=== PATIENT | female | born 1955 | race Caucasian/White ===

== ENCOUNTER → 2018-03-25 | Outpatient (CLI) | payer BC ==
[~2018-03-25] MED LIST: AMLO5TAB2 PO; ARIP10TA2 PO; ASP81CT; ASP81TEC PO; ASPI-84 PO; ATOR10TA PO; BISA5TAB81; BUTA-234 PO; CEPH500C PO; CHOL100011 PO; CHOL10003 PO; CHOL50003 PO; CIPR500T78 PO; CLIN-62; CLN.1T PO; CLN150C PO; CLON0.25; CLON0.5T3 PO; CPR500T PO; CYAN100T PO; DCS100C PO; DESV100T PO; DIPH25TA82 PO; ENDUR ACIN PO; ENDUR-ACIN PO; ERTAPENEM 1 GM IV; ESCI20TA2 PO; ESTR1TAB22; FISH OIL PO; FISH1CAP15 PO; FURO20TA4 PO; HYDR-3454 PO; HYDR-3714 PO; HYDR1CAP2 PO; HYDR25CA5 PO; INSU100I11 SQ; INSU100I16 SQ; INSU100V SQ; INSU100V5 SQ; INSU100V7 SC; INSU100V7 SQ; K-ROCEP1PB IV; LACT20SO2 PO; LCT30U GT; LEVE1U SQ; LINA5TAB PO; MAGN200T3 PO; MAGN400T6 PO; MECL-124 PO; METO5TAB2 PO; MTF500T PO; MULT-974 PO; MULT1TAB5 PO; NA P PO; NEBI5TAB8 PO; NF-LOVAZAC PO; NF-MAG64T PO; NFNEB10T PO; NFVALG450T PO; NIAC1000; NIAC750T PO; NIACIN 250 MG PO; OMEG1CAP PO; OMEP-10 PO; OMEP40CA36 PO; ONDN4T PO; PARI1CAP; PRD10T PO; PRD5T PO; PRED2.5T4 PO; RANI75TA30; RIFA550T PO; RPN.25T PO; SLOW-MAG64 M1 PO; SPIR50TA6 PO; SULF1TAB23 PO; TACR0.5C PO; TACR1CAP PO; TEMA22.53 PO; TMZP15C PO; TRM50T PO; ZOLP12.5; [UNRECOGNIZED DRUG - CODE] IV; [UNRECOGNIZED DRUG - CODE] PO; [UNRECOGNIZED DRUG - OTHER] PO; [UNRECOGNIZED DRUG - OTHER] SQ; prestiq PO; temazepam
--- NOTE | 2018-03-25 15:56 | Diagnostic Imaging Report ---
INDICATION: Screening for osteoporosis. EXAMINATION: DEXA scan. COMPARISON: This study was compared to the prior exam of 07/27/14. FINDINGS: The bone mineral density of the hips and spine was measured. The T-score for the spine is 3.2. Previously, the T-score was 1.7. The T-score for the left hip is 2.5 and for the right hip is 2.2. On the prior exam the T-score for each hip was 1.9. IMPRESSION: There has been increase in the bone mineral density of the spine and to a lesser extent the hips. The T-score values are well within normal limits. Dictated by: Dictated on workstation # [id number]
== END ==
LOC: RAD 10:16
PROVIDERS: ATTEND Internal Medicine
DX: Z13.820 Encounter for screening for osteoporosis (principal); Z78.0 Asymptomatic menopausal state
CPT/HCPCS: 77080

== ENCOUNTER 2018-11-11 18:01 | Emergency (ER) | payer BC ==
[~2018-11-11] VITALS: Ht 167.6 cm; Wt 86.2 kg
--- NOTE | 2018-11-11 18:22 | ED Upper Extremity ---
General Chief Complaint: Trauma-Non Activation Stated Complaint: RT SHOULDER PAIN Source: patient Exam Limitations: no limitations History of Present Illness Date Seen by Provider: Nov 11, 2018 Time Seen by Provider: 18:20 Initial Comments To ER per private vehicle with reports of right upper arm and shoulder pain. She was at her family member's house who had just , they're working on rearranging things. She tripped and fell landing on the right shoulder. She denies hitting her head, denies neck pain, denies chest abdomen pelvispain. She had some minimal discomfort to the right knee. Onset: just prior to arrival Severity: moderate Pain/Injury Location: right shoulder Method of Injury: fell Modifying Factors: Worse With Movement Allergies and Home Medications Allergies Coded Allergies: No Known Drug Allergies (Unverified , 12/25/13) Home Medications Aspirin 81 Mg Tabec, 81 MG PO HS, (Reported) Ceftriaxone Sodium 1 Gm/50 Ml Solution, 1 GM IV DAILY Prescribed by: TATIANA CLEMONS on 09/14/14 1406 Cholecalciferol 1,000 Unit Capsule, 1,000 UNIT PO DAILY, (Reported) Clonidine Hcl 0.1 Mg Tab, 0.1 MG PO BID Prescribed by: TATIANA CLEMONS on 09/14/14 1406 Insulin Detemir 1 Unit/0.01 Ml Soln, 75 UNIT SQ HS Prescribed by: TATIANA CLEMONS on 09/14/14 1406 Insulin Lispro 100 Unit/1 Ml Vial, S SQ ACHS PRN for SLIDING SCALE, (Reported) IF BLOOD SUGAR < 150 = 0 UNITS 151-199 = 1 UNIT 200-249 = 3 UNITS 250- 299 = 5 UNITS 300-349 = 7 UNITS 350-399 = 8 UNITS 400 OR ABOVE CALL PHYSICIAN Lactulose 10 Gm/15 Ml Syrp, 20 GM GT every other day Prescribed by: TATIANA CLEMONS on 09/14/14 1408 Linezolid 600 Mg/300 Iv.soln., 600 MG IV Q12H Prescribed by: TATIANA CLEMONS on 09/14/14 1406 Magnesium Oxide 400 Mg Tablet, 1 EACH PO BID WITH MEALS Prescribed by: CONNIE ZEPEDA on 10/08/14 1000 Nebivolol Hcl 10 Mg Tablet, 10 MG PO HS, (Reported) Omeprazole 40 Mg Capsule.dr, 40 MG PO DAILY, (Reported) Prednisone 5 Mg Tab, 5 MG PO DAILY, (Reported) Rifaximin 550 Mg Tablet, 550 MG PO BID, (Reported) Tacrolimus Anhydrous 0.5 Mg Capsule, 0.5 MG PO BID, (Reported) TAKES ALONG WITH TACROLIMUS 1MG FOR A TOTAL DAILY DOSE OF 1.5MG TWICE DAILY Tacrolimus Anhydrous 1 Mg Capsule, 1 MG PO BID, (Reported) TAKES ALONG WITH TACROLIMUS 0.5MG FOR A TOTAL DAILY DOSE OF 1.5MG TWICE DAILY [Endur-Acin 250MG] , 500 MG PO HS, (Reported) [Endur-Acin 250MG] , 250 MG PO DAILY, (Reported) [Endur-Acin 500MG] , 500 MG PO DAILY, (Reported) TAKES ALONG WITH 250MG FOR A TOTAL DAILY DOSE OF 750MG IN MORNING AND 1500MG IN THE EVENING [Endur-Acin 500MG] , 1,000 MG PO HS, (Reported) TAKES ALONG WITH 250MG FOR A TOTAL DAILY DOSE OF 750MG IN MORNING AND 1500MG IN THE EVENING Patient Home Medication List Home Medication List Reviewed: Yes Review of Systems Constitutional: see HPI EENTM: see HPI Respiratory: no symptoms reported Cardiovascular: no symptoms reported Genitourinary: no symptoms reported Musculoskeletal: see HPI Skin: no symptoms reported Psychiatric/Neurological: No Symptoms Reported Past Pvnaqit-Ozmvfh-Wjjole Hx Patient Social History Recent Foreign Travel: No Contact w/Someone Who Travel: No Immunizations Up To Date Tetanus Booster (TDap): More than 5yrs Date of Pneumonia Vaccine: Jul 05, 2014 Date of Influenza Vaccine: Jul 05, 2014 Seasonal Allergies Seasonal Allergies: Yes Past Medical History Bowel Surgery, Section, Coronary Stent, Gallbladder, Kidney Transplant , Nephrectomy, Orthopedic, Tonsillectomy, Tubal Ligation Heart Attack, Hypertension Neuropathy Reproductive Disorders: Yes Female Reproductive Disorders: Polycystic Ovarian Dis Polycystic Kidney Disease Gastroesophageal Reflux, Cirrhosis Diabetes, Insulin dep Kidney Depression Family Medical History Cataract (grandmother ) Chest pain 09 BROTHER Congestive heart failure (grandmother) Dementia (two paternal aunts) Family history: Alzheimer's disease (two paternal aunts) Family history: Arthritis (grandmother) Family history: Cardiovascular disease 09 BROTHER Family history: Hypertension 09 BROTHER Heart disease 09 BROTHER Kidney disease 03 MOTHER Stroke (paternal aunt) No Family History of: Abdominal aortic aneurysm Wanblee's disease Alcoholism Aphasia Cancer Cancer of colon Congenital heart disease Cystic fibrosis Dysphagia Family history: Allergy Family history: Asthma Family history: Breast disease Family history: Coronary thrombosis Family history: Diabetes mellitus Family history: Gastrointestinal disease Family history: Glaucoma Family history: Osteoporosis Family history: Thyroid disorder Headache Hearing loss Hereditary disease History of - anemia History of - disorder History of - respiratory disease History of drug abuse Human immunodeficiency virus (HIV) seropositivity Hypercholesterolemia Malignant neoplasm of lung Myocardial infarction Parkinson's disease Prostate cancer Psychotic disorder Seizure disorder Tuberculosis Visual impairment Physical Exam Vital Signs Vital Signs - First Documented 11/11/18 18:04 Temp 96.8 Pulse 66 Resp 16 B/P (MAP) 167/64 (98) Pulse Ox 98 Capillary Refill : Height, Weight, BMI Height: 5'6.00" Weight: 210lbs. 0.0oz. 95.999776fi; BMI Method:Estimated General Appearance: WD/WN, no apparent distress HEENT: PERRL/EOMI, normal ENT inspection, TMs normal Neck: non-tender, full range of motion; No tender lateral, No tender midline Respiratory: no respiratory distress, no accessory muscle use Gastrointestinal: normal bowel sounds, non tender Shoulder: limited ROM, pain, soft tissue tenderness; No swelling Elbow/Forearm: normal inspection, non-tender, Right Wrist: Yes normal inspection, Yes non-tender Hand: normal inspection, non-tender Neurologic/Psychiatric: alert, normal mood/affect, oriented x 3 Skin: normal color, warm/dry There is a small pea sized ecchymosis to the right anterior knee over the patella. She is able to fully extend her leg at the knee. No palpable effusion or erythema. No value in plain films for this. Progress/Results/Core Measures Results/Orders My Orders Orders - PREET HAHN APRN Shoulder, Right, 3 Views (11/11/18 18:19) Humerus, Right, 2 Views (11/11/18 18:19) Hydrocodone/Apap 5/325 Tablet (Lortab 5 (11/11/18 18:30) Medications Given in ED Current Medications Medications Dose Ordered Sig/Dani Route Start Time Stop Time Status Last Admin Dose Admin Acetaminophen/ Hydrocodone Bitart 1 tab ONCE ONCE PO 11/11/18 18:30 11/11/18 18:31 DC 11/11/18 18:25 1 TAB Vital Signs/I&O 11/11/18 11/11/18 18:04 18:09 Temp 96.8 96.8 Pulse 66 66 Resp 16 18 B/P (MAP) 167/64 (98) 167/64 (98) Pulse Ox 98 98 Departure Impression Primary Impression: Shoulder contusion Qualified Codes: S40.011A - Contusion of right shoulder, initial encounter Disposition: HOME, SELF-CARE Condition: Stable Departure-Patient Inst. Decision time for Depature: 19:38 Referrals: MERCY STALEY MD (PCP/Family) Primary Care Physician Patient Instructions: Contusion (DC) Add. Discharge Instructions: 1. Call Dr. Staley tomorrow to make an appointment to be seen for follow-up next week. If the pain persists the next step would likely be to order an MRI of the shoulder to further evaluate the labrum of the rotator cuff. Take the pain medication as needed for pain control in the meantime and wear the sling as needed for pain control as well. All discharge instructions reviewed with patient and/or family. Voiced understanding. Scripts Hydrocodone/Acetaminophen (Hydrocodone-Acetamin 5-325 mg) 1 Each Tablet 1 TAB PO Q4-6HR for PAIN-MODERATE MDD 10, #10 TAB Prov: PREET HAHN APRN 11/11/18 PREET HAHN APRN Nov 11, 2018 18:22
[2018-11-11] MEDS ORDERED: HYDROcodone/APAP 5 MG/325 MG (LORTAB) TAB PO ONE (18:30)
--- NOTE | 2018-11-11 19:45 | Diagnostic Imaging Report ---
INDICATION: Pain after fall. Three views were obtained. FINDINGS: The alignment is normal. There are mild degenerative changes. There is no fracture or dislocation. Right lung is clear. Soft tissues are unremarkable. IMPRESSION: Mild degenerative change, otherwise unremarkable. Dictated by: Dictated on workstation # [id number]
--- NOTE | 2018-11-11 19:45 | Diagnostic Imaging Report ---
INDICATION: Fall. Right shoulder and humerus pain. FINDINGS: Alignment of the glenohumeral joint appears unremarkable. AC joint alignment appears normal. There is no acute femoral fracture evident. There are multiple surgical clips demonstrated within the distal upper arm at the level of the antecubital fossa. IMPRESSION: 1. No evidence of an acute humeral fracture, dislocation or malalignment. Dictated by: Dictated on workstation # [id number]
[2018-11-11] MEDS ORDERED: HYDR-3812 PO (19:48)
[2018-11-11 19:57] VITALS: BP 167/64
[2018-11-11] MEDS ORDERED: RX-HYDROCODONE/APAP 5/325 MG #4 TAB PK PO PRN (20:00)
== END 2018-11-11 19:58 | disposition home or self-care (01) ==
LOC: EDUNIT# 18:01 → ER 18:04
DX: S40.011A Contusion of right shoulder, initial encounter (principal); I25.2 Old myocardial infarction; I10 Essential (primary) hypertension; E11.40 Type 2 diabetes mellitus with diabetic neuropathy, unspecified; K21.9 Gastro-esophageal reflux disease without esophagitis; F32.9 Major depressive disorder, single episode, unspecified; Z82.49 Family history of ischemic heart disease and other diseases of the circulatory system; Z87.448 Personal history of other diseases of urinary system; Z79.82 Long term (current) use of aspirin; Z79.4 Long term (current) use of insulin; Z98.890 Other specified postprocedural states; Z95.5 Presence of coronary angioplasty implant and graft; Z94.0 Kidney transplant status; Z90.89 Acquired absence of other organs; Z98.51 Tubal ligation status; Z90.5 Acquired absence of kidney; W01.0XXA Fall on same level from slipping, tripping and stumbling without subsequent striking against object, initial encounter
CPT/HCPCS: 73030; 73060

== ENCOUNTER → 2018-11-18 | Outpatient (CLI) | payer BC ==
[~2018-11-18] MED LIST changes: +HYDR-3812 PO
--- NOTE | 2018-11-18 10:36 | Diagnostic Imaging Report ---
PROCEDURE: MRI right joint upper extremity without contrast. TECHNIQUE: Multiplanar, multisequence non contrast-enhanced MRI of the right upper extremity was accomplished. INDICATION: Recent fall, complaining of pain and decreased range of motion in the right shoulder. FINDINGS: There is a tear involving the subscapularis tendon of the rotator cuff. The biceps tendon is no longer located within the bicipital groove. The biceps tendon has been dislocated medially. The biceps tendon is located superficial to the subscapularis tendon. In addition, there appears to be a complete tear of the subscapularis tendon of the rotator cuff. Subscapular tendon is retracted to the glenohumeral joint. There also appears to be a complete tear of the infraspinatus tendon of the rotator cuff which is retracted. There is superior migration of the humeral head in relation to the glenoid. The humeral head now articulates with the undersurface of the acromion. There is shoulder joint effusion present. AC alignment is maintained. There is a small amount of fluid in the subacromial subdeltoid bursa. Osseous structures are unremarkable. No fracture is identified. IMPRESSION: Tears involving the subscapularis, supraspinatus and infraspinatus tendons of the rotator cuff with retraction, as described. There is superior migration of the humeral head, articulating with the undersurface of the acromion. In addition, the biceps tendon is dislocated medially from the bicipital groove. Dictated by: Dictated on workstation # [id number]
== END ==
LOC: RAD 08:43
PROVIDERS: ATTEND Physician Assistant
DX: S46.011A Strain of muscle(s) and tendon(s) of the rotator cuff of right shoulder, initial encounter (principal); M75.81 Other shoulder lesions, right shoulder; W19.XXXA Unspecified fall, initial encounter
CPT/HCPCS: 73221

== ENCOUNTER → 2019-06-15 | Outpatient (CLI) | payer BC ==
[2019-06-15 15:38] LABS: BILIRUBIN,URINE NEGATIVE (NEGATIVE); CLARITY,URINE CLEAR; COLOR,URINE YELLOW; GLUCOSE, URINE (UA) NEGATIVE (NEGATIVE); KETONES,URINE NEGATIVE (NEGATIVE); LEUKOCYTE ESTERASE ,URINE 2+ (NEGATIVE); NITRITE,URINE NEGATIVE (NEGATIVE); PH,URINE 5 (5-9); PROTEIN,URINE 3+ (NEGATIVE); UROBILINOGEN,URINE NORMAL (NORMAL)
[2019-06-15 15:45] LABS: BASOPHILS % (AUTO) 0 % (0-10); EOSINOPHILS # (AUTO) 0.1 10^3/uL (0.0-0.3); EOSINOPHILS % (AUTO) 2 % (0-10); HEMATOCRIT 38 % (35-52); HEMOGLOBIN 12.7 G/DL (11.5-16.0); LYMPHOCYTES # (AUTO) 1.2 X 10^3 (1.0-4.0); LYMPHOCYTES % (AUTO) 14 % (12-44); MEAN CORPUSCULAR HEMOGLOBIN 31 PG (25-34); MEAN CORPUSCULAR HGB CONC 34 G/DL (32-36); MEAN CORPUSCULAR VOLUME 90 FL (80-99); MEAN PLATELET VOLUME 10.3 FL (7.4-10.4); MONOCYTES # (AUTO) 0.4 X 10^3 (0.0-1.0); MONOCYTES % (AUTO) 5 % (0-12); NEUTROPHILS # (AUTO) 6.8 X 10^3 (1.8-7.8); NEUTROPHILS % (AUTO) 80 % (42-75); PLATELET COUNT 209 10^3/uL (130-400); RED CELL DISTRIBUTION WIDTH 13.9 % (10.0-14.5); WHITE BLOOD COUNT 8.6 10^3/uL (4.3-11.0)
[2019-06-15 15:51] LABS: BACTERIA,URINE NEGATIVE /HPF; RBC,URINE 0-2 /HPF; SQUAMOUS EPITHELIAL CELL,UR 0-2 /HPF; WBC,URINE 0-2 /HPF
[2019-06-15 16:05] LABS: ALBUMIN 4.2 GM/DL (3.2-4.5); BILIRUBIN,TOTAL 0.3 MG/DL (0.1-1.0); CALCIUM 10.5 MG/DL (8.5-10.1); CREATININE SERUM 1.01 MG/DL (0.60-1.30); PHOSPHORUS 2.6 MG/DL (2.3-4.7); POTASSIUM 4.3 MMOL/L (3.6-5.0); TOTAL PROTEIN 7.4 GM/DL (6.4-8.2)
[2019-06-15 17:00] LABS: MAGNESIUM 1.1 MG/DL (1.6-2.4)
== END ==
LOC: LAB 15:29
PROVIDERS: ATTEND Internal Medicine
DX: Z51.81 Encounter for therapeutic drug level monitoring (principal); E11.9 Type 2 diabetes mellitus without complications; I10 Essential (primary) hypertension; I25.10 Atherosclerotic heart disease of native coronary artery without angina pectoris
CPT/HCPCS: 36415; 80053; 81000; 83735; 84100; 84443; 85025

== ENCOUNTER 2019-06-21 13:11 | Outpatient (CLI) | payer BC ==
[2019-06-21] MEDS: MAGNESIUM 1 GM/D5W 100 ML IVPB IV SCH ×2 (13:37→14:41)
[2019-06-21 15:48] VITALS: BP 134/64
== END 2019-06-21 15:48 | disposition home or self-care (01) ==
LOC: SDC 13:11
PROVIDERS: ATTEND Internal Medicine
DX: E83.42 Hypomagnesemia (principal)

== ENCOUNTER → 2019-10-05 | Outpatient (CLI) | payer BC ==
--- NOTE | 2019-10-05 15:23 | Diagnostic Imaging Report ---
INDICATION: Cough and difficulty breathing. TIME OF EXAMINATION: 3:19 PM. COMPARISON: Correlation is made with the prior chest of 09/08/2014. FINDINGS: There is infiltrate in the left upper lobe. The remaining lung colmenares are clear. There is no effusion. No pneumothorax is seen. IMPRESSION: Left upper lobe pneumonia. Dictated by: Dictated on workstation # [id number]
== END ==
LOC: RAD 14:12
PROVIDERS: ATTEND Physician Assistant
DX: J18.9 Pneumonia, unspecified organism (principal)
CPT/HCPCS: 71046

== ENCOUNTER → 2019-10-10 | Outpatient (CLI) | payer BC ==
--- NOTE | 2019-10-10 09:20 | Diagnostic Imaging Report ---
INDICATION: Pneumonia. Comparison is made with prior examination from 10/05/2019. PA and lateral views were obtained. FINDINGS: The heart size, mediastinal configuration, and pulmonary vascularity are within normal limits. There is no pleural effusion, pneumothorax, or pneumonia. The osseous structures are unremarkable. IMPRESSION: No acute cardiopulmonary abnormality. Dictated by: Dictated on workstation # [id number]
== END ==
LOC: RAD 08:51
PROVIDERS: ATTEND Physician Assistant
DX: J18.9 Pneumonia, unspecified organism (principal)
CPT/HCPCS: 71046

== ENCOUNTER 2019-10-21 23:11 | Inpatient (IN) | payer BC ==
[~2019-10-21] VITALS: Ht 167.6 cm; Wt 88.7 kg
[2019-10-21 23:11] VITALS: BP 148/61
[2019-10-21] MEDS ORDERED: NS IV 1000 ML 1,000 ML IV SCH ×2 (23:24)
[2019-10-21] MEDS ORDERED: VANCOMYCIN INJECTION 1,000 MG in NS (IVPB) 250 ML IV ONE (23:30)
[2019-10-21] MEDS ORDERED: ACETAMINOPHEN 500 MG TAB (TYLENOL) PO PRN (23:30)
[2019-10-21] MEDS ORDERED: CEFEPIME INJECTION 1,000 MG in WATER (STERILE) FOR INJECTION 10 ML IV ONE (23:30)
[2019-10-21 23:43] LABS: BASOPHILS % (AUTO) 0 % (0-10); EOSINOPHILS # (AUTO) 0.1 10^3/uL (0.0-0.3); EOSINOPHILS % (AUTO) 0 % (0-10); HEMATOCRIT 37 % (35-52); HEMOGLOBIN 12.1 G/DL (11.5-16.0); LYMPHOCYTES # (AUTO) 1.1 X 10^3 (1.0-4.0); LYMPHOCYTES % (AUTO) 7 % (12-44); MEAN CORPUSCULAR HEMOGLOBIN 30 PG (25-34); MEAN CORPUSCULAR HGB CONC 33 G/DL (32-36); MEAN CORPUSCULAR VOLUME 89 FL (80-99); MEAN PLATELET VOLUME 9.9 FL (7.4-10.4); MONOCYTES # (AUTO) 1.1 X 10^3 (0.0-1.0); MONOCYTES % (AUTO) 6 % (0-12); NEUTROPHILS # (AUTO) 14.1 X 10^3 (1.8-7.8); NEUTROPHILS % (AUTO) 86 % (42-75); PLATELET COUNT 268 10^3/uL (130-400); RED CELL DISTRIBUTION WIDTH 15.5 % (10.0-14.5); WHITE BLOOD COUNT 16.4 10^3/uL (4.3-11.0)
--- NOTE | 2019-10-21 23:43 | ED General ---
General Stated Complaint: WEAKNESS,AMS Source of Information: Patient, EMS Exam Limitations: No Limitations History of Present Illness Date Seen by Provider: Oct 21, 2019 Time Seen by Provider: 23:20 Initial Comments Patient presents to ER from home with chief complaint of altered mental status according to her , confusion about what is going on and some swelling about her knee which was replaced surgically by Dr. Perez last week. He says she did well and she was able to go to bed and get up and go the bathroom on her own multiple times. She has had urinary tract infections with confusion in the past. She is diabetic blood sugar was 170s according to EMS. She is not on blood thinners. She has not had any hydrocodone since yesterday. Her said she was doing fine earlier. She denies any pain shortness of breath cough numbness weakness nausea vomiting or diarrhea. Patient has a fever of 102 per EMS as well as elevated heart rate of 98. She does not smoke drink or do drugs. No history of lung disease. EMS reports that she had an oxygen saturation 91% so they put her on 2 L by nasal cannula. She does not use supplemental oxygen at baseline. The also remarks she's had some nasal congestion since he's been using nasal saline sprays to help open her nose. The patient is on prednisone 10 mg daily as well as Tacrolimus for kidney transplant secondary PCO S. She says she also has rifaximin that she takes because of polycystic liver disease. Allergies and Home Medications Allergies Coded Allergies: No Known Drug Allergies (Unverified , 12/25/13) Home Medications Aspirin 81 Mg Tabec, 81 MG PO HS, (Reported) Ceftriaxone Sodium 1 Gm/50 Ml Solution, 1 GM IV DAILY Prescribed by: TATIANA CLEMONS on 09/14/14 140 Cholecalciferol 1,000 Unit Capsule, 1,000 UNIT PO DAILY, (Reported) Clonidine Hcl 0.1 Mg Tab, 0.1 MG PO BID Prescribed by: TATIANA CLEMONS on 09/14/14 140 Hydrocodone/Acetaminophen 1 Each Tablet, 1 TAB PO Q4-6HR Prescribed by: PREET HAHN on 11/11/181947 Insulin Detemir 1 Unit/0.01 Ml Soln, 75 UNIT SQ HS Prescribed by: TATIANA CLEMONS on 09/14/14 140 Insulin Lispro 100 Unit/1 Ml Vial, S SQ ACHS PRN for SLIDING SCALE, (Reported) IF BLOOD SUGAR < 150 = 0 UNITS 151-199 = 1 UNIT 200-249 = 3 UNITS 250- 299 = 5 UNITS 300-349 = 7 UNITS 350-399 = 8 UNITS 400 OR ABOVE CALL PHYSICIAN Lactulose 10 Gm/15 Ml Syrp, 20 GM GT every other day Prescribed by: TATIANA CLEMONS on 09/14/14 1408 Linezolid 600 Mg/300 Iv.soln., 600 MG IV Q12H Prescribed by: TATIANA CLEMONS on 09/14/14 1406 Magnesium Oxide 400 Mg Tablet, 1 EACH PO BID WITH MEALS Prescribed by: CONNIE ZEPEDA on 10/08/14 1000 Nebivolol Hcl 10 Mg Tablet, 10 MG PO HS, (Reported) Omeprazole 40 Mg Capsule.dr, 40 MG PO DAILY, (Reported) Prednisone 5 Mg Tab, 5 MG PO DAILY, (Reported) Rifaximin 550 Mg Tablet, 550 MG PO BID, (Reported) Tacrolimus Anhydrous 0.5 Mg Capsule, 0.5 MG PO BID, (Reported) TAKES ALONG WITH TACROLIMUS 1MG FOR A TOTAL DAILY DOSE OF 1.5MG TWICE DAILY Tacrolimus Anhydrous 1 Mg Capsule, 1 MG PO BID, (Reported) TAKES ALONG WITH TACROLIMUS 0.5MG FOR A TOTAL DAILY DOSE OF 1.5MG TWICE DAILY [Endur-Acin 250MG] , 500 MG PO HS, (Reported) [Endur-Acin 250MG] , 250 MG PO DAILY, (Reported) [Endur-Acin 500MG] , 500 MG PO DAILY, (Reported) TAKES ALONG WITH 250MG FOR A TOTAL DAILY DOSE OF 750MG IN MORNING AND 1500MG IN THE EVENING [Endur-Acin 500MG] , 1,000 MG PO HS, (Reported) TAKES ALONG WITH 250MG FOR A TOTAL DAILY DOSE OF 750MG IN MORNING AND 1500MG IN THE EVENING Patient Home Medication List Home Medication List Reviewed: Yes Review of Systems Review of Systems Constitutional: chills, diaphoresis, fever, malaise EENTM: No ear discharge, No ear pain Respiratory: No cough, No phlegm; short of breath Cardiovascular: No edema, No Hx of Intervention, No syncope Gastrointestinal: No abdominal pain, No constipation, No diarrhea, No nausea Genitourinary: No discharge, No dysuria Musculoskeletal: No back pain, No joint pain Skin: No pruritus, No rash Psychiatric/Neurological: Denies Headache, Denies Numbness Past Wlqqwym-Afcoyc-Imejya Hx Patient Social History Alcohol Use: Denies Use Recreational Drug Use: No Smoking Status: Never a Smoker 2nd Hand Smoke Exposure: No Recent Foreign Travel: No Contact w/Someone Who Travel: No Recent Hopitalizations: Yes Immunizations Up To Date Tetanus Booster (TDap): More than 5yrs Date of Pneumonia Vaccine: Jul 05, 2014 Date of Influenza Vaccine: Jul 05, 2014 Seasonal Allergies Seasonal Allergies: Yes Past Medical History Surgeries: Yes (Right arm fistula) Bowel Surgery, Section, Coronary Stent, Gallbladder, Kidney Transplant, Nephrectomy, Orthopedic, Tonsillectomy, Tubal Ligation Respiratory: No Cardiac: Yes (Stent) Heart Attack, Hypertension Neurological: Yes Neuropathy Reproductive Disorders: Yes Female Reproductive Disorders: Polycystic Ovarian Dis Sexually Transmitted Disease: No HIV/AIDS: No Polycystic Kidney Disease Gastrointestinal: Yes Gastroesophageal Reflux, Cirrhosis Musculoskeletal: No Endocrine: Yes Diabetes, Insulin dep Cancer: Yes Kidney Psychosocial: Yes Depression Integumentary: No Blood Disorders: No Family Medical History Cataract (grandmother ) Chest pain 09 BROTHER Congestive heart failure (grandmother) Dementia (two paternal aunts) Family history: Alzheimer's disease (two paternal aunts) Family history: Arthritis (grandmother) Family history: Cardiovascular disease 09 BROTHER Family history: Hypertension 09 BROTHER Heart disease 09 BROTHER Kidney disease 03 MOTHER Stroke (paternal aunt) No Family History of: Abdominal aortic aneurysm Fedscreek's disease Alcoholism Aphasia Cancer Cancer of colon Congenital heart disease Cystic fibrosis Dysphagia Family history: Allergy Family history: Asthma Family history: Breast disease Family history: Coronary thrombosis Family history: Diabetes mellitus Family history: Gastrointestinal disease Family history: Glaucoma Family history: Osteoporosis Family history: Thyroid disorder Headache Hearing loss Hereditary disease History of - anemia History of - disorder History of - respiratory disease History of drug abuse Human immunodeficiency virus (HIV) seropositivity Hypercholesterolemia Malignant neoplasm of lung Myocardial infarction Parkinson's disease Prostate cancer Psychotic disorder Seizure disorder Tuberculosis Visual impairment Physical Exam-Suspected Sepsis Physical Exam Vital Signs Vital Signs - First Documented 10/22/19 02:17 O2 Flow Rate 3.00 Capillary Refill : Height, Weight, BMI Height: 5'6.00" Weight: 190lbs. 0.0oz. [id number]; BMI Method:Stated General Appearance: Anxious, Mild Distress Eyes: Bilateral Eye Normal Inspection, Bilateral Eye PERRL, Bilateral Eye EOMI HEENT: PERRL/EOMI, Pharynx Normal, Moist Mucous Membranes Neck: Full Range of Motion, Normal Inspection, Supple Respiratory: Lungs Clear, Normal Breath Sounds, No Accessory Muscle Use, Respir atory Distress (mild spo2 91%) Cardiovascular: Regular Rate, Rhythm, No Edema, Normal Peripheral Pulses Gastrointestinal: Normal Bowel Sounds, No Organomegaly Back: Normal Inspection, No Vertebral Tenderness Extremity: Normal Capillary Refill, Normal Inspection, Swelling (left knee swelling, mild patch and very mild erythema surrounding the dressing. No fluctuance or discharge.) Neurologic/Psychiatric: Alert, Oriented x3, No Motor/Sensory Deficits Skin: normal color, warm/dry Focused Exam Sepsis Stage: Sepsis Possible Source: Genitouriary Lactate Level 10/21/19 23:20: Lactic Acid Level 1.76 Time of Focused Exam: 00:01 Respiratory: Chest Non Tender, Lungs Clear, Normal Breath Sounds, No Accessory Muscle Use, Respiratory Distress (mild O2 sats 96-100% on 2 L by nasal cannula) Cardiovascular: Regular Rate, Rhythm, Normal Peripheral Pulses Capillary Refill: Less Than 3 Seconds Peripheral Pulses: 2+ Radial Pulses (R), 2+ Radial Pulses (L) Skin: normal color, warm/dry Lactic Acid Level Within 3hrs of presentation: Admin fluids, Admin 30ml/kg IBW due to BMI>30, Admin ABX, Blood cultures prior to ABX's, Focus exam, Lactate level Progress/Results/Core Measures Suspected Sepsis SIRS Temperature: Pulse: Respiratory Rate: Laboratory Tests 10/21/19 23:20: White Blood Count 16.4H Blood Pressure / Mean: 10/21/19 23:20: Lactic Acid Level 1.76 Laboratory Tests 10/21/19 23:20: Creatinine 1.03, INR Comment 1.1, Platelet Count 268, Total Bilirubin 1.1H Results/Orders Lab Results Laboratory Tests Test 10/21/19 23:20 10/21/19 23:34 Range/Units White Blood Count 16.4 H 4.3-11.0 10^3/uL Red Blood Count 4.09 L 4.35-5.85 10^6/uL Hemoglobin 12.1 11.5-16.0 G/DL Hematocrit 37 35-52 % Mean Corpuscular Volume 89 80-99 FL Mean Corpuscular Hemoglobin 30 25-34 PG Mean Corpuscular Hemoglobin Concent 33 32-36 G/DL Red Cell Distribution Width 15.5 H 10.0-14.5 % Platelet Count 268 130-400 10^3/uL Mean Platelet Volume 9.9 7.4-10.4 FL Neutrophils (%) (Auto) 86 H 42-75 % Lymphocytes (%) (Auto) 7 L 12-44 % Monocytes (%) (Auto) 6 0-12 % Eosinophils (%) (Auto) 0 0-10 % Basophils (%) (Auto) 0 0-10 % Neutrophils # (Auto) 14.1 H 1.8-7.8 X 10^3 Lymphocytes # (Auto) 1.1 1.0-4.0 X 10^3 Monocytes # (Auto) 1.1 H 0.0-1.0 X 10^3 Eosinophils # (Auto) 0.1 0.0-0.3 10^3/uL Basophils # (Auto) 0.0 0.0-0.1 10^3/uL Neutrophils % (Manual) 82 % Lymphocytes % (Manual) 11 % Monocytes % (Manual) 4 % Band Neutrophils 3 % Nucleated Red Blood Cells 2 Blood Morphology Comment NORMAL Prothrombin Time 14.6 12.2-14.7 SEC INR Comment 1.1 0.8-1.4 Activated Partial Thromboplast Time 34 24-35 SEC Sodium Level 134 L 135-145 MMOL/L Potassium Level 4.3 3.6-5.0 MMOL/L Chloride Level 97 L 98-107 MMOL/L Carbon Dioxide Level 22 21-32 MMOL/L Anion Gap 15 H 5-14 MMOL/L Blood Urea Nitrogen 17 7-18 MG/DL Creatinine 1.03 0.60-1.30 MG/DL Estimat Glomerular Filtration Rate 54 BUN/Creatinine Ratio 17 Glucose Level 156 H 70-105 MG/DL Lactic Acid Level 1.76 0.50-2.00 MMOL/L Calcium Level 10.6 H 8.5-10.1 MG/DL Corrected Calcium 10.7 H 8.5-10.1 MG/DL Total Bilirubin 1.1 H 0.1-1.0 MG/DL Aspartate Amino Transf (AST/SGOT) 15 5-34 U/L Alanine Aminotransferase (ALT/SGPT) 17 0-55 U/L Alkaline Phosphatase 82 40-136 U/L Ammonia 15 11-32 UMOL/L Total Protein 7.5 6.4-8.2 GM/DL Albumin 3.9 3.2-4.5 GM/DL Urine Color YELLOW Urine Clarity CLEAR Urine pH 7.0 5-9 Urine Specific [place] 1.020 1.016-1.022 Urine Protein 2+ H NEGATIVE Urine Glucose (UA) NEGATIVE NEGATIVE Urine Ketones NEGATIVE NEGATIVE Urine Nitrite POSITIVE H NEGATIVE Urine Bilirubin NEGATIVE NEGATIVE Urine Urobilinogen 0.2 < = 1.0 MG/DL Urine Leukocyte Esterase NEGATIVE NEGATIVE Urine RBC (Auto) 2+ H NEGATIVE Urine RBC 5-10 H /HPF Urine WBC 2-5 /HPF Urine Squamous Epithelial Cells NONE /HPF Urine Crystals NONE /LPF Urine Bacteria MODERATE H /HPF Urine Casts NONE /LPF Urine Mucus SMALL H /LPF Urine Culture Indicated CULTURE PENDING Micro Results Microbiology 10/21/19 Influenza Types A,B Antigen (MEENAKSHI) - Final, Complete My Orders Orders - PAYTON STEELE Cbc With Automated Diff (10/21/19 23:24) Comprehensive Metabolic Panel (10/21/19 23:24) Blood Culture (10/21/19 23:24) Sputum Culture (10/21/19 23:24) Urinalysis (10/21/19 23:24) Urine Culture (10/21/19 23:24) Protime With Inr (10/21/19 23:24) Partial Thromboplastin Time (10/21/19 23:24) Chest 1 View, Ap/Pa Only (10/21/19 23:24) Acetaminophen Tablet (Tylenol Tablet) (10/21/19 23:30) Ed Iv/Invasive Line Start (10/21/19 23:24) Ed Iv/Invasive Line Start (10/21/19 23:24) Vital Signs Adult Sepsis Patie Q15M (10/21/19 23:24) O2 (10/21/19 23:24) Remove Rings In Anticipation O (10/21/19 23:24) Lactic Acid Analyzer (10/21/19 23:24) Influenza A And B Antigens (10/21/19 23:24) Ns Iv 1000 Ml (Sodium Chloride 0.9%) (10/21/19 23:24) Cefepime Injection (Maxipime Injection) (10/21/19 23:30) Vancomycin Injection (Vancomycin Injecti (10/21/19 23:30) Ed Iv/Invasive Line Start (10/21/19 23:24) Ns Iv 1000 Ml (Sodium Chloride 0.9%) (10/21/19 23:24) Catheter(Urinary) Insert & Ass 03,15 (10/21/19 23:24) Manual Differential (10/21/19 23:20) Ammonia (10/22/19 00:10) Medications Given in ED Current Medications Medications Dose Ordered Sig/Dani Route Start Time Stop Time Status Last Admin Dose Admin Acetaminophen 1,000 mg ONCE PRN PO 10/21/19 23:30 10/21/19 23:45 DC 10/21/19 23:44 1,000 MG Cefepime HCl 1000 mg/Sterile Water 10 ml @ 200 mls/hr ONCE ONCE IV 10/21/19 23:30 10/21/19 23:36 DC 10/21/19 23:57 200 MLS/HR Vancomycin HCl 1000 mg/Sodium Chloride 250 ml @ 250 mls/hr ONCE ONCE IV 10/21/19 23:30 10/22/19 00:29 DC 10/21/19 23:57 250 MLS/HR Vital Signs/I&O 10/21/19 10/21/19 10/21/19 10/21/19 23:11 23:11 23:11 23:44 Temp 39.2 39.2 39.2 39.2 Pulse 99 99 99 Resp 20 20 20 B/P (MAP) 148/61 (90) 148/61 (90) 148/61 Pulse Ox 98 98 98 O2 Delivery Room Air 10/22/19 10/22/19 10/22/19 10/22/19 00:52 02:15 02:17 02:38 Temp 38.6 36.4 Pulse 80 70 Resp 16 20 B/P (MAP) 123/49 (90) 141/64 Pulse Ox 93 98 O2 Delivery Room Air Nasal Cannula Room Air O2 Flow Rate 3.00 3.00 10/22/19 00:00 Intake Total 10 ml Balance 10 ml Capillary Refill : Progress Note : Time: 00:07 Progress Note Septic workup. The knee does not look very red. We'll get an influenza, chest x- ray, urinalysis and put a Turcios catheter in. The patient has altered mental status which is likely delirium secondary to infection. Tylenol for fever. 2 L IV. Diagnostic Imaging Diagonstic Imaging: Xray Plain Films/CT/US/NM/MRI: chest (1v) Comments No acute cardiopulmonary processes noted on one view chest x-ray. Reviewed: Reviewed by Me Departure Communication (Admissions) Time/Spoke to Admitting Phy: 01:40 Discussed case lab imaging with Dr. Ross and he agrees to admit to the floor for UTI and sepsis. Impression Primary Impression: UTI (urinary tract infection) Qualified Codes: N30.01 - Acute cystitis with hematuria Additional Impression: Sepsis Qualified Codes: A41.9 - Sepsis, unspecified organism; R65.20 - Severe sepsis without septic shock; G93.40 - Encephalopathy, unspecified Disposition: HOME, SELF-CARE Condition: Stable Admissions Decision to Admit Reason: Admit from ER (General) Decision to Admit/Date: Oct 22, 2019 Time/Decision to Admit Time: 00:45 Departure-Patient Inst. Referrals: MERCY STALEY MD (PCP/Family) Primary Care Physician PAYTON STEELE Oct 21, 2019 23:43
[2019-10-21 23:57] LABS: ALBUMIN 3.9 GM/DL (3.2-4.5); BILIRUBIN,TOTAL 1.1 MG/DL (0.1-1.0); CALCIUM 10.6 MG/DL (8.5-10.1); CREATININE SERUM 1.03 MG/DL (0.60-1.30); POTASSIUM 4.3 MMOL/L (3.6-5.0); TOTAL PROTEIN 7.5 GM/DL (6.4-8.2)
[2019-10-22] LABS: INR 1.1 (0.8-1.4); PROTHROMBIN TIME PATIENT 14.6 SEC (12.2-14.7)
[2019-10-22 00:06] LABS: BAND NEUTROPHILS 3 %; LYMPHOCYTES % (MANUAL) 11 %; MONOCYTES % (MANUAL) 4 %; NEUTROPHILS % (MANUAL) 82 %; NUCLEATED RED BLOOD CELLS 2; RBC MORPH NORMAL
[2019-10-22 00:41] LABS: BILIRUBIN,URINE NEGATIVE (NEGATIVE); CLARITY,URINE CLEAR; COLOR,URINE YELLOW; GLUCOSE, URINE (UA) NEGATIVE (NEGATIVE); KETONES,URINE NEGATIVE (NEGATIVE); LEUKOCYTE ESTERASE ,URINE NEGATIVE (NEGATIVE); NITRITE,URINE POSITIVE (NEGATIVE); PROTEIN,URINE 2+ (NEGATIVE)
[2019-10-22 00:48] LABS: BACTERIA,URINE MODERATE /HPF
--- NOTE | 2019-10-22 02:03 | NUR ---
RECEIVED REPORT FROM JESSICA ARSHAD.
--- NOTE | 2019-10-22 02:17 | NUR ---
ANNEMARIE DOVE admitted to room 427-1, with an admitting diagnosis of UTI, SEPSIS, HYPOXIA, on 10/22/19 from [facility] ER via [facility], accompanied by ER STAFF AND . ANNEMARIE DOVE introduced to surroundings, call light, bed controls, phone, TV, temperature control, lights, meal times, smoking policy, visitor policy, side rail policy, bathrooms and showers. Patient Rights given to patient in the handbook. ANNEMARIE DOVE verbalizes understanding that [facility] is not responsible for the loss or damage to any personal effects or valuables that are kept in the patients posession during their hospitalization. Patient and family were informed about the Rapid Response Team and its purpose.
[2019-10-22 02:38] VITALS: BP 141/64
[2019-10-22] MEDS ORDERED: NS IV 1000 ML 1,000 ML ONE (02:47)
[2019-10-22] MEDS: NS IV 1000 ML 1,000 ML IV SCH ×3 (02:58→23:55)
[2019-10-22] MEDS ORDERED: ONDANSETRON 4 MG/2 ML (SDV) Z0FRAN IV PRN (03:45)
[2019-10-22 04:03] VITALS: BP 145/64
[2019-10-22] MEDS: inSUlin ASPART (NovoLOG) 1 UNIT/0.01 ML (CHARGE PER UNIT) SC SCH ×7 (05:55→19:49)
[2019-10-22] MEDS: predniSONE 5 MG TAB PO SCH (06:32)
[2019-10-22 07:35] LABS: BASOPHILS % (AUTO) 0 % (0-10); EOSINOPHILS # (AUTO) 0.1 10^3/uL (0.0-0.3); EOSINOPHILS % (AUTO) 1 % (0-10); HEMATOCRIT 31 % (35-52); LYMPHOCYTES # (AUTO) 0.9 X 10^3 (1.0-4.0); LYMPHOCYTES % (AUTO) 8 % (12-44); MEAN CORPUSCULAR HEMOGLOBIN 29 PG (25-34); MEAN CORPUSCULAR HGB CONC 32 G/DL (32-36); MEAN CORPUSCULAR VOLUME 91 FL (80-99); MEAN PLATELET VOLUME 9.7 FL (7.4-10.4); MONOCYTES # (AUTO) 0.8 X 10^3 (0.0-1.0); MONOCYTES % (AUTO) 7 % (0-12); NEUTROPHILS # (AUTO) 10.1 X 10^3 (1.8-7.8); NEUTROPHILS % (AUTO) 85 % (42-75); PLATELET COUNT 191 10^3/uL (130-400); RED CELL DISTRIBUTION WIDTH 15.7 % (10.0-14.5); WHITE BLOOD COUNT 11.9 10^3/uL (4.3-11.0)
[2019-10-22 07:49] LABS: ALANINE AMINOTRANSFERASE 15 U/L (0-55); ALBUMIN 3.4 GM/DL (3.2-4.5); ALKALINE PHOSPHATASE 72 U/L (40-136); BILIRUBIN,TOTAL 0.9 MG/DL (0.1-1.0); BUN/CREATININE RATIO 19; CALCIUM 9.4 MG/DL (8.5-10.1); CARBON DIOXIDE 21 MMOL/L (21-32); CHLORIDE 103 MMOL/L (98-107); CREATININE SERUM 0.93 MG/DL (0.60-1.30); GFR ESTIMATED > 60; GLUCOSE 152 MG/DL (70-105); POTASSIUM 4.6 MMOL/L (3.6-5.0); SODIUM 136 MMOL/L (135-145); TOTAL PROTEIN 6.5 GM/DL (6.4-8.2)
[2019-10-22 08:00] VITALS: BP 186/77
--- NOTE | 2019-10-22 08:01 | Diagnostic Imaging Report ---
Indication: Fever and dyspnea. Comparison: 10/10/2019. Discussion: Single portable upright view of the chest was obtained. Stable normal heart size. No focal consolidation, pleural fluid, or pneumothorax. No osseous abnormality. Impression: 1. Negative chest. Dictated by: Dictated on workstation # [id number]
[2019-10-22] MEDS ORDERED: ACETAMINOPHEN 325 MG TABLET ONE (08:32)
[2019-10-22] MEDS: cloNIDine 0.1 MG (CATAPRES) TAB PO SCH ×2 (08:41→19:41)
[2019-10-22] MEDS: ASPIRIN 81 MG CHEW (CHILDREN'S ASA) PO SCH (08:41)
[2019-10-22] MEDS: RIFAXIMIN 550 MG TABLET (XIFAXAN) PO SCH ×2 (08:42→19:40)
[2019-10-22] MEDS ORDERED: TACROLIMUS 0.5 MG (PROGRAF) CAP NON-FORMULARY PO SCH (09:00)
--- NOTE | 2019-10-22 09:15 | Diagnostic Imaging Report ---
INDICATION: Sepsis EXAMINATION: Single view chest 10/22/2019 COMPARISON: 10/21/2019 FINDINGS: Bilateral calcified lymph nodes noted in the daniel. No infiltrates, effusions or pneumothorax. The heart unremarkable. No pulmonary vascular congestion appreciated. IMPRESSION: 1. Chronic change, no acute abnormality. Dictated by: Dictated on workstation # [id number]
--- NOTE | 2019-10-22 11:23 | History & Physical-Hospitalist ---
History of Present Illness HPI/Chief Complaint Irina Quevedo is a 64-year-old female with past medical history of hypertension, diabetes, cirrhosis, osteoarthritis status post recent left knee replacement, kidney transplant on immunosuppression, who presented with altered mental status and fever. Her reports that 2 days ago she was having some confusion and he thought it was because of hydrocodone he had given her for her knee pain. The following day she was her normal self again, but the following evening she had another episode of altered mental status and she had not received any pain medicine. She has been having subjective fevers and chills. She denies any shortness of breath or cough. She denies any headache, vision changes, or neck stiffness. She denies any chest pain. She denies any abdominal pain, nausea, vomiting, or diarrhea. She denies any dysuria, frequency, or urgency. She did have an episode of urinary incontinence at home. It is unclear if this was a true incontinence or a functional incontinence. She denies any skin changes or rash. She denies any pain, swelling, or warmth of her left knee. She has been compliant with her antirejection medications. She denies any nicotine, alcohol, or illicit drug use. She has a history of a cirrhosis with hepatic encephalopathy and has been compliant with her rifaximin. Source: patient, family Exam Limitations: no limitations Date Seen 10/22/19 Time Seen by a Provider: 09:50 Attending Physician Ritu Miranda MD PCP Alexy Mcgee MD Referring Physician Date of Admission Oct 22, 2019 at 01:20 Home Medications & Allergies Home Medications Reviewed patient Home Medication Reconciliation performed by pharmacy medication reconciliations production technician and/or nursing. Patients Allergies have been reviewed. Allergies Allergies Coded Allergies No Known Drug Allergies (Unverified12/25/13) Past Ikihcwq-Lfbwwi-Aogoph Hx Past Med/Social Hx: Reviewed Nursing Past Med/Soc Hx Patient Social History Alcohol Use: Denies Use Recreational Drug Use: No Smoking Status: Never a Smoker 2nd Hand Smoke Exposure: No Recent Foreign Travel: No Contact w/other who traveled: No Recent Hopitalizations: Yes (LEFT KNEE REPLACEMENT BY DR HUERTA) Recent Infectious Disease Expo: No Immunizations Up To Date Tetanus Booster (TDap): Less than 5yrs Pediatric: Yes Date of Pneumonia Vaccine: Jun 21, 2019 Date of Influenza Vaccine: May 22, 2019 Seasonal Allergies Seasonal Allergies: Yes Past Medical History Surgeries: Bowel Surgery, Section, Coronary Stent, Gallbladder, Kidney Transplant, Nephrectomy, Orthopedic, Tonsillectomy, Tubal Ligation Cardiac: Heart Attack, Hypertension Neurological: Neuropathy Reproductive: Yes Sexually Transmitted Disease: No HIV/AIDS: No Female Reproductive Disorders: Polycystic Ovarian Dis Menopausal Genitourinary: Dialysis, Polycystic Kidney Disease Gastrointestinal: Gastroesophageal Reflux, Cirrhosis Endocrine: Diabetes, Insulin dep Cancer: Kidney Psychosocial: Depression History of Blood Disorders: No Family History Cataract (grandmother ) Chest pain 09 BROTHER Congestive heart failure (grandmother) Dementia (two paternal aunts) Family history: Alzheimer's disease (two paternal aunts) Family history: Arthritis (grandmother) Family history: Cardiovascular disease 09 BROTHER Family history: Hypertension 09 BROTHER Heart disease 09 BROTHER Kidney disease 03 MOTHER Stroke (paternal aunt) No Family History of: Abdominal aortic aneurysm Kinney's disease Alcoholism Aphasia Cancer Cancer of colon Congenital heart disease Cystic fibrosis Dysphagia Family history: Allergy Family history: Asthma Family history: Breast disease Family history: Coronary thrombosis Family history: Diabetes mellitus Family history: Gastrointestinal disease Family history: Glaucoma Family history: Osteoporosis Family history: Thyroid disorder Headache Hearing loss Hereditary disease History of - anemia History of - disorder History of - respiratory disease History of drug abuse Human immunodeficiency virus (HIV) seropositivity Hypercholesterolemia Malignant neoplasm of lung Myocardial infarction Parkinson's disease Prostate cancer Psychotic disorder Seizure disorder Tuberculosis Visual impairment Review of Systems Constitutional: chills, fever EENTM: no symptoms reported Respiratory: no symptoms reported Cardiovascular: no symptoms reported Gastrointestinal: no symptoms reported Genitourinary: incontinence Musculoskeletal: no symptoms reported Skin: no symptoms reported Psychiatric/Neurological: Other (Confusion) Physical Exam Physical Exam Vital Signs Vital Signs - First Documented 10/22/19 02:17 O2 Flow Rate 3.00 Capillary Refill : Less Than 3 Seconds Height, Weight, BMI Height: 5'6.00" Weight: 190lbs. 0.0oz. [id number]; 31.57 BMI Method:Stated General Appearance: No Apparent Distress, WD/WN, Obese HEENT: PERRL/EOMI, Pharynx Normal Neck: Full Range of Motion, Normal Inspection, Non Tender, Supple; No Lymphade nopathy (L), No Lymphadenopathy (R) Respiratory: Lungs Clear, Normal Breath Sounds, No Accessory Muscle Use, No Respiratory Distress Cardiovascular: Regular Rate, Rhythm, No Edema, No Murmur Gastrointestinal: Normal Bowel Sounds, Non Tender, Soft; No Distended, No Guarding, No Rebound Extremity: Normal Inspection, Non Tender, No Pedal Edema Neurologic/Psychiatric: Alert, Oriented x3, No Motor/Sensory Deficits, Normal Mood/Affect, Other (No asterixis) Skin: Normal Color, Warm/Dry Lymphatic: No Adenopathy Results Results/Procedures Labs Laboratory Tests 10/21/19 23:20 10/22/19 06:30 Patient resulted labs reviewed. Imaging: Reviewed Imaging Report Assessment/Plan Admission Diagnosis Sepsis due to urinary tract infection Admission Status: Inpatient Order (span 2 midnights) Reason for Inpatient Admission: Sepsis due to urinary tract infection requiring IV antibiotics Assessment and Plan Sepsis due to urinary tract infection SIRS+ with fever and leukocytosis UA concerning for urinary tract infection Chest x-ray negative Blood cultures drawn, pending Procalcitonin elevated Started on ceftriaxone Await culture results Kidney transplant on immunosuppression Continue Prograf and prednisone Kidney function appears to be near baseline, creatinine 1 Hypertension Continue clonidine IV hydralazine as needed Type II diabetes mellitus Continue Levemir Sliding scale insulin Cirrhosis Ammonia within normal limits Continue rifaximin DVT prophylaxis: Lovenox Diagnosis/Problems Diagnosis/Problems (1) Sepsis Status: Acute Qualifiers: Sepsis type: sepsis due to unspecified organism Sepsis acute organ dysfunction status: with acute organ dysfunction Severe sepsis acute organ dysfunction type: encephalopathy Severe sepsis shock status: without septic shock Qualified Codes: A41.9 - Sepsis, unspecified organism; R65.20 - Severe sepsis without septic shock; G93.40 - Encephalopathy, unspecified (2) UTI (urinary tract infection) Status: Acute Qualifiers: Urinary tract infection type: acute cystitis Hematuria presence: with hematuria Qualified Codes: N30.01 - Acute cystitis with hematuria Clinical Quality Measures DVT/VTE Risk/Contraindication: Risk Factor Score Per Nursin RFS Level Per Nursing on Admit: 4+=Very High RITU MIRANDA MD Oct 22, 2019 11:23
[2019-10-22] MEDS ORDERED: hydrALAZINE (APESOLINE) 20 MG/ML VIAL IV PRN (11:30)
[2019-10-22 12:00] VITALS: BP 118/58
[2019-10-22] MEDS ORDERED: ENOXAPARIN 40 MG/0.4 ML (LOVENOX) SYR SC SCH (12:15)
[2019-10-22 16:00] VITALS: BP 133/72
[2019-10-22] MEDS: ACETAMINOPHEN 325 MG TABLET PO PRN ×2 (16:59→19:43)
[2019-10-22] MEDS ORDERED: CEFEPIME INJECTION 2,000 MG in WATER (STERILE) FOR INJECTION 20 ML IV ONE (17:00)
--- NOTE | 2019-10-22 17:29 | Diagnostic Imaging Report ---
PROCEDURE: CT head without contrast. TECHNIQUE: Multiple contiguous axial images were obtained through the brain without the use of intravenous contrast. Auto Exposure Controls were utilized during the CT exam to meet ALARA standards for radiation dose reduction. INDICATION: Altered mental status and sepsis. Study is somewhat limited by motion. Comparison is made to examination of 08/20/2014. There is focal lucency within the left basal ganglia which was present on the previous study compatible with old lacunar infarct. There is no evidence of new infarct. No hemorrhage is identified. Mild mural thickening is again noted in the left sphenoid sinus. Calvarium is intact and the visualized paranasal sinuses are otherwise clear. IMPRESSION: Nonacute lacunar infarct within the left basal ganglia. No acute intracranial abnormality is identified on limited study. Dictated by: Dictated on workstation # [id number]
[2019-10-22] MEDS: CARVEDILOL 12.5 MG (COREG) TABLET PO SCH (19:42)
[2019-10-22] MEDS: TACROLIMUS 0.5 MG (PROGRAF) CAP NON-FORMULARY PO SCH (19:46)
[2019-10-22 20:00] VITALS: BP 110/53
[2019-10-22] MEDS ORDERED: NEBIVOLOL 5 MG TAB (BYSTOLIC) PO SCH (21:00)
[2019-10-22] MEDS ORDERED: cefTRIAXone 1,000 MG/SWFI 10 ML IV PUSH IV SCH ×2 (23:30)
[2019-10-23] VITALS: BP 128/58
[2019-10-23 04:00] VITALS: BP 139/62
[2019-10-23] MEDS: ACETAMINOPHEN 325 MG TABLET PO PRN ×3 (05:11→20:52)
[2019-10-23] MEDS: predniSONE 5 MG TAB PO SCH (05:13)
[2019-10-23] MEDS: CEFEPIME INJECTION 1,000 MG in WATER (STERILE) FOR INJECTION 10 ML IV SCH ×5 (05:15→17:26)
[2019-10-23] MEDS: inSUlin ASPART (NovoLOG) 1 UNIT/0.01 ML (CHARGE PER UNIT) SC SCH ×7 (06:11→21:36)
[2019-10-23 06:51] LABS: HEMATOCRIT 24 % (35-52); HEMOGLOBIN 7.5 G/DL (11.5-16.0); MEAN CORPUSCULAR HEMOGLOBIN 29 PG (25-34); MEAN CORPUSCULAR HGB CONC 32 G/DL (32-36); MEAN CORPUSCULAR VOLUME 92 FL (80-99); PLATELET COUNT 128 10^3/uL (130-400); RED CELL DISTRIBUTION WIDTH 15.3 % (10.0-14.5); WHITE BLOOD COUNT 5.6 10^3/uL (4.3-11.0)
--- NOTE | 2019-10-23 07:43 | Anesthesia-Procedure Note ---
Procedures/Interventions Procedure Start/Stop/Diagnosis Date of Procedure: Oct 23, 2019 Start Time: 07:10 Preprocedural Diagnosis: sepsis Stop Time: 07:25 Lumbar Puncture Discussed Risk,Benefits: Yes Patient Consents: Yes Position: Lying, L3-4, Left Sterile Technique: Yes Opening Pressure: 23 Fluid Color: clear Spinal Needle Used: 22g Xavier 3 1/2 inch Procedure Notes tolerated procedure well. LUIGI LEMA CRNA Oct 23, 2019 07:43
[2019-10-23 07:52] LABS: BASOPHILS % (AUTO) 0 % (0-10); EOSINOPHILS % (AUTO) 1 % (0-10); LYMPHOCYTES # (AUTO) 0.4 X 10^3 (1.0-4.0); LYMPHOCYTES % (AUTO) 8 % (12-44); MONOCYTES # (AUTO) 0.6 X 10^3 (0.0-1.0); MONOCYTES % (AUTO) 11 % (0-12); NEUTROPHILS # (AUTO) 4.4 X 10^3 (1.8-7.8); NEUTROPHILS % (AUTO) 80 % (42-75)
[2019-10-23 08:00] VITALS: BP 116/56
[2019-10-23 08:02] LABS: BUN/CREATININE RATIO 25; CARBON DIOXIDE 18 MMOL/L (21-32); CHLORIDE 106 MMOL/L (98-107); CREATININE SERUM 0.87 MG/DL (0.60-1.30); GFR ESTIMATED > 60; GLUCOSE 120 MG/DL (70-105); SODIUM 133 MMOL/L (135-145)
[2019-10-23 08:42] LABS: CSF GLUCOSE 70 MG/DL (50-80); CSF TOTAL PROTEIN 47 MG/DL (15-40)
[2019-10-23 09:31] LABS: APPEARANCE,CSF CLEAR; COLOR,CSF COLORLESS; RED BLOOD CELL,CSF 0 CELLS (0-0)
[2019-10-23 09:32] LABS: CSF TUBE NUMBER 4
[2019-10-23 09:36] LABS: WHITE BLOOD CELL,CSF 4 CELLS (0-5)
[2019-10-23] MEDS: ASPIRIN 81 MG CHEW (CHILDREN'S ASA) PO SCH (09:52)
[2019-10-23] MEDS: cloNIDine 0.1 MG (CATAPRES) TAB PO SCH ×2 (09:52→20:51)
[2019-10-23] MEDS: CARVEDILOL 12.5 MG (COREG) TABLET PO SCH ×2 (09:52→20:51)
[2019-10-23] MEDS: RIFAXIMIN 550 MG TABLET (XIFAXAN) PO SCH ×2 (09:52→21:35)
[2019-10-23] MEDS: NS IV 1000 ML 1,000 ML IV SCH ×2 (09:53→20:30)
[2019-10-23] MEDS: TACROLIMUS 0.5 MG (PROGRAF) CAP NON-FORMULARY PO SCH ×2 (09:53→21:34)
[2019-10-23 11:44] LABS: BASOPHILS % (AUTO) 0 % (0-10); EOSINOPHILS % (AUTO) 1 % (0-10); HEMATOCRIT 23 % (35-52); HEMOGLOBIN 7.5 G/DL (11.5-16.0); LYMPHOCYTES # (AUTO) 0.4 X 10^3 (1.0-4.0); LYMPHOCYTES % (AUTO) 9 % (12-44); MEAN CORPUSCULAR HEMOGLOBIN 30 PG (25-34); MEAN CORPUSCULAR HGB CONC 33 G/DL (32-36); MEAN CORPUSCULAR VOLUME 91 FL (80-99); MEAN PLATELET VOLUME 9.7 FL (7.4-10.4); MONOCYTES # (AUTO) 0.4 X 10^3 (0.0-1.0); MONOCYTES % (AUTO) 9 % (0-12); NEUTROPHILS % (AUTO) 81 % (42-75); PLATELET COUNT 126 10^3/uL (130-400); RED CELL DISTRIBUTION WIDTH 15.2 % (10.0-14.5); WHITE BLOOD COUNT 4.9 10^3/uL (4.3-11.0)
[2019-10-23 12:00] VITALS: BP 121/57
--- NOTE | 2019-10-23 13:49 | Progress Note - Hospitalist ---
Subjective HPI/CC On Admission Date Seen by Provider: Oct 23, 2019 Time Seen by Provider: 10:30 Irina Quevedo is a 64-year-old female with past medical history of hypertension, diabetes, cirrhosis, osteoarthritis status post recent left knee replacement, kidney transplant on immunosuppression, who presented with altered mental status and fever. Her reports that 2 days ago she was having some confusion and he thought it was because of hydrocodone he had given her for her knee pain. The following day she was her normal self again, but the following evening she had another episode of altered mental status and she had not received any pain medicine. She has been having subjective fevers and chills. She denies any shortness of breath or cough. She denies any headache, vision changes, or neck stiffness. She denies any chest pain. She denies any abdominal pain, nausea, vomiting, or diarrhea. She denies any dysuria, frequency, or urgency. She did have an episode of urinary incontinence at home. It is unclear if this was a true incontinence or a functional incontinence. She denies any skin changes or rash. She denies any pain, swelling, or warmth of her left knee. She has been compliant with her antirejection medications. She denies any nicotine, alcohol, or illicit drug use. She has a history of a cirrhosis with hepatic encephalopathy and has been compliant with her rifaximin. Subjective/Events-last exam She had some confusion last night. She doesn't remember going downstairs to have her CT scan performed. She has no confusion this morning. She had a fever early this morning but nothing since then. She denies any shortness of breath or cough. She denies any abdominal pain, nausea, or vomiting. She denies any chest pain. She has no other complaints or concerns. Focused Exam Lactate Level 10/21/19 23:20: Lactic Acid Level 1.76 Time of Focused Exam: 00:01 Objective Exam Vital Signs Vital Signs Date Time Temp Pulse Resp B/P (MAP) Pulse Ox O2 Delivery O2 Flow Rate FiO2 10/23/19 12:00 36.5 62 16 121/57 (78) 98 Nasal Cannula 2.50 Capillary Refill : Less Than 3 SecondsLess Than 3 Seconds General Appearance: No Apparent Distress, WD/WN Respiratory: Lungs Clear, Normal Breath Sounds, No Respiratory Distress Cardiovascular: Regular Rate, Rhythm, No Edema, No Murmur Gastrointestinal: Normal Bowel Sounds, Non Tender, Soft Extremity: Normal Inspection, Non Tender, No Pedal Edema Neurologic/Psychiatric: Alert, Oriented x3, No Motor/Sensory Deficits, Normal Mood/Affect Skin: Normal Color, Warm/Dry Results/Procedures Lab Laboratory Tests 10/23/19 06:40 10/23/19 11:38 Patient resulted labs reviewed. Imaging: Reviewed Imaging Report Assessment/Plan Assessment and Plan Assess & Plan/Chief Complaint Sepsis due to urinary tract infection Pseudomonas aeruginosa infection Septic encephalopathy SIRS+ with fever and leukocytosis UA concerning for urinary tract infection Blood cultures with no growth today Procalcitonin elevated Transitioned to cefepime for pseudomonas Await susceptibility results CT head without acute abnormality, old infarct noted lumbar puncture performed due to altered mental status and persistent fevers with immunosuppression CSF cell count normal, cultures pending Kidney transplant on immunosuppression Continue Prograf and prednisone Kidney function appears to be near baseline, creatinine 0.87 Hypertension Continue clonidine, Coreg, and nebivolol IV hydralazine as needed Type II diabetes mellitus Continue Levemir Sliding scale insulin Cirrhosis Ammonia within normal limits Continue rifaximin DVT prophylaxis: Lovenox Diagnosis/Problems Diagnosis/Problems (1) Sepsis Status: Acute Qualifiers: Sepsis type: sepsis due to unspecified organism Sepsis acute organ dysfunction status: with acute organ dysfunction Severe sepsis acute organ dysfunction type: encephalopathy Severe sepsis shock status: without septic shock Qualified Codes: A41.9 - Sepsis, unspecified organism; R65.20 - Severe sepsis without septic shock; G93.40 - Encephalopathy, unspecified (2) UTI (urinary tract infection) Status: Acute Qualifiers: Urinary tract infection type: acute cystitis Hematuria presence: with hematuria Qualified Codes: N30.01 - Acute cystitis with hematuria (3) Pseudomonas infection Status: Acute (4) 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
[2019-10-23 16:00] VITALS: BP 116/56
[2019-10-23 20:00] VITALS: BP 127/60
[2019-10-24] VITALS: BP 118/56
[2019-10-24 04:00] VITALS: BP 118/56
[2019-10-24] MEDS: predniSONE 5 MG TAB PO SCH (04:52)
[2019-10-24] MEDS: CEFEPIME INJECTION 1,000 MG in WATER (STERILE) FOR INJECTION 10 ML IV SCH ×4 (05:06→12:20)
[2019-10-24] MEDS: NS IV 1000 ML 1,000 ML IV SCH (05:06)
[2019-10-24] MEDS: inSUlin ASPART (NovoLOG) 1 UNIT/0.01 ML (CHARGE PER UNIT) SC SCH ×5 (05:53→16:01)
[2019-10-24 08:00] VITALS: BP 128/58
[2019-10-24] MEDS: RIFAXIMIN 550 MG TABLET (XIFAXAN) PO SCH (08:14)
[2019-10-24] MEDS: cloNIDine 0.1 MG (CATAPRES) TAB PO SCH (08:15)
[2019-10-24] MEDS: CARVEDILOL 12.5 MG (COREG) TABLET PO SCH (08:15)
[2019-10-24] MEDS: ASPIRIN 81 MG CHEW (CHILDREN'S ASA) PO SCH (08:15)
[2019-10-24] MEDS: TACROLIMUS 0.5 MG (PROGRAF) CAP NON-FORMULARY PO SCH (08:16)
--- NOTE | 2019-10-24 09:16 | Occupational Therapy Eval ---
OT Evaluation-General/PLF Medical Diagnosis Admission Date Oct 22, 2019 at 01:20 Medical Diagnosis: sepsis/ UTI; s/p L TKA Onset Date: Oct 24, 2019 Therapy Diagnosis Therapy Diagnosis: Decreased ADL function Height/Weight Height (Feet): 5 Height (Inches): 6.00 Weight (Pounds): 190 Weight (Ounces): 0.0 Precautions Precautions/Isolations: Contact Isolation, Fall Prevention Safety Interventions: Bed Exit Alarm Weight Bear Status Weight Bearing Restriction: Weight Bearing/Tolerated Referral Physician: Darlene Ross Referral Reason: Activity Tolerance, Self Care, Evaluation/Treatment, Strengthening/ROM Medical History Additional Medical History HTN, DM, cirrhosis, OA, [place], neuropathy, kidney Ca, depression Current History Pt s/p L TKA, went home and was experiencing AMS, found UTI/ sepsis Reviewed History: Yes Social History Home: Single Level Current Living Status: Spouse Entry Into Home: Stairs With Railing ADL-Prior Level of Function SCALE: Activities may be completed with or without assistive devices. 1-Auoqvicgxh-hfwerxj completes the activity by him/herself with no assistance from a helper. 5-Set-up or Clean-up Assistance-helper sets up or cleans up; patient completes activity. [place] assists only prior to or following the activity. 4-Supervision or Touching Assistance-helper provides verbal cues and/or touching/steadying and/or contact guard assistance as patient completes activity. Assistance may be provided throughout the activity or intermittently. 3-Partial/Moderate Assistance-helper does LESS THAN HALF the effort. [place] lifts, holds or supports trunk or limbs, but provides less than half the effort. 2-Substantial/Maximal Assistance-helper does MORE THAN HALF the effort. [place] lifts or holds trunk or limbs and provides more than half the effort. 0-Wmvmoiofq-mgrlrl does ALL the effort. Patient does none of the effort to complete the activity. Or, the assistance of 2 or more helpers is required for the patient to complete the activity. If activity was not attempted, code reason: 7-Patient Refused. 9-Not Applicable-not attempted and the patient did not perform the activity before the current illness, exacerbation or injury. 10-Not Attempted due to Environmental Limitations-(lack of equipment, weather restraints, etc.). 88-Not Attempted due to Medical Conditions or Safety Concerns. ADL PLOF Comments Pt was IND without AE prior to TKA. 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 Agreeable to OT eval/ treat. PPt's present through most of session. Mental Status/Objective Patient Orientation: Person, Place, Situation, Normal For Age Attachments: Turcios Catheter, IV Current Glasses/Contacts: Yes Hearing Aids: No Dentures/Partials: No Hand Dominance: Right Upper Extremity ROM WFL BUE Upper Extremity Coordination WFL BUE Upper Extremity Sensation WFL BUE states neuropathy BLE Upper Extremity Strength WFL BUE ADL-Treatment Eating (QC): 6 Oral Hygiene (QC): 6 Shower/Bathe Self (QC): 7 Upper Body Dressing (QC): 7 Lower Body Dressing (QC): 7 On/Off Footwear (QC): 6 Toileting Hygiene (QC): 6 Other Treatments Pt agreeable to OT eval/ treat. Bed mob with SBA/ mod I due to LLE with leg raiser. Pt stands with walker use, utilizes bathroom (increased time/ use of grab bars for toilet transfer), has BM. Pt states she is able to complete socks/ LE dressing with IND. Pt sit to stand from toilet with grab bars and increased time. Oral hygiene at sink. Pt completes ambulation to recliner chair, legs elevated for comfort. Pt educated on OT role and pt and OT agree pt safe during ADLs. Pt left in chair with call light in reach, all needs met. Education OT Patient Education: Correct positioning, Purpose of tx/functional activities, Safety issues Teaching Recipient: Patient, Significant Other Teaching Methods: Demonstration, Discussion Response to Teaching: Verbalize Understanding, Return Demonstration OT Mcfp Goals Racket Stringer Goals 1=Demonstrate adherence to instructed precautions during ADL tasks. 2=Patient will verbalize/demonstrate understanding of assistive devices/modifications for ADL. 3=Patient will improve strength/tolerance for activity to enable patient to perform ADL's. OT Education/Plan Problem List/Assessment Assessment: No Skilled OT Needs ID'd Discharge Recommendations Plan/Recommendations: Discharge/Goals Met Therapy Discharge Recommendati: Home & Family Equpiment Recommendations-D/C: None Treatment Plan/Plan of Care Treatment,Training & Education: Yes Patient would benefit from OT for education, treatment and training to promote independence in ADL's, mobility, safety and/or upper extremity function for ADL's. Plan of Care: OTHER (eval/ 1 treat onlly) Treatment Duration: Oct 24, 2019 Frequency: 1 time per week (1 treat and d/c) Time/GCodes Start Time: 08:30 Stop Time: 08:53 Total Time Billed (hr/min): 23 Billed Treatment Time 1, EVL, ADL (23) JAKE SCOTT OTR Oct 24, 2019 09:16
--- NOTE | 2019-10-24 10:10 | Physical Therapy Evaluation ---
PT Evaluation-General Medical Diagnosis Admission Date Oct 22, 2019 at 01:20 Medical Diagnosis: sepsis/ UTI; s/p L TKA Onset Date: Oct 24, 2019 Therapy Diagnosis Therapy Diagnosis: debility Height/Weight Height (Feet): 5 Height (Inches): 6.00 Weight (Pounds): 190 Weight (Ounces): 0.0 Precautions Precautions/Isolations: Contact Isolation, Fall Prevention Weight Bear Status Right Lower Extremity: Right Weight Bearing/Tolerated Left Lower Extremity: Left Weight Bearing/Tolerated Referral Physician: Darlene Ross Reason for Referral: Evaluation/Treatment Medical History Pertinent Medical History: DM, HTN, [place], Neuropathy Additional Medical History cirrhosis/left TKR (10/17/19) Current History ER secondary to AMS/confusion and decreased Hgb Reviewed History: Yes Social History Home: Single Level Current Living Status: Spouse Entry Into Home: Stairs With Railing Prior Prior Level of Function SCALE: Activities may be completed with or without assistive devices. 8-Pcmujxzzgw-rcrggnz completes the activity by him/herself with no assistance from a helper. 5-Set-up or Clean-up Assistance-helper sets up or cleans up; patient completes activity. [place] assists only prior to or following the activity. 4-Supervision or Touching Assistance-helper provides verbal cues and/or touching/steadying and/or contact guard assistance as patient completes activity. Assistance may be provided throughout the activity or intermittently. 3-Partial/Moderate Assistance-helper does LESS THAN HALF the effort. [place] lifts, holds or supports trunk or limbs, but provides less than half the effort. 2-Substantial/Maximal Assistance-helper does MORE THAN HALF the effort. [place] lifts or holds trunk or limbs and provides more than half the effort. 8-Msurkzrkg-owfsnb does ALL the effort. Patient does none of the effort to complete the activity. Or, the assistance of 2 or more helpers is required for the patient to complete the activity. If activity was not attempted, code reason: 7-Patient Refused. 9-Not Applicable-not attempted and the patient did not perform the activity before the current illness, exacerbation or injury. 10-Not Attempted due to Environmental Limitations-(lack of equipment, weather restraints, etc.). 88-Not Attempted due to Medical Conditions or Safety Concerns. Bed Mobility: 6 Transfers (B,C,W/C): 6 Gait: 6 Stairs: 6 Indoor Mobility (Ambulation): Independent Stairs: Independent Prior Devices Use: Walker PT Evaluation-Current Subjective Patient reports she hopes to go home today. Agrees to PT. Pain Numeric Pain Scale: 5-Moderate Pain Location: Left Location Body Site: Knee Pain Description: Acute Objective Patient Orientation: Normal For Age Attachments: Turcios Catheter, IV ROM/Strength ROM Lower Extremities left knee flexion 91 degrees/5 degrees extension with AAROM right LE WFL Strength Lower Extremities right LE 4/5 grossly/left LE 4-/5 grossly Integumentary/Posture Integumentary refer to nursing notes Bowel Incontinence: No Bladder Incontinence: Turcios Cath Posture WFL Neuromuscular (Tone, Coordination, Reflexes) grossly intact Sensory Vision: Wears Glasses Hearing: Functional Hand Dominance: Right Sensation Right Lower Extremit: Intact Sensation Left Lower Extremity: Intact Transfers Roll Left to Right (QC): 6 Sit to Lying (QC): 6 Lying to Sitting/Side of Bed(Q: 6 Sit to Stand (QC): 6 Chair/Wyk-xy-Ywctd Xfer(QC): 6 Gait Does the Patient Walk?: Yes Mode of Locomotion: Walk Anticipated Mode of Locomotion: Walk Walk 10 feet (QC): 6 Walk 50 ft with 2 Turns(QC): 6 Walk 150 ft (QC): 6 Distance: 300' Gait Assistive Device: FWW Comments/Gait Description slow, safe and functional/slightly antalgic Wheelchair Training Does the Pt Use a Wheelchair?: No Balance Sitting Static: Normal Sitting Dynamic: Normal Standing Static: Normal Standing Dynamic: Normal Assessment/Needs 64 y.o. female, will be seen short term by skilled PT to address functional mobility and to ensure compliance with HEP issued by surgeon in preop. Rehab Potential: Fair PT Vp Transportation Goals Vp Transportation Goals PT Vp Transportation Goals Time Frame: Oct 28, 2019 Roll Left & Right (QC): 6 Sit to Lying (QC): 6 Lying-Sitting on Side/Bed(QC): 6 Sit to Stand (QC): 6 Chair/Bfa-xf-Prmeu Xfer(QC): 6 Toilet Transfer (QC): 6 Car Transfer (QC): 6 Does the Patient Walk: Yes Walk 10 feet (QC): 6 Walk 50ft with 2 Turns (QC): 6 Walk 150 ft (QC): 6 Walking 10ft on Uneven Surface: 6 1 Step (curb) (QC): 6 4 Steps (QC): 6 PT Plan Treatment/Plan Treatment Plan: Continue Plan of Care Treatment Plan: Education, Functional Activity Teresa, Functional Strength, Gait, Safety, Therapeutic Exercise Treatment Duration: Oct 28, 2019 Frequency: 5 times per week Estimated Hrs Per Day: .25 hour per day Patient and/or Family Agrees t: Yes Time/GCodes Time In: 912 Time Out: 923 Total Billed Treatment Time: 11 Total Billed Treatment 1 visit EVLow 11 min KELIN CARSON PT Oct 24, 2019 10:10
[2019-10-24 12:00] VITALS: BP 130/60
[2019-10-24] MEDS ORDERED: ALLO100T PO (12:14)
[2019-10-24] MEDS ORDERED: ICOS1CAP PO (12:14)
[2019-10-24] MEDS ORDERED: RIFA550T PO (12:14)
[2019-10-24] MEDS ORDERED: ATOR20TA66 PO (12:14)
[2019-10-24] MEDS ORDERED: NFNEB10T PO (12:14)
[2019-10-24] MEDS ORDERED: FOLI1TAB24 PO (12:14)
[2019-10-24] MEDS ORDERED: OMEP40CA27 PO (12:14)
[2019-10-24] MEDS ORDERED: CAND4TAB3 PO (12:14)
[2019-10-24] MEDS ORDERED: TEMA15CA PO (12:14)
[2019-10-24] MEDS ORDERED: METF-397 PO (12:14)
[2019-10-24] MEDS ORDERED: MAGN400T8 PO (12:14)
[2019-10-24] MEDS ORDERED: CHOL200012 PO (12:20)
[2019-10-24] MEDS ORDERED: PRED5TAB PO (12:20)
[2019-10-24] MEDS ORDERED: ASPI-983 PO (12:20)
[2019-10-24] MEDS ORDERED: TACR0.5C6 PO (12:20)
[2019-10-24] MEDS ORDERED: INSU100I34 SQ ×2 (12:23)
[2019-10-24] MEDS ORDERED: TRAM50TA3 PO (12:23)
[2019-10-24] MEDS ORDERED: HYDR-3820 PO (12:23)
[2019-10-24] MEDS ORDERED: INSU100I14 SQ (12:24)
--- NOTE | 2019-10-24 12:38 | NUR ---
SPOKE WITH THE PT WELL GOING THRU THE EXT MED HISTORY TO COMPLETE THE MED REC. PT TOLD ME ALL HER MEDS AND HOW/WHEN SHE TAKES EACH. BASAGLAR: THE DIRECTIONS ARE 75 UNITS HS BUT PT SAYS SHE USES 24 UNITS AM AND 32 UNITS HS. NOVOLOG IS PER A SLIDING SCALE PT SAYS SHE WAS PRESCRIBED GABAPENTIN BUT ONLY TOOK IT FOR A SHORT TERM BEFORE A PROCEDURE AND IS NOT CURRENTLY TAKING. OTC MEDS: VIT D VIT B 12 ASPIRIN
[2019-10-24] MEDS ORDERED: CEFD300C3 PO (14:38)
--- NOTE | 2019-10-24 14:42 | NUR ---
RD ASSESSMENT PMHx: HTN; DM; cirrhosis; left knee replacement; kidney txp PT INTERACTION: Pt was awake and pleasant during nutrition assessment. Pt states current appetite is so-so and has been that way since admit. Note avg PO intake of <25% x2d, per chart review. Pt states following a "lower portions" diet at home, and has no issues with chewing/swallowing food. Pt states no recent issues with n/v/c/d at this time. Note last BM was 10/23 and pt not currently on bowel regimen per chart review. Pt states recent wt loss, but unsure of amount/timeframe. Note unable to determine recent wt hx, per chart review. Pt states current DM management is pretty good, and that her last HbA1c was 5.8, approximately 2w ago. ABNORMAL NUTRITION-RELATED LAB VALUES LOW: Na 133; Ca 8.0 HIGH: BUN 22; glu 120 Est. kcal needs: 2037-3042 kcal | 20-25 kcal/kg Est. Pro needs: 71-89 g Pro | 0.8-1.0 g Pro/kg PES STATEMENT: Inadequate oral intake (NI-2.1) related to loss of appetite as evidenced by pt interview | avg PO intake <25% x2d INTERVENTION: Continue with current diet order of CHO 60g/m 1snack diet. Add Glucerna (vary) with meals TID, for increased kcal intake. Provides 220 kcal and 10 g Pro per serving. Will continue to follow and reassess as pt needs and status change. MONITOR/EVALUATE: PO Intake; Plan of Care; Hydration Status; Weight Status; Lab Values Aleksandar Gaston, MS, RD, LD
--- NOTE | 2019-10-24 14:46 | Discharge Inst-Simple/Standard ---
Discharge Inst-Standard Reconcile Patient Problems Problems Reviewed?: Yes Discharge Medications New, Converted or Re-Newed RX: Transmitted to Pharmacy Patient Instructions/Follow Up Plan of Care/Instructions/FU: Please continue to take your medications as written. Please follow up with your PCP in the next week to follow up this hospital stay. Activity as Tolerated: Yes Discharge Diet: No Restrictions Return to The Hospital For: Fever, chills, confusion, decreased urine output, if you feel you are getting worse. ADRIAN DESAI MD Oct 24, 2019 14:46
--- NOTE | 2019-10-24 14:48 | D/C HH Face to Face Order ---
D/C Face to Face Orders Instructions for Patient Via [facility], Patient Instructions/FollowUp: Please continue to take your medications as written. Please follow up with your PCP in the next week. Physician to follow Patient: Dr Mcgee Discharge Diet for Home: No Restrictions Patient Data-Allergies,Ht & Wt Patient Allergies: Coded Allergies: No Known Drug Allergies (Unverified , 12/25/13) Height (Feet): 5 Height (Inches): 6.00 Weight (Pounds): 190 Weight (Ounces): 0.0 Home Health Need/Face to Face Date of Face to Face: Oct 24, 2019 Clinical Findings: Immune-compromised, Pain with ambulation I have seen Pt yuuk-gs-toxn: Yes Discharged To: Home Diagnosis/Conditions: s/p TKA, s/p kidney transplant Patient is Homebound due to: Muscle weakness, Pain w/ambulation Homebound Status Due to the above stated illness, injury or surgical procedure (medical condition or diagnosis) and associated clinical findings, the patient is homebound because of his/her inability to leave home except with aid of a supportive device and/or person AND leaving the home requires a considerable and taxing effort or is medically contraindicated. Pt req the following assistanc: Aid of another person Home Health Nursing Orders Home Health Services Order: Flavorer-Evaluate & Treat, Physical Thera py-Evaluate & Treat Home Health Infusion Therapy Line Start Date: Oct 22, 2019 Therapy Orders Therapy Orders: OT (must have SN or PT order), PT to assess for OT Therapy Specific Orders: Eval assistive deivces, Teach enviro modifications/safety, Gait training, Increase strength/endurance Certify Stmt I certify that this patient is under my care and that I, a nurse practitioner or a physician; a esol teacher assistant working with me, had a face to face encounter that - meets the physician face to face encounter requirements with this patient as dated. ADRIAN DESAI MD Oct 24, 2019 14:48
[2019-10-24 16:49] VITALS: BP 130/60
--- NOTE | 2019-10-24 16:49 | NUR ---
ANNEMARIE DOVE demonstrates understanding of discharge instructions and accurately returns instructions upon questioning. Copy of Post-Discharge Instructions and Medication Discharge Instructions given to PT. ANNEMARIE DOVE is able to manage continuing needs after discharge. Patients belongings returned to PT. Skin dry and intact; no breakdown noted. Patient discharged from [facility] [place] on 10/24/19 at 1649. ANNEMARIE DOVE left floor via , accompanied by STAFF AND FAMILY.
--- NOTE | 2019-10-24 17:28 | NUR ---
CM/SS visited with patient for resumption of Home Health. The patient states that she was previously set up with [facility]. They were able to visit the patient one time before she was admitted to the hospital. Cm/SS called and faxed over finalized Home Health orders for patient to continue with [facility] care. No other needs.
== END 2019-10-24 16:49 | disposition home health service (06) | DRG 871 ==
LOC: EDUNIT# 23:16 → ER 23:18 → 4TH 10-22 01:20
PROVIDERS: ADMIT Internal Medicine; ATTEND Internal Medicine
PROC: 009U3ZX Drainage of Spinal Canal, Percutaneous Approach, Diagnostic (ICD-10-PCS; principal; 2019-10-23)
DX: A41.52 Sepsis due to Pseudomonas (principal); N30.01 Acute cystitis with hematuria; G93.41 Metabolic encephalopathy; Z94.0 Kidney transplant status; I10 Essential (primary) hypertension; E11.40 Type 2 diabetes mellitus with diabetic neuropathy, unspecified; E28.2 Polycystic ovarian syndrome; Z95.5 Presence of coronary angioplasty implant and graft; K74.60 Unspecified cirrhosis of liver; K21.9 Gastro-esophageal reflux disease without esophagitis; F32.9 Major depressive disorder, single episode, unspecified; I25.2 Old myocardial infarction; Z79.4 Long term (current) use of insulin; Z85.528 Personal history of other malignant neoplasm of kidney; Z96.651 Presence of right artificial knee joint; Z90.5 Acquired absence of kidney; Z90.89 Acquired absence of other organs
CPT/HCPCS: 36415; 70450; 71045; 80048; 80053; 81000; 82140; 82945; 82962; 83605; 83615; 84145; 84157; 85007; 85025; 85027; 85610; 85730; 87040; 87070; 87077; 87088; 87101; 87186; 87205; 87252; 87804; 89051

== ENCOUNTER 2019-10-29 06:48 | Emergency (ER) | payer BC ==
[~2019-10-29] VITALS: Ht 167 cm; Wt 85.0 kg
[~2019-10-29 06:48] MED LIST changes: +ALLO100T PO; +ASPI-983 PO; +ATOR20TA66 PO; +CAND4TAB3 PO; +CEFD300C3 PO; +CHOL200012 PO; +FOLI1TAB24 PO; +HYDR-3820 PO; +ICOS1CAP PO; +INSU100I14 SQ; +INSU100I34 SQ; +MAGN400T8 PO; +METF-397 PO; +OMEP40CA27 PO; +PRED5TAB PO; +TACR0.5C6 PO; +TEMA15CA PO; +TRAM50TA3 PO
[2019-10-29] MEDS ORDERED: NS IV 1000 ML 1,000 ML IV SCH (07:06)
[2019-10-29] MEDS ORDERED: fentaNYL INJECTION 100 MCG/2 ML AMP IVP ONE (07:15)
--- NOTE | 2019-10-29 07:19 | ED General ---
General Chief Complaint: Lower Extremity Stated Complaint: KNEE PAIN Nursing Triage Note: Patient presented to the ER via EMS secondary to complaints of bilateral knee pain. The patient had left knee surgery on 10/18/19 and states swelling and pain has become worse. Nursing Sepsis Screen: No Definite Risk Source of Information: Patient Exam Limitations: No Limitations History of Present Illness Date Seen by Provider: Oct 29, 2019 Time Seen by Provider: 06:50 Initial Comments This 64-year-old woman presents to the emergency room with primary complaints of bilateral knee pain. She had left knee replacement by Dr. Huerta on October 18 and has had fairly intense pain since then. EMS was activated this morning because she had too much pain in her knees to get up, even with her 's assistance. She reports pain in her right knee now as well. She was recently admitted to this facility on October 22 for UTI. Patient's cognition is significantly bulbous morning although she is technically alert and oriented when asked questions of orientation. She does acknowledge her confusion and told cognition. She reports her pain this morning at 06:00 was 8/10. Pain is now rated as a 10 despite taking a hydrocodone at 06:00. She appears dry and states she feels dry as well. She is an insulin-dependent diabetic, has cirrhosis of the liver from fatty liver disease, and is a renal transplant patient. Patient is receiving home health and physical therapy services. Allergies and Home Medications Allergies Coded Allergies: No Known Drug Allergies (Unverified , 12/25/13) Home Medications Allopurinol 100 Mg Tablet, 100 MG PO DAILY, (Reported) Aspirin 81 Mg Tablet.dr, 81 MG PO DAILY, (Reported) Atorvastatin Calcium 20 Mg Tablet, 20 MG PO HS, (Reported) Candesartan Cilexetil 4 Mg Tablet, 4 MG PO HS, (Reported) Cefdinir 300 Mg Capsule, 300 MG PO BID Prescribed by: ADRIAN DESAI on 10/24/19 1708 Cholecalciferol (Vitamin D3) 50 Mcg Capsule, 50 MCG PO DAILY, (Reported) Folic Acid 1 Mg Tablet, 1 NG PO DAILY, (Reported) Hydrocodone/Acetaminophen 1 Each Tablet, 1 TAB PO Q8H PRN for PAIN-MODERATE (5- 7), (Reported) Icosapent Ethyl 1 Gm Capsule, 2 GM PO BID, (Reported) Insulin Aspart 300 Units/3 Ml Solution, UNITS SQ TID, (Reported) PER SLIDING SCALE Insulin Glargine,Hum.rec.anlog 100 Unit/1 Ml Insuln.pen, 24 UNITS SQ DAILY, (Reported) Insulin Glargine,Hum.rec.anlog 100 Unit/1 Ml Insuln.pen, 32 UNIT SQ HS, (Reported) Magnesium Oxide 400 Mg Tablet, 400 MG PO Q8H, (Reported) Metformin HCl 500 Mg Tablet, 500 MG PO BID, (Reported) Nebivolol HCl 10 Mg Tab, 10 MG PO HS, (Reported) Omeprazole 40 Mg Capsule.dr, 40 MG PO BID, (Reported) Prednisone 5 Mg Tablet, 5 MG PO DAILY, (Reported) Rifaximin 550 Mg Tablet, 550 MG PO BID, (Reported) Tacrolimus 0.5 Mg Capsule, 1.5 MG PO BID, (Reported) Temazepam 15 Mg Capsule, 15 MG PO DAILY, (Reported) Tramadol HCl 50 Mg Tablet, 50-100 MG PO Q6H PRN for PAIN-MODERATE (5-7), (Reported) Patient Home Medication List Home Medication List Reviewed: Yes Review of Systems Review of Systems Constitutional: malaise, weakness EENTM: see HPI Respiratory: no symptoms reported Cardiovascular: no symptoms reported Gastrointestinal: no symptoms reported Genitourinary: see HPI : No Musculoskeletal: see HPI Skin: no symptoms reported Psychiatric/Neurological: See HPI Hematologic/Lymphatic: No Symptoms Reported Immunological/Allergic: no symptoms reported Past Goejhbu-Zphfoz-Havmwe Hx Past Med/Social Hx: Reviewed and Corrections made Patient Social History Alcohol Use: Denies Use Recreational Drug Use: No Smoking Status: Never a Smoker 2nd Hand Smoke Exposure: No Recent Foreign Travel: No Contact w/Someone Who Travel: No Recent Infectious Disease Expo: No Recent Hopitalizations: Yes (LEFT KNEE REPLACEMENT BY DR HUERTA) Immunizations Up To Date Tetanus Booster (TDap): Less than 5yrs PED Vaccines UTD: Yes Date of Pneumonia Vaccine: Jun 21, 2019 Date of Influenza Vaccine: May 22, 2019 Seasonal Allergies Seasonal Allergies: Yes Past Medical History Surgeries: Yes (Right arm fistula) Bowel Surgery, Section, Coronary Stent, Gallbladder, Kidney Transplant, Nephrectomy, Orthopedic, Tonsillectomy, Tubal Ligation Respiratory: No Cardiac: Yes (Stent) Coronary Artery Disease, Heart Attack, Hypertension Neurological: Yes Neuropathy Reproductive Disorders: Yes Female Reproductive Disorders: Polycystic Ovarian Dis 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 Sexually Transmitted Disease: No HIV/AIDS: No Genitourinary: Yes Dialysis, Polycystic Kidney Disease Gastrointestinal: Yes Gastroesophageal Reflux, Cirrhosis Musculoskeletal: No Endocrine: Yes Diabetes, Insulin dep HEENT: No Cancer: Yes Kidney Psychosocial: Yes Depression Integumentary: No Blood Disorders: No Family Medical History Reviewed Nursing Family Hx Cataract (grandmother ) Chest pain 09 BROTHER Congestive heart failure (grandmother) Dementia (two paternal aunts) Family history: Alzheimer's disease (two paternal aunts) Family history: Arthritis (grandmother) Family history: Cardiovascular disease 09 BROTHER Family history: Hypertension 09 BROTHER Heart disease 09 BROTHER Kidney disease 03 MOTHER Stroke (paternal aunt) No Family History of: Abdominal aortic aneurysm Noble's disease Alcoholism Aphasia Cancer Cancer of colon Congenital heart disease Cystic fibrosis Dysphagia Family history: Allergy Family history: Asthma Family history: Breast disease Family history: Coronary thrombosis Family history: Diabetes mellitus Family history: Gastrointestinal disease Family history: Glaucoma Family history: Osteoporosis Family history: Thyroid disorder Headache Hearing loss Hereditary disease History of - anemia History of - disorder History of - respiratory disease History of drug abuse Human immunodeficiency virus (HIV) seropositivity Hypercholesterolemia Malignant neoplasm of lung Myocardial infarction Parkinson's disease Prostate cancer Psychotic disorder Seizure disorder Tuberculosis Visual impairment Physical Exam Vital Signs Vital Signs - First Documented 10/29/19 10/29/19 06:58 07:30 Temp 37.9 Pulse 76 Resp 18 B/P (MAP) 168/76 (106) Pulse Ox 98 O2 Delivery Room Air Capillary Refill : Less Than 3 Seconds Height, Weight, BMI Height: 5'6.00" Weight: 190lbs. 0.0oz. [id number]; 30.00 BMI Method:Stated General Appearance: No Apparent Distress, Other (malaise, fatigue) HEENT: PERRL/EOMI, Normal ENT Inspection, Other (mucous membranes somewhat dry) Neck: Normal Inspection Respiratory: Lungs Clear, Normal Breath Sounds, No Accessory Muscle Use, No Respiratory Distress Cardiovascular: Regular Rate, Rhythm, No Edema, No Murmur Extremity: Other (swelling and tenderness of the left knee. No significant heat or erythema. Right knee is tender without swelling, heat, or erythema. Feet and ankles unremarkable. 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 Norm as Tested Skin: Normal Color, Warm/Dry Focused Exam Lactate Level 10/29/19 07:13: Lactic Acid Level 1.44 Lactic Acid Level Progress/Results/Core Measures Suspected Sepsis Recent Fever Within 48 Hours: No Infection Criteria Present: None New/Unexplained Altered Menta: No Sepsis Screen: No Definite Risk SIRS Temperature: Pulse: 76 Respiratory Rate: 18 Laboratory Tests 10/29/19 07:13: White Blood Count 16.9H Blood Pressure 168 /76 Mean: 106 10/29/19 07:13: Lactic Acid Level 1.44 Laboratory Tests 10/29/19 07:13: Creatinine 1.02, INR Comment 1.1, Platelet Count 325, Total Bilirubin 1.1H Results/Orders Lab Results Laboratory Tests Test 10/29/19 07:13 10/29/19 07:16 10/29/19 07:30 10/29/19 12:30 Range/Units White Blood Count 16.9 H 4.3-11.0 10^3/uL Red Blood Count 3.38 L 4.35-5.85 10^6/uL Hemoglobin 9.7 #L 11.5-16.0 G/DL Hematocrit 31 L 35-52 % Mean Corpuscular Volume 90 80-99 FL Mean Corpuscular Hemoglobin 29 25-34 PG Mean Corpuscular Hemoglobin Concent 32 32-36 G/DL Red Cell Distribution Width 15.3 H 10.0-14.5 % Platelet Count 325 130-400 10^3/uL Mean Platelet Volume 9.7 7.4-10.4 FL Neutrophils (%) (Auto) 83 H 42-75 % Lymphocytes (%) (Auto) 8 L 12-44 % Monocytes (%) (Auto) 8 0-12 % Eosinophils (%) (Auto) 1 0-10 % Basophils (%) (Auto) 0 0-10 % Neutrophils # (Auto) 14.0 H 1.8-7.8 X 10^3 Lymphocytes # (Auto) 1.4 1.0-4.0 X 10^3 Monocytes # (Auto) 1.3 H 0.0-1.0 X 10^3 Eosinophils # (Auto) 0.1 0.0-0.3 10^3/uL Basophils # (Auto) 0.1 0.0-0.1 10^3/uL Neutrophils % (Manual) 83 % Lymphocytes % (Manual) 9 % Monocytes % (Manual) 2 % Eosinophils % (Manual) 2 % Basophils % (Manual) 0 % Metamyelocytes % 1 % Band Neutrophils 3 % Polychromasia SLIGHT Anisocytosis SLIGHT Prothrombin Time 15.1 H 12.2-14.7 SEC INR Comment 1.1 0.8-1.4 Activated Partial Thromboplast Time 29 24-35 SEC Sodium Level 135 135-145 MMOL/L Potassium Level 5.0 3.6-5.0 MMOL/L Chloride Level 101 98-107 MMOL/L Carbon Dioxide Level 21 21-32 MMOL/L Anion Gap 13 5-14 MMOL/L Blood Urea Nitrogen 18 7-18 MG/DL Creatinine 1.02 0.60-1.30 MG/DL Estimat Glomerular Filtration Rate 55 BUN/Creatinine Ratio 18 Glucose Level 160 H 70-105 MG/DL Lactic Acid Level 1.44 0.50-2.00 MMOL/L Uric Acid 8.5 H 2.6-7.2 MG/DL Calcium Level 10.0 8.5-10.1 MG/DL Corrected Calcium 10.6 H 8.5-10.1 MG/DL Magnesium Level 1.2 L 1.6-2.4 MG/DL Total Bilirubin 1.1 H 0.1-1.0 MG/DL Aspartate Amino Transf (AST/SGOT) 31 5-34 U/L Alanine Aminotransferase (ALT/SGPT) 32 0-55 U/L Alkaline Phosphatase 116 40-136 U/L Ammonia 20 11-32 UMOL/L C-Reactive Protein High Sensitivity 34.02 H 0.00-0.50 MG/DL Total Protein 6.8 6.4-8.2 GM/DL Albumin 3.3 3.2-4.5 GM/DL Glucometer 167 H 70-110 MG/DL Urine Color YELLOW Urine Clarity CLEAR Urine pH 6.0 5-9 Urine Specific [place] 1.015 L 1.016-1.022 Urine Protein 1+ H NEGATIVE Urine Glucose (UA) NEGATIVE NEGATIVE Urine Ketones NEGATIVE NEGATIVE Urine Nitrite NEGATIVE NEGATIVE Urine Bilirubin NEGATIVE NEGATIVE Urine Urobilinogen 0.2 < = 1.0 MG/DL Urine Leukocyte Esterase NEGATIVE NEGATIVE Urine RBC (Auto) NEGATIVE NEGATIVE Urine RBC RARE /HPF Urine WBC 0-2 /HPF Urine Squamous Epithelial Cells NONE /HPF Urine Crystals NONE /LPF Urine Bacteria NEGATIVE /HPF Urine Casts NONE /LPF Urine Mucus NEGATIVE /LPF Urine Culture Indicated NO Body Fluid Source SYNOVIAL Body Fluid Color YELLOW Body Fluid Appearance MOD CLDY Body Fluid WBC 35960 /uL Body Fluid RBC 50 /uL Body Fluid Polynuclear WBCs 100 % Body Fluid Mononuclear WBCs 0 % Body Fluid Lymphocytes 0 % Body Fluid Other Cells 0 % Body Fluid Crystals NOT SEEN Test 10/29/19 14:14 Range/Units Glucometer 165 H 70-110 MG/DL Micro Results Microbiology 10/29/19 Influenza Types A,B Antigen (MEENAKSHI) - Final, Complete My Orders Orders - CONNIE ARELLANO MD Cbc With Automated Diff (10/29/19 07:06) Comprehensive Metabolic Panel (10/29/19 07:06) Hs C Reactive Protein (10/29/19 07:06) Magnesium (10/29/19 07:06) Ua Culture If Indicated (10/29/19 07:06) Uric Acid (10/29/19 07:06) Ed Iv/Invasive Line Start (10/29/19 07:06) Ns Iv 1000 Ml (Sodium Chloride 0.9%) (10/29/19 07:06) Fentanyl Injection (Sublimaze Injection (10/29/19 07:15) Turcios Cath (10/29/19 07:08) Accucheck Stat ONCE (10/29/19 07:10) Manual Differential (10/29/19 07:13) Ammonia (10/29/19 07:38) Blood Culture (10/29/19 07:38) Sputum Culture (10/29/19 07:38) Protime With Inr (10/29/19 07:38) Partial Thromboplastin Time (10/29/19 07:38) Chest 1 View, Ap/Pa Only (10/29/19 07:38) Vital Signs Adult Sepsis Patie Q15M (10/29/19 07:38) O2 (10/29/19 07:38) Remove Rings In Anticipation O (10/29/19 07:38) Lactic Acid Analyzer (10/29/19 07:38) Influenza A And B Antigens (10/29/19 07:58) Acetaminophen Tablet (Tylenol Tablet) (10/29/19 08:30) Colchicine Tablet (Colcrys Tablet) (10/29/19 08:30) Magnesium 1 Gm/100 Ml Ivpb (Magnesium Kay (10/29/19 09:15) Body Fluid Cell Count (10/29/19 09:33) Body Fluid Culture (10/29/19 09:33) Crystals,Body Fluid (10/29/19 09:33) Ketorolac Injection (Toradol Injection) (10/29/19 09:45) Lidocaine 1% Inj 20 Ml (Xylocaine 1% Inj (10/29/19 09:45) Hydrocodone/Apap 5/325 Tablet (Lortab 5 (10/29/19 15:00) Cho 75g/M 0snack (21-2400 Chacorta) (10/29/19 Lunch) Accucheck Stat ONCE (10/29/19 15:07) Ns Iv 1000 Ml (Sodium Chloride 0.9%) (10/29/19 15:12) Magnesium 1 Gm/100 Ml Ivpb (Magnesium Kay (10/29/19 15:15) Medications Given in ED Current Medications Medications Dose Ordered Sig/Dani Route Start Time Stop Time Status Last Admin Dose Admin Acetaminophen/ Hydrocodone Bitart 1 tab ONCE ONCE PO 10/29/19 15:00 10/29/19 15:01 DC 10/29/19 15:13 1 TAB Magnesium Sulfate/ Dextrose 100 ml @ 100 mls/hr ONCE ONCE IV 10/29/19 15:15 10/29/19 16:14 DC 10/29/19 15:40 100 MLS/HR Sodium Chloride 1,000 ml @ 0 mls/hr Q0M ONCE IV 10/29/19 15:12 10/29/19 15:14 DC 10/29/19 15:40 1,000 MLS/HR Vital Signs/I&O 10/29/19 17:13 Temp 36.2 Pulse 64 Resp 20 B/P (MAP) 146/59 Pulse Ox 96 O2 Delivery Room Air Capillary Refill : Less Than 3 Seconds Blood Pressure Mean: 106 Progress Note #1: Time: 15:28 Progress Note Initial workup revealed no source of infection. I spoke with Dr. Bacon, orthopedist final inspection supervisor at [facility]. He recommended performing an aspiration and analysis of synovial fluid off the right knee. The results of the aspirate study will then drive the disposition from there. Aspiration was eventually performed but there was a long delay due to critical care of other patients in the emergency room. The aspiration revealed cloudy fluid that appeared aseptic. There were no crystals present on microscopy. Patient received Toradol 15 mg and colchicine 1.2 mg. This seemed to provide her significant relief. She had also received a liter of IV fluid and 1 g of magnesium as her serum magnesium was only 1.2. Results of the aspirate were discussed with Dr. Bacon. He recommended observing through the remainder of my shift and reevaluating. I discussed this plan with the patient. She was concerned about her functional capacity as it has been very poor over the past few days. Her states he has a difficult time caring for her at home. We performed a trial of functional capacity. Patient was able to get up on her own and take a few steps with a walker. However, she did not feel secure with this and stated it reactivated her knee pain. We then discussed admission. Patient does not feel comfortable being admitted to [facility] because of a bad experience she had on the rehabilitation unit many years ago. She requests transfer to [facility] for continuity of care with Dr. Huerta. Since we do not have orthopedic coverage at [facility] this weekend, this request is warranted. Ultimately no source of bacterial infection has been identified. The left knee (surgical knee) is at baseline from her postop state. The right knee was much worse than usual. The aspirate from the right knee showed no evidence of bacterial infection. Since no definite source of infection was identified, Dr. Bacon believes this is likely more of an inflammatory or arthritic problem, even possibly gout induced or pseudogout induced. He advises against antibiotics at this time. Inspiration is a renal transplant patient I will refrain from using any further NSAIDs. A second liter of IV fluids and another gram of magnesium have been ordered. We are awaiting a call back from [facility] to transfer. Patient has had no fevers. She is aseptic in appearance and feeling much better. Progress Note #2: Time: 16:11 Progress Note Case was discussed with Dr. Mercer at [facility] who accepts transfer. In the meantime patient is receiving a second gram of magnesium by IV route and a second bag of IV normal saline. She is also being allowed to eat. Diagnostic Imaging Diagonstic Imaging: Xray Plain Films/CT/US/NM/MRI: chest Comments Chest x-ray viewed by me and report reviewed. See report below: NAME: ANNEMAREI DOVE [facility] REC#: [id number] PT STATUS: REG ER : 1955 PHYSICIAN: CONNIE ARELLANO MD ADMIT DATE: 10/29/19/ER Signed Date of Exam:10/29/19 CHEST 1 VIEW, AP/PA ONLY Indication: Fever Comparison: 10/22/2019 Findings: No focal airspace disease in the visualized lungs. Please note that the posterior lower lobes are poorly evaluated by portable radiography. No pleural effusion or pneumothorax. Normal cardiomediastinal silhouette. Impression: 1. No acute cardiopulmonary process by portable radiography. Dictated by: Dictated on workstation # [id number] Dict: 10/29/19804 Trans: 10/29/19804 [facility] [id number] Interpreted by: MARLO KITCHEN MD Electronically signed by: MARLO KITCHEN MD 10/29/19804 Departure Impression Primary Impression: Bilateral knee pain Qualified Codes: M25.561 - Pain in right knee; M25.562 - Pain in left knee Additional Impressions: Effusion, right knee Hypomagnesemia Elevated uric acid in blood Debility Leukocytosis Qualified Codes: D72.829 - Elevated white blood cell count, unspecified Disposition: [facility] Condition: Improved Transfer Transfer Reason: Exceeds level of care (no orthopedic coverage at [facility]) Time Spoke to Accepting Phy: 16:05 Transfer Progress Notes Transfer accepted by Dr. Mercer Transfer Facility: [facility] Method of Transfer: EMS Departure-Patient Inst. Referrals: MERCY STALEY MD (PCP/Family) Primary Care Physician CONNIE ARELLANO MD Oct 29, 2019 07:19
[2019-10-29 07:26] LABS: BASOPHILS # (AUTO) 0.1 10^3/uL (0.0-0.1); BASOPHILS % (AUTO) 0 % (0-10); EOSINOPHILS # (AUTO) 0.1 10^3/uL (0.0-0.3); EOSINOPHILS % (AUTO) 1 % (0-10); HEMATOCRIT 31 % (35-52); HEMOGLOBIN 9.7 G/DL (11.5-16.0); LYMPHOCYTES # (AUTO) 1.4 X 10^3 (1.0-4.0); LYMPHOCYTES % (AUTO) 8 % (12-44); MEAN CORPUSCULAR HEMOGLOBIN 29 PG (25-34); MEAN CORPUSCULAR HGB CONC 32 G/DL (32-36); MEAN CORPUSCULAR VOLUME 90 FL (80-99); MEAN PLATELET VOLUME 9.7 FL (7.4-10.4); MONOCYTES # (AUTO) 1.3 X 10^3 (0.0-1.0); MONOCYTES % (AUTO) 8 % (0-12); NEUTROPHILS % (AUTO) 83 % (42-75); PLATELET COUNT 325 10^3/uL (130-400); RED CELL DISTRIBUTION WIDTH 15.3 % (10.0-14.5); WHITE BLOOD COUNT 16.9 10^3/uL (4.3-11.0)
[2019-10-29 07:39] LABS: BILIRUBIN,URINE NEGATIVE (NEGATIVE); CLARITY,URINE CLEAR; COLOR,URINE YELLOW; GLUCOSE, URINE (UA) NEGATIVE (NEGATIVE); KETONES,URINE NEGATIVE (NEGATIVE); LEUKOCYTE ESTERASE ,URINE NEGATIVE (NEGATIVE); NITRITE,URINE NEGATIVE (NEGATIVE); PROTEIN,URINE 1+ (NEGATIVE)
[2019-10-29 07:52] LABS: BACTERIA,URINE NEGATIVE /HPF; RBC,URINE RARE /HPF; WBC,URINE 0-2 /HPF
[2019-10-29 07:54] LABS: INR 1.1 (0.8-1.4); PROTHROMBIN TIME PATIENT 15.1 SEC (12.2-14.7)
[2019-10-29 08:05] LABS: ANISOCYTOSIS SLIGHT; BAND NEUTROPHILS 3 %; BASOPHILS % (MANUAL) 0 %; EOSINOPHILS % (MANUAL) 2 %; LYMPHOCYTES % (MANUAL) 9 %; METAMYELOCYTES % 1 %; MONOCYTES % (MANUAL) 2 %; NEUTROPHILS % (MANUAL) 83 %; POLYCHROMASIA SLIGHT
--- NOTE | 2019-10-29 08:06 | Diagnostic Imaging Report ---
CHEST 1 VIEW, AP/PA ONLY Indication: Fever Comparison: 10/22/2019 Findings: No focal airspace disease in the visualized lungs. Please note that the posterior lower lobes are poorly evaluated by portable radiography. No pleural effusion or pneumothorax. Normal cardiomediastinal silhouette. Impression: 1. No acute cardiopulmonary process by portable radiography. Dictated by: Dictated on workstation # [id number]
[2019-10-29 08:07] LABS: ALBUMIN 3.3 GM/DL (3.2-4.5); BILIRUBIN,TOTAL 1.1 MG/DL (0.1-1.0); CREATININE SERUM 1.02 MG/DL (0.60-1.30); MAGNESIUM 1.2 MG/DL (1.6-2.4); TOTAL PROTEIN 6.8 GM/DL (6.4-8.2); URIC ACID 8.5 MG/DL (2.6-7.2)
[2019-10-29] MEDS ORDERED: COLCHICINE 0.6 MG (COLCRYS) TABLET PO ONE (08:30)
[2019-10-29] MEDS ORDERED: ACETAMINOPHEN 500 MG TAB (TYLENOL) PO ONE (08:30)
[2019-10-29] MEDS ORDERED: MAGNESIUM 1 GM/100 ML IVPB 100 ML IV ONE ×2 (09:15→15:15)
[2019-10-29] MEDS ORDERED: LIDOCAINE 1% INJ 20 ML 20 ML VIAL INJ ONE (09:45)
[2019-10-29] MEDS ORDERED: KETOROLAC 30 MG/ML VIAL IVP ONE (09:45)
[2019-10-29 13:15] LABS: BODY FLUID APPEARENCE MOD CLDY; BODY FLUID COLOR YELLOW; BODY FLUID SOURCE SYNOVIAL
[2019-10-29 13:16] LABS: BODY FLUID RBC COUNT 50 /uL; BODY FLUID WBC TOTAL COUNT 13200 /uL
[2019-10-29 14:03] LABS: BF OTHER CELLS 0 %; LYMPHOCYTES,BODY FLUID 0 %
[2019-10-29] MEDS ORDERED: HYDROcodone/APAP 5 MG/325 MG (LORTAB) TAB PO ONE (15:00)
[2019-10-29] MEDS ORDERED: NS IV 1000 ML 1,000 ML IV ONE (15:12)
--- NOTE | 2019-10-29 16:26 | NUR ---
shift captain notified of transfer at this time. dispatch also called at this time.
[2019-10-29 17:13] VITALS: BP 146/59
== END 2019-10-29 17:13 | disposition short-term general hospital (02) ==
LOC: EDUNIT# 06:48 → ER 06:50
DX: M25.561 Pain in right knee (principal); M25.562 Pain in left knee; M25.461 Effusion, right knee; E83.42 Hypomagnesemia; E79.0 Hyperuricemia without signs of inflammatory arthritis and tophaceous disease; R53.81 Other malaise; D72.829 Elevated white blood cell count, unspecified; I10 Essential (primary) hypertension; I25.2 Old myocardial infarction; I25.10 Atherosclerotic heart disease of native coronary artery without angina pectoris; E11.40 Type 2 diabetes mellitus with diabetic neuropathy, unspecified; K21.9 Gastro-esophageal reflux disease without esophagitis; F32.9 Major depressive disorder, single episode, unspecified; Z85.528 Personal history of other malignant neoplasm of kidney; Z96.652 Presence of left artificial knee joint; Z79.82 Long term (current) use of aspirin; Z95.5 Presence of coronary angioplasty implant and graft; Z94.0 Kidney transplant status; Z79.4 Long term (current) use of insulin; Z82.49 Family history of ischemic heart disease and other diseases of the circulatory system
CPT/HCPCS: 36415; 51702; 71045; 80053; 81000; 82140; 82962; 83605; 83735; 84550; 85007; 85027; 85610; 85730; 86141; 87040; 87070; 87205; 87804; 89051; 89060; 96361; 96365; 96366; 96375

== ENCOUNTER 2020-04-05 12:51 | Emergency (ER) | payer BC ==
[~2020-04-05] VITALS: Ht 167 cm; Wt 77.1 kg
[~2020-04-05 12:51] MED LIST changes: +ACHD5005 PO; +ACHYD1T PO; -HYDR-3812 PO; -HYDR-3820 PO
[2020-04-05 13:29] LABS: BASOPHILS # (AUTO) 0.1 10^3/uL (0.0-0.1); BASOPHILS % (AUTO) 0 % (0-10); EOSINOPHILS # (AUTO) 0.2 10^3/uL (0.0-0.3); EOSINOPHILS % (AUTO) 1 % (0-10); HEMATOCRIT 31 % (35-52); HEMOGLOBIN 9.9 G/DL (11.5-16.0); LYMPHOCYTES # (AUTO) 2.8 X 10^3 (1.0-4.0); LYMPHOCYTES % (AUTO) 17 % (12-44); MEAN CORPUSCULAR HEMOGLOBIN 29 PG (25-34); MEAN CORPUSCULAR HGB CONC 32 G/DL (32-36); MEAN CORPUSCULAR VOLUME 91 FL (80-99); MONOCYTES % (AUTO) 6 % (0-12); NEUTROPHILS # (AUTO) 12.2 X 10^3 (1.8-7.8); NEUTROPHILS % (AUTO) 75 % (42-75); PLATELET COUNT 498 10^3/uL (130-400); RED CELL DISTRIBUTION WIDTH 14.6 % (10.0-14.5); WHITE BLOOD COUNT 16.3 10^3/uL (4.3-11.0)
[2020-04-05 13:40] LABS: ALBUMIN 3.7 GM/DL (3.2-4.5); POTASSIUM 4.7 MMOL/L (3.6-5.0)
[2020-04-05 13:42] LABS: CALCIUM 10.9 MG/DL (8.5-10.1)
[2020-04-05] MEDS ORDERED: APIX5TAB PO (13:42)
[2020-04-05 13:43] LABS: TOTAL PROTEIN 7.6 GM/DL (6.4-8.2)
[2020-04-05 13:45] LABS: BILIRUBIN,TOTAL 0.3 MG/DL (0.1-1.0)
--- NOTE | 2020-04-05 13:45 | ED Lower Extremity ---
General Chief Complaint: Lower Extremity Stated Complaint: R KNEE/LEG PAIN Nursing Triage Note: PT PRESENTS TO ED WITH COMPLAINTS OF R CALF AND KNEE PAIN. PT REPORTS SHE HAD R FOOT SX ON 03/23. PT REPORTS ON 03/27 SHE WAS DIAGNOSED WITH A BLOOD CLOT ON THAT LEG AND WAS STARTED ON ELIQUIS. PT REPORTS SHE FEELS INCREASED PAIN/SWELLING BEHIND HER R KNEE. Nursing Sepsis Screen: No Definite Risk Source: patient Exam Limitations: no limitations History of Present Illness Date Seen by Provider: Apr 05, 2020 Time Seen by Provider: 13:10 Initial Comments Patient here with complaint of right knee and leg pain. She had complicated foot surgery at [facility] on 03/23/20. She is a again there last week after she had felt weak and ultimately they found a blood clot to the right lower extremity. She apparently has had history of DVT prior. She was initiated on Eliquis and has completed her first week of dosing. Pain has increased and extended to her knee and leg over the last couple of days. She has had multiple calls to her doctor and ultimately they wanted her to be seen here for repeat ultrasound to evaluate for clot extension. She does complain of pain mostly behind the right knee and does have some swelling there. Denies fever or chills. Denies upper respiratory symptoms. Medical history complicated by kidney transplant but states all of that is stable and she has been doing fine with that. Patient did have evaluation by her surgeon on Thursday, 4 days ago and had dressing replaced and cast placed to the right foot and lower extremity. Onset: other (several days) Severity: moderate Pain/Injury Location: right leg, right knee Method of Injury: unknown Modifying Factors: Improves With Immobilization; Worse With Movement Allergies and Home Medications Allergies Coded Allergies: No Known Drug Allergies (Unverified , 12/25/13) Home Medications Allopurinol 100 Mg Tablet, 100 MG PO DAILY, (Reported) Apixaban 5 Mg Tablet, 5 MG PO BID, (Reported) Aspirin 81 Mg Tablet.dr, 81 MG PO DAILY, (Reported) Atorvastatin Calcium 20 Mg Tablet, 20 MG PO HS, (Reported) Candesartan Cilexetil 4 Mg Tablet, 4 MG PO HS, (Reported) Cefdinir 300 Mg Capsule, 300 MG PO BID Prescribed by: ADRIAN DESAI on 10/24/19 5104 Cholecalciferol (Vitamin D3) 50 Mcg Capsule, 50 MCG PO DAILY, (Reported) Folic Acid 1 Mg Tablet, 1 NG PO DAILY, (Reported) Hydrocodone Bit/Acetaminophen 1 Each Tablet, 1 TAB PO Q8H PRN for PAIN-MODERATE (5-7), (Reported) Icosapent Ethyl 1 Gm Capsule, 2 GM PO BID, (Reported) Insulin Aspart 300 Units/3 Ml Solution, UNITS SQ TID, (Reported) PER SLIDING SCALE Insulin Glargine,Hum.rec.anlog 100 Unit/1 Ml Insuln.pen, 24 UNITS SQ DAILY, (Reported) Insulin Glargine,Hum.rec.anlog 100 Unit/1 Ml Insuln.pen, 32 UNIT SQ HS, (Reported) Magnesium Oxide 400 Mg Tablet, 400 MG PO Q8H, (Reported) Metformin HCl 500 Mg Tablet, 500 MG PO BID, (Reported) Nebivolol HCl 10 Mg Tab, 10 MG PO HS, (Reported) Omeprazole 40 Mg Capsule.dr, 40 MG PO BID, (Reported) Prednisone 5 Mg Tablet, 5 MG PO DAILY, (Reported) Rifaximin 550 Mg Tablet, 550 MG PO BID, (Reported) Tacrolimus 0.5 Mg Capsule, 1.5 MG PO BID, (Reported) Temazepam 15 Mg Capsule, 15 MG PO DAILY, (Reported) Tramadol HCl 50 Mg Tablet, 50-100 MG PO Q6H PRN for PAIN-MODERATE (5-7), (Rep orted) Patient Home Medication List Home Medication List Reviewed: Yes Review of Systems Constitutional: see HPI; No chills, No fever EENTM: no symptoms reported Respiratory: No cough, No short of breath Cardiovascular: No chest pain, No edema Gastrointestinal: No abdominal pain, No nausea, No vomiting Genitourinary: no symptoms reported Musculoskeletal: muscle pain Skin: No change in color, No lesions Psychiatric/Neurological: No Symptoms Reported All Other Systems Reviewed Negative Unless Noted: Yes Past Tbuzzan-Itfzud-Zplbwm Hx Past Med/Social Hx: Reviewed Nursing Past Med/Soc Hx Patient Social History Alcohol Use: Denies Use Recreational Drug Use: No Smoking Status: Never a Smoker 2nd Hand Smoke Exposure: No Recent Foreign Travel: No Contact w/Someone Who Travel: No Recent Infectious Disease Expo: No Recent Hopitalizations: Yes (LEFT KNEE REPLACEMENT BY DR HUERTA) Physical Abuse: No Sexual Abuse: No Mistreated: No Fear: No Immunizations Up To Date Tetanus Booster (TDap): Less than 5yrs PED Vaccines UTD: Yes Date of Pneumonia Vaccine: Jun 21, 2019 Date of Influenza Vaccine: May 22, 2019 Seasonal Allergies Seasonal Allergies: Yes Past Medical History Surgeries: Yes (Right arm fistula, LTKR, ) Bowel Surgery, Section, Coronary Stent, Gallbladder, Kidney Transplant, Nephrectomy, Orthopedic, Tonsillectomy, Tubal Ligation Respiratory: No Cardiac: Yes (Stent) Coronary Artery Disease, Heart Attack, Hypertension Neurological: Yes Neuropathy Reproductive Disorders: Yes Female Reproductive Disorders: Polycystic Ovarian Dis [employer] History: Menopausal Sexually Transmitted Disease: No HIV/AIDS: No Genitourinary: Yes Dialysis, Polycystic Kidney Disease Gastrointestinal: Yes Gastroesophageal Reflux, Cirrhosis Musculoskeletal: No Endocrine: Yes Diabetes, Insulin dep HEENT: No Cancer: Yes Kidney Psychosocial: Yes Depression Integumentary: No Blood Disorders: No Family Medical History Reviewed Nursing Family Hx Cataract (grandmother ) Chest pain 09 BROTHER Congestive heart failure (grandmother) Dementia (two paternal aunts) Family history: Alzheimer's disease (two paternal aunts) Family history: Arthritis (grandmother) Family history: Cardiovascular disease 09 BROTHER Family history: Hypertension 09 BROTHER Heart disease 09 BROTHER Kidney disease 03 MOTHER Stroke (paternal aunt) Physical Exam Vital Signs Vital Signs - First Documented 04/05/20 13:15 Temp 36.2 Pulse 73 Resp 18 B/P (MAP) 124/60 (81) Pulse Ox 98 Capillary Refill : Less Than 3 Seconds Height, Weight, BMI Height: 5'6.00" Weight: 190lbs. 0.0oz. 86.320255af; 27.00 BMI Method:Stated General Appearance: WD/WN, no apparent distress HEENT: PERRL/EOMI, pharynx normal Neck: full range of motion, supple Cardiovascular: regular rate, rhythm, no murmur Respiratory: lungs clear, normal breath sounds Gastrointestinal: non tender, soft Back: normal inspection, no CVA tenderness, no vertebral tenderness Legs: left leg non-tender, left leg normal inspection, left leg normal range of motion; right leg pain (proximal lower leg and including the area behind the knee) Knees: left knee non-tender, left knee normal inspection, left knee normal range of motion; bilateral knee no evidence of injury; right knee soft tissue tenderness, right knee swelling, right knee other (tender posterior aspect of the right knee with swelling noted) Feet: right foot other (cast placed to right lower extremity covering from toes up to upper calf) Neurologic/Psychiatric: alert, oriented x 3 Skin: normal color, warm/dry Progress/Results/Core Measures Results/Orders Lab Results Laboratory Tests Test 04/05/20 13:16 Range/Units White Blood Count 16.3 H 4.3-11.0 10^3/uL Red Blood Count 3.44 L 4.35-5.85 10^6/uL Hemoglobin 9.9 L 11.5-16.0 G/DL Hematocrit 31 L 35-52 % Mean Corpuscular Volume 91 80-99 FL Mean Corpuscular Hemoglobin 29 25-34 PG Mean Corpuscular Hemoglobin Concent 32 32-36 G/DL Red Cell Distribution Width 14.6 H 10.0-14.5 % Platelet Count 498 H 130-400 10^3/uL Mean Platelet Volume 9.0 7.4-10.4 FL Neutrophils (%) (Auto) 75 42-75 % Lymphocytes (%) (Auto) 17 12-44 % Monocytes (%) (Auto) 6 0-12 % Eosinophils (%) (Auto) 1 0-10 % Basophils (%) (Auto) 0 0-10 % Neutrophils # (Auto) 12.2 H 1.8-7.8 X 10^3 Lymphocytes # (Auto) 2.8 1.0-4.0 X 10^3 Monocytes # (Auto) 1.0 0.0-1.0 X 10^3 Eosinophils # (Auto) 0.2 0.0-0.3 10^3/uL Basophils # (Auto) 0.1 0.0-0.1 10^3/uL Neutrophils % (Manual) 68 % Lymphocytes % (Manual) 21 % Monocytes % (Manual) 4 % Eosinophils % (Manual) 1 % Basophils % (Manual) 0 % Myelocytes % 2 % Band Neutrophils 4 % Blood Morphology Comment NORMAL Sodium Level 142 135-145 MMOL/L Potassium Level 4.7 3.6-5.0 MMOL/L Chloride Level 106 98-107 MMOL/L Carbon Dioxide Level 24 21-32 MMOL/L Anion Gap 12 5-14 MMOL/L Blood Urea Nitrogen 28 H 7-18 MG/DL Creatinine 1.05 0.60-1.30 MG/DL Estimat Glomerular Filtration Rate 53 BUN/Creatinine Ratio 27 Glucose Level 99 70-105 MG/DL Calcium Level 10.9 H 8.5-10.1 MG/DL Corrected Calcium 11.1 H 8.5-10.1 MG/DL Total Bilirubin 0.3 0.1-1.0 MG/DL Aspartate Amino Transf (AST/SGOT) 16 5-34 U/L Alanine Aminotransferase (ALT/SGPT) 17 0-55 U/L Alkaline Phosphatase 99 40-136 U/L C-Reactive Protein High Sensitivity 7.55 H 0.00-0.50 MG/DL Total Protein 7.6 6.4-8.2 GM/DL Albumin 3.7 3.2-4.5 GM/DL My Orders Orders - MAXWELL CHAND MD Cbc With Automated Diff (04/05/20 13:16) Comprehensive Metabolic Panel (04/05/20 13:16) Hs C Reactive Protein (04/05/20 13:16) Ed Iv/Invasive Line Start (04/05/20 13:16) Us Venous Lower Ext Rt (04/05/20 13:16) Manual Differential (04/05/20 13:16) Knee, Right, 3 Views (04/05/20 14:07) Vital Signs/I&O 04/05/20 13:15 Temp 36.2 Pulse 73 Resp 18 B/P (MAP) 124/60 (81) Pulse Ox 98 Blood Pressure Mean: 81 Progress Progress Note : Progress Note Seen and evaluated. Patient is currently under appropriate therapy for DVT. We will evaluate with ultrasound for extension of clot and Barragan's cyst. We will also check basic labs including CBC, CMP and CRP to evaluate for possibility of infection. Monitor patient. 1410: X-ray right knee ordered. Patient is doing well in position of comfort. Ultrasound shows no DVT. No Barragan's cyst noted either. Monitor patient. 1520: I have spoken with the triage nurse for Dr. Cheryl gómez (patient's orthopedic physician at ) to discuss current findings and get guidance. Main concern is elevated white count and elevated CRP and being unable to see the wound due to the cast. Monitor patient. 1638: We did hear back from [facility]. Dr. Thakkar believes this is likely related to gout as see noted significant gout findings during the operation. This would account for the white count elevation and CRP. His nurse is going to call tomorrow and readjust appointments as needed. Patient is to continue home pain medications as needed. She is remaining comfortable with just positioning. Discharged home with return precautions. Patient verbalize understanding of instructions and agreement with plan. Diagnostic Imaging Diagonstic Imaging: Ultrasound Plain Films/CT/US/NM/MRI: leg Comments [facility] [place] [place] NAME: ANNEMARIE [facility] REC#: [id number] PT STATUS: REG ER : 1955 PHYSICIAN: MAXWELL CHAND MD ADMIT DATE: 04/05/20/ER Draft Date of Exam:04/05/20 US VENOUS LOWER EXT RT PROCEDURE: US right lower extremity venous. TECHNIQUE: Multiple real-time grayscale images were obtained over the right lower extremity in various projections. Additional spectral analysis and color Doppler duplex images were also obtained. INDICATION: Pain behind the right knee. FINDINGS: There is no evidence of right lower extremity DVT. Right lower extremity deep venous system shows normal compressibility with normal response to augmentation and Valsalva. No fluid collection or mass is seen. No popliteal cyst is detected. IMPRESSION: No evidence of right lower extremity DVT. Dictated on workstation # [id number] Dict: 04/05/20 1405 Trans: 04/05/20 1407 [facility] [id number] Interpreted by: ANITA AZUL MD Electronically signed by: Diagonstic Imaging: Xray Plain Films/CT/US/NM/MRI: knee Comments [facility] [place] [place] NAME: ANNEMARIE [facility] REC#: [id number] PT STATUS: REG ER : 1955 PHYSICIAN: MAXWELL CHAND MD ADMIT DATE: 04/05/20/ER Draft Date of Exam:04/05/20 KNEE, RIGHT, 3 VIEWS INDICATION: Recent foot surgery. Patient complains of right knee pain. TIME OF EXAM: 02:27 p.m. FINDINGS: Multiple views of the right knee were obtained. Alignment is normal. Medial and lateral compartments appear to be well maintained. There is some spurring of the tibial spines. [id number] patellofemoral degenerative changes noted. No fracture, dislocation, or effusion is seen. IMPRESSION: Patellofemoral degenerative change. No acute bony abnormality is detected. Dictated on workstation # [id number] Dict: 04/05/20 1447 Trans: 04/05/20 1454 [id number] Interpreted by: ANITA AZUL MD Electronically signed by: Reviewed: Reviewed by Me Departure Impression Primary Impression: Right knee pain Qualified Codes: M25.561 - Pain in right knee Additional Impression: Postoperative pain Disposition: 01 HOME, SELF-CARE Condition: Stable Departure-Patient Inst. Decision time for Depature: 16:39 Referrals: MERCY STALEY MD (PCP/Family) Primary Care Physician Patient Instructions: Gout (DC), Knee Pain (DC) Add. Discharge Instructions: All discharge instructions reviewed with patient and/or family. Voiced understanding. You may use ice packs 20 minutes per hour as needed over the knee to reduce swelling and pain. Dr. Thakkar's nurse will call you tomorrow to reassess and discuss moving appointment if needed. The pain may be related to gout as well as discussed with Dr. Thakkar. They will discuss that with you further as needed. You should rest and slowly return to activity advance that you were moving towards already. Return for worse pain, fever, weakness, red streaks up the leg or other concerns as needed. Continue home medications as previously prescribed. It is okay to take your tramadol for pain as needed per prescription. MAXWELL CHAND MD Apr 05, 2020 13:45
[2020-04-05 13:46] LABS: CREATININE SERUM 1.05 MG/DL (0.60-1.30)
[2020-04-05 14:01] LABS: BAND NEUTROPHILS 4 %; BASOPHILS % (MANUAL) 0 %; EOSINOPHILS % (MANUAL) 1 %; LYMPHOCYTES % (MANUAL) 21 %; MONOCYTES % (MANUAL) 4 %; MYELOCYTES % 2 %; NEUTROPHILS % (MANUAL) 68 %; RBC MORPH NORMAL
--- NOTE | 2020-04-05 14:07 | Diagnostic Imaging Report ---
PROCEDURE: US right lower extremity venous. TECHNIQUE: Multiple real-time grayscale images were obtained over the right lower extremity in various projections. Additional spectral analysis and color Doppler duplex images were also obtained. INDICATION: Pain behind the right knee. FINDINGS: There is no evidence of right lower extremity DVT. Right lower extremity deep venous system shows normal compressibility with normal response to augmentation and Valsalva. No fluid collection or mass is seen. No popliteal cyst is detected. IMPRESSION: No evidence of right lower extremity DVT. Dictated by: Dictated on workstation # [id number]
--- NOTE | 2020-04-05 14:54 | Diagnostic Imaging Report ---
INDICATION: Recent foot surgery. Patient complains of right knee pain. TIME OF EXAM: 02:27 p.m. FINDINGS: Multiple views of the right knee were obtained. Alignment is normal. Medial and lateral compartments appear to be well maintained. There is some spurring of the tibial spines. [id number] patellofemoral degenerative changes noted. No fracture, dislocation, or effusion is seen. IMPRESSION: Patellofemoral degenerative change. No acute bony abnormality is detected. Dictated by: Dictated on workstation # [id number]
[2020-04-05 17:19] VITALS: BP 121/74
== END 2020-04-05 17:19 | disposition home or self-care (01) ==
LOC: EDUNIT# 12:51 → ER 12:54
DX: G89.18 Other acute postprocedural pain (principal); M25.561 Pain in right knee; I10 Essential (primary) hypertension; I25.2 Old myocardial infarction; I25.10 Atherosclerotic heart disease of native coronary artery without angina pectoris; E11.40 Type 2 diabetes mellitus with diabetic neuropathy, unspecified; K21.9 Gastro-esophageal reflux disease without esophagitis; Z96.652 Presence of left artificial knee joint; Z82.49 Family history of ischemic heart disease and other diseases of the circulatory system; Z79.01 Long term (current) use of anticoagulants; Z79.82 Long term (current) use of aspirin; Z90.5 Acquired absence of kidney; Z79.4 Long term (current) use of insulin; Z79.52 Long term (current) use of systemic steroids; Z95.5 Presence of coronary angioplasty implant and graft
CPT/HCPCS: 36415; 73562; 80053; 85007; 85027; 86141

== ENCOUNTER 2020-05-10 11:03 | Emergency (ER) | payer BC ==
[~2020-05-10] VITALS: Ht 167 cm; Wt 77.2 kg
[~2020-05-10 11:03] MED LIST changes: +APIX5TAB PO
--- NOTE | 2020-05-10 11:29 | ED Neurological Problem ---
General Chief Complaint: Neuro-Stroke Like Symptoms Stated Complaint: STROKE LIKE SYMPTOMS Source: patient Exam Limitations: no limitations History of Present Illness Date Seen by Provider: May 10, 2020 Time Seen by Provider: 11:16 Initial Comments To ER by private vehicle with reports of strokelike symptoms. These began this morning between 8:30 and 9 AM and consisted of difficulty comprehending an email that was sent to her, difficulty speaking to her , difficulty reading her book. She had troubles getting the words that she wanted to say out. She didn't notice any unilateral weakness. No history of this. She called her primary care Dr. Staley's office at about 10:30 and they referred her to the emergency room. Sometime around 10:30 they seem to resolve. She has no history of stroke. She does have an extensive medical history. Her right lower leg is in a cast following surgery from . This was done several weeks ago and she subsequently developed a DVT in the right leg and is now on Eliquis 5 mg twice a day. She has a history of a kidney transplant with right nephrectomy following a diagnosis of polycystic kidney disease. AV fistula in the right arm, she was formerly on dialysis but since the transplant she is no longer on dialysis. She is also diabetic. Timing/Duration: 1-3 hours Severity: moderate Associated Symptoms: No confusion, No fatigue, No fever/chills; slurred speech Allergies and Home Medications Allergies Coded Allergies: No Known Drug Allergies (Unverified , 12/25/13) Home Medications Allopurinol 100 Mg Tablet, 100 MG PO DAILY, (Reported) Apixaban 5 Mg Tablet, 5 MG PO BID, (Reported) Aspirin 81 Mg Tablet.dr, 81 MG PO DAILY, (Reported) Atorvastatin Calcium 20 Mg Tablet, 20 MG PO HS, (Reported) Candesartan Cilexetil 4 Mg Tablet, 4 MG PO HS, (Reported) Cefdinir 300 Mg Capsule, 300 MG PO BID Prescribed by: ADRIAN DESAI on 10/24/19 9331 Cholecalciferol (Vitamin D3) 50 Mcg Capsule, 50 MCG PO DAILY, (Reported) Folic Acid 1 Mg Tablet, 1 NG PO DAILY, (Reported) Hydrocodone Bit/Acetaminophen 1 Each Tablet, 1 TAB PO Q8H PRN for PAIN-MODERATE (5-7), (Reported) Icosapent Ethyl 1 Gm Capsule, 2 GM PO BID, (Reported) Insulin Aspart 300 Units/3 Ml Solution, UNITS SQ TID, (Reported) PER SLIDING SCALE Insulin Glargine,Hum.rec.anlog 100 Unit/1 Ml Insuln.pen, 24 UNITS SQ DAILY, (Reported) Insulin Glargine,Hum.rec.anlog 100 Unit/1 Ml Insuln.pen, 32 UNIT SQ HS, (Reported) Magnesium Oxide 400 Mg Tablet, 400 MG PO Q8H, (Reported) Metformin HCl 500 Mg Tablet, 500 MG PO BID, (Reported) Nebivolol HCl 10 Mg Tab, 10 MG PO HS, (Reported) Omeprazole 40 Mg Capsule.dr, 40 MG PO BID, (Reported) Prednisone 5 Mg Tablet, 5 MG PO DAILY, (Reported) Rifaximin 550 Mg Tablet, 550 MG PO BID, (Reported) Tacrolimus 0.5 Mg Capsule, 1.5 MG PO BID, (Reported) Temazepam 15 Mg Capsule, 15 MG PO DAILY, (Reported) Tramadol HCl 50 Mg Tablet, 50-100 MG PO Q6H PRN for PAIN-MODERATE (5-7), (Reported) Patient Home Medication List Home Medication List Reviewed: Yes Review of Systems Review of Systems Constitutional: see HPI Eyes: No Symptoms Reported Ears, Nose, Mouth, Throat: no symptoms reported Respiratory: no symptoms reported Cardiovascular: no symptoms reported Genitourinary: no symptoms reported Musculoskeletal: see HPI Skin: no symptoms reported Psychiatric/Neurological: See HPI Endocrine: No Symptoms Reported Hematologic/Lymphatic: No Symptoms Reported Past Jjfittg-Wlslme-Hyiyma Hx Patient Social History 2nd Hand Smoke Exposure: No Recent Foreign Travel: No Contact w/Someone Who Travel: No Recent Hopitalizations: Yes (LEFT KNEE REPLACEMENT BY DR HUERTA) Immunizations Up To Date Tetanus Booster (TDap): Less than 5yrs PED Vaccines UTD: Yes Date of Pneumonia Vaccine: Jun 21, 2019 Date of Influenza Vaccine: May 22, 2019 Seasonal Allergies Seasonal Allergies: Yes Past Medical History Surgeries: Yes (Right arm fistula, LTKR, ) Bowel Surgery, Section, Coronary Stent, Gallbladder, Kidney Transplant, Nephrectomy, Orthopedic, Tonsillectomy, Tubal Ligation Respiratory: No Cardiac: Yes (Stent) Coronary Artery Disease, Heart Attack, Hypertension Neurological: Yes Neuropathy Reproductive Disorders: Yes Female Reproductive Disorders: Polycystic 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 Sexually Transmitted Disease: No HIV/AIDS: No Genitourinary: Yes Dialysis, Polycystic Kidney Disease Gastrointestinal: Yes Gastroesophageal Reflux, Cirrhosis Musculoskeletal: No Endocrine: Yes Diabetes, Insulin dep HEENT: No Cancer: Yes Kidney Psychosocial: Yes Depression Integumentary: No Blood Disorders: No Family Medical History Cataract (grandmother ) Chest pain 09 BROTHER Congestive heart failure (grandmother) Dementia (two paternal aunts) Family history: Alzheimer's disease (two paternal aunts) Family history: Arthritis (grandmother) Family history: Cardiovascular disease 09 BROTHER Family history: Hypertension 09 BROTHER Heart disease 09 BROTHER Kidney disease 03 MOTHER Stroke (paternal aunt) No Family History of: Abdominal aortic aneurysm [place]'s disease Alcoholism Aphasia Cancer Cancer of colon Congenital heart disease Cystic fibrosis Dysphagia Family history: Allergy Family history: Asthma Family history: Breast disease Family history: Coronary thrombosis Family history: Diabetes mellitus Family history: Gastrointestinal disease Family history: Glaucoma Family history: Osteoporosis Family history: Thyroid disorder Headache Hearing loss Hereditary disease History of - anemia History of - disorder History of - respiratory disease History of drug abuse Human immunodeficiency virus (HIV) seropositivity Hypercholesterolemia Malignant neoplasm of lung Myocardial infarction Parkinson's disease Prostate cancer Psychotic disorder Seizure disorder Tuberculosis Visual impairment Physical Exam Vital Signs Vital Signs - First Documented 05/10/20 11:06 Temp 36.8 Pulse 72 Resp 18 B/P (MAP) 151/69 (96) Capillary Refill : Height, Weight, BMI Height: 5'6.00" Weight: 190lbs. 0.0oz. 86.262103mc; 27.00 BMI Method:Stated General Appearance: WD/WN, no apparent distress, other (at this time she is alert and oriented with an NIH stroke score of 0 no deficits talkative and pleasant. Sinus rhythm on EKG with a rate of 68, blood pressure 150 over 80s.) HEENT: PERRL/EOMI, normal ENT inspection Neck: non-tender, full range of motion Respiratory: normal breath sounds, no respiratory distress, no accessory muscle use Cardiovascular: regular rate, rhythm, no murmur Gastrointestinal: normal bowel sounds, non tender, soft Neurologic/Psychiatric: alert, normal mood/affect, oriented x 3 Crainal Nerves: normal hearing, normal speech, PERRL Skin: normal color, warm/dry Stroke Onset of Symptoms Date of Onset of Symptoms: May 10, 2020 Time of Symptom Onset: 08:30 Onset of Symptoms: Yes Symptoms onset unknown: No NIH Stroke Scale Assessment Select: Initial Level of Consciousness: 0=Alert (0), Level of Consciousness- Questions: 0=Answers both month/age (0), LOC Commands: 0=Performs both tasks (0), Visual Cantor: 0=No visual loss (0), Facial Movement (Facial Paresis): 0=Normal symmetrical mnt (0), Motor Function-Arms Right: 0=No drift (0), M otor Function-Arms Left: 0=No drift (0), Motor Function-Legs Right: 0=No drift (0), Motor Function-Legs Left: 0=No drift (0), Limb Ataxia: 0=Absent (0), Sensory: 0=Normal:no loss (0), Best Language: 0=No aphasia (0), Dysarthria: 0=Normal (0), Extinction & Inattention: 0=No abnormality (0), Total: 0 Progress/Results/Core Measures Results/Orders Lab Results Laboratory Tests Test 05/10/20 11:15 05/10/20 11:47 05/10/20 12:04 Range/Units White Blood Count 11.8 H 4.3-11.0 10^3/uL Red Blood Count 4.10 L 4.35-5.85 10^6/uL Hemoglobin 11.8 11.5-16.0 G/DL Hematocrit 37 35-52 % Mean Corpuscular Volume 90 80-99 FL Mean Corpuscular Hemoglobin 29 25-34 PG Mean Corpuscular Hemoglobin Concent 32 32-36 G/DL Red Cell Distribution Width 17.1 H 10.0-14.5 % Platelet Count 225 130-400 10^3/uL Mean Platelet Volume 10.4 7.4-10.4 FL Neutrophils (%) (Auto) 71 42-75 % Lymphocytes (%) (Auto) 19 12-44 % Monocytes (%) (Auto) 6 0-12 % Eosinophils (%) (Auto) 3 0-10 % Basophils (%) (Auto) 1 0-10 % Neutrophils # (Auto) 8.4 H 1.8-7.8 X 10^3 Lymphocytes # (Auto) 2.3 1.0-4.0 X 10^3 Monocytes # (Auto) 0.7 0.0-1.0 X 10^3 Eosinophils # (Auto) 0.3 0.0-0.3 10^3/uL Basophils # (Auto) 0.1 0.0-0.1 10^3/uL Prothrombin Time 15.4 H 12.2-14.7 SEC INR Comment 1.2 0.8-1.4 Activated Partial Thromboplast Time 27 24-35 SEC D-Dimer 1.75 H 0.00-0.49 UG/ML Sodium Level 138 135-145 MMOL/L Potassium Level 4.2 3.6-5.0 MMOL/L Chloride Level 104 98-107 MMOL/L Carbon Dioxide Level 20 L 21-32 MMOL/L Anion Gap 14 5-14 MMOL/L Blood Urea Nitrogen 20 H 7-18 MG/DL Creatinine 0.89 0.60-1.30 MG/DL Estimat Glomerular Filtration Rate > 60 BUN/Creatinine Ratio 22 Glucose Level 107 H 70-105 MG/DL Calcium Level 10.3 H 8.5-10.1 MG/DL Corrected Calcium 10.1 8.5-10.1 MG/DL Total Bilirubin 0.4 0.1-1.0 MG/DL Aspartate Amino Transf (AST/SGOT) 28 5-34 U/L Alanine Aminotransferase (ALT/SGPT) 23 0-55 U/L Alkaline Phosphatase 78 40-136 U/L Troponin I < 0.028 <0.028 NG/ML Total Protein 7.6 6.4-8.2 GM/DL Albumin 4.3 3.2-4.5 GM/DL Glucometer 114 H 70-110 MG/DL Urine Color YELLOW Urine Clarity CLEAR Urine pH 5.5 5-9 Urine Specific Todd 1.020 1.016-1.022 Urine Protein TRACE H NEGATIVE Urine Glucose (UA) NEGATIVE NEGATIVE Urine Ketones NEGATIVE NEGATIVE Urine Nitrite NEGATIVE NEGATIVE Urine Bilirubin NEGATIVE NEGATIVE Urine Urobilinogen 0.2 < = 1.0 MG/DL Urine Leukocyte Esterase 1+ H NEGATIVE Urine RBC (Auto) TRACE-I NEGATIVE Urine RBC NONE /HPF Urine WBC 5-10 H /HPF Urine Squamous Epithelial Cells 2-5 /HPF Urine Renal Epithelial Cells 0-2 /HPF Urine Crystals NONE /LPF Urine Bacteria TRACE /HPF Urine Casts NONE /LPF Urine Mucus NEGATIVE /LPF Urine Culture Indicated YES My Orders Orders - PREET HAHN CERTIFED REFRIGERATION OPERATOR Cbc With Automated Diff (05/10/20 11:22) Protime With Inr (05/10/20 11:22) Partial Thromboplastin Time (05/10/20 11:22) Comprehensive Metabolic Panel (05/10/20 11:22) Fibrin Degradation Products (05/10/20 11:22) Troponin I (05/10/20 11:22) Ua Culture If Indicated (05/10/20 11:22) Chest 1 View, Ap/Pa Only (05/10/20 11:22) Ekg Tracing (05/10/20 11:22) Nothing By Mouth (05/10/20 Lunch) Accucheck Stat ONCE (05/10/20 11:22) Ed Iv/Invasive Line Start (05/10/20 11:22) Ed Iv/Invasive Line Start (05/10/20 11:22) Vital Signs Stroke Patient Q15M (05/10/20 11:22) Ct Head Wo-R/O Stroke (05/10/20 11:22) O2 (05/10/20 11:22) Intake & Output 06,14,22 (05/10/20 11:22) Monitor-Rhythm Ecg Trace Only (05/10/20 11:22) Dysphagia Screening Tool (05/10/20 11:22) Post Thrombolytic Adminstratio (05/10/20 11:22) Lipid Panel (05/11/20 06:00) Ct Angio Head/Neck (05/10/20 11:57) Iohexol Injection (Omnipaque 350 Mg/Ml 1 (05/10/20 12:00) Received Contrast (Hold Metformin- Contr (05/10/20 12:00) Ns (Ivpb) (Sodium Chloride 0.9% Ivpb Bag (05/10/20 12:00) Urine Culture (05/10/20 12:04) Vital Signs/I&O 05/10/20 11:06 Temp 36.8 Pulse 72 Resp 18 B/P (MAP) 151/69 (96) Diagnostic Imaging Diagonstic Imaging: CT Comments NAME: ANNEMARIE DOVE [facility] REC#: [id number] PT STATUS: REG ER : 1955 PHYSICIAN: PREET HAHN APRN ADMIT DATE: 05/10/20/ER Draft Date of Exam:05/10/20 CT ANGIO HEAD/NECK PROCEDURE: CT angiography of the head and CT angiography of the neck with and without contrast. TECHNIQUE: Contiguous noncontrast images were obtained from the skull base through the vertex. After intravenous contrast administration, helical CT angiography of the neck was performed. Source data was reformatted into 3D MIP projections. Delayed post contrast acquisition was also obtained. Auto Exposure Controls were utilized during the CT exam to meet ALARA standards for radiation dose reduction. INDICATION: Cerebrovascular accident, dysarthria. FINDINGS: There is a normal three-vessel branching pattern arising from the aortic arch. Carotid arteries are patent throughout the neck, although there is significant tortuosity particularly in the right internal carotid artery. There is no evidence of filling defect or intimal abnormality. There is no evidence of neck hematoma. There is an approximately 1 cm low-density nodule in the left lobe of thyroid gland. Anterior, middle and posterior cerebral arteries have a normal appearance. Vertebral artery and basilar artery are also unremarkable. There is no evidence of filling defect stenosis or occlusion. No aneurysm or vascular malformation is identified. There is no abnormal contrast enhancement. IMPRESSION: No evidence of great vessel abnormality in the neck or head. 1 cm low-density nodule in the left lobe of thyroid gland could be cystic. Consideration could be given to ultrasound follow-up if indicated. Dictated on workstation # [id number] Dict: 05/10/20 1256 Trans: 05/10/20 1305 [facility] [id number] Interpreted by: FARAZ MALDONADO MD Electronically signed by: Departure Impression Primary Impression: Urinary tract infection Qualified Codes: N30.00 - Acute cystitis without hematuria Additional Impression: Transient cerebral ischemia Qualified Codes: G45.9 - Transient cerebral ischemic attack, unspecified Disposition: 01 HOME, SELF-CARE Condition: Stable Departure-Patient Inst. Decision time for Depature: 13:09 Referrals: MERCY STALEY MD (PCP/Family) Primary Care Physician Patient Instructions: Transient Ischemic Attack (DC), Urinary Tract Infections in Adults Add. Discharge Instructions: 1. Antibiotics as directed 2. Return to ER for any concerns or recurrent symptoms. Continue all current medications. 3. Follow-up with primary care this week for further evaluation. All discharge instructions reviewed with patient and/or family. Voiced understanding. Scripts Cefuroxime Axetil (Cefuroxime) 500 Mg Tablet 500 MG PO BID, #10 TAB Prov: PREET HAHN CERTIFED REFRIGERATION OPERATOR 05/10/20 PREET HAHN APRN May 10, 2020 11:29
[2020-05-10 11:30] LABS: BASOPHILS # (AUTO) 0.1 10^3/uL (0.0-0.1); BASOPHILS % (AUTO) 1 % (0-10); EOSINOPHILS # (AUTO) 0.3 10^3/uL (0.0-0.3); EOSINOPHILS % (AUTO) 3 % (0-10); HEMATOCRIT 37 % (35-52); HEMOGLOBIN 11.8 G/DL (11.5-16.0); LYMPHOCYTES # (AUTO) 2.3 X 10^3 (1.0-4.0); LYMPHOCYTES % (AUTO) 19 % (12-44); MEAN CORPUSCULAR HEMOGLOBIN 29 PG (25-34); MEAN CORPUSCULAR HGB CONC 32 G/DL (32-36); MEAN CORPUSCULAR VOLUME 90 FL (80-99); MEAN PLATELET VOLUME 10.4 FL (7.4-10.4); MONOCYTES # (AUTO) 0.7 X 10^3 (0.0-1.0); MONOCYTES % (AUTO) 6 % (0-12); NEUTROPHILS # (AUTO) 8.4 X 10^3 (1.8-7.8); NEUTROPHILS % (AUTO) 71 % (42-75); PLATELET COUNT 225 10^3/uL (130-400); RED CELL DISTRIBUTION WIDTH 17.1 % (10.0-14.5); WHITE BLOOD COUNT 11.8 10^3/uL (4.3-11.0)
[2020-05-10 11:33] LABS: ALBUMIN 4.3 GM/DL (3.2-4.5); CHLORIDE 104 MMOL/L (98-107); POTASSIUM 4.2 MMOL/L (3.6-5.0); SODIUM 138 MMOL/L (135-145)
[2020-05-10 11:34] LABS: CALCIUM 10.3 MG/DL (8.5-10.1)
[2020-05-10 11:35] LABS: GLUCOSE 107 MG/DL (70-105)
[2020-05-10 11:36] LABS: TOTAL PROTEIN 7.6 GM/DL (6.4-8.2)
[2020-05-10 11:37] LABS: BILIRUBIN,TOTAL 0.4 MG/DL (0.1-1.0); CARBON DIOXIDE 20 MMOL/L (21-32)
[2020-05-10 11:38] LABS: FIBRIN DEGRADATION PRODUCTS 1.75 UG/ML (0.00-0.49); INR 1.2 (0.8-1.4); PROTHROMBIN TIME PATIENT 15.4 SEC (12.2-14.7)
[2020-05-10 11:39] LABS: ALKALINE PHOSPHATASE 78 U/L (40-136); CREATININE SERUM 0.89 MG/DL (0.60-1.30); GFR ESTIMATED > 60
[2020-05-10 11:40] LABS: BUN/CREATININE RATIO 22
--- NOTE | 2020-05-10 11:41 | NUR ---
Talita LANGFORD FROM CT.
[2020-05-10 11:42] LABS: ALANINE AMINOTRANSFERASE 23 U/L (0-55)
--- NOTE | 2020-05-10 11:48 | Diagnostic Imaging Report ---
PROCEDURE: CT head wo r/o stroke. TECHNIQUE: Multiple contiguous axial images were obtained through the brain without the use of intravenous contrast. Auto Exposure Controls were utilized during the CT exam to meet ALARA standards for radiation dose reduction. INDICATION: Difficulty speaking when woke up. Study compared 10/22/2019. FINDINGS: There is no intracranial hemorrhage. There is no hydrocephalus. No findings of focal nor generalized cerebral edema. No suspicious asymmetric intracranial intraluminal arterial hyperdensities are found. There is carotid atherosclerotic vascular calcifications of the cavernous segments. The horton-white matter differentiations are maintained. The basilar cisterns are patent. No sulcal effacement. Orbits, sinuses and calvarium within normal limits aside from sphenoid membrane thickening. IMPRESSION: No hemorrhage, edema or acute appearing abnormality. Dictated by: Dictated on workstation # [id number]
--- NOTE | 2020-05-10 11:54 | NUR ---
MED LIST TO CHART.
[2020-05-10] MEDS ORDERED: HOLD METFORMIN - RECEIVED CONTRAST 20 ML VIAL IV SCH (12:00)
--- NOTE | 2020-05-10 12:01 | Diagnostic Imaging Report ---
INDICATION: Stroke workup. COMPARISON: October 29, 2019. TECHNIQUE: Single radiograph of the chest dated May 10, 2020. FINDINGS: The cardiac silhouette is within normal limits in size. No significant pulmonary vascular congestion. The lungs are clear. No pleural effusion. No pneumothorax. No acute osseous abnormality. IMPRESSION: No acute cardiopulmonary abnormality. Dictated by: Dictated on workstation # [id number]
[2020-05-10 12:11] LABS: BILIRUBIN,URINE NEGATIVE (NEGATIVE); CLARITY,URINE CLEAR; COLOR,URINE YELLOW; GLUCOSE, URINE (UA) NEGATIVE (NEGATIVE); KETONES,URINE NEGATIVE (NEGATIVE); LEUKOCYTE ESTERASE ,URINE 1+ (NEGATIVE); NITRITE,URINE NEGATIVE (NEGATIVE); PH,URINE 5.5 (5-9); PROTEIN,URINE TRACE (NEGATIVE)
--- NOTE | 2020-05-10 12:16 | NUR ---
TO CT FOR CT ANGIO
[2020-05-10 12:27] LABS: BACTERIA,URINE TRACE /HPF
[2020-05-10 12:28] LABS: RENAL EPITHELIAL CELLS,URINE 0-2 /HPF
--- NOTE | 2020-05-10 13:06 | Diagnostic Imaging Report ---
PROCEDURE: CT angiography of the head and CT angiography of the neck with and without contrast. TECHNIQUE: Contiguous noncontrast images were obtained from the skull base through the vertex. After intravenous contrast administration, helical CT angiography of the neck was performed. Source data was reformatted into 3D MIP projections. Delayed post contrast acquisition was also obtained. Auto Exposure Controls were utilized during the CT exam to meet ALARA standards for radiation dose reduction. INDICATION: Cerebrovascular accident, dysarthria. FINDINGS: There is a normal three-vessel branching pattern arising from the aortic arch. Carotid arteries are patent throughout the neck, although there is significant tortuosity particularly in the right internal carotid artery. There is no evidence of filling defect or intimal abnormality. There is no evidence of neck hematoma. There is an approximately 1 cm low-density nodule in the left lobe of thyroid gland. Anterior, middle and posterior cerebral arteries have a normal appearance. Vertebral artery and basilar artery are also unremarkable. There is no evidence of filling defect stenosis or occlusion. No aneurysm or vascular malformation is identified. There is no abnormal contrast enhancement. IMPRESSION: No evidence of great vessel abnormality in the neck or head. 1 cm low-density nodule in the left lobe of thyroid gland could be cystic. Consideration could be given to ultrasound follow-up if indicated. Dictated by: Dictated on workstation # [id number]
[2020-05-10] MEDS ORDERED: CEFU500T63 PO (13:10)
[2020-05-10] MEDS: cefTRIAXone FOR IV USE 1,000 MG in WATER (STERILE) FOR INJECTION 10 ML IV ONE (13:29)
[2020-05-10] MEDS: ACETAMINOPHEN 325 MG TABLET PO ONE (13:29)
[2020-05-10 13:40] VITALS: BP 123/69
[2020-05-10] MEDS: IOHEXOL 350 MG/ML 100 ML (OMNIPAQUE 350) VIAL IV ONE (13:59)
[2020-05-10] MEDS: NS 100 ML (IVPB) BAG IV ONE (13:59)
== END 2020-05-10 13:40 | disposition home or self-care (01) ==
LOC: EDUNIT# 11:03 → ER 11:05
DX: G45.9 Transient cerebral ischemic attack, unspecified (principal); N39.0 Urinary tract infection, site not specified; I10 Essential (primary) hypertension; I25.10 Atherosclerotic heart disease of native coronary artery without angina pectoris; I25.2 Old myocardial infarction; E11.40 Type 2 diabetes mellitus with diabetic neuropathy, unspecified; K21.9 Gastro-esophageal reflux disease without esophagitis; F32.9 Major depressive disorder, single episode, unspecified; Z79.01 Long term (current) use of anticoagulants; Z79.4 Long term (current) use of insulin; Z94.0 Kidney transplant status; Z79.52 Long term (current) use of systemic steroids; Z86.718 Personal history of other venous thrombosis and embolism; Z96.652 Presence of left artificial knee joint; Z90.89 Acquired absence of other organs; Z98.51 Tubal ligation status; Z85.528 Personal history of other malignant neoplasm of kidney; Z99.2 Dependence on renal dialysis; Z82.49 Family history of ischemic heart disease and other diseases of the circulatory system
CPT/HCPCS: 36415; 70450; 70496; 70498; 71045; 80053; 81000; 82962; 84484; 85025; 85379; 85610; 85730; 87088; 93005; 93041

== ENCOUNTER → 2020-06-11 | Outpatient (CLI) | payer BC ==
[~2020-06-11] MED LIST changes: +ASPI-1238 PO; -ASPI-983 PO; +CEFU500T63 PO
--- NOTE | 2020-06-11 14:57 | Diagnostic Imaging Report ---
PROCEDURE: US Thyroid. TECHNIQUE: Multiple real-time grayscale images were obtained of the thyroid in various projections. INDICATION: Thyroid nodule. FINDINGS: There are no prior thyroid ultrasound examinations available for comparison. The CTA head and neck exam of 05/10/2020 did note a 1 cm low-density nodule in the left lobe of the thyroid. The thyroid gland is prominent with the right lobe measuring 5.4 x 1.6 x 1.6 cm and the left lobe estimated to be 4.5 x 1.8 x 1.2 cm (normal gland size 4-5 x 2 x 2 cm or less). In the left lobe of the thyroid, there is a 1.3 x 0.9 x 1.1 cm avascular fairly well-circumscribed hypoechoic lesion. This seems to be both solid and cystic with mostly solid components. I would classify this as a TI-RADS 3. There is also a 1.0 x 0.5 x 0.7 cm avascular hypoechoic lesion with internal echoes in the right lobe. This has a smooth margin and is most likely a TI-RADS 3 lesion also. In addition, there is a 0.9 x 0.5 x 0.8 cm hyperechoic nodule with internal vascularity near the junction of the right lobe and the isthmus. This too would classify as a TI-RADS 3 lesion. IMPRESSION: There are three nodules within the thyroid gland. These are classified as TI-RADS 3 and probably benign. A six-month follow-up thyroid ultrasound exam should be obtained. Dictated by: Dictated on workstation # [id number]
== END ==
LOC: RAD 13:45
PROVIDERS: ATTEND Nurse Practitioner
DX: E04.2 Nontoxic multinodular goiter (principal)
CPT/HCPCS: 76536

== ENCOUNTER → 2020-08-06 | Outpatient (CLI) | payer BC ==
--- NOTE | 2020-08-07 09:14 | Diagnostic Imaging Report ---
INDICATION: Screening. TECHNIQUE: The current study was also evaluated with a Computer Aided Detection (CAD) system. 3-D Tomographic imaging was also performed. COMPARISON: 01/04/2018, 08/12/2016, and 03/12/2015. FINDINGS: There are scattered fibroglandular densities bilaterally. There are benign-type calcifications in both breasts. There are a few unchanged nodular densities in the right breast. There is no new dominant mass, spiculated lesion, or suspicious calcification identified. The skin, nipples, and axillae are unremarkable. IMPRESSION: Benign findings as above. ACR BI-RADS Category 2: Benign findings. Result letter will be mailed to the patient. Note: At least 10% of breast cancer is not imaged by mammography. Dictated by: Dictated on workstation # [id number]
== END ==
LOC: RAD 14:45
PROVIDERS: ATTEND Obstetrics & Gynecology
DX: Z12.31 Encounter for screening mammogram for malignant neoplasm of breast (principal)
CPT/HCPCS: 77063; 77067

== ENCOUNTER → 2020-12-13 | Outpatient (CLI) | payer BC ==
[~2020-12-13] MED LIST changes: -FOLI1TAB24 PO; +FOLI1TAB33 PO
--- NOTE | 2020-12-13 16:51 | Diagnostic Imaging Report ---
PROCEDURE: US Thyroid. TECHNIQUE: Multiple Real-time grayscale images were obtained of the thyroid in various projections. INDICATION: Thyroid nodules. COMPARISON: 06/11/2020. FINDINGS: The right thyroid lobe is 5.3 x 1.6 x 1.3 cm. A mid to lower pole right lobe nodule measures 1 cm in maximal diameter. This is hypoechoic and likely mixed solid and cystic, unchanged from the prior exam. The left thyroid lobe measures 4.7 x 1.5 x 1.3 cm and, at the mid pole, contains a 1.2 cm long maximal diameter mixed solid and cystic nodule, unchanged from the prior exam. IMPRESSION: Stable bilateral TI-RADS 3 likely benign lesions, unchanged from the prior exam. No new or suspicious mass. Dictated by: Dictated on workstation # [id number]
== END ==
LOC: RAD 15:15
PROVIDERS: ATTEND Internal Medicine
DX: E04.2 Nontoxic multinodular goiter (principal)
CPT/HCPCS: 76536

== ENCOUNTER → 2021-01-16 | Outpatient (CLI) | payer BC ==
--- NOTE | 2021-01-16 14:14 | Diagnostic Imaging Report ---
INDICATION: Neck pain. COMPARISON: None FINDINGS: Frontal, lateral, and odontoid radiographic views of the cervical spine were obtained. Cervical spine is seen down to the C7-T1 level on the lateral view. Evaluation static alignment shows slight grade 1 anterolisthesis at C6-C7. There is also straightening with slight reversal of normal lordotic curvature. There is however no evidence of jumped facets. Open-mouth view shows appropriate C1-C2 alignment. Vertebral body heights are maintained. There is no acute fracture. There are multilevel degenerative changes, also greatest at C6-C7 where there is intervertebral disc height loss with prominent anterior and posterior endplate osteophyte formations. Surrounding soft tissue structures are unremarkable. Included portions lung apices are clear. IMPRESSION: 1. No acute fracture or dislocation cervical spine. 2. Moderate degenerative changes greatest at the C6-C7 level as above. Dictated by: Dictated on workstation # [id number]
--- NOTE | 2021-01-16 14:15 | Diagnostic Imaging Report ---
Indication: Pain at the base of the skull with head movement. COMPARISON: None FINDINGS: Lateral, Watkins, and Lenz views of the calvarium were obtained. No healing or depressed calvarial fractures are identified. No lytic or blastic osseous lesions are seen. Mastoid air cells appear appropriately aerated on these views. Paranasal sinuses are also grossly unremarkable. No unexpected radiopaque foreign bodies are seen. IMPRESSION: 1. Unremarkable radiographic exam of the calvarium. Dictated by: Dictated on workstation # [id number]
== END ==
LOC: RAD 13:38
PROVIDERS: ATTEND Nurse Practitioner Family
DX: M47.812 Spondylosis without myelopathy or radiculopathy, cervical region (principal)
CPT/HCPCS: 70250; 72040

== ENCOUNTER 2021-04-03 13:01 | Outpatient (RCR) | payer BC ==
[~2021-04-03 13:01] MED LIST changes: -OMEP40CA27 PO; +OMEP40CA6 PO
== END 2021-04-03 14:36 | disposition home or self-care (01) ==
PROVIDERS: ATTEND Nurse Practitioner Family
DX: M50.320 Other cervical disc degeneration, mid-cervical region, unspecified level (principal); M25.78 Osteophyte, vertebrae

== ENCOUNTER → 2021-04-29 | Outpatient (CLI) | payer MEDICARE, OTHER ==
[2021-04-29 11:12] LABS: HEMATOCRIT 36 % (35-52); HEMOGLOBIN 11.1 g/dL (11.5-16.0); MEAN CORPUSCULAR HEMOGLOBIN 27 pg (25-34); MEAN CORPUSCULAR HGB CONC 31 g/dL (32-36); MEAN CORPUSCULAR VOLUME 88 fL (80-99); MEAN PLATELET VOLUME 9.8 fL (9.0-12.2); PLATELET COUNT 258 10^3/uL (130-400); WHITE BLOOD COUNT 11.2 10^3/uL (4.3-11.0)
[2021-04-29 11:28] LABS: ALBUMIN 3.9 GM/DL (3.2-4.5); POTASSIUM 4.1 MMOL/L (3.6-5.0)
[2021-04-29 11:33] LABS: BILIRUBIN,TOTAL 0.5 MG/DL (0.1-1.0)
[2021-04-29 11:34] LABS: CREATININE SERUM 0.86 MG/DL (0.60-1.30)
--- NOTE | 2021-04-29 11:45 | Diagnostic Imaging Report ---
EXAMINATION: CT abdomen and pelvis without contrast. TECHNIQUE: Multiple contiguous axial images were obtained through the abdomen and pelvis without the use of intravenous contrast. All CT scans use one or more of the following dose optimizing techniques: Automated exposure control, MA and/or KvP adjustment based on patient size and exam type or iterative reconstruction. HISTORY: RLQ pain, Hx kidney transplant. COMPARISON: 10/08/2014. FINDINGS: Lung bases: The lung bases are clear. Solid organs: Mildly increased size of a hypoattenuating lesion within hepatic segment IV measuring 2.3 cm (previously 1.8 cm). Imaging characteristics suggest a hepatic cyst. The gallbladder is surgically absent. There is no biliary ductal dilation. Pancreas is normal. Spleen is normal. Adrenal glands are normal. The kidneys are either atrophic or surgically absent. A right lower quadrant transplant kidney is present without visualized calculus or hydronephrosis. Bowel: The stomach and small bowel are normal without obstruction. There is scattered colonic diverticulosis. The appendix is normal. Peritoneum: There is no intraperitoneal free fluid or free air. No suspicious lymphadenopathy. Vasculature: Calcification of the aorta without aneurysm. Musculoskeletal: No suspicious osseous lesion or compression fracture. There is chronic fluid along the right abdominal incision, which has a mildly loculated appearance and measures 1.8 x 3.5 x 3.2 cm. This has decreased from prior CT on 10/08/2014. Pelvis: The uterus and adnexa are normal. The urinary bladder is normal. IMPRESSION: 1. No acute abnormality in the abdomen or pelvis. 2. Unremarkable appearance of the right lower quadrant transplant kidney without visualized calculus or hydronephrosis. 3. Colonic diverticulosis without findings of diverticulitis. Dictated by: Dictated on workstation # [id number]
== END ==
LOC: RAD 11:00
PROVIDERS: ATTEND Nurse Practitioner Family
DX: K57.30 Diverticulosis of large intestine without perforation or abscess without bleeding (principal); Z94.0 Kidney transplant status
CPT/HCPCS: 36415; 74176; 80053; 85027

== ENCOUNTER → 2021-06-26 | Outpatient (CLI) | payer MEDICARE, OTHER ==
[~2021-06-26] MED LIST changes: +HOLD METFORMIN - RECEIVED CONTRAST 20 ML VIAL IV SCH; +IOHEXOL 350 MG/ML 100 ML (OMNIPAQUE 350) VIAL IV ONE; +NS 100 ML (IVPB) BAG IV ONE
--- NOTE | 2021-06-26 18:40 | Diagnostic Imaging Report ---
EXAMINATION: CT angiography of the chest. TECHNIQUE: Contrast enhanced thin section helical images were obtained through the chest with intravenous contrast timed for the optimal opacification of the arterial structures per CTA protocol. Post-processing, reconstructions and interpretation of angiographic images of the vessels was performed. 3D MIP reconstructions were performed and reviewed. All CT scans use one or more of the following dose optimizing techniques: automated exposure control, MA and/or KvP adjustment based on patient size and exam type or iterative reconstruction. HISTORY: Dyspnea elevated d-dimer. COMPARISON: 12/09/2013. FINDINGS: Vascular: No filling defects are seen within the pulmonary arteries. There are calcifications of the aorta and coronary vessels without aneurysm. Thyroid: The thyroid is normal. Mediastinum: Heart size is normal without significant pericardial effusion. There are calcified mediastinal and perihilar lymph nodes. No suspicious lymphadenopathy. Lungs and airways: The lungs are clear without consolidation, pleural effusion, or pneumothorax. There is a calcified granuloma within the left lower lobe. There are two new pulmonary nodules within the right upper lobe measuring up to 0.5 cm (series 3 image 44). The airways are normal. Upper abdomen: The subphrenic structures are normal. Musculoskeletal: Degenerative changes of the spine without suspicious osseous lesion or compression fracture. IMPRESSION: 1. No findings of pulmonary embolus or other acute abnormality in the chest. 2. New right upper lobe pulmonary nodules measuring up to 0.5 cm. Recommend follow-up CT chest in 6-12 months. Dictated by: Dictated on workstation # [id number]
== END ==
LOC: RAD 17:24
PROVIDERS: ATTEND Nurse Practitioner Family
DX: R91.8 Other nonspecific abnormal finding of lung field (principal)
CPT/HCPCS: 71275

== ENCOUNTER → 2021-06-26 | Outpatient (CLI) | payer MEDICARE, OTHER ==
[~2021-06-26] MED LIST changes: -HOLD METFORMIN - RECEIVED CONTRAST 20 ML VIAL IV SCH; -IOHEXOL 350 MG/ML 100 ML (OMNIPAQUE 350) VIAL IV ONE; -NS 100 ML (IVPB) BAG IV ONE
--- NOTE | 2021-06-26 12:40 | Diagnostic Imaging Report ---
Indication: Shortness of breath and low-grade fever and fatigue. TIME OF EXAM: 10:51 AM Correlation is made with prior chest 10/10/2019. The heart size is normal. The pulmonary vascularity is unremarkable. The lungs are clear. No infiltrate, effusion or pneumothorax is detected. Impression: No acute cardiopulmonary process is detected. Dictated by: Dictated on workstation # [id number]
== END ==
LOC: RAD 10:18
DX: R05.9 Cough, unspecified (principal); R50.9 Fever, unspecified
CPT/HCPCS: 71046

== ENCOUNTER → 2021-09-04 | Outpatient (CLI) | payer MEDICARE, OTHER ==
[~2021-09-04] MED LIST changes: +CAND4TAB11 PO; -CAND4TAB3 PO; -MAGN400T8 PO; +MGX400T PO
[2021-09-04 18:53] LABS: BASOPHILS % (AUTO) 0 % (0-10); EOSINOPHILS # (AUTO) 0.1 10^3/uL (0.0-0.3); EOSINOPHILS % (AUTO) 1 % (0-10); HEMATOCRIT 38 % (35-52); HEMOGLOBIN 12.3 g/dL (11.5-16.0); LYMPHOCYTES # (AUTO) 1.3 10^3/uL (1.0-4.0); LYMPHOCYTES % (AUTO) 13 % (12-44); MEAN CORPUSCULAR HEMOGLOBIN 30 pg (25-34); MEAN CORPUSCULAR HGB CONC 33 g/dL (32-36); MEAN CORPUSCULAR VOLUME 92 fL (80-99); MEAN PLATELET VOLUME 9.9 fL (9.0-12.2); MONOCYTES # (AUTO) 0.8 10^3/uL (0.0-1.0); MONOCYTES % (AUTO) 7 % (0-12); NEUTROPHILS % (AUTO) 77 % (42-75); PLATELET COUNT 227 10^3/uL (130-400); WHITE BLOOD COUNT 10.3 10^3/uL (4.3-11.0)
[2021-09-04 19:06] LABS: ALBUMIN 4.2 GM/DL (3.2-4.5); POTASSIUM 4.7 MMOL/L (3.6-5.0)
[2021-09-04 19:07] LABS: CALCIUM 10.5 MG/DL (8.5-10.1)
[2021-09-04 19:08] LABS: TOTAL PROTEIN 7.7 GM/DL (6.4-8.2)
[2021-09-04 19:10] LABS: BILIRUBIN,TOTAL 0.6 MG/DL (0.1-1.0); FIBRIN DEGRADATION PRODUCTS 1.79 UG/ML (0.00-0.49); PROTHROMBIN TIME PATIENT 13.4 SEC (12.2-14.7)
[2021-09-04 19:12] LABS: CREATININE SERUM 1.06 MG/DL (0.60-1.30)
== END ==
LOC: LAB 17:51
PROVIDERS: ATTEND Physician Assistant
DX: M79.672 Pain in left foot (principal); M79.662 Pain in left lower leg; R60.0 Localized edema
CPT/HCPCS: 36415; 80053; 85025; 85220; 85300; 85303; 85306; 85379; 85610

== ENCOUNTER → 2021-09-04 | Outpatient (CLI) | payer MEDICARE, OTHER ==
--- NOTE | 2021-09-04 16:43 | Diagnostic Imaging Report ---
INDICATION: Foot swelling and redness, medial side. No known injury. EXAMINATION: Left foot, 09/04/2021 FINDINGS: 3 views of the foot. There is postoperative change along the distal aspect of the proximal 1st phalanx with two screws present. These appear to extend into the base of the distal phalanx. It's incomplete fusion is noted. There is deformity of the distal 1st metatarsal, possibly due to an old healed fracture. A displaced osseous fragment is seen which lies in between the 2nd and 1st metatarsals, distally. This could represent a fracture fragment versus a displaced sesamoid. There is lucency with a peripheral area of sclerosis along the proximal 1st phalanx which could be due to prior fracture healing. However, soft tissue prominence is seen about the 1st metatarsophalangeal joint. Given history of redness, changes of osteomyelitis at the 1st metatarsophalangeal joint not excluded. If there is concern for such process MRI with and without contrast could further characterize, as clinically indicated. There is nonspecific remodeling along the medial border of the mid 3rd metatarsal and adjacent proximal lateral border of the 2nd metatarsal. These findings could be posttraumatic as well. A chronic underlying soft tissue abnormality could cause remodeling as well and is also better characterized with MRI. There is marked spurring along the dorsum of the midfoot. A superimposed acute fracture is difficult to exclude, correlate for point tenderness. There is overlying soft tissue prominence. There is calcification along the distal Achilles tendon with plantar calcaneal spurring present. IMPRESSION: 1. Deformity and mixed lytic and sclerotic change at the 1st metatarsophalangeal joint possibly due to an old injury with osteomyelitis not excluded see above discussion and recommendations. 2. Spurring along the dorsum of the midfoot with adjacent linear densities, age indeterminate. An acute fracture is not excluded. This could also be further characterized with MRI as could the remodeling changes along the 2nd and 3rd metatarsals, as discussed above. An underlying soft tissue mass is not excluded. Dictated by: Dictated on workstation # [id number]
--- NOTE | 2021-09-04 18:56 | Diagnostic Imaging Report ---
Clinical indication: Patient with left leg pain. Comparison: Ultrasound venous Doppler evaluation of left lower extremity dated 08/29/2014. Procedure: Ultrasound venous ultrasound of the left lower extremity with multiple real-time grayscale images were obtained in various projections. Additional spectral analysis and color Doppler duple images were also obtained. Findings: There is no flow seen within the distal left posterior tibial vein concerning for intravascular thrombus. Otherwise, the deep venous system is well visualized and is easily compressible. There is no other evidence of deep venous thrombosis, valvular incompetence, or significant collateral circulation. There is no fluid collection in the posterior fossa region. Impression: There is no flow seen within the distal aspect of the posterior tibial vein concerning for deep venous thrombosis. I agree with results called to DAKSHA Chen by the lead radiologic technologist on 09/04/2021 at 1652 hours. Dictated by: Dictated on workstation # [id number]
== END ==
LOC: RAD 16:02
PROVIDERS: ATTEND Physician Assistant
DX: M21.6X2 Other acquired deformities of left foot (principal)
CPT/HCPCS: 73630

== ENCOUNTER → 2021-09-24 | Outpatient (CLI) | payer MEDICARE, OTHER ==
--- NOTE | 2021-09-24 13:08 | Diagnostic Imaging Report ---
EXAMINATION: US Lower Extremity Venous Duplex Left. TECHNIQUE: Multiple real-time grayscale images were obtained over the left lower extremity in various projections. Additional spectral analysis and color Doppler duplex images were also obtained. HISTORY: Swelling COMPARISON: 09/04/2021 FINDINGS: Left: The common femoral, superficial femoral, popliteal, peroneal, posterior tibial, and greater saphenous veins demonstrate normal flow, augmentation, compressibility. IMPRESSION: 1. No DVT of the left lower extremity. Dictated by: Dictated on workstation # [id number]
== END ==
LOC: RAD 12:08
PROVIDERS: ATTEND Physician Assistant
DX: R22.42 Localized swelling, mass and lump, left lower limb (principal); Z86.718 Personal history of other venous thrombosis and embolism

== ENCOUNTER → 2021-10-01 | Outpatient (CLI) | payer MEDICARE, OTHER ==
--- NOTE | 2021-10-01 16:24 | Diagnostic Imaging Report ---
INDICATION: Increasing pain and redness in the left foot. AP, oblique, and lateral views of left foot are obtained. Comparison is made to study of 09/04/2021. FINDINGS: There has been increase in swelling, most pronounced focally at the dorsum of the midfoot. There is underlying fragmentation related to associated degenerative findings in the midfoot. Two screws are again seen transfixing the first interphalangeal joint with moderate degenerative findings at the first metatarsophalangeal joint. There is no evidence of focal bone destruction or new periosteal reaction. IMPRESSION: Increased swelling along the dorsum of the midfoot. There is significant underlying degenerative change. Associated cellulitis is not excluded. There is no radiographic evidence of osteomyelitis. Dictated by: Dictated on workstation # [id number]
--- NOTE | 2021-10-01 16:38 | Diagnostic Imaging Report ---
US LEFT LOWER EXT [id number] INDICATION: Foot swelling. COMPARISON: None available. TECHNIQUE: Targeted ultrasound of the left foot was performed. FINDINGS: There is no anechoic drainable fluid collection appreciated. At the site of swelling, the technologist measures a heterogeneous hypoechoic area that may represent normal musculature, although this cannot be confirmed. IMPRESSION: Inconclusive examination without appreciable drainable collection. If there remains suspicion for abscess or infection, MRI of the foot without and with IV contrast would provide more sensitive assessment. Dictated by: Dictated on workstation # [id number]
== END ==
LOC: RAD 15:30
PROVIDERS: ATTEND Physician Assistant
DX: M19.072 Primary osteoarthritis, left ankle and foot (principal)
CPT/HCPCS: 73630; 76881

== ENCOUNTER → 2021-10-28 | Outpatient (CLI) | payer MEDICARE, OTHER ==
[~2021-10-28] MED LIST changes: +GADOTERATE 0.5 MMOL/ML (CLARISCAN) 15 ML VIAL IV ONE
--- NOTE | 2021-10-28 12:54 | Diagnostic Imaging Report ---
EXAM: 1. MRI left ankle without and with intravenous contrast. 2. MRI left foot without and with intravenous contrast. DATE: October 28, 2021. INDICATION: 66-year-old female, left ankle and foot pain and swelling. COMPARISON: Left ankle radiographs August 30, 2014. TECHNIQUE: Multiple dedicated pre and post contrast MRI sequences at the level of the ankle and foot were obtained. FINDINGS: There is Achilles tendinopathy. The tibialis posterior tendon is not well seen at its attachment site to the navicular and may be torn at this location with retraction of the tendon proximally measuring 7 mm on axial STIR sequence image 12. The flexor digitorum longus and flexor hallucis longus tendons are intact. There is abnormal fluid in the common peroneal tendon sheath and tendon sheath of peroneus longus, consistent with tenosynovitis. There is no identified tear of the peroneus longus or peroneus brevis tendons. The anterior extensor tendons are intact. The anterior and posterior syndesmotic ligaments are intact. The anterior talofibular, posterior talofibular, and calcaneofibular ligaments are intact. The deep deltoid ligament is intact. The plantar fascia is intact. The tibiotalar and subtalar joint spaces are well preserved without sizable joint effusion. The navicular is inferiorly subluxed relative to its adjacent cuneiform articulations. This is best demonstrated on sagittal STIR sequence image 18 and adjacent sequential images. There is a focal collection of abnormal fluid along the medial aspect of the navicular which is near the marker denoting the area of focal concern which measures 3.5 x 1.7 x 1.8 cm in size. There is peripheral enhancement and adjacent abnormal soft tissue enhancement. This is compatible with an abscess. The fluid collection is tracking laterally as well extending along the inferior aspect of the navicular to be lateral to the navicular and extending superior to the navicular on axial short axis series 13 image 39 measuring approximately 1.4 x 1.4 x 1.4 cm in size at this location. This extends or involves the articulations of the navicular with the adjacent cuneiforms. There is T1 marrow signal loss involving the navicular, medial cuneiform, middle cuneiform, lateral cuneiform, and cuboid. There is also T1 marrow signal loss involving the base of the second metatarsal, base of the third metatarsal, and fourth metatarsal base. There is associated marrow edema and enhancement. There is an additional heterogeneously enhancing focal signal abnormality in the subcutaneous tissues measuring 2.0 x 2.0 x 1.1 cm in size located laterally at the proximal to distal level of the cuboid on sagittal post contrast image 5 on series 16. There is adjacent soft tissue edema and enhancement. There is an additional similar-appearing area within the soft tissues dorsal and just lateral to the first metatarsophalangeal joint on axial short axis post contrast series 13 image 15 measuring approximately 1.3 x 0.8 cm in short axis. There is susceptibility artifact at the level of the first metatarsal at its distal aspect as well as of the first digit phalanges which may relate to hardware and/or procedural related changes. IMPRESSION: 1. Peripherally enhancing fluid collection extending along the navicular as described above which directly abuts and/or involves the articulation of the navicular with the adjacent cuneiforms. This is most consistent with an abscess. 2. 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 Charcot arthropathy and crystalline arthropathy would be in the differential diagnosis as well. 3. Peroneal tenosynovitis. 4. Complete tear of the tibialis posterior tendon at its navicular attachment site with tendon retraction of 7 mm. 5. Additional areas of mass-like heterogeneous signal within the subcutaneous tissues as described above which are nonspecific although potentially could relate to developing fluid collections. Dictated by: Dictated on workstation # [id number]
== END ==
LOC: RAD 09:55
PROVIDERS: ATTEND Internal Medicine
DX: M19.072 Primary osteoarthritis, left ankle and foot (principal); M65.872 Other synovitis and tenosynovitis, left ankle and foot; S96.812A Strain of other specified muscles and tendons at ankle and foot level, left foot, initial encounter
CPT/HCPCS: 73720

== ENCOUNTER → 2021-11-11 | Outpatient (CLI) | payer MEDICARE, OTHER ==
[~2021-11-11] MED LIST changes: -GADOTERATE 0.5 MMOL/ML (CLARISCAN) 15 ML VIAL IV ONE
--- NOTE | 2021-11-11 11:50 | Diagnostic Imaging Report ---
INDICATION: Routine screening. Comparison is made with prior mammogram from 08/06/2020 and 01/04/2018. 2-D and 3-D bilateral screening mammography was performed with CAD. Both breasts are heterogeneously dense, limiting the sensitivity of mammography. Breast asymmetry, right breast being smaller is again noted and unchanged. There are scattered benign calcifications. There is a biopsy marker clip in the left breast. There are vascular calcifications present. Overall parenchymal pattern appears to be stable. No dominant mass or malignant-appearing microcalcifications are seen. Axillae are unremarkable. IMPRESSION: No mammographic features suspicious for malignancy are identified. BI-RADS Category 2 ACR BI-RADS Category 2: Benign findings. Result letter will be mailed to the patient. Note: At least 10% of breast cancer is not imaged by mammography. Dictated by: Dictated on workstation # [id number]
== END ==
LOC: RAD 10:30
PROVIDERS: ATTEND Obstetrics & Gynecology
DX: Z12.31 Encounter for screening mammogram for malignant neoplasm of breast (principal)
CPT/HCPCS: 77063; 77067

== ENCOUNTER 2021-12-30 09:47 | Outpatient (RCR) | payer MEDICARE, OTHER | END 2022-01-11 | disposition home or self-care (01) | PROVIDERS: ATTEND Internal Medicine | DX: G57.93 Unspecified mononeuropathy of bilateral lower limbs (principal) ==

== ENCOUNTER 2022-02-05 10:15 | Outpatient (RCR) | payer MEDICARE, OTHER | END 2022-02-11 | disposition home or self-care (01) | PROVIDERS: ATTEND Internal Medicine | DX: G57.93 Unspecified mononeuropathy of bilateral lower limbs (principal) ==

== ENCOUNTER 2022-02-19 11:10 | Outpatient (RCR) | payer MEDICARE, OTHER | END 2022-03-13 | disposition home or self-care (01) | PROVIDERS: ATTEND Internal Medicine | DX: R26.81 Unsteadiness on feet (principal); R26.89 Other abnormalities of gait and mobility; I11.9 Hypertensive heart disease without heart failure; E11.9 Type 2 diabetes mellitus without complications ==

== ENCOUNTER 2022-06-06 21:54 | Inpatient (IN) | payer MEDICARE, OTHER ==
[~2022-06-06] VITALS: Ht 167.7 cm; Wt 74.6 kg
[2022-06-06] MEDS ORDERED: PANTOPRAZOLE 40 MG (PROTONIX) VIAL IV ONE (22:15)
[2022-06-06] MEDS ORDERED: NS IV 1000 ML 1,000 ML IV SCH ×2 (22:15)
[2022-06-06] MEDS ORDERED: ONDANSETRON 4 MG/2 ML (SDV) Z0FRAN IV PRN (22:15)
[2022-06-06 22:20] LABS: HEMATOCRIT 37 % (35-52); HEMOGLOBIN 12.5 g/dL (11.5-16.0); MEAN CORPUSCULAR HGB CONC 34 g/dL (32-36)
[2022-06-06 22:22] LABS: BASOPHILS % (AUTO) 0 % (0-10); EOSINOPHILS % (AUTO) 1 % (0-10); LYMPHOCYTES # (AUTO) 0.6 10^3/uL (1.0-4.0); LYMPHOCYTES % (AUTO) 9 % (12-44); MEAN CORPUSCULAR HEMOGLOBIN 32 pg (25-34); MEAN CORPUSCULAR VOLUME 95 fL (80-99); MEAN PLATELET VOLUME 9.9 fL (9.0-12.2); MONOCYTES # (AUTO) 0.6 10^3/uL (0.0-1.0); MONOCYTES % (AUTO) 7 % (0-12); NEUTROPHILS # (AUTO) 6.2 10^3/uL (1.8-7.8); NEUTROPHILS % (AUTO) 82 % (42-75); PLATELET COUNT 116 10^3/uL (130-400); WHITE BLOOD COUNT 7.6 10^3/uL (4.3-11.0)
[2022-06-06 22:25] LABS: CHLORIDE 102 MMOL/L (98-107); POTASSIUM 3.9 MMOL/L (3.6-5.0); SODIUM 137 MMOL/L (135-145)
[2022-06-06 22:26] LABS: CALCIUM 9.7 MG/DL (8.5-10.1)
[2022-06-06 22:27] LABS: INR 1.3 (0.8-1.4); PROTHROMBIN TIME PATIENT 16.5 SEC (12.2-14.7)
[2022-06-06 22:28] LABS: GLUCOSE 129 MG/DL (70-105); TOTAL PROTEIN 6.7 GM/DL (6.4-8.2)
[2022-06-06 22:29] LABS: CARBON DIOXIDE 21 MMOL/L (21-32)
[2022-06-06 22:31] LABS: ALKALINE PHOSPHATASE 47 U/L (40-136); CREATININE SERUM 0.97 MG/DL (0.60-1.30); GFR ESTIMATED 64
[2022-06-06 22:32] LABS: BUN/CREATININE RATIO 20
--- NOTE | 2022-06-06 22:32 | ED GI ---
General Chief Complaint: Abdominal/GI Problems Stated Complaint: NAUSEA/VOMITING/FEVER Source of Information: Patient Exam Limitations: No Limitations History of Present Illness Date Seen by Provider: Jun 06, 2022 Time Seen by Provider: 21:49 Initial Comments Patient to the ER by EMS from home with chief complaint for the past day she has been having nausea vomiting and multiple episodes of loose watery diarrhea without blood in it. She went to urgent care yesterday and had a negative COVID and flu swab. She is not having any pain syncope but is having weakness. She is not having any fever but she is having chills. She is diabetic and has a history of renal transplant on antirejection medications handled by Dr. Prado at [facility] in [place], [place]. Primary care by Dr. Mcgee. She received 4 mg IV Zofran on route. Blood sugar 119 on arrival. She also has a history of hepatic cirrhosis and Hoffman. She is on rifaximin. The patient states she has not been missing any of her medications. Allergies and Home Medications Allergies Coded Allergies: No Known Drug Allergies (Unverified , 12/25/13) Patient Home Medication List Home Medication List Reviewed: Yes Allopurinol (Allopurinol) 100 Mg Tablet, 100 MG PO DAILY, (Reported) Entered as Reported by: LUIGI SOMERS on 10/24/19 1214 Apixaban (Eliquis) 5 Mg Tablet, 5 MG PO BID, (Reported) Entered as Reported by: ADRIAN HILLS on 04/05/20 1342 Aspirin (Aspirin EC) 81 Mg Tablet., 81 MG PO DAILY, (Reported) Entered as Reported by: LUIGI SOMERS on 10/24/19 1220 Atorvastatin Calcium (Atorvastatin Calcium) 20 Mg Tablet, 20 MG PO HS, (Reported) Entered as Reported by: LUIGI SOMERS on 10/24/19 1214 Candesartan Cilexetil (Candesartan Cilexetil) 4 Mg Tablet, 4 MG PO HS, (Reported) Entered as Reported by: LUIGI SOMERS on 10/24/19 1214 Cefdinir (Cefdinir) 300 Mg Capsule, 300 MG PO BID Prescribed by: ADRIAN HERRERA on 10/24/19 1438 Cefuroxime Axetil (Cefuroxime) 500 Mg Tablet, 500 MG PO BID Prescribed by: PREET HAHN on 05/10/20 1310 Cholecalciferol (Vitamin D3) (D3-2000) 50 Mcg Capsule, 50 MCG PO DAILY, (Reported) Entered as Reported by: LUIGI SOMERS on 10/24/19 122 Folic Acid (Folic Acid) 1 Mg Tablet, 1 NG PO DAILY, (Reported) Entered as Reported by: LUIGI SOMERS on 10/24/19 121 Hydrocodone Bit/Acetaminophen (HYDROcodone/APAP 10/325 TABLET) 1 Each Tablet, 1 TAB PO Q8H PRN for PAIN-MODERATE (5-7), (Reported) Entered as Reported by: LUIGI SOMERS on 10/24/19 122 Icosapent Ethyl (Vascepa) 1 Gm Capsule, 2 GM PO BID, (Reported) Entered as Reported by: LUIGI SOMERS on 10/24/19 121 Insulin Aspart (Novolog Flexpen) 300 Units/3 Ml Solution, UNITS SQ TID, (Reported) Entered as Reported by: LUIGI SOMERS on 10/24/191223 Insulin Glargine,Hum.rec.anlog (Basaglar Kwikpen U-100) 100 Unit/1 Ml Insuln.pen, 24 UNITS SQ DAILY, (Reported) Entered as Reported by: LUIGI SOMERS on 10/24/19 122 Insulin Glargine,Hum.rec.anlog (Basaglar Kwikpen U-100) 100 Unit/1 Ml Insuln.pen, 32 UNIT SQ HS, (Reported) Entered as Reported by: LUIGI SOMERS on 10/24/19 122 Magnesium Oxide (Magnesium Oxide) 400 Mg Tablet, 400 MG PO Q8H, (Reported) Entered as Reported by: LUIGI SOMERS on 10/24/191213 Metformin HCl (Metformin HCl) 500 Mg Tablet, 500 MG PO BID, (Reported) Entered as Reported by: LUIGI SOMERS on 10/24/19 121 Nebivolol HCl (Bystolic) 10 Mg Tab, 10 MG PO HS, (Reported) Entered as Reported by: LUIGI SOMERS on 10/24/19 121 Omeprazole (Omeprazole) 40 Mg Capsule.dr, 40 MG PO BID, (Reported) Entered as Reported by: LUIGI SOMERS on 10/24/19 1214 Prednisone (Prednisone) 5 Mg Tablet, 5 MG PO DAILY, (Reported) Entered as Reported by: LUIGI SOMERS on 10/24/19 122 Rifaximin (Xifaxan) 550 Mg Tablet, 550 MG PO BID, (Reported) Entered as Reported by: LUIGI SOMERS on 10/24/19 121 Tacrolimus (Tacrolimus) 0.5 Mg Capsule, 1.5 MG PO BID, (Reported) Entered as Reported by: LUIGI SOMERS on 10/24/19 1220 Temazepam (Temazepam) 15 Mg Capsule, 15 MG PO DAILY, (Reported) Entered as Reported by: LUIGI SOMERS on 10/24/19 1214 Tramadol HCl (Tramadol HCl) 50 Mg Tablet, 50-100 MG PO Q6H PRN for PAIN-MODERATE (5-7), (Reported) Entered as Reported by: LUIGI SOMERS on 10/24/19 1223 Review of Systems Review of Systems Constitutional: No chills, No diaphoresis EENTM: No Blurred Vision, No Double Vision Respiratory: Denies Cough, Denies Orthopnea, Denies Shortness of Air Cardiovascular: Denies Chest Pain, Denies Lightheadedness Gastrointestinal: Denies Constipated; Diarrhea, Nausea, Vomiting Genitourinary: Denies Burning, Denies Discharge Musculoskeletal: No back pain, No joint pain All Other Systems Reviewed Negative Unless Noted: Yes Past Whzdwpf-Tlhdsv-Tuswsa Hx Patient Social History Tobacco Use?: No Use of E-Cig and/or Vaping dev: No Substance use?: No Immunizations Up To Date Tetanus Booster (TDap): Less than 5yrs PED Vaccines UTD: Yes Seasonal Allergies Seasonal Allergies: Yes Past Medical History Surgeries: Yes (Right arm fistula, LTKR, ) Bowel Surgery, Section, Coronary Stent, Gallbladder, Kidney Transplant, Nephrectomy, Orthopedic, Tonsillectomy, Tubal Ligation Respiratory: No Cardiac: Yes (Stent) Coronary Artery Disease, Heart Attack, Hypertension Neurological: Yes Neuropathy Reproductive Disorders: Yes Female Reproductive Disorders: Polycystic Ovarian Dis [employer] History: Menopausal Sexually Transmitted Disease: No HIV/AIDS: No Genitourinary: Yes Dialysis, Polycystic Kidney Disease Gastrointestinal: Yes Gastroesophageal Reflux, Cirrhosis Musculoskeletal: No Endocrine: Yes Diabetes, Insulin dep HEENT: No Cancer: Yes Kidney Psychosocial: Yes Depression Integumentary: No Blood Disorders: No Family Medical History Cataract (grandmother ) Chest pain 09 BROTHER Congestive heart failure (grandmother) Dementia (two paternal aunts) Family history: Alzheimer's disease (two paternal aunts) Family history: Arthritis (grandmother) Family history: Cardiovascular disease 09 BROTHER Family history: Hypertension 09 BROTHER Heart disease 09 BROTHER Kidney disease 03 MOTHER Stroke (paternal aunt) No Family History of: Abdominal aortic aneurysm Buford's disease Alcoholism Aphasia Cancer Cancer of colon Congenital heart disease Cystic fibrosis Dysphagia Family history: Allergy Family history: Asthma Family history: Breast disease Family history: Coronary thrombosis Family history: Diabetes mellitus Family history: Gastrointestinal disease Family history: Glaucoma Family history: Osteoporosis Family history: Thyroid disorder Headache Hearing loss Hereditary disease History of - anemia History of - disorder History of - respiratory disease History of drug abuse Human immunodeficiency virus (HIV) seropositivity Hypercholesterolemia Malignant neoplasm of lung Myocardial infarction Parkinson's disease Prostate cancer Psychotic disorder Seizure disorder Tuberculosis Visual impairment Physical Exam Vital Signs Vital Signs - First Documented 06/06/22 21:54 Temp 39.1 Pulse 99 Resp 20 B/P (MAP) 142/55 (84) Pulse Ox 93 O2 Delivery Room Air Capillary Refill : Height/Weight/BMI Height: 5'6.00" Weight: 190lbs. 0.0oz. [id number]; 27.00 BMI Method:Stated General Appearance: WD/WN, no apparent distress HEENT: PERRL/EOMI, normal ENT inspection, pharynx normal Neck: full range of motion, normal inspection Respiratory: normal breath sounds, no respiratory distress, no accessory muscle use Cardiovascular: normal peripheral pulses, regular rate, rhythm Peripheral Pulses: 2+ Radial Pulses (R), 2+ Radial Pulses (L) Gastrointestinal: normal bowel sounds, non tender, soft, no organomegaly Extremities: normal inspection, no pedal edema, normal capillary refill Neurologic/Psychiatric: alert, normal mood/affect, oriented x 3 Skin: normal color, warm/dry Focused Exam Lactate Level 06/06/22 22:00: Lactic Acid Level 1.34 Lactic Acid Level Laboratory Tests Test 06/06/22 22:00 Lactic Acid Level 1.34 MMOL/L (0.50-2.00) Progress/Results/Core Measures Results/Orders Lab Results Laboratory Tests Test 06/06/22 22:00 06/06/22 22:07 06/06/22 22:19 06/06/22 22:54 Range/Units White Blood Count 7.6 4.3-11.0 10^3/uL Red Blood Count 3.86 3.80-5.11 10^6/uL Hemoglobin 12.5 11.5-16.0 g/dL Hematocrit 37 35-52 % Mean Corpuscular Volume 95 80-99 fL Mean Corpuscular Hemoglobin 32 25-34 pg Mean Corpuscular Hemoglobin Concent 34 32-36 g/dL Red Cell Distribution Width 14.0 10.0-14.5 % Platelet Count 116 L 130-400 10^3/uL Mean Platelet Volume 9.9 9.0-12.2 fL Immature Granulocyte % (Auto) 1 % Neutrophils (%) (Auto) 82 H 42-75 % Lymphocytes (%) (Auto) 9 L 12-44 % Monocytes (%) (Auto) 7 0-12 % Eosinophils (%) (Auto) 1 0-10 % Basophils (%) (Auto) 0 0-10 % Neutrophils # (Auto) 6.2 1.8-7.8 10^3/uL Lymphocytes # (Auto) 0.6 L 1.0-4.0 10^3/uL Monocytes # (Auto) 0.6 0.0-1.0 10^3/uL Eosinophils # (Auto) 0.0 0.0-0.3 10^3/uL Basophils # (Auto) 0.0 0.0-0.1 10^3/uL Immature Granulocyte # (Auto) 0.1 0.0-0.1 10^3/uL Percent Immature Platelet Fraction 1.1 0.0-7.6 % Prothrombin Time 16.5 H 12.2-14.7 SEC INR Comment 1.3 0.8-1.4 Activated Partial Thromboplast Time 31 24-35 SEC Sodium Level 137 135-145 MMOL/L Potassium Level 3.9 3.6-5.0 MMOL/L Chloride Level 102 98-107 MMOL/L Carbon Dioxide Level 21 21-32 MMOL/L Anion Gap 14 5-14 MMOL/L Blood Urea Nitrogen 19 H 7-18 MG/DL Creatinine 0.97 0.60-1.30 MG/DL Estimat Glomerular Filtration Rate 64 BUN/Creatinine Ratio 20 Glucose Level 129 H 70-105 MG/DL Lactic Acid Level 1.34 0.50-2.00 MMOL/L Calcium Level 9.7 8.5-10.1 MG/DL Corrected Calcium 9.7 8.5-10.1 MG/DL Total Bilirubin 1.0 0.1-1.0 MG/DL Aspartate Amino Transf (AST/SGOT) 26 5-34 U/L Alanine Aminotransferase (ALT/SGPT) 36 0-55 U/L Alkaline Phosphatase 47 40-136 U/L Troponin I < 0.028 <0.028 NG/ML C-Reactive Protein High Sensitivity 12.74 H 0.00-0.50 MG/DL Total Protein 6.7 6.4-8.2 GM/DL Albumin 4.0 3.2-4.5 GM/DL Glucometer 116 H 70-110 MG/DL Influenza Type A (RT-PCR) Not Detected Not Detecte Influenza Type B (RT-PCR) Not Detected Not Detecte SARS-CoV-2 RNA (RT-PCR) Not Detected Not Detecte Ammonia 11 11-32 UMOL/L Test 06/06/22 23:28 Range/Units Urine Color YELLOW Urine Clarity CLEAR Urine pH 7.0 5-9 Urine Specific [place] 1.015 L 1.016-1.022 Urine Protein 2+ H NEGATIVE Urine Glucose (UA) 3+ H NEGATIVE Urine Ketones NEGATIVE NEGATIVE Urine Nitrite NEGATIVE NEGATIVE Urine Bilirubin NEGATIVE NEGATIVE Urine Urobilinogen 0.2 < = 1.0 MG/DL Urine Leukocyte Esterase TRACE H NEGATIVE Urine RBC (Auto) 3+ H NEGATIVE Urine RBC 25-50 H /HPF Urine WBC 0-2 /HPF Urine Squamous Epithelial Cells 0-2 /HPF Urine Crystals NONE /LPF Urine Bacteria FEW H /HPF Urine Casts NONE /LPF Urine Mucus NEGATIVE /LPF Urine Culture Indicated CULTURE PENDING My Orders Orders - PAYTON STEELE Cbc With Automated Diff (06/06/22 22:07) Comprehensive Metabolic Panel (06/06/22 22:07) Blood Culture (06/06/22 22:07) Sputum Culture (06/06/22 22:07) Urinalysis (06/06/22 22:07) Urine Culture (06/06/22 22:07) Protime With Inr (06/06/22 22:07) Partial Thromboplastin Time (06/06/22 22:07) Chest 1 View, Ap/Pa Only (06/06/22 22:07) Ed Iv/Invasive Line Start (06/06/22 22:07) Ed Iv/Invasive Line Start (06/06/22 22:07) Ekg Tracing (06/06/22 22:07) Troponin I Norma (06/06/22 22:07) Vital Signs Adult Sepsis Patie Q15M (06/06/22 22:07) Ondansetron Injection (Zofran Injectio (06/06/22 22:15) O2 (06/06/22 22:07) Remove Rings In Anticipation O (06/06/22 22:07) Lactic Acid Analyzer (06/06/22 22:07) Influenza A And B By Pcr (06/06/22 22:07) Ns Iv 1000 Ml (Sodium Chloride 0.9%) (06/06/22 22:15) Covid 19 Inhouse Test (06/06/22 22:07) Accucheck Stat ONCE (06/06/22 22:07) Ct Abdomen/Pelvis Wo (06/06/22 22:07) Ed Iv/Invasive Line Start (06/06/22 22:07) Ns Iv 1000 Ml (Sodium Chloride 0.9%) (06/06/22 22:15) Pantoprazole Injection (Protonix Injecti (06/06/22 22:15) Hs C Reactive Protein (06/06/22 22:07) Ammonia (06/06/22 22:32) Medications Given in ED Current Medications Medications Dose Ordered Sig/Dani Route Start Time Stop Time Status Last Admin Dose Admin Ondansetron HCl 4 mg PRN PRN IV 06/06/22 22:15 06/06/22 22:47 DC 06/06/22 22:47 4 MG Pantoprazole 40 mg ONCE ONCE IV 06/06/22 22:15 06/06/22 22:16 DC 06/06/22 22:57 40 MG Vital Signs/I&O 06/06/22 21:54 Temp 39.1 Pulse 99 Resp 20 B/P (MAP) 142/55 (84) Pulse Ox 93 O2 Delivery Room Air FSBG Bedside Testing Finger Stick Blood Glucose: 116 Blood Glucose Action Taken: notified Progress Progress Note : Time: 22:32 Progress Note Sugars okay. We will check an ammonia level as she seems little obtunded. She is having copious nausea vomiting diarrhea with negative COVID and flu outpatient. Suspect she just has a viral gastroenteritis/colitis. We will get a CT given the complexity of her case and get her a couple liters of IV fluids. We will initiate a septic work-up. We will hold off on antibiotics as I suspect this is a viral colitis. Protonix, Zofran 4 mg. Atypical angina? EKG, troponin. Initial ECG Impression Date: Jun 06, 2022 Initial ECG Impression Time: 22:12 Initial ECG Rate: 98 Initial ECG Rhythm: Normal Sinus Initial ECG Intervals: Normal Initial ECG Impression: Normal Comment Normal sinus rhythm without clinically relevant ST changes. Diagnostic Imaging Diagonstic Imaging: CT Plain Films/CT/US/NM/MRI: abdomen, pelvis Comments [facility], [place] NAME: ANNEMARIE [facility] REC#: [id number] PT STATUS: REG ER : 1955 PHYSICIAN: PAYTON STEELE MD ADMIT DATE: 06/06/22/ER Signed Date of Exam:06/06/22 CT ABDOMEN/PELVIS WO PROCEDURE: CT abdomen and pelvis without contrast. TECHNIQUE: Multiple contiguous axial images were obtained through the abdomen and pelvis without the use of intravenous contrast. Auto Exposure Controls were utilized during the CT exam to meet ALARA standards for radiation dose reduction. INDICATION: Nausea and vomiting. COMPARISON: 04/29/2021. FINDINGS: The heart is unremarkable. The lung bases are clear. Stable hypoattenuating foci in the liver, likely representing benign cysts. The gallbladder is surgically absent. Stable splenomegaly. No focal splenic lesions. Right lower quadrant transplant kidney is visualized and has a stable appearance. There is mild prominence of the collecting system without evidence of renal calculi. No perinephric fat stranding is seen. The urinary bladder is nondistended. The adrenal glands and pancreas have a normal noncontrast CT appearance. There is no pathologically enlarged mesenteric or retroperitoneal adenopathy. Diverticula are seen in the descending and sigmoid colon without evidence of acute diverticulitis. No bowel obstruction. No free fluid or free air in the abdomen and pelvis. Fluid collections are visualized in the wall of the abdomen in the right lower quadrant, not significantly changed since the prior exam and likely representing postoperative seromas or hematomas. No acute osseous abnormalities. Stable grade 1 anterolisthesis of L4 on L5 is noted. There is calcified aortic and iliac atherosclerotic plaque without aneurysm. There is no free air, loculated collection, or adenopathy in the pelvis. IMPRESSION: 1. Diverticulosis of the descending and sigmoid colon without evidence of acute diverticulitis. No bowel obstruction. No free fluid or free air. 2. Stable appearance of the right lower quadrant transplant kidney with mild prominence of the collecting system. No perinephric fat stranding or obstructing calculi. Recommend correlation with UA and follow-up as indicated. 3. Nonspecific splenomegaly, similar to the prior exam. 4. Stable appearance of the fluid collections in the ball of the abdomen in the right lower quadrant, likely representing seromas or hematomas. Dictated by: Dictated on workstation # [id number] Dict: 06/06/222254 Trans: 06/06/222317 SHELLI [id number] Interpreted by: KEIKO BRINK DO Electronically signed by: KEIKO BRINK DO 06/06/222317 Reviewed: Reviewed by Ga Diagonstic Imaging: Xray Plain Films/CT/US/NM/MRI: chest Comments [facility] [place] NAME: ANNEMARIE [facility] REC#: [id number] PT STATUS: REG ER : 1955 PHYSICIAN: PAYTON STEELE MD ADMIT DATE: 06/06/22/ER Signed Date of Exam:06/06/22 CHEST 1 VIEW, AP/PA ONLY EXAMINATION: Chest 1 view HISTORY: Sepsis. Nausea and vomiting. COMPARISON: 05/10/2020. FINDINGS: Hazy opacities are seen in the right perihilar region. No pleural effusion or pneumothorax. Stable cardiac silhouette. IMPRESSION: 1. Hazy opacities in the right perihilar region which may represent infection and/or atelectasis. Dictated by: Dictated on workstation # [id number] Dict: 06/06/222302 Trans: 06/06/222307 SHELLI [id number] Interpreted by: KEIKO BRINK DO Electronically signed by: KEIKO BRINK DO 06/06/222307 Reviewed: Reviewed by Me Departure Communication (Admissions) Time/Spoke to Admitting Phy: 23:55 Dr. Herrera agrees to observe the patient on IV fluids and nausea medications. Impression Primary Impression: Dehydration Additional Impressions: Gastroenteritis/colitis, infectious UTI (urinary tract infection) Qualified Codes: N30.01 - Acute cystitis with hematuria Intractable nausea and vomiting Disposition: ADMITTED INPATIENT Condition: Stable Admissions Decision to Admit Reason: Admit from ER (General) Decision to Admit/Date: Jun 06, 2022 Time/Decision to Admit Time: 23:54 Departure-Patient Inst. Referrals: MERCY MCGEE MD (PCP/Family) Primary Care Physician PAYTON STEELE Jun 06, 2022 22:32
[2022-06-06 22:34] LABS: ALANINE AMINOTRANSFERASE 36 U/L (0-55)
--- NOTE | 2022-06-06 23:05 | Diagnostic Imaging Report ---
EXAMINATION: Chest 1 view HISTORY: Sepsis. Nausea and vomiting. COMPARISON: 05/10/2020. FINDINGS: Hazy opacities are seen in the right perihilar region. No pleural effusion or pneumothorax. Stable cardiac silhouette. IMPRESSION: 1. Hazy opacities in the right perihilar region which may represent infection and/or atelectasis. Dictated by: Dictated on workstation # [id number]
--- NOTE | 2022-06-06 23:18 | Diagnostic Imaging Report ---
PROCEDURE: CT abdomen and pelvis without contrast. TECHNIQUE: Multiple contiguous axial images were obtained through the abdomen and pelvis without the use of intravenous contrast. Auto Exposure Controls were utilized during the CT exam to meet ALARA standards for radiation dose reduction. INDICATION: Nausea and vomiting. COMPARISON: 04/29/2021. FINDINGS: The heart is unremarkable. The lung bases are clear. Stable hypoattenuating foci in the liver, likely representing benign cysts. The gallbladder is surgically absent. Stable splenomegaly. No focal splenic lesions. Right lower quadrant transplant kidney is visualized and has a stable appearance. There is mild prominence of the collecting system without evidence of renal calculi. No perinephric fat stranding is seen. The urinary bladder is nondistended. The adrenal glands and pancreas have a normal noncontrast CT appearance. There is no pathologically enlarged mesenteric or retroperitoneal adenopathy. Diverticula are seen in the descending and sigmoid colon without evidence of acute diverticulitis. No bowel obstruction. No free fluid or free air in the abdomen and pelvis. Fluid collections are visualized in the wall of the abdomen in the right lower quadrant, not significantly changed since the prior exam and likely representing postoperative seromas or hematomas. No acute osseous abnormalities. Stable grade 1 anterolisthesis of L4 on L5 is noted. There is calcified aortic and iliac atherosclerotic plaque without aneurysm. There is no free air, loculated collection, or adenopathy in the pelvis. IMPRESSION: 1. Diverticulosis of the descending and sigmoid colon without evidence of acute diverticulitis. No bowel obstruction. No free fluid or free air. 2. Stable appearance of the right lower quadrant transplant kidney with mild prominence of the collecting system. No perinephric fat stranding or obstructing calculi. Recommend correlation with UA and follow-up as indicated. 3. Nonspecific splenomegaly, similar to the prior exam. 4. Stable appearance of the fluid collections in the ball of the abdomen in the right lower quadrant, likely representing seromas or hematomas. Dictated by: Dictated on workstation # [id number]
[2022-06-06 23:34] LABS: BILIRUBIN,URINE NEGATIVE (NEGATIVE); CLARITY,URINE CLEAR; COLOR,URINE YELLOW; GLUCOSE, URINE (UA) 3+ (NEGATIVE); KETONES,URINE NEGATIVE (NEGATIVE); LEUKOCYTE ESTERASE ,URINE TRACE (NEGATIVE); NITRITE,URINE NEGATIVE (NEGATIVE); PROTEIN,URINE 2+ (NEGATIVE)
[2022-06-06 23:40] LABS: BACTERIA,URINE FEW /HPF; RBC,URINE 25-50 /HPF; SQUAMOUS EPITHELIAL CELL,UR 0-2 /HPF; WBC,URINE 0-2 /HPF
[2022-06-07] VITALS (7 sets, daily range): BP systolic 119–158; BP diastolic 57–68
[2022-06-07] MEDS: ACETAMINOPHEN 325 MG TABLET PO PRN ×2 (01:30→18:31)
[2022-06-07] MEDS ORDERED: LOPERAMIDE 2 MG (IMODIUM) TABLET PO PRN (01:30)
[2022-06-07] MEDS ORDERED: ONDANSETRON 4 MG/2 ML (SDV) Z0FRAN IV PRN (01:30)
[2022-06-07] MEDS ORDERED: PROMETHAZINE INJ 25 MG/ML (PHENERGAN) AMP IVP PRN (01:30)
[2022-06-07] MEDS ORDERED: MYCO180T PO (02:54)
[2022-06-07] MEDS ORDERED: CARV6.252 PO (03:02)
[2022-06-07] MEDS ORDERED: SEMA1PEN3 SQ (03:04)
[2022-06-07] MEDS ORDERED: TACR1CAP8 PO (03:05)
[2022-06-07] MEDS ORDERED: ALLO300T2 PO (03:08)
[2022-06-07] MEDS ORDERED: CAND8TAB14 PO (03:10)
[2022-06-07] MEDS: LACTATED RINGERS 1,000 ML IV SCH ×5 (03:13→22:58)
[2022-06-07] MEDS ORDERED: MECO10005 PO (04:03)
[2022-06-07] MEDS ORDERED: [UNRECOGNIZED DRUG - OTHER] PO (04:05)
[2022-06-07 05:47] LABS: MEAN CORPUSCULAR VOLUME 97 fL (80-99); MONOCYTES # (AUTO) 0.6 10^3/uL (0.0-1.0); MONOCYTES % (AUTO) 8 % (0-12); WHITE BLOOD COUNT 7.9 10^3/uL (4.3-11.0)
[2022-06-07 05:49] LABS: BASOPHILS % (AUTO) 0 % (0-10); EOSINOPHILS % (AUTO) 0 % (0-10); HEMATOCRIT 33 % (35-52); HEMOGLOBIN 11.1 g/dL (11.5-16.0); LYMPHOCYTES # (AUTO) 0.9 10^3/uL (1.0-4.0); LYMPHOCYTES % (AUTO) 11 % (12-44); MEAN CORPUSCULAR HEMOGLOBIN 32 pg (25-34); MEAN CORPUSCULAR HGB CONC 33 g/dL (32-36); MEAN PLATELET VOLUME 9.9 fL (9.0-12.2); NEUTROPHILS # (AUTO) 6.3 10^3/uL (1.8-7.8); NEUTROPHILS % (AUTO) 80 % (42-75); PLATELET COUNT 104 10^3/uL (130-400)
[2022-06-07 06:01] LABS: CREATININE SERUM 0.88 MG/DL (0.60-1.30); POTASSIUM 3.9 MMOL/L (3.6-5.0)
[2022-06-07] MEDS ORDERED: PATIENT MAY USE OWN MEDS, ALL MC SCH (10:15)
[2022-06-07] MEDS ORDERED: predniSONE 5 MG TAB PO SCH (10:15)
[2022-06-07] MEDS ORDERED: TACROLIMUS 1 MG (PROGRAF) CAP NON-FORMULARY PO SCH (10:15)
[2022-06-07] MEDS ORDERED: MYCOPHENOLATE SODIUM 180 MG PO SCH (10:15)
[2022-06-07] MEDS: TACROLIMUS 1MG CAPSULE PO SCH ×2 (10:40→20:41)
[2022-06-07] MEDS: MYFORTIC 180 MG PO SCH ×2 (10:40→20:39)
[2022-06-07] MEDS: PREDNISONE 5MG TABLET PO SCH (10:40)
--- NOTE | 2022-06-07 11:23 | History & Physical-Hospitalist ---
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 She reports she does not remember much of what brought her to the hospital and that her insisted she come. She does state that she was in [place] a few days ago to visit a friend and returned back and had dinner at the [facility] president's house. Following that she developed nausea and vomiting and diarrhea. SHe thought she had COVID and was seen at Urgent Care but tested negative for it and the flu. She became very confused last night. Her noted that she was talking on the phone and stated she was talking to her daughter when in actuality the was on the phone with the daughter. He summoned EMS who brought her to the emergency department. She was found to be febrile with a urinary tract infection. She was admitted for further management. Source: patient, family Exam Limitations: no limitations Date Seen 06/07/22 Time Seen by a Provider: 10:30 Attending Physician lAexy Mcgee MD PCP Admitting Physician: Adrian Herrera MD Attending Physician: Adrian Herrera MD Referring Physician Date of Admission Jun 07, 2022 at 00:00 Home Medications & Allergies Home Medications Reviewed patient Home Medication Reconciliation performed by pharmacy medication reconciliations management technician and/or nursing. Patients Allergies have been reviewed. Allergies Allergies Coded Allergies No Known Drug Allergies (Unverified12/25/13) Past Sanozyj-Teboum-Fjsqdk Hx Patient Social History Tobacco Use?: No Smoking Status: Never a Smoker Use of E-Cig and/or Vaping dev: No Substance use?: No Alcohol Use?: No Pt feels they are or have been: No Immunizations Up To Date Date of Influenza Vaccine: May 22, 2019 PED Vaccines UTD: Yes Date of Pneumonia Vaccine: Jun 21, 2019 Seasonal Allergies Seasonal Allergies: Yes Current Status status: No Advance Directives: Yes Advance Directive Location: Copy from prev record Communicates: Verbally Primary Language: [place] Citizen Preferred Spoken Language: [place] Citizen Is interpretation needed?: No Sensory deficits: Vision impairment Implanted or Applied Medical D: Stents Past Medical History Surgeries: Bowel Surgery, Section, Coronary Stent, Gallbladder, Kidney Transplant, Nephrectomy, Orthopedic, Tonsillectomy, Tubal Ligation Coronary Artery Disease, Heart Attack, Hypertension Neuropathy [employer]IDENT [employer]ATIONS History: Menopausal Sexually Transmitted Disease: No HIV/AIDS: No Dialysis, Polycystic Kidney Disease Gastroesophageal Reflux, Cirrhosis Diabetes, Insulin dep Kidney Depression Blood Disorders: No coronary stent, CAD, LA, HTN, DM, neuropathy, GERD, depression Family Medical History Cataract (grandmother ) Chest pain 09 BROTHER Congestive heart failure (grandmother) Dementia (two paternal aunts) Family history: Alzheimer's disease (two paternal aunts) Family history: Arthritis (grandmother) Family history: Cardiovascular disease 09 BROTHER Family history: Hypertension 09 BROTHER Heart disease 09 BROTHER Kidney disease 03 MOTHER Stroke (paternal aunt) No Family History of: Abdominal aortic aneurysm Emeka's disease Alcoholism Aphasia Cancer Cancer of colon Congenital heart disease Cystic fibrosis Dysphagia Family history: Allergy Family history: Asthma Family history: Breast disease Family history: Coronary thrombosis Family history: Diabetes mellitus Family history: Gastrointestinal disease Family history: Glaucoma Family history: Osteoporosis Family history: Thyroid disorder Headache Hearing loss Hereditary disease History of - anemia History of - disorder History of - respiratory disease History of drug abuse Human immunodeficiency virus (HIV) seropositivity Hypercholesterolemia Malignant neoplasm of lung Myocardial infarction Parkinson's disease Prostate cancer Psychotic disorder Seizure disorder Tuberculosis Visual impairment Review of Systems Constitutional: chills, fever EENTM: no symptoms reported Respiratory: No cough, No short of breath Cardiovascular: no symptoms reported Gastrointestinal: abdominal pain, diarrhea, nausea, vomiting Genitourinary: frequency Musculoskeletal: no symptoms reported Skin: no symptoms reported Psychiatric/Neurological: See HPI Physical Exam Physical Exam Vital Signs Vital Signs - First Documented 06/06/22 21:54 Temp 39.1 Pulse 99 Resp 20 B/P (MAP) 142/55 (84) Pulse Ox 93 O2 Delivery Room Air Capillary Refill : Less Than 3 Seconds Height, Weight, BMI Height: 5'6.00" Weight: 190lbs. 0.0oz. [id number]; 26.52 BMI Method:Stated General Appearance: No Apparent Distress, WD/WN HEENT: PERRL/EOMI, Moist Mucous Membranes; No Scleral Icterus (L), No Scleral Icterus (R) Neck: Normal Inspection, Supple Respiratory: Lungs Clear, No Accessory Muscle Use, No Respiratory Distress Cardiovascular: Regular Rate, Rhythm, No JVD, No Murmur Gastrointestinal: Normal Bowel Sounds, Non Tender, Soft Extremity: Normal Capillary Refill, No Calf Tenderness, No Pedal Edema Neurologic/Psychiatric: Alert, Oriented x3, Normal Mood/Affect Skin: Normal Color, Warm/Dry Results Results/Procedures Labs Laboratory Tests 06/06/22 22:00 06/07/22 05:23 06/08/22 09:05 Patient resulted labs reviewed. Imaging [facility]. [place], [place] NAME: ANNEMARIE DOVE [facility] REC#: [id number] PT STATUS: REG ER : 1955 PHYSICIAN: PAYTON STEELE MD ADMIT DATE: 06/06/22/ER Signed Date of Exam:06/06/22 CT ABDOMEN/PELVIS WO PROCEDURE: CT abdomen and pelvis without contrast. TECHNIQUE: Multiple contiguous axial images were obtained through the abdomen and pelvis without the use of intravenous contrast. Auto Exposure Controls were utilized during the CT exam to meet ALARA standards for radiation dose reduction. INDICATION: Nausea and vomiting. COMPARISON: 04/29/2021. FINDINGS: The heart is unremarkable. The lung bases are clear. Stable hypoattenuating foci in the liver, likely representing benign cysts. The gallbladder is surgically absent. Stable splenomegaly. No focal splenic lesions. Right lower quadrant transplant kidney is visualized and has a stable appearance. There is mild prominence of the collecting system without evidence of renal calculi. No perinephric fat stranding is seen. The urinary bladder is nondistended. The adrenal glands and pancreas have a normal noncontrast CT appearance. There is no pathologically enlarged mesenteric or retroperitoneal adenopathy. Diverticula are seen in the descending and sigmoid colon without evidence of acute diverticulitis. No bowel obstruction. No free fluid or free air in the abdomen and pelvis. Fluid collections are visualized in the wall of the abdomen in the right lower quadrant, not significantly changed since the prior exam and likely representing postoperative seromas or hematomas. No acute osseous abnormalities. Stable grade 1 anterolisthesis of L4 on L5 is noted. There is calcified aortic and iliac atherosclerotic plaque without aneurysm. There is no free air, loculated collection, or adenopathy in the pelvis. IMPRESSION: 1. Diverticulosis of the descending and sigmoid colon without evidence of acute diverticulitis. No bowel obstruction. No free fluid or free air. 2. Stable appearance of the right lower quadrant transplant kidney with mild prominence of the collecting system. No perinephric fat stranding or obstructing calculi. Recommend correlation with UA and follow-up as indicated. 3. Nonspecific splenomegaly, similar to the prior exam. 4. Stable appearance of the fluid collections in the ball of the abdomen in the right lower quadrant, likely representing seromas or hematomas. Dictated by: Dictated on workstation # [id number] Dict: 06/06/222254 Trans: 06/06/222317 SHELLI [id number] Interpreted by: KEIKO BRINK DO Electronically signed by: KEIKO BRINK DO 06/06/222317 [facility]. [place], [place] NAME: ANNEMARIE DOVE [facility] REC#: [id number] PT STATUS: REG ER : 1955 PHYSICIAN: PAYTON STEELE MD ADMIT DATE: 06/06/22/ER Signed Date of Exam:06/06/22 CHEST 1 VIEW, AP/PA ONLY EXAMINATION: Chest 1 view HISTORY: Sepsis. Nausea and vomiting. COMPARISON: 05/10/2020. FINDINGS: Hazy opacities are seen in the right perihilar region. No pleural effusion or pneumothorax. Stable cardiac silhouette. IMPRESSION: 1. Hazy opacities in the right perihilar region which may represent infection and/or atelectasis. Dictated by: Dictated on workstation # [id number] Dict: 06/06/222302 Trans: 06/06/222307 SHELLI [id number] Interpreted by: KEIKO BRINK DO Electronically signed by: KEIKO BRINK DO 06/06/228 Assessment/Plan Admission Diagnosis Sepsis due to UTI Admission Status: Inpatient Order (span 2 midnights) Reason for Inpatient Admission: see below Assessment and Plan Sepsis due to UTI Gastroenteritis Thrombocytopenia Tachycardia and febrile on arrival Rocephin Await cultures Suportive care for GI symptoms Zofran Advance diet thrombocytopenia concerning for bacteremia- await culture results Renal transplant Resume anti rejection medications Creatinine stable Symptoms improving but will keep graft vs host disease in differential No notable rash and bili normal IDDMII SSI only while oral intake down HTN Resume home meds DVT ppx: Lovenox Diagnosis/Problems Diagnosis/Problems (1) Insulin dependent diabetes mellitus (2) Sepsis (3) Gastroenteritis/colitis, infectious Status: Acute (4) UTI (urinary tract infection) Status: Acute Qualifiers: Urinary tract infection type: acute cystitis Hematuria presence: with hematuria Qualified Codes: N30.01 - Acute cystitis with hematuria (5) Intractable nausea and vomiting Status: Acute (6) Dehydration Status: Acute (7) Kidney transplant recipient Status: Chronic ADRIAN HERRERA MD Jun 07, 2022 11:23
[2022-06-07] MEDS: cefTRIAXone 1 GM PRE-MIX 50 ML IV SCH (14:01)
[2022-06-07] MEDS: APIXABAN 5 MG (ELIQUIS) TABLET PO SCH (20:39)
[2022-06-07] MEDS: RIFAXIMIN 550 MG TABLET (XIFAXAN) PO SCH (20:39)
[2022-06-07] MEDS ORDERED: NON-FORMULARY MEDICATION 1 EA EA (Omeprazole 40 MG) PO SCH (21:00)
[2022-06-08] MEDS: ACETAMINOPHEN 325 MG TABLET PO PRN (01:43)
[2022-06-08 04:44] VITALS: BP 118/57
[2022-06-08] MEDS: PANTOPRAZOLE 40 MG (PROTONIX) TAB PO SCH (08:06)
[2022-06-08] MEDS: RIFAXIMIN 550 MG TABLET (XIFAXAN) PO SCH ×2 (08:06→20:24)
[2022-06-08] MEDS: ALLOPURINOL 300 MG (ZYLOPRIM) TAB PO SCH (08:06)
[2022-06-08] MEDS: ASPIRIN E.C. 81 MG (ECOTRIN) TAB PO SCH (08:06)
[2022-06-08] MEDS: APIXABAN 5 MG (ELIQUIS) TABLET PO SCH ×2 (08:06→20:24)
[2022-06-08] MEDS: PREDNISONE 5MG TABLET PO SCH (08:07)
[2022-06-08] MEDS: MYFORTIC 180 MG PO SCH ×2 (08:07→20:25)
[2022-06-08] MEDS: TACROLIMUS 1MG CAPSULE PO SCH ×2 (08:07→20:26)
[2022-06-08 08:26] VITALS: BP 126/71
[2022-06-08 09:13] LABS: HEMOGLOBIN 10.7 g/dL (11.5-16.0); MEAN PLATELET VOLUME 9.5 fL (9.0-12.2); WHITE BLOOD COUNT 5.5 10^3/uL (4.3-11.0)
[2022-06-08 09:24] LABS: POTASSIUM 3.8 MMOL/L (3.6-5.0)
[2022-06-08 09:26] LABS: CALCIUM 9.4 MG/DL (8.5-10.1)
[2022-06-08 09:30] LABS: CREATININE SERUM 0.82 MG/DL (0.60-1.30)
--- NOTE | 2022-06-08 11:13 | Progress Note - Hospitalist ---
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 She reports she does not remember much of what brought her to the hospital and that her insisted she come. She does state that she was in [place] a few days ago to visit a friend and returned back and had dinner at the [facility] president's house. Following that she developed nausea and vomiting and diarrhea. SHe thought she had COVID and was seen at Urgent Care but tested negative for it and the flu. She became very confused last night. Her noted that she was talking on the phone and stated she was talking to her daughter when in act uality the was on the phone with the daughter. He summoned EMS who brought her to the emergency department. She was found to be febrile with a urinary tract infection. She was admitted for further management. Subjective/Events-last exam Pt reports doing well. Feeling much better. Slept most of yesterday. Discussed lab results and culture results. Focused Exam Lactate Level 06/06/22 22:00: Lactic Acid Level 1.34 Objective Exam Vital Signs Vital Signs Date Time Temp Pulse Resp B/P (MAP) Pulse Ox O2 Delivery O2 Flow Rate FiO2 06/08/22 08:35 Room Air 06/08/22 08:26 36.0 68 18 126/71 (89) 97 Capillary Refill : Less Than 3 Seconds General Appearance: No Apparent Distress, WD/WN Respiratory: Lungs Clear, No Respiratory Distress Cardiovascular: Regular Rate, Rhythm, No Murmur Neurologic/Psychiatric: Alert, Oriented x3 Results/Procedures Lab Laboratory Tests 06/08/22 09:05 Patient resulted labs reviewed. Assessment/Plan Assessment and Plan Assess & Plan/Chief Complaint Sepsis due to UTI Gastroenteritis Thrombocytopenia Rocephin to continue Cultures with GNR in blood and urine Likely cause of thrombocytopenia but will trend Suportive care for GI symptoms Zofran Renal transplant Resume anti rejection medications Creatinine stable Symptoms continue to improve but will keep graft vs host disease in differential No notable rash and bili normal IDDMII SSI only while oral intake down HTN Continue home meds DVT ppx: Lovenox Diagnosis/Problems Diagnosis/Problems (1) Insulin dependent diabetes mellitus (2) Sepsis (3) Gastroenteritis/colitis, infectious Status: Acute (4) UTI (urinary tract infection) Status: Acute Qualifiers: Urinary tract infection type: acute cystitis Hematuria presence: with hematuria Qualified Codes: N30.01 - Acute cystitis with hematuria (5) Intractable nausea and vomiting Status: Acute (6) Dehydration Status: Acute (7) Kidney transplant recipient Status: Chronic ADRIAN DESAI MD Jun 08, 2022 11:13
[2022-06-08] MEDS: LACTATED RINGERS 1,000 ML IV SCH ×2 (11:14→18:22)
[2022-06-08] MEDS: inSUlin ASPART (NovoLOG) 1 UNIT/0.01 ML (CHARGE PER UNIT) SC SCH ×3 (11:51→21:00)
[2022-06-08] MEDS: cefTRIAXone 1 GM PRE-MIX 50 ML IV SCH (12:38)
[2022-06-08 12:42] VITALS: BP 127/64
[2022-06-08 16:24] VITALS: BP 107/58
[2022-06-08 20:15] VITALS: BP 124/55
[2022-06-08] MEDS ORDERED: TEMAZEPAM 15 MG (RESTORIL) CAP ONE (22:45)
[2022-06-08 23:29] VITALS: BP 145/70
[2022-06-09] MEDS: LACTATED RINGERS 1,000 ML IV SCH ×3 (00:43→07:26)
[2022-06-09 05:45] LABS: HEMOGLOBIN 9.6 g/dL (11.5-16.0)
[2022-06-09 05:47] LABS: WHITE BLOOD COUNT 3.6 10^3/uL (4.3-11.0)
[2022-06-09 06:14] LABS: CALCIUM 8.9 MG/DL (8.5-10.1); CREATININE SERUM 0.91 MG/DL (0.60-1.30); POTASSIUM 3.8 MMOL/L (3.6-5.0)
[2022-06-09] MEDS: inSUlin ASPART (NovoLOG) 1 UNIT/0.01 ML (CHARGE PER UNIT) SC SCH ×2 (06:31→12:10)
[2022-06-09 07:32] VITALS: BP 142/61
[2022-06-09] MEDS: RIFAXIMIN 550 MG TABLET (XIFAXAN) PO SCH (08:15)
[2022-06-09] MEDS: ASPIRIN E.C. 81 MG (ECOTRIN) TAB PO SCH (08:15)
[2022-06-09] MEDS: PANTOPRAZOLE 40 MG (PROTONIX) TAB PO SCH (08:15)
[2022-06-09] MEDS: APIXABAN 5 MG (ELIQUIS) TABLET PO SCH (08:15)
[2022-06-09] MEDS: ALLOPURINOL 300 MG (ZYLOPRIM) TAB PO SCH (08:15)
[2022-06-09] MEDS: TACROLIMUS 1MG CAPSULE PO SCH (08:16)
[2022-06-09] MEDS: PREDNISONE 5MG TABLET PO SCH (08:16)
[2022-06-09] MEDS: MYFORTIC 180 MG PO SCH (08:16)
--- NOTE | 2022-06-09 10:23 | Physical Therapy Evaluation ---
PT Evaluation-General Medical Diagnosis Admission Date Jun 07, 2022 at 12:52 Medical Diagnosis: dehydration/N&V/UIT/colitis Onset Date: Jun 07, 2022 Therapy Diagnosis Therapy Diagnosis: impaired mobility Height/Weight Height (Feet): 5 Height (Inches): 6.00 Weight (Pounds): 190 Weight (Ounces): 0.0 Precautions Precautions/Isolations: Contact Isolation Referral Physician: Javier Reason for Referral: Evaluation/Treatment Medical History Pertinent Medical History: DM, HTN, MA, Neuropathy History of Falls (past yr): No Prior Surgery (last 100 days): No Current History EMS from home secondary to N/V/D Reviewed History: Yes Social History Home: Single Level Current Living Status: Spouse Entry Into Home: Ramp Prior Prior Level of Function SCALE: Activities may be completed with or without assistive devices. 0-Llxcdzvqpd-yvmbehc completes the activity by him/herself with no assistance from a helper. 5-Set-up or Clean-up Assistance-helper sets up or cleans up; patient completes activity. [place] assists only prior to or following the activity. 4-Supervision or Touching Assistance-helper provides verbal cues and/or touching/steadying and/or contact guard assistance as patient completes activity. Assistance may be provided throughout the activity or intermittently. 3-Partial/Moderate Assistance-helper does LESS THAN HALF the effort. [place] lif ts, holds or supports trunk or limbs, but provides less than half the effort. 2-Substantial/Maximal Assistance-helper does MORE THAN HALF the effort. [place] lifts or holds trunk or limbs and provides more than half the effort. 1-Eiocfijkj-pwnvnq does ALL the effort. Patient does none of the effort to complete the activity. Or, the assistance of 2 or more helpers is required for the patient to complete the activity. If activity was not attempted, code reason: 7-Patient Refused. 9-Not Applicable-not attempted and the patient did not perform the activity before the current illness, exacerbation or injury. 10-Not Attempted due to Environmental Limitations-(lack of equipment, weather restraints, etc.). 88-Not Attempted due to Medical Conditions or Safety Concerns. Bed Mobility: 6 Transfers (B,C,W/C): 6 Gait: 6 Stairs: 6 Indoor Mobility (Ambulation): Independent Stairs: Independent Prior Devices Use: Other-see list below Prior Device Use: cane PRN PT Evaluation-Current Subjective Patient agrees to PT. Objective Patient Orientation: Normal For Age Attachments: IV ROM/Strength ROM Lower Extremities bilateral LE WFL Strength Lower Extremities 4-/5 grossly bilateral LE all planes Integumentary/Posture Bowel Incontinence: No Bladder Incontinence: No Posture WFL Neuromuscular (Tone, Coordination, Reflexes) grossly intact Sensory Vision: Wears Glasses Hearing: Functional Transfers Lying to Sitting/Side of Bed(Q: 6 Sit to Stand (QC): 6 Chair/Lwr-ho-Xkfbt Xfer(QC): 6 Toilet Transfer (QC): 6 Gait Mode of Locomotion: Walk Anticipated Mode of Locomotion: Walk Walk 10 feet (QC): 6 Walk 50 ft with 2 Turns(QC): 6 Walk 150 ft (QC): 6 Distance: >500' Gait Assistive Device: Cane Single Point Comments/Gait Description safe and functional gait sequence Balance Sitting Static: Normal Sitting Dynamic: Normal Standing Static: Normal Standing Dynamic: Normal Assessment/Needs Patient is currently at independent OF with all gross motor skills and does not require skilled PT intervention. RN notified. Rehab Potential: Fair PT Plan Treatment/Plan Treatment Plan: Discontinue PT, goals met Treatment Duration: Jun 09, 2022 Frequency: 1 time per week Estimated Hrs Per Day: .25 hour per day Patient and/or Family Agrees t: Yes Time/GCodes Time In: 900 Time Out: 914 Total Billed Treatment Time: 14 Total Billed Treatment 1 visit EVMod 14 min KELIN CARSON PT Jun 09, 2022 10:23
[2022-06-09] MEDS ORDERED: EMPA10TA PO (11:53)
[2022-06-09] MEDS ORDERED: ALLO100T PO (11:53)
[2022-06-09] MEDS ORDERED: CHOL10004 PO (11:53)
[2022-06-09] MEDS ORDERED: OMEG-218 PO (11:53)
[2022-06-09] MEDS ORDERED: METF-865 PO (11:53)
[2022-06-09] MEDS ORDERED: CYAN250010 PO (11:53)
[2022-06-09] MEDS ORDERED: INSU100I14 SQ ×3 (11:53)
[2022-06-09] MEDS ORDERED: CEFD300C3 PO (12:10)
[2022-06-09 13:07] VITALS: BP 142/61
[2022-06-09] MEDS ORDERED: TEMAZEPAM 15 MG (RESTORIL) CAP PO SCH (21:00)
== END 2022-06-09 13:29 | disposition home or self-care (01) | DRG 872 ==
LOC: EDUNIT# 21:54 → ER 21:56 → 4TH 06-07 → OBSVTOIN 06-07 12:52
PROVIDERS: ADMIT Family Medicine; ATTEND Internal Medicine
DX: A41.9 Sepsis, unspecified organism (principal); N39.0 Urinary tract infection, site not specified; Z94.0 Kidney transplant status; Q61.3 Polycystic kidney, unspecified; K52.9 Noninfective gastroenteritis and colitis, unspecified; D69.6 Thrombocytopenia, unspecified; E11.9 Type 2 diabetes mellitus without complications; I10 Essential (primary) hypertension; E86.0 Dehydration; R11.2 Nausea with vomiting, unspecified; K74.60 Unspecified cirrhosis of liver; Z95.5 Presence of coronary angioplasty implant and graft; I25.10 Atherosclerotic heart disease of native coronary artery without angina pectoris; I25.2 Old myocardial infarction; K21.9 Gastro-esophageal reflux disease without esophagitis; Z79.4 Long term (current) use of insulin; F32.A Depression, unspecified; E11.40 Type 2 diabetes mellitus with diabetic neuropathy, unspecified; Z79.82 Long term (current) use of aspirin; Z79.899 Other long term (current) drug therapy; Z20.822 Contact with and (suspected) exposure to COVID-19
CPT/HCPCS: 36415; 71045; 74176; 80048; 80053; 81000; 82140; 82947; 83605; 84484; 85025; 85027; 85610; 85730; 86141; 87040; 87077; 87088; 87186; 87636; 93005; 96361; 96374; 96375; G0378

== ENCOUNTER → 2022-07-03 | Outpatient (CLI) | payer MEDICARE, OTHER ==
[~2022-07-03] MED LIST changes: +ALLO300T2 PO; +CAND8TAB14 PO; +CARV6.252 PO; +CHOL10004 PO; +CYAN250010 PO; +EMPA10TA PO; +MECO10005 PO; +METF-865 PO; +MYCO180T PO; +OMEG-218 PO; +SEMA1PEN3 SQ; +TACR1CAP8 PO; +[UNRECOGNIZED DRUG - OTHER] PO
[2022-07-03 12:30] LABS: HEMATOCRIT 40 % (35-52); HEMOGLOBIN 13.3 g/dL (11.5-16.0); MEAN CORPUSCULAR HEMOGLOBIN 32 pg (25-34); MEAN CORPUSCULAR HGB CONC 34 g/dL (32-36); MEAN CORPUSCULAR VOLUME 96 fL (80-99); MEAN PLATELET VOLUME 10.1 fL (9.0-12.2); PLATELET COUNT 176 10^3/uL (130-400); WHITE BLOOD COUNT 10.8 10^3/uL (4.3-11.0)
[2022-07-03 12:45] LABS: ALBUMIN 4.3 GM/DL (3.2-4.5)
[2022-07-03 12:47] LABS: CALCIUM 10.6 MG/DL (8.5-10.1)
[2022-07-03 12:48] LABS: TOTAL PROTEIN 7.2 GM/DL (6.4-8.2)
[2022-07-03 12:50] LABS: BILIRUBIN,TOTAL 0.6 MG/DL (0.1-1.0)
[2022-07-03 12:51] LABS: CREATININE SERUM 0.85 MG/DL (0.60-1.30)
--- NOTE | 2022-07-03 15:41 | Diagnostic Imaging Report ---
INDICATION: 67-year-old female, right kidney transplant in 2010. Right lower quadrant pain near site of [place] kidneys removed. TECHNIQUE: Multiple real-time grayscale sonographic images were obtained of the kidneys. CORRELATION: None. FINDINGS: RIGHT KIDNEY TRANSPLANT: 12.9 x 5.5 x 6.5 cm. It does appear to be somewhat perhaps enlarged and/or thickened. No abnormal peritransplant fluid collections. There is suggested mild caliectasis. No overt hydronephrosis. Limited intraparenchymal resistive index is elevated at 0.85. URINARY BLADDER: The transplant ureteral jet is not visualized. Bladder has a generally unremarkable appearance. IMPRESSION: 1. Right lower quadrant renal transplant does appear to be perhaps mildly prominent with mild edema. There also appears to be slight caliectasis without overt hydronephrosis. Early obstruction is not excluded. 2. Elevated intraparenchymal resistive index at 0.85, nonspecific at this limited assessment. Dictated by: Dictated on workstation # [id number]
== END ==
LOC: RAD 12:14
PROVIDERS: ATTEND Nurse Practitioner Family
DX: R10.31 Right lower quadrant pain (principal); Z94.0 Kidney transplant status
CPT/HCPCS: 36415; 76775; 80053; 85027

== ENCOUNTER → 2022-07-04 | Outpatient (CLI) | payer MEDICARE, OTHER | LOC: LABNPT 14:57 | PROVIDERS: ATTEND Internal Medicine | DX: E83.52 Hypercalcemia (principal) | CPT/HCPCS: 36415; 83970 ==

== ENCOUNTER → 2022-10-02 | Outpatient (CLI) | payer MEDICARE, OTHER ==
--- NOTE | 2022-10-02 19:02 | Diagnostic Imaging Report ---
EXAMINATION: Right foot radiographs, 3 views. COMPARISON: None. HISTORY: 67-year-old female, right lateral foot ulcer. Right foot pain. FINDINGS: There is screw fixation hardware extending from the first, second, third and fourth metatarsals proximally to the level of the calcaneus. There are are fractures of the hardware involving the third and fourth metatarsals. There is less than 1 mm lucency surrounding the fixation hardware in the first metatarsal. There is also a fixation screw extending across the first interphalangeal joint which is intact. There is flexion at the third proximal interphalangeal joint and fourth distal interphalangeal joint. There is chronic appearing bone loss of the proximal half of the fifth metatarsal. There is bone ankylosis at the level of the midfoot. There is degenerative type calcaneal enthesopathy. The head of the talus is inferiorly subluxed. There is normal variant congenital fusion of the fifth digit middle and distal phalanges. There is a chronic appearing deformity of the distal aspect of the first metatarsal. There is uncovering of the lateral sesamoid. There is arthritis of the first metatarsophalangeal joint. There is no identified acute aggressive appearing bone destruction. There is no identified acute osseous fracture. There is also additional screw fixation hardware in the midfoot extending into the calcaneus which does not extend into the metatarsals with this hardware appearing intact. IMPRESSION: 1. Fractures of the screw fixation hardware associated with the third and fourth metatarsals. 2. No radiographic evidence of acute aggressive osteomyelitis. 3. Chronic appearing bone deformities, as above. Additional chronic findings, as above. Dictated by: Dictated on workstation # [id number]
== END ==
LOC: WOUNDCARE 09:14
PROVIDERS: ATTEND Family Medicine
DX: E11.621 Type 2 diabetes mellitus with foot ulcer (principal); L97.512 Non-pressure chronic ulcer of other part of right foot with fat layer exposed; L84 Corns and callosities; M14.671 Charcot's joint, right ankle and foot; E11.40 Type 2 diabetes mellitus with diabetic neuropathy, unspecified; E55.9 Vitamin D deficiency, unspecified; D51.9 Vitamin B12 deficiency anemia, unspecified; Z94.0 Kidney transplant status; Z79.52 Long term (current) use of systemic steroids; Z79.69 Long term (current) use of other immunomodulators and immunosuppressants
CPT/HCPCS: 11042; 73630; A6197; G0463

== ENCOUNTER → 2022-10-09 | Outpatient (CLI) | payer MEDICARE, OTHER | LOC: WOUNDCARE 13:21 | PROVIDERS: ATTEND Family Medicine | DX: L84 Corns and callosities (principal); M14.671 Charcot's joint, right ankle and foot; E11.621 Type 2 diabetes mellitus with foot ulcer; E11.40 Type 2 diabetes mellitus with diabetic neuropathy, unspecified; E55.9 Vitamin D deficiency, unspecified; L97.512 Non-pressure chronic ulcer of other part of right foot with fat layer exposed; D51.9 Vitamin B12 deficiency anemia, unspecified; Z94.0 Kidney transplant status; Z79.52 Long term (current) use of systemic steroids; R26.89 Other abnormalities of gait and mobility; Z79.60 Long term (current) use of unspecified immunomodulators and immunosuppressants; Z68.26 Body mass index [BMI] 26.0-26.9, adult | CPT/HCPCS: 99212 ==

== ENCOUNTER → 2022-12-02 | Outpatient (CLI) | payer MEDICARE, OTHER | LOC: WOUNDCARE 13:07 | PROVIDERS: ATTEND Family Medicine | DX: L97.512 Non-pressure chronic ulcer of other part of right foot with fat layer exposed (principal); E11.621 Type 2 diabetes mellitus with foot ulcer; M14.671 Charcot's joint, right ankle and foot; E09.43 Drug or chemical induced diabetes mellitus with neurological complications with diabetic autonomic (poly)neuropathy; E55.9 Vitamin D deficiency, unspecified; D51.9 Vitamin B12 deficiency anemia, unspecified; Z79.620 Long term (current) use of immunosuppressive biologic | CPT/HCPCS: 11042; 87070; 87205; A6197; G0463; 87077 ==

== ENCOUNTER → 2022-12-11 | Outpatient (CLI) | payer MEDICARE, OTHER | LOC: WOUNDCARE 12:30 | PROVIDERS: ATTEND Family Medicine | DX: L97.512 Non-pressure chronic ulcer of other part of right foot with fat layer exposed (principal); E11.621 Type 2 diabetes mellitus with foot ulcer; M14.671 Charcot's joint, right ankle and foot; E55.9 Vitamin D deficiency, unspecified; D51.9 Vitamin B12 deficiency anemia, unspecified; B95.2 Enterococcus as the cause of diseases classified elsewhere; E11.52 Type 2 diabetes mellitus with diabetic peripheral angiopathy with gangrene; I96 Gangrene, not elsewhere classified | CPT/HCPCS: 11042; G0463 ==

== ENCOUNTER 2022-12-15 11:13 | Emergency (ER) | payer MEDICARE, OTHER ==
[~2022-12-15] VITALS: Ht 167.7 cm; Wt 74.6 kg
--- NOTE | 2022-12-15 12:02 | ED General ---
General Chief Complaint: General Problems/Pain Stated Complaint: SOB | EXHAUSTED Source of Information: Patient, Family () Exam Limitations: No Limitations History of Present Illness Date Seen by Provider: Dec 15, 2022 Time Seen by Provider: 11:42 Initial Comments 67-year-old female presents to the emergency department today for fatigue and generalized weakness. She states she felt slightly fatigued yesterday but symptoms were more extreme today. She has had some mild loose stools over the last couple days, maybe 3 times a day which she attributes to antibiotics that she is on for a wound to the bottom of her right foot that is being followed by wound care. She does not know exactly which antibiotic she is on. Notably a couple days prior to this she had also been on antibiotics for urinary tract infection. 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 She is on predn isone, tacrolimus and CellCept. She does have a fistula in her right arm when she required dialysis prior to her transplant but is no longer using this. She denies any fevers or chills. No cough, chest pain. No changes in bladder habits. No pain over her transplanted kidney. All other systems reviewed and negative except documented per HPI. Voice recognition software was used to help create this chart Allergies and Home Medications Allergies Coded Allergies: No Known Drug Allergies (Unverified , 12/25/13) Patient Home Medication List Home Medication List Reviewed: Yes Allopurinol (Allopurinol) 300 Mg Tablet, 300 MG PO DAILY, (Reported) Entered as Reported by: NIALL WASHBURN on 06/07/22 0308 Allopurinol (Allopurinol) 100 Mg Tablet, 100 MG PO DAILY, (Reported) Entered as Reported by: ALLEN GALVAN on 06/09/22 1153 Apixaban (Eliquis) 5 Mg Tablet, 5 MG PO BID, (Reported) Entered as Reported by: ADRIAN HILLS on 04/05/20 1342 Aspirin (Aspirin EC) 81 Mg Tablet.dr, 81 MG PO HS, (Reported) Entered as Reported by: LUIGI SOMERS on 10/24/19 1220 Atorvastatin Calcium (Atorvastatin Calcium) 20 Mg Tablet, 20 MG PO HS, (Reported) Entered as Reported by: LUIGI SOMERS on 10/24/19 1214 Candesartan Cilexetil (Candesartan Cilexetil) 8 Mg Tablet, 8 MG PO DAILY, (Reported) Entered as Reported by: NIALL WASHBURN on 06/07/22 0310 Carvedilol (Carvedilol) 6.25 Mg Tablet, 6.25 MG PO BID, (Reported) Entered as Reported by: NIALL WASHBURN on 06/07/22 0302 Cefdinir (Cefdinir) 300 Mg Capsule, 300 MG PO BID Prescribed by: RITU MIRANDA on 06/09/22 1210 Cholecalciferol (Vitamin D3) (Vitamin D3) 25 Mcg (1000 Unit) Tablet, 25 MCG PO DAILY, (Reported) Entered as Reported by: ALLEN GALVAN on 06/09/22 115 Empagliflozin (Jardiance) 10 Mg Tablet, 10 MG PO DAILY, (Reported) Entered as Reported by: ALLEN GALVAN on 06/09/22 115 Insulin Aspart (Novolog Flexpen) 100 Unit/Ml (3 Ml) Solution, 10 UNITS SQ WITH BREAKFAST, (Reported) Entered as Reported by: ALLEN GALVAN on 06/09/22 115 Insulin Aspart (Novolog Flexpen) 100 Unit/Ml (3 Ml) Solution, 12 UNITS SQ WITH LUNCH, (Reported) Entered as Reported by: ALLEN GALVAN on 06/09/22 115 Insulin Aspart (Novolog Flexpen) 100 Unit/Ml (3 Ml) Solution, 14 UNITS SQ WITH DINNER, (Reported) Entered as Reported by: ALLEN GALVAN on 06/09/22 115 Insulin Glargine,Hum.rec.anlog (Basaglar Kwikpen U-100) 100 Unit/Ml (3 Ml) Insuln.pen, 20 UNIT SQ HS, (Reported) Entered as Reported by: LUIGI SOMERS on 10/24/19 1223 Magnesium Oxide (Magnesium Oxide) 400 Mg (241.3 Mg Magnesium) Tablet, 800 MG PO BID, (Reported) Entered as Reported by: LUIGI SOMERS on 10/24/19 1214 Mecobalamin (B12 Active) 1,000 Mcg Tab.chew, 1,000 MCG PO DAILY, (Reported) Entered as Reported by: NIALL WASHBURN on 06/07/22 0403 Metformin HCl (Metformin HCl ER) 500 Mg Tab.er.24h, 500 MG PO BID, (Reported) Entered as Reported by: ALLEN GALVAN on 06/09/22 1153 Mycophenolate Sodium (Myfortic) 180 Mg Tablet.dr, 180 MG PO BID, (Reported) Entered as Reported by: NIALL WASHBURN on 06/07/22 0254 Clemmons-3 Acid Ethyl Esters (Clemmons-3 Acid Ethyl Esters) 1 Gram Capsule, 2 GM PO BID, (Reported) Entered as Reported by: ALLEN GALVAN on 06/09/22 1153 Omeprazole (Omeprazole) 40 Mg Capsule.dr, 40 MG PO BID, (Reported) Entered as Reported by: LUIGI SOMERS on 10/24/19 1214 Prednisone (Prednisone) 5 Mg Tablet, 5 MG PO DAILY, (Reported) Entered as Reported by: LUIGI SOMERS on 10/24/19 1220 Rifaximin (Xifaxan) 550 Mg Tablet, 550 MG PO BID, (Reported) Entered as Reported by: LUIGI SOMERS on 10/24/19 1214 Semaglutide (Ozempic) 1 Mg/0.75 Ml (4 Mg/3 Ml) Pen.injctr, 1 MG SQ THURSDAY, (Reported) Entered as Reported by: NIALL WASHBURN on 06/07/22 0304 Tacrolimus (Tacrolimus) 1 Mg Capsule, 1 MG PO BID, (Reported) Entered as Reported by: NIALL WASHBURN on 06/07/22 0305 Temazepam (Temazepam) 15 Mg Capsule, 15 MG PO HS, (Reported) Entered as Reported by: LUIGI SOMERS on 10/24/19 1214 Review of Systems Review of Systems Constitutional: see HPI Past Iugtdcw-Ifxfin-Inbehk Hx Patient Social History Tobacco Use?: No Use of E-Cig and/or Vaping dev: No Substance use?: No Alcohol Use?: No Pt feels they are or have been: No Immunizations Up To Date Tetanus Booster (TDap): Less than 5yrs PED Vaccines UTD: Yes Influenza Vaccine Up-to-Date: Yes; Up-to-Date First/Initial COVID19 Vaccinat: YES Second COVID19 Vaccination Hayden: YES Third COVID19 Vaccination Date: YES Seasonal Allergies Seasonal Allergies: Yes Past Medical History Surgery/Hospitalization HX: KIDNEY TRANSPLANT, STENT, FISTULA, REMIGIO, BOWEL RESECTION, TONSILS, , TUBAL, R FOOT SURGERY, L KNEE REPLACEMENT, R SHOULDER [place] Surgeries: Yes (Right arm fistula, LTKR, ) Bowel Surgery, Section, Coronary Stent, Gallbladder, Kidney Transplant, Nephrectomy, Orthopedic, Tonsillectomy, Tubal Ligation Respiratory: No Cardiac: Yes (Stent) Coronary Artery Disease, Heart Attack, Hypertension Neurological: Yes Neuropathy Reproductive Disorders: Yes Female Reproductive Disorders: Polycystic Ovarian Dis 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 Sexually Transmitted Disease: No HIV/AIDS: No Genitourinary: Yes Dialysis, Polycystic Kidney Disease Gastrointestinal: Yes Gastroesophageal Reflux, Cirrhosis Musculoskeletal: No Endocrine: Yes Diabetes, Insulin dep HEENT: No Cancer: Yes Kidney Psychosocial: Yes Depression Integumentary: No Blood Disorders: No Family Medical History Cataract (grandmother ) Chest pain 09 BROTHER Congestive heart failure (grandmother) Dementia (two paternal aunts) Family history: Alzheimer's disease (two paternal aunts) Family history: Arthritis (grandmother) Family history: Cardiovascular disease 09 BROTHER Family history: Hypertension 09 BROTHER Heart disease 09 BROTHER Kidney disease 03 MOTHER Stroke (paternal aunt) No Family History of: Abdominal aortic aneurysm Big Stone's disease Alcoholism Aphasia Cancer Cancer of colon Congenital heart disease Cystic fibrosis Dysphagia Family history: Allergy Family history: Asthma Family history: Breast disease Family history: Coronary thrombosis Family history: Diabetes mellitus Family history: Gastrointestinal disease Family history: Glaucoma Family history: Osteoporosis Family history: Thyroid disorder Headache Hearing loss Hereditary disease History of - anemia History of - disorder History of - respiratory disease History of drug abuse Human immunodeficiency virus (HIV) seropositivity Hypercholesterolemia Malignant neoplasm of lung Myocardial infarction Parkinson's disease Prostate cancer Psychotic disorder Seizure disorder Tuberculosis Visual impairment Physical Exam Vital Signs Vital Signs - First Documented 12/15/22 11:44 Temp 36.4 Pulse 81 Resp 16 B/P (MAP) 131/66 (87) Capillary Refill : Height, Weight, BMI Height: 5'6.00" Weight: 190lbs. 0.0oz. [id number]; 26.52 BMI Method:Stated General Appearance: No Apparent Distress, WD/WN HEENT: Normal ENT Inspection, Pharynx Normal Neck: Full Range of Motion, Normal Inspection, Non Tender Respiratory: Chest Non Tender, Lungs Clear, Normal Breath Sounds, No Accessory Muscle Use, No Respiratory Distress Cardiovascular: Regular Rate, Rhythm, No Murmur, Normal Peripheral Pulses Gastrointestinal: Normal Bowel Sounds, No Organomegaly, No Pulsatile Mass, Non Tender, Soft, Other (Transplanted kidney palpable in the right mid to lower abdomen. No tenderness. No skin changes.) Back: Normal Inspection, No CVA Tenderness, No Vertebral Tenderness Extremity: Normal Capillary Refill, Non Tender, No Calf Tenderness, No Pedal Edema Neurologic/Psychiatric: Alert, Oriented x3, No Motor/Sensory Deficits Skin: Normal Color, Warm/Dry Progress/Results/Core Measures Suspected Sepsis SIRS Temperature: Pulse: Respiratory Rate: Laboratory Tests 12/15/22 12:02: White Blood Count 9.9 Blood Pressure / Mean: Laboratory Tests 12/15/22 12:02: Creatinine 0.93, Platelet Count 174, Total Bilirubin 0.7 Results/Orders Lab Results Laboratory Tests Test 12/15/22 11:50 12/15/22 12:02 12/15/22 12:55 Range/Units Influenza Type A (RT-PCR) Not Detected Not Detecte Influenza Type B (RT-PCR) Not Detected Not Detecte SARS-CoV-2 RNA (RT-PCR) Not Detected Not Detecte White Blood Count 9.9 4.3-11.0 10^3/uL Red Blood Count 4.00 3.80-5.11 10^6/uL Hemoglobin 12.8 11.5-16.0 g/dL Hematocrit 38 35-52 % Mean Corpuscular Volume 94 80-99 fL Mean Corpuscular Hemoglobin 32 25-34 pg Mean Corpuscular Hemoglobin Concent 34 32-36 g/dL Red Cell Distribution Width 14.7 H 10.0-14.5 % Platelet Count 174 130-400 10^3/uL Mean Platelet Volume 9.3 9.0-12.2 fL Immature Granulocyte % (Auto) 1 % Neutrophils (%) (Auto) 73 42-75 % Lymphocytes (%) (Auto) 16 12-44 % Monocytes (%) (Auto) 6 0-12 % Eosinophils (%) (Auto) 4 0-10 % Basophils (%) (Auto) 1 0-10 % Neutrophils # (Auto) 7.2 1.8-7.8 10^3/uL Lymphocytes # (Auto) 1.6 1.0-4.0 10^3/uL Monocytes # (Auto) 0.5 0.0-1.0 10^3/uL Eosinophils # (Auto) 0.4 H 0.0-0.3 10^3/uL Basophils # (Auto) 0.1 0.0-0.1 10^3/uL Immature Granulocyte # (Auto) 0.1 0.0-0.1 10^3/uL Sodium Level 137 135-145 MMOL/L Potassium Level 4.2 3.6-5.0 MMOL/L Chloride Level 105 98-107 MMOL/L Carbon Dioxide Level 19 L 21-32 MMOL/L Anion Gap 13 5-14 MMOL/L Blood Urea Nitrogen 24 H 7-18 MG/DL Creatinine 0.93 0.60-1.30 MG/DL Estimat Glomerular Filtration Rate 68 BUN/Creatinine Ratio 26 Glucose Level 169 H 70-105 MG/DL Calcium Level 10.3 H 8.5-10.1 MG/DL Corrected Calcium 10.2 H 8.5-10.1 MG/DL Magnesium Level 1.4 L 1.6-2.4 MG/DL Total Bilirubin 0.7 0.1-1.0 MG/DL Aspartate Amino Transf (AST/SGOT) 21 5-34 U/L Alanine Aminotransferase (ALT/SGPT) 28 0-55 U/L Alkaline Phosphatase 51 40-136 U/L Total Creatine Kinase 47 29-168 U/L Troponin I < 0.028 <0.028 NG/ML Total Protein 6.9 6.4-8.2 GM/DL Albumin 4.1 3.2-4.5 GM/DL Urine Color YELLOW Urine Clarity CLEAR Urine pH 6.0 5-9 Urine Specific [place] 1.015 L 1.016-1.022 Urine Protein 1+ H NEGATIVE Urine Glucose (UA) 3+ H NEGATIVE Urine Ketones NEGATIVE NEGATIVE Urine Nitrite NEGATIVE NEGATIVE Urine Bilirubin NEGATIVE NEGATIVE Urine Urobilinogen 0.2 < = 1.0 MG/DL Urine Leukocyte Esterase NEGATIVE NEGATIVE Urine RBC (Auto) NEGATIVE NEGATIVE Urine RBC RARE /HPF Urine WBC 0-2 /HPF Urine Squamous Epithelial Cells RARE /HPF Urine Crystals NONE /LPF Urine Bacteria NEGATIVE /HPF Urine Casts NONE /LPF Urine Mucus NEGATIVE /LPF Urine Culture Indicated NO My Orders Orders - CECYVIDA Caruso DO Cbc With Automated Diff (12/15/22 11:54) Magnesium (12/15/22 11:54) Chest 1 View, Ap/Pa Only (12/15/22 11:54) Ekg Tracing (12/15/22 11:54) Comprehensive Metabolic Panel (12/15/22 11:54) O2 (12/15/22 11:54) Monitor-Rhythm Ecg Trace Only (12/15/22 11:54) Ed Iv/Invasive Line Start (12/15/22 11:54) Covid 19 Inhouse Test (12/15/22 11:54) Influenza A And B By Pcr (12/15/22 11:54) Ua Culture If Indicated (12/15/22 11:59) Troponin I [place] (12/15/22 12:02) Creatine Kinase (12/15/22 13:35) Thyroid Stimulating Hormone (12/15/22 13:39) Ns Iv 500 Ml (Sodium Chloride 0.9%) (12/15/22 13:45) Vital Signs/I&O 12/15/22 11:44 Temp 36.4 Pulse 81 Resp 16 B/P (MAP) 131/66 (87) Capillary Refill : ECG Comment Independent review of full EKG shows a sinus rhythm 75 bpm. Normal intervals. Normal axis. No ST or T wave elevations. There is T wave inversion in prominent Q waves in lead III indicating old [place] as per the patient's history. No STEMI. Departure Communication (Admissions) Spoke with [facility]'s transfer team as well as transplant team. They recommended adding TSH and total CK to the current work-up. Renal transplant team states they see no current indication for admission. Her urine is normal without any evidence for infection. The wound to the bottom of her foot looks like it is healing and she is on appropriate antibiotics. The injury to her right arm has a small noninfected ulceration and some ecchymosis but is otherwise unremarkable. She is slightly hypercalcemic. She is given IV fluids for this. She is not altered. This could certainly be causing some fatigue. Creatinine is normal and this again was discussed with the renal transplant team there is no concerns about this. No evidence for CMV viremia and she does not have a history of this. She has no leukopenia she is not anemic. She is given IV fluids here and discharged home with close follow-up. COVID and flu testing are negative. Chest x-ray shows no evidence for pneumonia. She is slightly hyperglycemic no evidence for DKA. Impression Primary Impression: Hypercalcemia Additional Impression: Fatigue Qualified Codes: R53.83 - Other fatigue Disposition: 01 HOME, SELF-CARE Condition: Stable Departure-Patient Inst. Referrals: MERCY STALEY MD (PCP/Family) Primary Care Physician Add. Discharge Instructions: As discussed I spoke with [facility]'s transplant team and they have no further acute concerns at this time. I see no evidence for admission, acute infection or other emergent cause of your fatigue at this time. Your heart studies are normal. Your x-ray shows no evidence for pneumonia. Your labs are otherwise unremarkable outside of some mild elevated calcium. COVID and flu testing are negative here as well. No evidence for recurrent urinary tract infection. Your primary doctor should your symptoms persist. Return to the emergency department immediately if your symptoms change in any way concerning to you. All discharge instructions reviewed with patient and/or family. Voiced understanding. VIDA SAM DO Dec 15, 2022 12:02
[2022-12-15 12:10] LABS: BASOPHILS # (AUTO) 0.1 10^3/uL (0.0-0.1); BASOPHILS % (AUTO) 1 % (0-10); EOSINOPHILS # (AUTO) 0.4 10^3/uL (0.0-0.3); EOSINOPHILS % (AUTO) 4 % (0-10); HEMATOCRIT 38 % (35-52); HEMOGLOBIN 12.8 g/dL (11.5-16.0); LYMPHOCYTES # (AUTO) 1.6 10^3/uL (1.0-4.0); LYMPHOCYTES % (AUTO) 16 % (12-44); MEAN CORPUSCULAR HEMOGLOBIN 32 pg (25-34); MEAN CORPUSCULAR HGB CONC 34 g/dL (32-36); MEAN CORPUSCULAR VOLUME 94 fL (80-99); MEAN PLATELET VOLUME 9.3 fL (9.0-12.2); MONOCYTES # (AUTO) 0.5 10^3/uL (0.0-1.0); MONOCYTES % (AUTO) 6 % (0-12); NEUTROPHILS # (AUTO) 7.2 10^3/uL (1.8-7.8); NEUTROPHILS % (AUTO) 73 % (42-75); PLATELET COUNT 174 10^3/uL (130-400); WHITE BLOOD COUNT 9.9 10^3/uL (4.3-11.0)
[2022-12-15 12:21] LABS: ALBUMIN 4.1 GM/DL (3.2-4.5); CHLORIDE 105 MMOL/L (98-107); POTASSIUM 4.2 MMOL/L (3.6-5.0); SODIUM 137 MMOL/L (135-145)
[2022-12-15 12:22] LABS: CALCIUM 10.3 MG/DL (8.5-10.1)
[2022-12-15 12:23] LABS: GLUCOSE 169 MG/DL (70-105); TOTAL PROTEIN 6.9 GM/DL (6.4-8.2)
[2022-12-15 12:24] LABS: CARBON DIOXIDE 19 MMOL/L (21-32)
[2022-12-15 12:25] LABS: BILIRUBIN,TOTAL 0.7 MG/DL (0.1-1.0)
[2022-12-15 12:27] LABS: ALKALINE PHOSPHATASE 51 U/L (40-136); CREATININE SERUM 0.93 MG/DL (0.60-1.30); GFR ESTIMATED 68
[2022-12-15 12:28] LABS: BUN/CREATININE RATIO 26
[2022-12-15 12:29] LABS: MAGNESIUM 1.4 MG/DL (1.6-2.4)
[2022-12-15 12:30] LABS: ALANINE AMINOTRANSFERASE 28 U/L (0-55)
--- NOTE | 2022-12-15 12:44 | Diagnostic Imaging Report ---
INDICATION: Chest pain COMPARISON: 06/06/2022, 06/26/2021, and 05/10/2020 TECHNIQUE: Single radiograph of the chest dated 12/15/2022. FINDINGS: The cardiac silhouette is within normal limits in size. No significant pulmonary vascular congestion. Calcified granuloma overlying left lung base is again seen. The lungs are otherwise clear of focal pulmonary opacity. No pleural effusion. No pneumothorax. Sclerosis is again noted involving the superior right humerus, potentially postsurgical in nature. No acute osseous abnormality. IMPRESSION: No acute cardiopulmonary abnormality. Dictated by: Dictated on workstation # [id number]
[2022-12-15 13:02] LABS: BILIRUBIN,URINE NEGATIVE (NEGATIVE); CLARITY,URINE CLEAR; COLOR,URINE YELLOW; GLUCOSE, URINE (UA) 3+ (NEGATIVE); KETONES,URINE NEGATIVE (NEGATIVE); LEUKOCYTE ESTERASE ,URINE NEGATIVE (NEGATIVE); NITRITE,URINE NEGATIVE (NEGATIVE); PROTEIN,URINE 1+ (NEGATIVE)
[2022-12-15 13:09] LABS: BACTERIA,URINE NEGATIVE /HPF; RBC,URINE RARE /HPF; SQUAMOUS EPITHELIAL CELL,UR RARE /HPF; WBC,URINE 0-2 /HPF
[2022-12-15] MEDS ORDERED: NS IV 500 ML 500 ML IV SCH (13:45)
[2022-12-15 14:49] VITALS: BP 125/66
== END 2022-12-15 14:53 | disposition home or self-care (01) ==
LOC: EDUNIT# 11:13 → ER 11:15
DX: E83.52 Hypercalcemia (principal); N39.0 Urinary tract infection, site not specified; Z79.620 Long term (current) use of immunosuppressive biologic; Z94.0 Kidney transplant status; Z20.822 Contact with and (suspected) exposure to COVID-19
CPT/HCPCS: 36415; 71045; 80053; 81000; 82550; 83735; 84443; 84484; 85025; 87636; 93005; 93041

== ENCOUNTER → 2022-12-16 | Outpatient (CLI) | payer MEDICARE, OTHER | LOC: WOUNDCARE 13:24 | PROVIDERS: ATTEND Family Medicine | DX: I96 Gangrene, not elsewhere classified (principal); L97.512 Non-pressure chronic ulcer of other part of right foot with fat layer exposed; E11.621 Type 2 diabetes mellitus with foot ulcer; M14.671 Charcot's joint, right ankle and foot; D51.9 Vitamin B12 deficiency anemia, unspecified; B95.2 Enterococcus as the cause of diseases classified elsewhere; E55.9 Vitamin D deficiency, unspecified; R29.6 Repeated falls; Z79.620 Long term (current) use of immunosuppressive biologic | CPT/HCPCS: 11042; A6197; G0463 ==

== ENCOUNTER 2022-12-20 10:57 | Inpatient (IN) | payer MEDICARE, OTHER ==
[~2022-12-20] VITALS: Ht 167.7 cm; Wt 70.8 kg
[2022-12-20] VITALS (10 sets, daily range): BP systolic 123–176; BP diastolic 60–77
[2022-12-20 11:23] LABS: BILIRUBIN,URINE NEGATIVE (NEGATIVE); CLARITY,URINE CLOUDY; COLOR,URINE YELLOW; GLUCOSE, URINE (UA) 3+ (NEGATIVE); KETONES,URINE NEGATIVE (NEGATIVE); LEUKOCYTE ESTERASE ,URINE 2+ (NEGATIVE); NITRITE,URINE POSITIVE (NEGATIVE); PROTEIN,URINE 1+ (NEGATIVE)
[2022-12-20 11:30] LABS: BACTERIA,URINE LARGE /HPF; SQUAMOUS EPITHELIAL CELL,UR RARE /HPF
[2022-12-20 11:53] LABS: HEMOGLOBIN 11.9 g/dL (11.5-16.0); MEAN CORPUSCULAR VOLUME 93 fL (80-99)
--- NOTE | 2022-12-20 11:53 | ED General ---
General Chief Complaint: - Reproductive Stated Complaint: NAUSEA UTI Nursing Triage Note: PT WAS SEEN HERE 5 DAYS AGOFOR SAME SS, WEAK, TIRED, CHILLS, AND HX OF KIDNEY TRANSPLANT, STATES MAYBE A UTI, [place] THIS A.M., WAS IN HOSP AT [facility] FOR A UTI 2 WKS AGO Source of Information: Patient, Old Records History of Present Illness Date Seen by Provider: Dec 20, 2022 Time Seen by Provider: 11:06 Initial Comments PT ARRIVES VIA POV FROM HOME PT STATES " I THINK I HAVE A UTI AGAIN AND I'VE BEEN SICK" PT STATES SHE HAS NOT FELT WELL ALL WEEK SHE WAS SEEN HERE ON Thursday12/15/22 FOR FATIGUE AND GENERALIZED WEAKNESS WAS FOUND TO HAVE HYPERCALCEMIA. NO RX GIVEN THESE SYMPTOMS CONTINUE STATES "I JUST LAY DOWN AND SLEEP--JUST FEEL WEIRD" "JUST FEEL LOUSY--NO ENERGY--I JUST WANT TO LAY DOWN" SHE HAS BEEN FEELING SLIGHTLY SHORT OF BREATH ALL WEEK SHE HAS BEEN DRINKING OK, BUT HAS NOT BEEN EATING MUCH THIS WEEK--NO APPETITE SHE BEGAN HAVING CHILLS YESTERDAY--TOOK HER TEMP AND IT WAS LOW 96-97 TODAY, SHE BEGAN FEELING NAUSEATED, TOOK A ZOFRAN, BUT THEN VOMITED AFTERWARDS, AND STATES SHE THREW UP ALL HER MORNING MEDICATIONS. SHE IS NOT HAVING ANY PAIN ON URINATION OR FREQUENCY, ETC. BUT STATES TODAY HER URINE HAD A BAD ODOR TO IT AND WAS CLOUDY AND FROTHY. NO ABDOMINAL PAIN OR FLANK PAIN NO DIARRHEA NO CHEST PAIN NO SWEATS NO SWELLING IN LEGS/FEET OR PAIN IN CALVES SHE IS SLIGHTLY DIZZY ON STANDING. 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 SHE WAS ADMITTED AT [facility] IN [place] ABOUT 2 1/2 WEEKS AGO FOR UTI, AND WAS DISMISSED HOME ON LEVAQUIN. SHE FINISHED THAT LAST WEEK ADDITIONALLY, SHE HAS BEEN ON LINEZOLID SINCE 12/09/22 FOR DIABETIC FOOT ULCER--SHE IS STILL TAKING IT. PCP: DR. STALEY Allergies and Home Medications Allergies Coded Allergies: No Known Drug Allergies (Unverified , 12/25/13) Patient Home Medication List Home Medication List Reviewed: Yes Allopurinol (Allopurinol) 300 Mg Tablet, 300 MG PO DAILY, (Reported) Entered as Reported by: NIALL WASHBURN on 06/07/22 0308 Allopurinol (Allopurinol) 100 Mg Tablet, 100 MG PO DAILY, (Reported) Entered as Reported by: ALLEN GALVAN on 06/09/22 115 Apixaban (Eliquis) 5 Mg Tablet, 5 MG PO BID, (Reported) Entered as Reported by: ADRIAN HILLS on 04/05/20 1342 Aspirin (Aspirin EC) 81 Mg Tablet.dr, 81 MG PO HS, (Reported) Entered as Reported by: LUIGI SOMERS on 10/24/19 1220 Atorvastatin Calcium (Atorvastatin Calcium) 20 Mg Tablet, 20 MG PO HS, (Reported) Entered as Reported by: LUIGI SOMERS on 10/24/19 1214 Candesartan Cilexetil (Candesartan Cilexetil) 8 Mg Tablet, 8 MG PO DAILY, (Reported) Entered as Reported by: NIALL WASHBURN on 06/07/22 0310 Carvedilol (Carvedilol) 6.25 Mg Tablet, 6.25 MG PO BID, (Reported) Entered as Reported by: NIALL WASHBURN on 06/07/22 0302 Cefdinir (Cefdinir) 300 Mg Capsule, 300 MG PO BID Prescribed by: RITU MIRANDA on 06/09/22 1210 Cholecalciferol (Vitamin D3) (Vitamin D3) 25 Mcg (1000 Unit) Tablet, 25 MCG PO DAILY, (Reported) Entered as Reported by: ALLEN GALVAN on 06/09/22 115 Empagliflozin (Jardiance) 10 Mg Tablet, 10 MG PO DAILY, (Reported) Entered as Reported by: ALLEN GALVAN on 06/09/22 115 Insulin Aspart (Novolog Flexpen) 100 Unit/Ml (3 Ml) Solution, 10 UNITS SQ WITH BREAKFAST, (Reported) Entered as Reported by: ALLEN GALVAN on 06/09/22 115 Insulin Aspart (Novolog Flexpen) 100 Unit/Ml (3 Ml) Solution, 12 UNITS SQ WITH LUNCH, (Reported) Entered as Reported by: ALLEN GALVAN on 06/09/22 115 Insulin Aspart (Novolog Flexpen) 100 Unit/Ml (3 Ml) Solution, 14 UNITS SQ WITH DINNER, (Reported) Entered as Reported by: ALLEN GALVAN on 06/09/22 1153 Insulin Glargine,Hum.rec.anlog (Basaglar Kwikpen U-100) 100 Unit/Ml (3 Ml) Insuln.pen, 20 UNIT SQ HS, (Reported) Entered as Reported by: LUIGI SOMERS on 10/24/19 1223 Magnesium Oxide (Magnesium Oxide) 400 Mg (241.3 Mg Magnesium) Tablet, 800 MG PO BID, (Reported) Entered as Reported by: LUIGI SOMERS on 10/24/19 121 Mecobalamin (B12 Active) 1,000 Mcg Tab.chew, 1,000 MCG PO DAILY, (Reported) Entered as Reported by: NIALL WASHBURN on 06/07/22 0403 Metformin HCl (Metformin HCl ER) 500 Mg Tab.er.24h, 500 MG PO BID, (Reported) Entered as Reported by: ALLEN GALVAN on 06/09/22 115 Mycophenolate Sodium (Myfortic) 180 Mg Tablet.dr, 180 MG PO BID, (Reported) Entered as Reported by: NIALL WASHBURN on 06/07/22 0254 [place]-3 Acid Ethyl Esters ([place]-3 Acid Ethyl Esters) 1 Gram Capsule, 2 GM PO BID, (Reported) Entered as Reported by: ALLEN GALVAN on 06/09/22 115 Omeprazole (Omeprazole) 40 Mg Capsule.dr, 40 MG PO BID, (Reported) Entered as Reported by: LUIGI SOMERS on 10/24/19 1214 Prednisone (Prednisone) 5 Mg Tablet, 5 MG PO DAILY, (Reported) Entered as Reported by: LUIGI SOMERS on 10/24/19 1220 Rifaximin (Xifaxan) 550 Mg Tablet, 550 MG PO BID, (Reported) Entered as Reported by: LUIGI SOMERS on 10/24/19 121 Semaglutide (Ozempic) 1 Mg/0.75 Ml (4 Mg/3 Ml) Pen.injctr, 1 MG SQ THURSDAY, (Reported) Entered as Reported by: NIALL WASHBURN on 06/07/22 0304 Tacrolimus (Tacrolimus) 1 Mg Capsule, 1 MG PO BID, (Reported) Entered as Reported by: NIALL WASHBURN on 06/07/22 0305 Temazepam (Temazepam) 15 Mg Capsule, 15 MG PO HS, (Reported) Entered as Reported by: LUIGI SOMERS on 10/24/19 1214 Review of Systems Review of Systems Constitutional: see HPI, chills, dizziness, malaise, weakness EENTM: no symptoms reported Respiratory: no symptoms reported; No cough; dyspnea on exertion Cardiovascular: no symptoms reported; No chest pain, No edema, No palpitations, No syncope Gastrointestinal: see HPI; No abdominal pain, No constipation, No diarrhea; nausea, vomiting Genitourinary: see HPI Musculoskeletal: no symptoms reported; No back pain Skin: no symptoms reported Psychiatric/Neurological: No Symptoms Reported Hematologic/Lymphatic: Easy Bruising Immunological/Allergic: see HPI, transplant Past Oyvqxoj-Ezxkko-Yzkmmc Hx Patient Social History Tobacco Use?: No Smoking Status: Never a Smoker Smokeless Tobacco Frequency: Never a User Use of E-Cig and/or Vaping John: Never a User Substance use?: No Alcohol Use?: No Immunizations Up To Date Tetanus Booster (TDap): Less than 5yrs PED Vaccines UTD: Yes First/Initial COVID19 Vaccinat: YES Second COVID19 Vaccination Hayden: YES Third COVID19 Vaccination Date: YES Seasonal Allergies Seasonal Allergies: Yes Past Medical History Surgery/Hospitalization HX: KIDNEY TRANSPLANT, STENT, FISTULA RT ARM, REMIGIO, BOWEL RESECTION, TONSILS, , TUBAL, R FOOT SURGERY, L KNEE REPLACEMENT, R SHOULDER TN Surgeries: Yes (Right arm fistula, LTKR, ) Bowel Surgery, Cardiac, Section, Coronary Stent, Gallbladder, Joint Replacement, Kidney Transplant, Nephrectomy, Orthopedic, Tonsillectomy, Tubal Ligation Respiratory: No Cardiac: Yes (Stent) Coronary Artery Disease, Heart Attack, High Cholesterol, Hypertension Neurological: Yes Neuropathy Reproductive Disorders: Yes Female Reproductive Disorders: Menstrual Problems, Polycystic Ovarian Dis 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 History: Menopausal Sexually Transmitted Disease: No HIV/AIDS: No Genitourinary: Yes (RENAL FAILURE/DIALYSIS/NEPHRECTOMY/TRANSPLANT) Renal Failure, Dialysis, UTI-Chronic, Polycystic Kidney Disease Gastrointestinal: Yes (JOYNER) Gastroesophageal Reflux, Cirrhosis Musculoskeletal: No Endocrine: Yes Diabetes, Insulin dep HEENT: No Cancer: No Psychosocial: Yes Anxiety, Depression Integumentary: No Blood Disorders: No Family Medical History Cataract (grandmother ) Chest pain 09 BROTHER Congestive heart failure (grandmother) Dementia (two paternal aunts) Family history: Alzheimer's disease (two paternal aunts) Family history: Arthritis (grandmother) Family history: Cardiovascular disease 09 BROTHER Family history: Hypertension 09 BROTHER Heart disease 09 BROTHER Kidney disease 03 MOTHER Stroke (paternal aunt) No Family History of: Abdominal aortic aneurysm Crockett's disease Alcoholism Aphasia Cancer Cancer of colon Congenital heart disease Cystic fibrosis Dysphagia Family history: Allergy Family history: Asthma Family history: Breast disease Family history: Coronary thrombosis Family history: Diabetes mellitus Family history: Gastrointestinal disease Family history: Glaucoma Family history: Osteoporosis Family history: Thyroid disorder Headache Hearing loss Hereditary disease History of - anemia History of - disorder History of - respiratory disease History of drug abuse Human immunodeficiency virus (HIV) seropositivity Hypercholesterolemia Malignant neoplasm of lung Myocardial infarction Parkinson's disease Prostate cancer Psychotic disorder Seizure disorder Tuberculosis Visual impairment SOCIAL HISTORY: -DENIES SMOKING -DENIES ALCOHOL USE -DENIES DRUG USE PAST SURGICAL HISTORY: -TONSILLECTOMY -WISDOM TEETH REMOVED - -BILATERAL TUBAL LIGATION -RIGHT FOOT SURGERY--BUNIONECTOMY -RIGHT SHOULDER SURGERY -LEFT THUMB REPAIR -LEFT TOTAL KNEE REPLACEMENT -CHOLECYSTECTOMY 11/2009 -ENDOSCOPIES -CARDIAC CATH WITH STENT 09/2008 -BOWEL RESECTION FOR BOWEL OBSTRUCTION -PERITONEAL DIALYSIS -RIGHT ARM A-V GRAFT/FISTULA 10/01/2010 -BILATERAL NEPHRECTOMY WITH RENAL TRANSPLANT 2011 Physical Exam Vital Signs Vital Signs - First Documented 12/20/22 11:05 Temp 36.5 Pulse 102 Resp 20 B/P (MAP) 128/82 (97) Pulse Ox 99 O2 Delivery Room Air Capillary Refill : Less Than 3 Seconds Height, Weight, BMI Height: 5'6.00" Weight: 190lbs. 0.0oz. [id number]; 25.00 BMI Method:Stated General Appearance: No Apparent Distress, WD/WN HEENT: PERRL/EOMI, Moist Mucous Membranes Neck: Normal Inspection Respiratory: Normal Breath Sounds, No Accessory Muscle Use, No Respiratory Distress Cardiovascular: Regular Rate, Rhythm, No Edema, No JVD, No Murmur, Normal Peripheral Pulses Gastrointestinal: Non Tender, Soft Back: No CVA Tenderness Extremity: Normal Capillary Refill, Normal Inspection, Normal Range of Motion, Non Tender, No Calf Tenderness, No Pedal Edema Neurologic/Psychiatric: Alert, Oriented x3, No Motor/Sensory Deficits, perinatology physician II- XII Norm as Tested, Other (ANXIOUS) Skin: Normal Color, Warm/Dry, Other (SCABBED ABRASIONS AND OLDER APPEARING ECCHYMOSIS TO FOREARMS--PT STATES IS FROM A FALL A WEEK OR SO AGO. ) Focused Exam Sepsis Stage: Sepsis (MILD) Possible Source: Genitouriary Lactate Level 12/20/22 11:40: Lactic Acid Level 3.39*H Time of Focused Exam: 12:25 Respiratory: Normal Breath Sounds, No Accessory Muscle Use, No Respiratory Distress Cardiovascular: Regular Rate, Rhythm, No Murmur Capillary Refill: Less Than 3 Seconds Skin: normal color, warm/dry Lactic Acid Level Laboratory Tests Test 12/20/22 11:40 Lactic Acid Level 3.39 MMOL/L (0.50-2.00) *H Within 3hrs of presentation: Admin fluids, Admin ABX, Blood cultures prior to ABX's, Focus exam, Lactate level Progress/Results/Core Measures Suspected Sepsis SIRS Temperature: Pulse: 102 Respiratory Rate: 20 Laboratory Tests 12/20/22 11:40: White Blood Count 10.8 Blood Pressure 128 /82 Mean: 97 12/20/22 11:40: Lactic Acid Level 3.39*H Laboratory Tests 12/20/22 11:40: Creatinine 1.13, INR Comment 1.4, Platelet Count 109L, Total Bilirubin 1.1H Results/Orders Lab Results Laboratory Tests Test 12/20/22 11:03 12/20/22 11:23 12/20/22 11:40 Range/Units Urine Color YELLOW Urine Clarity CLOUDY Urine pH 6.0 5-9 Urine Specific [place] 1.010 L 1.016-1.022 Urine Protein 1+ H NEGATIVE Urine Glucose (UA) 3+ H NEGATIVE Urine Ketones NEGATIVE NEGATIVE Urine Nitrite POSITIVE H NEGATIVE Urine Bilirubin NEGATIVE NEGATIVE Urine Urobilinogen 0.2 < = 1.0 MG/DL Urine Leukocyte Esterase 2+ H NEGATIVE Urine RBC (Auto) 2+ H NEGATIVE Urine RBC 10-25 H /HPF Urine WBC 10-25 H /HPF Urine Squamous Epithelial Cells RARE /HPF Urine Crystals NONE /LPF Urine Bacteria LARGE H /HPF Urine Casts NONE /LPF Urine Mucus NEGATIVE /LPF Urine Culture Indicated CULTURE PENDING Influenza Type A (RT-PCR) Not Detected Not Detecte Influenza Type B (RT-PCR) Not Detected Not Detecte SARS-CoV-2 RNA (RT-PCR) Not Detected Not Detecte White Blood Count 10.8 4.3-11.0 10^3/uL Red Blood Count 3.76 L 3.80-5.11 10^6/uL Hemoglobin 11.9 11.5-16.0 g/dL Hematocrit 35 35-52 % Mean Corpuscular Volume 93 80-99 fL Mean Corpuscular Hemoglobin 32 25-34 pg Mean Corpuscular Hemoglobin Concent 34 32-36 g/dL Red Cell Distribution Width 14.3 10.0-14.5 % Platelet Count 109 L 130-400 10^3/uL Mean Platelet Volume 9.6 9.0-12.2 fL Immature Granulocyte % (Auto) 0 % Neutrophils (%) (Auto) 89 H 42-75 % Lymphocytes (%) (Auto) 4 L 12-44 % Monocytes (%) (Auto) 4 0-12 % Eosinophils (%) (Auto) 1 0-10 % Basophils (%) (Auto) 0 0-10 % Neutrophils # (Auto) 9.7 H 1.8-7.8 10^3/uL Lymphocytes # (Auto) 0.5 L 1.0-4.0 10^3/uL Monocytes # (Auto) 0.5 0.0-1.0 10^3/uL Eosinophils # (Auto) 0.1 0.0-0.3 10^3/uL Basophils # (Auto) 0.0 0.0-0.1 10^3/uL Immature Granulocyte # (Auto) 0.0 0.0-0.1 10^3/uL Neutrophils % (Manual) 88 % Lymphocytes % (Manual) 6 % Monocytes % (Manual) 5 % Eosinophils % (Manual) 1 % Platelet Estimate Adequate Percent Immature Platelet Fraction 1.1 0.0-7.6 % Blood Morphology Comment Normal Prothrombin Time 17.9 H 12.2-14.7 SEC INR Comment 1.4 0.8-1.4 Activated Partial Thromboplast Time 36 H 24-35 SEC Sodium Level 134 L 135-145 MMOL/L Potassium Level 3.9 3.6-5.0 MMOL/L Chloride Level 103 98-107 MMOL/L Carbon Dioxide Level 17 L 21-32 MMOL/L Anion Gap 14 5-14 MMOL/L Blood Urea Nitrogen 26 H 7-18 MG/DL Creatinine 1.13 0.60-1.30 MG/DL Estimat Glomerular Filtration Rate 54 BUN/Creatinine Ratio 23 Glucose Level 190 H 70-105 MG/DL Lactic Acid Level 3.39 *H 0.50-2.00 MMOL/L Calcium Level 9.6 8.5-10.1 MG/DL Corrected Calcium 9.6 8.5-10.1 MG/DL Magnesium Level 1.3 L 1.6-2.4 MG/DL Total Bilirubin 1.1 H 0.1-1.0 MG/DL Aspartate Amino Transf (AST/SGOT) 14 5-34 U/L Alanine Aminotransferase (ALT/SGPT) 25 0-55 U/L Alkaline Phosphatase 50 40-136 U/L Troponin I < 0.028 <0.028 NG/ML B-Type Natriuretic Peptide < 10.0 <100.0 PG/ML Total Protein 6.6 6.4-8.2 GM/DL Albumin 4.0 3.2-4.5 GM/DL Amylase Level 44 25-125 U/L Lipase 42 8-78 U/L My Orders Orders - NAIMA ZAMBRANO DO Ed Iv/Invasive Line Start (12/20/22 11:15) Ekg Tracing (12/20/22 11:15) Monitor-Rhythm Ecg Trace Only (12/20/22 11:15) Amylase (12/20/22 11:15) Bnp Norma (12/20/22 11:15) Cbc With Automated Diff (12/20/22 11:15) Comprehensive Metabolic Panel (12/20/22 11:15) Lactic Acid Analyzer (12/20/22 11:15) Lipase (12/20/22 11:15) Magnesium (12/20/22 11:15) Protime With Inr (12/20/22 11:15) Partial Thromboplastin Time (12/20/22 11:15) Ua Culture If Indicated (12/20/22 11:15) Troponin I Norma (12/20/22 11:15) Chest 1 View, Ap/Pa Only (12/20/22 11:15) Covid 19 Inhouse Test (12/20/22 11:15) Influenza A And B By Pcr (12/20/22 11:15) Isolation Central Supply Req (12/20/22 11:15) Blood Culture (12/20/22 11:15) Sputum Culture (12/20/22 11:15) Urine Culture (12/20/22 11:15) Ed Iv/Invasive Line Start (12/20/22 11:15) Ed Iv/Invasive Line Start (12/20/22 11:15) Vital Signs Adult Sepsis Patie Q15M (12/20/22 11:15) O2 (12/20/22 11:15) Remove Rings In Anticipation O (12/20/22 11:15) Orthostatic Vital Signs (Adult (12/20/22 11:57) Manual Differential (12/20/22 11:40) Cefepime Injection (Maxipime Injection) (12/20/22 12:30) Ed Iv/Invasive Line Start (12/20/22 12:28) Ns Iv 1000 Ml (Sodium Chloride 0.9%) (12/20/22 12:30) Magnesium 1 Gm/100 Ml Ivpb (Magnesium Kay (12/20/22 12:30) Ed Admission (Communication) (12/20/22 12:42) Medications Given in ED Current Medications Medications Dose Ordered Sig/Dani Route Start Time Stop Time Status Last Admin Dose Admin Cefepime HCl 1000 mg/Sodium Chloride 50 ml @ 100 mls/hr ONCE ONCE IV 12/20/22 12:30 12/20/22 12:59 DC 12/20/22 12:42 100 MLS/HR Magnesium Sulfate/ Dextrose 100 ml @ 100 mls/hr ONCE ONCE IV 12/20/22 12:30 12/20/22 13:29 DC 12/20/22 13:48 100 MLS/HR Vital Signs/I&O 12/20/22 12/20/22 11:05 11:49 Temp 36.5 Pulse 102 94 98 107 Resp 20 B/P (MAP) 128/82 (97) 147/62 (90) 155/75 (101) 150/69 (96) Pulse Ox 99 O2 Delivery Room Air Capillary Refill : Less Than 3 Seconds Blood Pressure Mean: 97 Progress Note : Progress Note PLACED IN ISOLATION ROOM PPE WORN COVID AND FLU TESTING DONE SEPSIS PROTOCOL INITIATED HR AROUND 100, BP STABLE IN 120'S-140'S, SYSTOLIC, O2 SAT 99% ON ROOM AIR. AFEBRILE. NO DETERIORATION IN PT'S CONDITION DURING ER STAY GIVEN: -IV FLUIDS -CEFEPIME -MAGNESIUM DISCUSSED TEST RESULTS, NEED FOR ADMIT AND PT IS AGREEABLE TO PLAN REVIEWED PRIOR RECORDS, INCLUDING ER VISITS, ADMITS/H&P'S/CONSULTS/DISCHARGE SUMMARIES, TESTS/PROCEDURES ECG Initial ECG Impression Date: Dec 20, 2022 Initial ECG Impression Time: 11:27 Initial ECG Rate: 92 Initial ECG Rhythm: Normal Sinus Initial ECG Intervals VT 157 QRS 105 QT/QTC 372/461 Initial ECG Comparisson: Unchanged Comment INTERPRETED BY ME Diagnostic Imaging Comments CXR--PER RADIOLOGIST REPORT AT 1209 FINDINGS: Normal heart size and central pulmonary vascularity. Calcified granuloma in the left lung base. Lungs are otherwise clear. No pleural effusion or pneumothorax. No acute osseous findings. IMPRESSION: No acute cardiopulmonary findings. Reviewed: Reviewed by Me Departure Communication (Admissions) 1238--SPOKE WITH DR. DESAI, HOSPITALIST, ACCEPTS PT FOR ADMIT. SHE WILL DO ADMIT ORDERS. 1243--CALLED [facility], [facility] [employer], FOR CONSULT. 1315--DR. DESAI HERE TO SEE PT 1327--SPOKE WITH DR. DEL REAL, [employer], DISCUSSED MOST RECENT URINE CULTURE RESULTS DONE THERE--> 3 ISOLATES SO NO SENSITIVITY DONE. FOOT WOUND GREW OUT ENT EROBACTER, SO WAS PUT ON LEVAQUIN FOR THAT. MORE RECENT CULTURE OF FOOT WOUND WAS DONE AT [facility], WITH 3 ISOLATES--ALL SENSITIVE TO LINEZOLID. THEY WILL BE HAPPY TO TAKE PT IN TRANSFER IF HER CONDITION DETERIORATES OR DOES NOT IMPROVE. 1337--SPOKE WITH DR. DESAI AND DISCUSSED THE ABOVE. Impression Primary Impression: UTI (urinary tract infection) Additional Impressions: Kidney transplant recipient Insulin dependent diabetes mellitus Diabetic foot ulcer HX OF CAD WITH TN Sepsis Mild dehydration Hypomagnesemia Disposition: ADMITTED INPATIENT Condition: Stable Admissions Decision to Admit Reason: Admit from ER (General) Decision to Admit/Date: Dec 20, 2022 Time/Decision to Admit Time: 12:40 Departure-Patient Inst. Referrals: MERCY STALEY MD (PCP/Family) Primary Care Physician NAIMA ZAMBRANO DO Dec 20, 2022 11:53
[2022-12-20 11:55] LABS: BASOPHILS % (AUTO) 0 % (0-10); EOSINOPHILS # (AUTO) 0.1 10^3/uL (0.0-0.3); EOSINOPHILS % (AUTO) 1 % (0-10); HEMATOCRIT 35 % (35-52); LYMPHOCYTES # (AUTO) 0.5 10^3/uL (1.0-4.0); LYMPHOCYTES % (AUTO) 4 % (12-44); MEAN CORPUSCULAR HEMOGLOBIN 32 pg (25-34); MEAN CORPUSCULAR HGB CONC 34 g/dL (32-36); MEAN PLATELET VOLUME 9.6 fL (9.0-12.2); MONOCYTES # (AUTO) 0.5 10^3/uL (0.0-1.0); MONOCYTES % (AUTO) 4 % (0-12); NEUTROPHILS # (AUTO) 9.7 10^3/uL (1.8-7.8); NEUTROPHILS % (AUTO) 89 % (42-75); PLATELET COUNT 109 10^3/uL (130-400); WHITE BLOOD COUNT 10.8 10^3/uL (4.3-11.0)
--- NOTE | 2022-12-20 12:03 | Diagnostic Imaging Report ---
EXAM: CHEST 1 VIEW, AP/PA ONLY INDICATION: Dyspnea. COMPARISON: 12/15/2022. FINDINGS: Normal heart size and central pulmonary vascularity. Calcified granuloma in the left lung base. Lungs are otherwise clear. No pleural effusion or pneumothorax. No acute osseous findings. IMPRESSION: No acute cardiopulmonary findings. Dictated by: Dictated on workstation # [id number]
[2022-12-20 12:10] LABS: CHLORIDE 103 MMOL/L (98-107); POTASSIUM 3.9 MMOL/L (3.6-5.0); SODIUM 134 MMOL/L (135-145)
[2022-12-20 12:11] LABS: AMYLASE 44 U/L (25-125)
[2022-12-20 12:12] LABS: CALCIUM 9.6 MG/DL (8.5-10.1)
[2022-12-20 12:13] LABS: GLUCOSE 190 MG/DL (70-105); TOTAL PROTEIN 6.6 GM/DL (6.4-8.2)
[2022-12-20 12:14] LABS: CARBON DIOXIDE 17 MMOL/L (21-32)
[2022-12-20 12:15] LABS: BILIRUBIN,TOTAL 1.1 MG/DL (0.1-1.0); EOSINOPHILS % (MANUAL) 1 %; LYMPHOCYTES % (MANUAL) 6 %; MONOCYTES % (MANUAL) 5 %; NEUTROPHILS % (MANUAL) 88 %; PLATELET ESTIMATE Adequate; RBC MORPH Normal
[2022-12-20 12:16] LABS: ALKALINE PHOSPHATASE 50 U/L (40-136); CREATININE SERUM 1.13 MG/DL (0.60-1.30); GFR ESTIMATED 54
[2022-12-20 12:17] LABS: BUN/CREATININE RATIO 23; INR 1.4 (0.8-1.4); PROTHROMBIN TIME PATIENT 17.9 SEC (12.2-14.7)
[2022-12-20 12:19] LABS: ALANINE AMINOTRANSFERASE 25 U/L (0-55); MAGNESIUM 1.3 MG/DL (1.6-2.4)
[2022-12-20 12:20] LABS: LIPASE 42 U/L (8-78)
[2022-12-20] MEDS ORDERED: MAGNESIUM 1 GM/100 ML IVPB 100 ML IV ONE (12:30)
[2022-12-20] MEDS ORDERED: CEFEPIME INJECTION 1,000 MG in NS (IVPB) 50 ML IV ONE (12:30)
[2022-12-20] MEDS ORDERED: NS IV 1000 ML 1,000 ML IV SCH (12:30)
--- NOTE | 2022-12-20 12:46 | History & Physical-Hospitalist ---
History of Present Illness HPI/Chief Complaint Pt is a 67yoCF known to me from previous admission who presented to the ER due to generalized weakness and malaise. She was admitted at [facility] in a few weeks ago and treated for a urinary tract infection. She was sent home on oral Levaquin and completed it about 9 days ago. About 7 days ago she started to feel poorly again. She was seen in the ER earlier this week due to elevated blood sugar and was able to go home but continued not to feel well. She was in bed all day yesterday. This morning she vomited up all of her meds and decided to seek evaluation. She was found to have sepsis and another urinary tract infection. Source: patient Date Seen 12/20/22 Time Seen by a Provider: 12:55 Attending Physician Alexy Mcgee MD PCP Admitting Physician: Attending Physician: Referring Physician Date of Admission Home Medications & Allergies Home Medications Reviewed patient Home Medication Reconciliation performed by pharmacy medication reconciliations medtronics technician and/or nursing. Patients Allergies have been reviewed. Allergies Allergies Coded Allergies No Known Drug Allergies (Unverified12/25/13) Past Jgnmvus-Ldkcgl-Tyzwjz Hx Patient Social History Marrital Status: Tobacco Use?: No Substance use?: No Alcohol Use?: No Immunizations Up To Date Date of Influenza Vaccine: May 22, 2019 First/Initial COVID19 Vaccinat: YES Second COVID19 Vaccination Hayden: YES Tetanus Booster (TDap): Less Than 5 Years PED Vaccines UTD: Yes Date of Pneumonia Vaccine: Jun 21, 2019 Seasonal Allergies Seasonal Allergies: Yes Current Status Primary Language: Moldovan Preferred Spoken Language: Moldovan Implanted or Applied Medical D: Orthopedic hardware, Stents Past Medical History Surgeries: Bowel Surgery, Section, Coronary Stent, Gallbladder, Kidney Transplant, Nephrectomy, Orthopedic, Tonsillectomy, Tubal Ligation Coronary Artery Disease, Heart Attack, Hypertension Neuropathy 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 Sexually Transmitted Disease: No HIV/AIDS: No Dialysis, Polycystic Kidney Disease Gastroesophageal Reflux, Cirrhosis Diabetes, Insulin dep Kidney Depression Blood Disorders: No coronary stent, CAD, FL, HTN, DM, neuropathy, GERD, depression Family Medical History Cataract (grandmother ) Chest pain 09 BROTHER Congestive heart failure (grandmother) Dementia (two paternal aunts) Family history: Alzheimer's disease (two paternal aunts) Family history: Arthritis (grandmother) Family history: Cardiovascular disease 09 BROTHER Family history: Hypertension 09 BROTHER Heart disease 09 BROTHER Kidney disease 03 MOTHER Stroke (paternal aunt) No Family History of: Abdominal aortic aneurysm Emeka's disease Alcoholism Aphasia Cancer Cancer of colon Congenital heart disease Cystic fibrosis Dysphagia Family history: Allergy Family history: Asthma Family history: Breast disease Family history: Coronary thrombosis Family history: Diabetes mellitus Family history: Gastrointestinal disease Family history: Glaucoma Family history: Osteoporosis Family history: Thyroid disorder Headache Hearing loss Hereditary disease History of - anemia History of - disorder History of - respiratory disease History of drug abuse Human immunodeficiency virus (HIV) seropositivity Hypercholesterolemia Malignant neoplasm of lung Myocardial infarction Parkinson's disease Prostate cancer Psychotic disorder Seizure disorder Tuberculosis Visual impairment Review of Systems Constitutional: see HPI Physical Exam Physical Exam Vital Signs Vital Signs - First Documented 12/20/22 11:05 Temp 36.5 Pulse 102 Resp 20 B/P (MAP) 128/82 (97) Pulse Ox 99 O2 Delivery Room Air Capillary Refill : Less Than 3 Seconds Height, Weight, BMI Height: 5'6.00" Weight: 190lbs. 0.0oz. [id number]; 25.00 BMI Method:Stated General Appearance: No Apparent Distress, Chronically ill Respiratory: Lungs Clear, No Respiratory Distress Cardiovascular: Regular Rate, Rhythm, No Murmur Gastrointestinal: Normal Bowel Sounds, Non Tender, Soft Extremity: Non Tender; No Swelling Neurologic/Psychiatric: Alert, Oriented x3 Results Results/Procedures Labs Laboratory Tests 12/20/22 11:40 12/21/22 05:20 Patient resulted labs reviewed. Imaging: Reviewed Imaging Report Imaging [facility] [place] NAME: ANNEMARIE DOVE [facility] REC#: [id number] PT STATUS: REG ER : 1955 PHYSICIAN: NAIMA ZAMBRANO DO ADMIT DATE: 12/20/22/ER Draft Date of Exam:12/20/22 CHEST 1 VIEW, AP/PA ONLY EXAM: CHEST 1 VIEW, AP/PA ONLY INDICATION: Dyspnea. COMPARISON: 12/15/2022. FINDINGS: Normal heart size and central pulmonary vascularity. Calcified granuloma in the left lung base. Lungs are otherwise clear. No pleural effusion or pneumothorax. No acute osseous findings. IMPRESSION: No acute cardiopulmonary findings. Dictated on workstation # [id number] Dict: 12/20/22 1159 Trans: 12/20/22 1203 CVB [id number] Interpreted by: LITA NAGEL MD Electronically signed by: Assessment/Plan Admission Diagnosis Sever sepsis due to UTI Admission Status: Inpatient Order (span 2 midnights) Reason for Inpatient Admission: see below Assessment and Plan Severe Sepsis due to UTI Thrombocytopenia Tachycardiac on arrival but on immunesuppressants so not febrile and no white count but does have entruophilia Await cultures Continue Cefepime Was just on Levaquin Renal transplant Resume anti rejection medications Creatinine stable from earlier this week (0.9- 1.1) Trend IDDMII SSI HTN Resume home meds when approriate, BP well controlled DVT ppx: ADRIAN Gallardo MD Dec 20, 2022 12:46 pm
[2022-12-20] MEDS ORDERED: BISACODYL 10 MG SUPP (DULCOLAX) PR PRN (13:30)
[2022-12-20] MEDS ORDERED: CALCIUM CARBONATE 500 MG (TUMS) TAB.CHEW PO PRN (13:30)
[2022-12-20] MEDS ORDERED: MILK OF MAGNESIA 400 MG/5 ML 30 ML UDC PO PRN (13:30)
[2022-12-20] MEDS ORDERED: NS IV 500 ML 500 ML IV PRN (13:30)
[2022-12-20] MEDS ORDERED: PATIENT MAY USE OWN MEDS, ALL MC SCH (13:30)
[2022-12-20] MEDS ORDERED: polyethylene glycoL POWDER 17 GM (MIRALAX) PACK PO PRN (13:30)
[2022-12-20] MEDS ORDERED: ONDANSETRON 4 MG/2 ML (SDV) Z0FRAN IV PRN (13:30)
[2022-12-20] MEDS ORDERED: MELATONIN 3 MG TABLET PO PRN (13:30)
[2022-12-20] MEDS: NS IV 1000 ML 1,000 ML IV SCH ×2 (13:48→22:13)
[2022-12-20] MEDS ORDERED: NF-MYC250C PO (14:42)
[2022-12-20] MEDS: inSUlin ASPART (NovoLOG) 1 UNIT/0.01 ML (CHARGE PER UNIT) SC SCH ×2 (16:00→21:18)
[2022-12-20] MEDS: ACETAMINOPHEN 325 MG TABLET PO PRN ×2 (16:40→22:12)
[2022-12-20] MEDS ORDERED: CEFEPIME INJECTION 1,000 MG in NS (IVPB) 50 ML IV SCH (18:30)
[2022-12-20] MEDS ORDERED: TACROLIMUS 1 MG (PROGRAF) CAP NON-FORMULARY PO SCH (21:00)
[2022-12-20] MEDS ORDERED: MYCOPHENOLATE 250 MG PO SCH (21:11)
[2022-12-20] MEDS: PANTOPRAZOLE 40 MG (PROTONIX) TAB PO SCH (21:49)
[2022-12-20] MEDS: CEFEPIME INJECTION 1,000 MG in NS (IVPB) 50 ML IV SCH (21:49)
[2022-12-20] MEDS: APIXABAN 5 MG (ELIQUIS) TABLET PO SCH (21:49)
[2022-12-20] MEDS: RIFAXIMIN 550 MG TABLET (XIFAXAN) PO SCH (21:49)
[2022-12-20] MEDS: TEMAZEPAM 15 MG (RESTORIL) CAP PO SCH (21:49)
[2022-12-20] MEDS: ASPIRIN E.C. 81 MG (ECOTRIN) TAB PO SCH (21:49)
[2022-12-21 04:00] VITALS: BP 131/62
[2022-12-21] MEDS: NS IV 1000 ML 1,000 ML IV SCH ×2 (05:30→12:39)
[2022-12-21 05:38] LABS: BASOPHILS % (AUTO) 0 % (0-10); EOSINOPHILS # (AUTO) 0.1 10^3/uL (0.0-0.3); EOSINOPHILS % (AUTO) 1 % (0-10); HEMATOCRIT 29 % (35-52); HEMOGLOBIN 10.2 g/dL (11.5-16.0); LYMPHOCYTES # (AUTO) 0.7 10^3/uL (1.0-4.0); LYMPHOCYTES % (AUTO) 12 % (12-44); MEAN CORPUSCULAR HEMOGLOBIN 33 pg (25-34); MEAN CORPUSCULAR HGB CONC 35 g/dL (32-36); MEAN CORPUSCULAR VOLUME 95 fL (80-99); MEAN PLATELET VOLUME 9.4 fL (9.0-12.2); MONOCYTES # (AUTO) 0.6 10^3/uL (0.0-1.0); MONOCYTES % (AUTO) 9 % (0-12); NEUTROPHILS # (AUTO) 4.5 10^3/uL (1.8-7.8); NEUTROPHILS % (AUTO) 77 % (42-75); PLATELET COUNT 78 10^3/uL (130-400); WHITE BLOOD COUNT 5.9 10^3/uL (4.3-11.0)
[2022-12-21 05:48] LABS: ALBUMIN 3.3 GM/DL (3.2-4.5); POTASSIUM 3.7 MMOL/L (3.6-5.0)
[2022-12-21 05:49] LABS: CALCIUM 8.7 MG/DL (8.5-10.1)
[2022-12-21 05:51] LABS: TOTAL PROTEIN 5.6 GM/DL (6.4-8.2)
[2022-12-21 05:52] LABS: BILIRUBIN,TOTAL 0.8 MG/DL (0.1-1.0)
[2022-12-21 05:54] LABS: CREATININE SERUM 0.84 MG/DL (0.60-1.30); PHOSPHORUS 2.2 MG/DL (2.3-4.7)
[2022-12-21 05:57] LABS: MAGNESIUM 1.4 MG/DL (1.6-2.4)
[2022-12-21] MEDS: inSUlin ASPART (NovoLOG) 1 UNIT/0.01 ML (CHARGE PER UNIT) SC SCH ×4 (05:58→21:08)
[2022-12-21] MEDS: POTASSIUM CL 10MEQ/50ML IVPB 50 ML IV SCH (06:05)
[2022-12-21] MEDS: MAGNESIUM 1 GM/100 ML IVPB 100 ML IV SCH ×6 (06:05→11:18)
[2022-12-21] MEDS: KCL 20 MEQ TAB (K-DUR) PO SCH (06:06)
[2022-12-21] MEDS: POTASSIUM BICARB 20 MEQ (EFFER-K) TABLET PO SCH (06:06)
[2022-12-21] MEDS ORDERED: KCL 20 MEQ TAB (K-DUR) PO ONE (06:15)
[2022-12-21] MEDS: PANTOPRAZOLE 40 MG (PROTONIX) TAB PO SCH ×2 (06:28→15:51)
[2022-12-21] MEDS: CEFEPIME INJECTION 1,000 MG in NS (IVPB) 50 ML IV SCH ×3 (06:30→17:50)
[2022-12-21 07:57] VITALS: BP 150/81
[2022-12-21] MEDS ORDERED: PATIENT MAY USE OWN MED,SINGLE MED PO SCH (09:00)
[2022-12-21] MEDS: RIFAXIMIN 550 MG TABLET (XIFAXAN) PO SCH ×2 (09:53→21:07)
[2022-12-21] MEDS: MYCOPHENOLATE 250 MG PO SCH ×2 (09:53→21:08)
[2022-12-21] MEDS: predniSONE 5 MG TAB PO SCH (09:53)
[2022-12-21] MEDS: APIXABAN 5 MG (ELIQUIS) TABLET PO SCH ×2 (09:53→21:07)
[2022-12-21] MEDS: ALLOPURINOL 300 MG (ZYLOPRIM) TAB PO SCH (09:53)
[2022-12-21] MEDS: ALLOPURINOL 100 MG (ZYLOPRIM) TAB PO SCH (09:53)
[2022-12-21] MEDS: TACROLIMUS 0.5 MG (PROGRAF) CAP NON-FORMULARY PO SCH ×2 (09:53→21:06)
[2022-12-21 11:41] VITALS: BP 143/65
--- NOTE | 2022-12-21 12:18 | Progress Note - Hospitalist ---
Subjective HPI/CC On Admission Date Seen by Provider: Dec 21, 2022 Pt is a 67yoCF known to me from previous admission who presented to the ER due to generalized weakness and malaise. She was admitted at [facility] in a few weeks ago and treated for a urinary tract infection. She was sent home on oral Levaquin and completed it about 9 days ago. About 7 days ago she started to feel poorly again. She was seen in the ER earlier this week due to elevated blood sugar and was able to go home but continued not to feel well. She was in bed all day yesterday. This morning she vomited up all of her meds and decided to seek evaluation. She was found to have sepsis and another urinary tract infection. Subjective/Events-last exam Pt reports still feeling generally unwell and malaise. No complaints. 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 She is relieved by this. Focused Exam Lactate Level 12/20/22 19:06: Lactic Acid Level 2.06*H 12/20/22 21:10: Lactic Acid Level 2.43*H 12/21/22 05:20: Lactic Acid Level 0.67 Time of Focused Exam: 12:25 Objective Exam Vital Signs Vital Signs Date Time Temp Pulse Resp B/P (MAP) Pulse Ox O2 Delivery O2 Flow Rate FiO2 12/21/22 11:41 37.0 79 18 143/65 (91) 97 Room Air Capillary Refill : Less Than 3 Seconds General Appearance: No Apparent Distress, WD/WN Respiratory: Lungs Clear Cardiovascular: Regular Rate, Rhythm, No Murmur Gastrointestinal: Normal Bowel Sounds, Soft Neurologic/Psychiatric: Alert, Oriented x3 Results/Procedures Lab Laboratory Tests 12/21/22 05:20 Patient resulted labs reviewed. Imaging: Reviewed Imaging Report Assessment/Plan Assessment and Plan Assess & Plan/Chief Complaint Severe Sepsis due to UTI Thrombocytopenia Fever developed last night but now resolved DC IVF Await cultures- GNR in urine Continue Cefepime Renal transplant Continue anti rejection medications Creatinine improved to 0.8 today Trend IDDMII SSI, BS well controlled HTN Continue home meds as approriate, BP well controlled DVT ppx: Lovenox ADRIAN DESAI MD Dec 21, 2022 12:18 pm
[2022-12-21 15:25] VITALS: BP 133/60
[2022-12-21 20:36] VITALS: BP 156/66
[2022-12-21] MEDS: ASPIRIN E.C. 81 MG (ECOTRIN) TAB PO SCH (21:07)
[2022-12-21] MEDS: TEMAZEPAM 15 MG (RESTORIL) CAP PO SCH (21:07)
[2022-12-22] VITALS: BP 157/67
[2022-12-22] MEDS: CEFEPIME INJECTION 1,000 MG in NS (IVPB) 50 ML IV SCH ×3 (00:07→12:49)
[2022-12-22] MEDS: NS IV 1000 ML 1,000 ML IV SCH ×2 (00:15→21:26)
[2022-12-22 03:24] VITALS: BP 139/63
[2022-12-22 05:52] LABS: BASOPHILS % (AUTO) 1 % (0-10); HEMOGLOBIN 9.4 g/dL (11.5-16.0)
[2022-12-22 05:53] LABS: EOSINOPHILS # (AUTO) 0.1 10^3/uL (0.0-0.3); EOSINOPHILS % (AUTO) 3 % (0-10); HEMATOCRIT 28 % (35-52); LYMPHOCYTES # (AUTO) 0.8 10^3/uL (1.0-4.0); LYMPHOCYTES % (AUTO) 21 % (12-44); MEAN CORPUSCULAR HEMOGLOBIN 31 pg (25-34); MEAN CORPUSCULAR HGB CONC 34 g/dL (32-36); MEAN CORPUSCULAR VOLUME 93 fL (80-99); MEAN PLATELET VOLUME 9.7 fL (9.0-12.2); MONOCYTES # (AUTO) 0.5 10^3/uL (0.0-1.0); MONOCYTES % (AUTO) 13 % (0-12); NEUTROPHILS # (AUTO) 2.5 10^3/uL (1.8-7.8); NEUTROPHILS % (AUTO) 62 % (42-75); PLATELET COUNT 78 10^3/uL (130-400)
[2022-12-22 06:02] LABS: ALBUMIN 3.3 GM/DL (3.2-4.5); POTASSIUM 3.7 MMOL/L (3.6-5.0)
[2022-12-22 06:03] LABS: CALCIUM 8.9 MG/DL (8.5-10.1)
[2022-12-22 06:05] LABS: TOTAL PROTEIN 5.7 GM/DL (6.4-8.2)
[2022-12-22 06:06] LABS: BILIRUBIN,TOTAL 0.4 MG/DL (0.1-1.0)
[2022-12-22 06:08] LABS: CREATININE SERUM 0.88 MG/DL (0.60-1.30); PHOSPHORUS 2.3 MG/DL (2.3-4.7)
[2022-12-22 06:11] LABS: MAGNESIUM 1.8 MG/DL (1.6-2.4)
[2022-12-22] MEDS: POTASSIUM CL 10MEQ/50ML IVPB 50 ML IV SCH (06:23)
[2022-12-22] MEDS: MAGNESIUM 1 GM/100 ML IVPB 100 ML IV SCH ×3 (06:24→08:02)
[2022-12-22] MEDS: KCL 20 MEQ TAB (K-DUR) PO SCH (06:24)
[2022-12-22] MEDS: POTASSIUM BICARB 20 MEQ (EFFER-K) TABLET PO SCH (06:24)
[2022-12-22] MEDS: inSUlin ASPART (NovoLOG) 1 UNIT/0.01 ML (CHARGE PER UNIT) SC SCH ×4 (06:25→21:26)
[2022-12-22] MEDS ORDERED: KCL 20 MEQ TAB (K-DUR) PO ONE (06:30)
[2022-12-22] MEDS: PANTOPRAZOLE 40 MG (PROTONIX) TAB PO SCH ×2 (06:33→16:17)
[2022-12-22 08:35] VITALS: BP 166/72
[2022-12-22] MEDS: predniSONE 5 MG TAB PO SCH (09:14)
[2022-12-22] MEDS: RIFAXIMIN 550 MG TABLET (XIFAXAN) PO SCH ×2 (09:14→21:21)
[2022-12-22] MEDS: APIXABAN 5 MG (ELIQUIS) TABLET PO SCH ×2 (09:14→21:21)
[2022-12-22] MEDS: ALLOPURINOL 100 MG (ZYLOPRIM) TAB PO SCH (09:14)
[2022-12-22] MEDS: MYCOPHENOLATE 250 MG PO SCH ×2 (09:15→21:23)
[2022-12-22] MEDS: TACROLIMUS 0.5 MG (PROGRAF) CAP NON-FORMULARY PO SCH ×2 (09:16→21:20)
[2022-12-22] MEDS: ALLOPURINOL 300 MG (ZYLOPRIM) TAB PO SCH (09:18)
[2022-12-22 11:12] VITALS: BP 157/70
[2022-12-22] MEDS ORDERED: SEMA2PEN SQ (11:24)
[2022-12-22] MEDS ORDERED: MULT-1136 PO (11:41)
[2022-12-22] MEDS ORDERED: TACR0.5C6 PO (11:56)
[2022-12-22 15:16] VITALS: BP 152/84
[2022-12-22] MEDS ORDERED: cefTRIAXone PRE-MIX 50 ML IV SCH (17:30)
--- NOTE | 2022-12-22 17:35 | Progress Note - Hospitalist ---
Subjective HPI/CC On Admission Date Seen by Provider: Dec 22, 2022 Time Seen by Provider: 12:20 Pt is a 67yoCF known to me from previous admission who presented to the ER due to generalized weakness and malaise. She was admitted at [facility] in a few weeks ago and treated for a urinary tract infection. She was sent home on oral Levaquin and completed it about 9 days ago. About 7 days ago she started to feel poorly again. She was seen in the ER earlier this week due to elevated blood sugar and was able to go home but continued not to feel well. She was in bed all day yesterday. This morning she vomited up all of her meds and decided to seek evaluation. She was found to have sepsis and another urinary tract infection. Subjective/Events-last exam She is feeling well. She has no complaints. She is reading a book. Focused Exam Lactate Level 12/20/22 19:06: Lactic Acid Level 2.06*H 12/20/22 21:10: Lactic Acid Level 2.43*H 12/21/22 05:20: Lactic Acid Level 0.67 Time of Focused Exam: 12:25 Objective Exam Vital Signs Vital Signs Date Time Temp Pulse Resp B/P (MAP) Pulse Ox O2 Delivery O2 Flow Rate FiO2 12/22/22 15:16 36.0 69 16 152/84 (106) 96 Room Air Capillary Refill : Less Than 3 Seconds General Appearance: No Apparent Distress, WD/WN Respiratory: Lungs Clear, No Respiratory Distress Cardiovascular: Regular Rate, Rhythm, No Murmur Gastrointestinal: Normal Bowel Sounds, Soft Extremity: Normal Inspection, No Pedal Edema Neurologic/Psychiatric: Alert, Normal Mood/Affect Skin: Normal Color, Warm/Dry Results/Procedures Lab Laboratory Tests 12/22/22 05:30 Patient resulted labs reviewed. 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
[2022-12-22 19:12] VITALS: BP 133/63
[2022-12-22] MEDS: ASPIRIN E.C. 81 MG (ECOTRIN) TAB PO SCH (21:21)
[2022-12-22] MEDS: TEMAZEPAM 15 MG (RESTORIL) CAP PO SCH (21:21)
[2022-12-23 00:28] VITALS: BP 139/65
[2022-12-23 03:58] VITALS: BP 159/74
[2022-12-23] MEDS: inSUlin ASPART (NovoLOG) 1 UNIT/0.01 ML (CHARGE PER UNIT) SC SCH ×2 (05:22→12:03)
[2022-12-23 05:45] LABS: BASOPHILS % (AUTO) 1 % (0-10); EOSINOPHILS # (AUTO) 0.2 10^3/uL (0.0-0.3); EOSINOPHILS % (AUTO) 4 % (0-10)
[2022-12-23 05:47] LABS: HEMATOCRIT 28 % (35-52); HEMOGLOBIN 9.6 g/dL (11.5-16.0); LYMPHOCYTES # (AUTO) 1.4 10^3/uL (1.0-4.0); LYMPHOCYTES % (AUTO) 26 % (12-44); MEAN CORPUSCULAR HEMOGLOBIN 32 pg (25-34); MEAN CORPUSCULAR HGB CONC 34 g/dL (32-36); MEAN CORPUSCULAR VOLUME 93 fL (80-99); MEAN PLATELET VOLUME 10.2 fL (9.0-12.2); MONOCYTES # (AUTO) 0.6 10^3/uL (0.0-1.0); MONOCYTES % (AUTO) 12 % (0-12); NEUTROPHILS # (AUTO) 2.8 10^3/uL (1.8-7.8); NEUTROPHILS % (AUTO) 53 % (42-75); PLATELET COUNT 80 10^3/uL (130-400); WHITE BLOOD COUNT 5.3 10^3/uL (4.3-11.0)
[2022-12-23 05:55] LABS: POTASSIUM 3.8 MMOL/L (3.6-5.0)
[2022-12-23 05:56] LABS: CALCIUM 9.1 MG/DL (8.5-10.1)
[2022-12-23] MEDS: POTASSIUM CL 10MEQ/50ML IVPB 50 ML IV SCH (05:57)
[2022-12-23] MEDS: POTASSIUM BICARB 20 MEQ (EFFER-K) TABLET PO SCH (05:57)
[2022-12-23] MEDS: KCL 20 MEQ TAB (K-DUR) PO SCH (05:59)
[2022-12-23 06:01] LABS: CREATININE SERUM 0.79 MG/DL (0.60-1.30)
[2022-12-23 06:03] LABS: MAGNESIUM 1.3 MG/DL (1.6-2.4)
[2022-12-23] MEDS: MAGNESIUM 1 GM/100 ML IVPB 100 ML IV SCH ×7 (06:08→12:40)
[2022-12-23] MEDS: PANTOPRAZOLE 40 MG (PROTONIX) TAB PO SCH (06:22)
[2022-12-23 07:05] VITALS: BP 170/74
[2022-12-23] MEDS: APIXABAN 5 MG (ELIQUIS) TABLET PO SCH (08:14)
[2022-12-23] MEDS: ALLOPURINOL 300 MG (ZYLOPRIM) TAB PO SCH (08:14)
[2022-12-23] MEDS: ALLOPURINOL 100 MG (ZYLOPRIM) TAB PO SCH (08:14)
[2022-12-23] MEDS: RIFAXIMIN 550 MG TABLET (XIFAXAN) PO SCH (08:14)
[2022-12-23] MEDS: predniSONE 5 MG TAB PO SCH (08:14)
[2022-12-23] MEDS: MYCOPHENOLATE 250 MG PO SCH (08:17)
[2022-12-23] MEDS: TACROLIMUS 0.5 MG (PROGRAF) CAP NON-FORMULARY PO SCH (08:27)
[2022-12-23] MEDS ORDERED: KCL 20 MEQ TAB (K-DUR) PO ONE (09:00)
[2022-12-23] MEDS ORDERED: CEFD300C3 PO (11:04)
[2022-12-23 11:28] VITALS: BP 176/77
[2022-12-23 14:25] VITALS: BP 176/77
--- NOTE | 2022-12-23 18:14 | Discharge Summary ---
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 She was started on IV antibiotics. Urine cultures returned with Cronobacter and Klebsiella. She was transitioned to Omnicef and will complete a course as an outpatient. She had an acute kidney injury and lactic acidosis which improved with fluids. She was discharged home in stable condition. She should follow up with Dr. Staley in about a week and her transplant doctor as scheduled later this month. Labs and Pending Lab Test: Laboratory Tests 12/22/22 20:34: Glucometer 161H 12/23/22 05:03: White Blood Count 5.3, Red Blood Count 3.04L, Hemoglobin 9.6L, Hematocrit 28L, Mean Corpuscular Volume 93, Mean Corpuscular Hemoglobin 32, Mean Corpuscular Hemoglobin Concent 34, Red Cell Distribution Width 14.0, Platelet Count 80L, Mean Platelet Volume 10.2, Immature Granulocyte % (Auto) 5, Neutrophils (%) (Auto) 53, Lymphocytes (%) (Auto) 26, Monocytes (%) (Auto) 12, Eosinophils (%) (Auto) 4, Basophils (%) (Auto) 1, Neutrophils # (Auto) 2.8, Lymphocytes # (Auto) 1.4, Monocytes # (Auto) 0.6, Eosinophils # (Auto) 0.2, Basophils # (Auto) 0.0, Immature Granulocyte # (Auto) 0.3H, Percent Immature Platelet Fraction 2.0, Sodium Level 138, Potassium Level 3.8, Chloride Level 110H, Carbon Dioxide Level 16L, Anion Gap 12, Blood Urea Nitrogen 15, Creatinine 0.79, Estimat Glomerular Filtration Rate 82, BUN/Creatinine Ratio 19, Glucose Level 122H, Calcium Level 9.1, Magnesium Level 1.3L 12/23/22 05:17: Glucometer 119H 12/23/22 11:28: Glucometer 179H Microbiology 12/20/22 Blood Culture - Preliminary, Resulted No growth 12/20/22 Urine Culture - Final, Complete Gram Negative Franky Klebsiella oxytoca Home Meds Active Cefdinir 300 Mg Capsule 300 Mg PO BID 5 Days Reported Tacrolimus 0.5 Mg Capsule 1 Mg PO BID TAKES 2 (0.5MG) CAPS Multivitamin 1 Each Tablet 1 Each PO DAILY Ozempic (Semaglutide) 2 Mg/0.75 Ml (8 Mg/3 Ml) Pen.injctr 2 Mg SQ THURSDAY Cellcept (Mycophenolate Mofetil) 250 Mg Capsule 250 Mg PO BID Jardiance (Empagliflozin) 10 Mg Tablet 10 Mg PO DAILY [place]-3 Acid Ethyl Esters 1 Gram Capsule 2 Gm PO BID TAKES 2 (1 GRAM) CAPSULES Vitamin D3 (Cholecalciferol (Vitamin D3)) 25 Mcg (1000 Unit) Tablet 25 Mcg PO DAILY Allopurinol 100 Mg Tablet 100 Mg PO DAILY TAKES WITH 300MG TO EQUAL 400MG Metformin HCl ER (Metformin HCl) 500 Mg Tab.er.24h 500 Mg PO BID Novolog Flexpen (Insulin Aspart) 100 Unit/Ml (3 Ml) Solution 8 Units SQ WITH DINNER Novolog Flexpen (Insulin Aspart) 100 Unit/Ml (3 Ml) Solution 8 Units SQ WITH LUNCH Novolog Flexpen (Insulin Aspart) 100 Unit/Ml (3 Ml) Solution 6 Units SQ WITH BREAKFAST B12 Active (Mecobalamin) 1,000 Mcg Tab.chew 1,000 Mcg PO DAILY Candesartan Cilexetil 8 Mg Tablet 8 Mg PO DAILY Allopurinol 300 Mg Tablet 300 Mg PO DAILY TAKES WITH 100MG TO EQUAL 400MG Carvedilol 6.25 Mg Tablet 6.25 Mg PO BID Eliquis (Apixaban) 5 Mg Tablet 5 Mg PO BID Aspirin EC (Aspirin) 81 Mg Tablet.dr 81 Mg PO HS Prednisone 5 Mg Tablet 5 Mg PO DAILY Omeprazole 40 Mg Capsule.dr 40 Mg PO BID Atorvastatin Calcium 20 Mg Tablet 20 Mg PO HS Magnesium Oxide 400 Mg (241.3 Mg Magnesium) Tablet 800 Mg PO BID TAKES 2 (400MG) TABLETS Xifaxan (Rifaximin) 550 Mg Tablet 550 Mg PO BID Temazepam 15 Mg Capsule 15 Mg PO HS Assessment/Pt Instructions See instructions Discharge Planning: <30 minutes discharge planning Discharge Instructions Discharge Diet: No Restrictions Activity as Tolerated: Yes Discharge Physical Examination Vital Signs Vital Signs Date Time Temp Pulse Resp B/P (MAP) Pulse Ox O2 Delivery O2 Flow Rate FiO2 12/23/22 14:25 36.3 72 18 176/77 97 Room Air General Appearance: No Apparent Distress, WD/WN Respiratory: Lungs Clear, No Respiratory Distress Cardiovascular: Regular Rate, Rhythm, No Murmur Gastrointestinal: Normal Bowel Sounds, Soft Extremity: Normal Inspection, No Pedal Edema Skin: Normal Color, Warm/Dry Neurologic/Psychiatric: Alert, Normal Mood/Affect Allergies: Coded Allergies: No Known Drug Allergies (Unverified , 12/25/13) Copy Copies To 1: MERCY STALEY MD Discharge Summary Date of Admission Dec 20, 2022 at 13:08 Date of Discharge Dec 23, 2022 at 14:25 Discharge Date: Dec 23, 2022 Discharge Time: 14:25 Admission Diagnosis Severe sepsis due to UTI Discharge Diagnosis Severe sepsis due to UTI (1) Severe sepsis Status: Acute (2) UTI (urinary tract infection) Status: Acute (3) 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
== END 2022-12-23 14:25 | disposition home or self-care (01) | DRG 872 ==
LOC: EDUNIT# 10:57 → ER 10:58 → 4TH 13:08
PROVIDERS: ADMIT Family Medicine; ATTEND Internal Medicine
DX: A41.9 Sepsis, unspecified organism (principal); D84.9 Immunodeficiency, unspecified; E87.20 Acidosis, unspecified; N17.9 Acute kidney failure, unspecified; Z94.0 Kidney transplant status; Q61.3 Polycystic kidney, unspecified; R65.20 Severe sepsis without septic shock; D69.6 Thrombocytopenia, unspecified; I10 Essential (primary) hypertension; I25.10 Atherosclerotic heart disease of native coronary artery without angina pectoris; E11.40 Type 2 diabetes mellitus with diabetic neuropathy, unspecified; K21.9 Gastro-esophageal reflux disease without esophagitis; F32.A Depression, unspecified; E78.00 Pure hypercholesterolemia, unspecified; F41.9 Anxiety disorder, unspecified; Z20.822 Contact with and (suspected) exposure to COVID-19; E83.42 Hypomagnesemia; E86.0 Dehydration; E11.621 Type 2 diabetes mellitus with foot ulcer; Z95.5 Presence of coronary angioplasty implant and graft; I25.2 Old myocardial infarction; Z90.5 Acquired absence of kidney; Z79.82 Long term (current) use of aspirin; Z79.4 Long term (current) use of insulin; Z79.84 Long term (current) use of oral hypoglycemic drugs; Z79.899 Other long term (current) drug therapy
CPT/HCPCS: 36415; 71045; 80048; 80053; 81000; 82150; 82947; 83605; 83690; 83735; 83880; 84100; 84484; 85007; 85025; 85027; 85610; 85730; 87040; 87077; 87088; 87186; 87636; 93005; 93041

== ENCOUNTER → 2022-12-25 | Outpatient (CLI) | payer MEDICARE, OTHER ==
[~2022-12-25] MED LIST changes: +MULT-1136 PO; +NF-MYC250C PO; +SEMA2PEN SQ
== END ==
LOC: WOUNDCARE 14:01
PROVIDERS: ATTEND Family Medicine
DX: L97.512 Non-pressure chronic ulcer of other part of right foot with fat layer exposed (principal); E11.621 Type 2 diabetes mellitus with foot ulcer; E11.610 Type 2 diabetes mellitus with diabetic neuropathic arthropathy; E09.43 Drug or chemical induced diabetes mellitus with neurological complications with diabetic autonomic (poly)neuropathy; Z79.620 Long term (current) use of immunosuppressive biologic; E55.9 Vitamin D deficiency, unspecified; D51.9 Vitamin B12 deficiency anemia, unspecified; B95.2 Enterococcus as the cause of diseases classified elsewhere; R29.6 Repeated falls
CPT/HCPCS: 99212

== ENCOUNTER 2023-01-11 11:40 | Emergency (ER) | payer MEDICARE, OTHER ==
[~2023-01-11] VITALS: Ht 167.7 cm; Wt 71.0 kg
[2023-01-11 12:32] LABS: BASOPHILS # (AUTO) 0.1 10^3/uL (0.0-0.1); BASOPHILS % (AUTO) 1 % (0-10); EOSINOPHILS # (AUTO) 0.2 10^3/uL (0.0-0.3); EOSINOPHILS % (AUTO) 2 % (0-10); HEMATOCRIT 36 % (35-52); HEMOGLOBIN 12.2 g/dL (11.5-16.0); LYMPHOCYTES % (AUTO) 12 % (12-44); MEAN CORPUSCULAR HEMOGLOBIN 32 pg (25-34); MEAN CORPUSCULAR HGB CONC 34 g/dL (32-36); MEAN CORPUSCULAR VOLUME 95 fL (80-99); MONOCYTES # (AUTO) 0.8 10^3/uL (0.0-1.0); MONOCYTES % (AUTO) 9 % (0-12); NEUTROPHILS # (AUTO) 6.2 10^3/uL (1.8-7.8); NEUTROPHILS % (AUTO) 75 % (42-75); PLATELET COUNT 162 10^3/uL (130-400); WHITE BLOOD COUNT 8.3 10^3/uL (4.3-11.0)
[2023-01-11 12:42] LABS: POTASSIUM 4.3 MMOL/L (3.6-5.0)
[2023-01-11 12:44] LABS: CALCIUM 10.3 MG/DL (8.5-10.1)
[2023-01-11 12:45] LABS: TOTAL PROTEIN 7.1 GM/DL (6.4-8.2)
[2023-01-11 12:47] LABS: BILIRUBIN,TOTAL 0.9 MG/DL (0.1-1.0)
[2023-01-11 12:48] LABS: CREATININE SERUM 0.78 MG/DL (0.60-1.30)
[2023-01-11 12:50] LABS: BILIRUBIN,URINE NEGATIVE (NEGATIVE); CLARITY,URINE CLEAR; COLOR,URINE YELLOW; GLUCOSE, URINE (UA) NEGATIVE (NEGATIVE); KETONES,URINE NEGATIVE (NEGATIVE); LEUKOCYTE ESTERASE ,URINE TRACE (NEGATIVE); NITRITE,URINE NEGATIVE (NEGATIVE); PH,URINE 7.5 (5-9); PROTEIN,URINE 2+ (NEGATIVE)
[2023-01-11 12:59] LABS: BACTERIA,URINE TRACE /HPF
[2023-01-11] MEDS ORDERED: NS IV 500 ML 500 ML IV ONE (13:30)
--- NOTE | 2023-01-11 13:31 | ED GI ---
General Chief Complaint: Abdominal/GI Problems Stated Complaint: DIARRHEA - CHILLS Nursing Triage Note: PT AMB TO ED BY POV WITH C/O DIARRHEA AND CHILLS. PT REPORTS SHE HAS BEEN ON MULTIPLE ANTIBIOTICS FOR 2 WEEKS FOR UTI. PT REPORTS DIARRHEA FOR THE LAST FEW WEEKS AND HAVING ACCIDENTS, NO RELIEF WITH IMMODIUM. REPORTS SHE HAS HAD SOME NAUSEA AND FEELS RAN DOWN. DENIES FEVER OR ABD PAIN. (MAGDI HERNDON) History of Present Illness Date Seen by Provider: Jan 11, 2023 Time Seen by Provider: 12:10 Initial Comments 67 year old female presents with diarrhea that has worsened over the last week. She was having 1 episode daily but over the last week, she has experienced diarrhea after eating and urgency at times, with occasionally inability to hold stool. She has taken Immodium, with no improvement. She has been on multiple antibiotics for UTI, previous history of kidney transplant and JOYNER. She started probiotic yesterday and taking yogurt. She is on Doxycycline currently for UTI, started yesterday by [facility]. 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 she has been to wound care here, for injury to her foot. It is healing, without complications. She was recently admitted 12/20/22-12/23/22 for UTI, discharged on Cefdnir. No history of chronic diarrhea, diverticulitis, or other GI history. She had colonoscopy in the last 5 years. No history of C. diff. Timing/Duration: 1 Week Severity/Quality: Moderate Location: Generalized Abdomen Associated Symptoms: No Back Pain, No Nausea/Vomiting; Weakness (MAGDI HERNDON) Allergies and Home Medications Allergies Coded Allergies: No Known Drug Allergies (Unverified , 12/25/13) Patient Home Medication List Home Medication List Reviewed: Yes (MAGDI HERNDON) Allopurinol (Allopurinol) 300 Mg Tablet, 300 MG PO DAILY, (Reported) Entered as Reported by: NIALL WASHBURN on 06/07/22 0308 Allopurinol (Allopurinol) 100 Mg Tablet, 100 MG PO DAILY, (Reported) Entered as Reported by: ALLEN GALVAN on 06/09/22 1153 Apixaban (Eliquis) 5 Mg Tablet, 5 MG PO BID, (Reported) Entered as Reported by: ADRIAN HILLS on 04/05/20 1342 Aspirin (Aspirin EC) 81 Mg Tablet.dr, 81 MG PO HS, (Reported) Entered as Reported by: LUIGI SOMERS on 10/24/19 1220 Atorvastatin Calcium (Atorvastatin Calcium) 20 Mg Tablet, 20 MG PO HS, (Reported) Entered as Reported by: LUIGI SOMERS on 10/24/19 1214 Candesartan Cilexetil (Candesartan Cilexetil) 8 Mg Tablet, 8 MG PO DAILY, (Reported) Entered as Reported by: NIALL WASHBURN on 06/07/22 0310 Carvedilol (Carvedilol) 6.25 Mg Tablet, 6.25 MG PO BID, (Reported) Entered as Reported by: NIALL WASHBURN on 06/07/22 0302 Cefdinir (Cefdinir) 300 Mg Capsule, 300 MG PO BID Prescribed by: RITU MIRANDA on 12/23/22 1104 Cholecalciferol (Vitamin D3) (Vitamin D3) 25 Mcg (1000 Unit) Tablet, 25 MCG PO DAILY, (Reported) Entered as Reported by: ALLEN GALVAN on 06/09/22 115 Empagliflozin (Jardiance) 10 Mg Tablet, 10 MG PO DAILY, (Reported) Entered as Reported by: ALLEN GALVAN on 06/09/22 115 Insulin Aspart (Novolog Flexpen) 100 Unit/Ml (3 Ml) Solution, 6 UNITS SQ WITH BREAKFAST, (Reported) Entered as Reported by: ALLEN GALVAN on 06/09/22 115 Insulin Aspart (Novolog Flexpen) 100 Unit/Ml (3 Ml) Solution, 8 UNITS SQ WITH LUNCH, (Reported) Entered as Reported by: ALLEN GALVAN on 06/09/22 115 Insulin Aspart (Novolog Flexpen) 100 Unit/Ml (3 Ml) Solution, 8 UNITS SQ WITH DINNER, (Reported) Entered as Reported by: ALLEN GALVAN on 06/09/22 115 Magnesium Oxide (Magnesium Oxide) 400 Mg (241.3 Mg Magnesium) Tablet, 800 MG PO BID, (Reported) Entered as Reported by: LUIGI SOMERS on 10/24/19 1214 Mecobalamin (B12 Active) 1,000 Mcg Tab.chew, 1,000 MCG PO DAILY, (Reported) Entered as Reported by: NIALL WASHBURN on 06/07/22 0403 Metformin HCl (Metformin HCl ER) 500 Mg Tab.er.24h, 500 MG PO BID, (Reported) Entered as Reported by: ALLEN GALVAN on 06/09/22 1153 Multivitamin (Multivitamin) 1 Each Tablet, 1 EACH PO DAILY, (Reported) Entered as Reported by: SHELLEY YOST on 12/22/22 1141 Mycophenolate Mofetil (Cellcept) 250 Mg Capsule, 250 MG PO BID, (Reported) Entered as Reported by: JASVIR VU on 12/20/22 1442 Olpe-3 Acid Ethyl Esters (Olpe-3 Acid Ethyl Esters) 1 Gram Capsule, 2 GM PO BID, (Reported) Entered as Reported by: ALLEN GALVAN on 06/09/22 1153 Omeprazole (Omeprazole) 40 Mg Capsule.dr, 40 MG PO BID, (Reported) Entered as Reported by: LUIGI SOMERS on 10/24/19 1214 Prednisone (Prednisone) 5 Mg Tablet, 5 MG PO DAILY, (Reported) Entered as Reported by: LUIGI SOMERS on 10/24/19 1220 Rifaximin (Xifaxan) 550 Mg Tablet, 550 MG PO BID, (Reported) Entered as Reported by: LUIGI SOMERS on 10/24/19 1214 Semaglutide (Ozempic) 2 Mg/0.75 Ml (8 Mg/3 Ml) Pen.injctr, 2 MG SQ THURSDAY, (Reported) Entered as Reported by: SHELLEY YOST on 12/22/22 1124 Tacrolimus (Tacrolimus) 0.5 Mg Capsule, 1 MG PO BID, (Reported) Entered as Reported by: SHELLEY YOST on 12/22/22 1156 Temazepam (Temazepam) 15 Mg Capsule, 15 MG PO HS, (Reported) Entered as Reported by: LUIGI SOMERS on 10/24/19 1214 Review of Systems Review of Systems Constitutional: no symptoms reported Gastrointestinal: See HPI, Diarrhea; Denies Nausea; Poor Appetite, Poor Fluid Intake; Denies Vomiting (MAGDI HERNDON) All Other Systems Reviewed Negative Unless Noted: Yes (MAGDI HERNDON) Past Wyxhhmb-Eqkypx-Pfxaks Hx Patient Social History Tobacco Use?: No Use of E-Cig and/or Vaping dev: No Substance use?: No Alcohol Use?: No Pt feels they are or have been: No (MAGDI HERNDON) Immunizations Up To Date Tetanus Booster (TDap): Less than 5yrs PED Vaccines UTD: Yes Influenza Vaccine Up-to-Date: Yes; Up-to-Date First/Initial COVID19 Vaccinat: YES Second COVID19 Vaccination Hayden: YES Third COVID19 Vaccination Date: YES (MAGDI HERNDON) Seasonal Allergies Seasonal Allergies: Yes (MAGDI HERNDON) Past Medical History Surgery/Hospitalization HX: KIDNEY TRANSPLANT, STAGE 4 LIVER CIRRHOSIS, DM2, HTN, MA, BLOOD CLOTS, GOUT Surgeries: Yes (Right arm fistula, LTKR, ) Bowel Surgery, Cardiac, Section, Coronary Stent, Gallbladder, Joint Replacement, Kidney Transplant, Nephrectomy, Orthopedic, Tonsillectomy, Tubal Ligation Respiratory: No Cardiac: Yes (Stent) Coronary Artery Disease, Heart Attack, High Cholesterol, Hypertension Neurological: Yes Neuropathy Reproductive Disorders: Yes Female Reproductive Disorders: Menstrual Problems, Polycystic Ovarian Dis 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 Sexually Transmitted Disease: No HIV/AIDS: No Genitourinary: Yes (RENAL FAILURE/DIALYSIS/NEPHRECTOMY/TRANSPLANT) Renal Failure, Dialysis, UTI-Chronic, Polycystic Kidney Disease Gastrointestinal: Yes (JOYNER) Gastroesophageal Reflux, Cirrhosis Musculoskeletal: No Endocrine: Yes Diabetes, Insulin dep HEENT: No Cancer: No Psychosocial: Yes Anxiety, Depression Integumentary: No Blood Disorders: No (MAGDI HERNDON) Family Medical History Reviewed Nursing Family Hx (MAGDI HERNDON) Cataract (grandmother ) Chest pain 09 BROTHER Congestive heart failure (grandmother) Dementia (two paternal aunts) Family history: Alzheimer's disease (two paternal aunts) Family history: Arthritis (grandmother) Family history: Cardiovascular disease 09 BROTHER Family history: Hypertension 09 BROTHER Heart disease 09 BROTHER Kidney disease 03 MOTHER Stroke (paternal aunt) No Family History of: Abdominal aortic aneurysm Callaway's disease Alcoholism Aphasia Cancer Cancer of colon Congenital heart disease Cystic fibrosis Dysphagia Family history: Allergy Family history: Asthma Family history: Breast disease Family history: Coronary thrombosis Family history: Diabetes mellitus Family history: Gastrointestinal disease Family history: Glaucoma Family history: Osteoporosis Family history: Thyroid disorder Headache Hearing loss Hereditary disease History of - anemia History of - disorder History of - respiratory disease History of drug abuse Human immunodeficiency virus (HIV) seropositivity Hypercholesterolemia Malignant neoplasm of lung Myocardial infarction Parkinson's disease Prostate cancer Psychotic disorder Seizure disorder Tuberculosis Visual impairment SOCIAL HISTORY: -DENIES SMOKING -DENIES ALCOHOL USE -DENIES DRUG USE PAST SURGICAL HISTORY: -TONSILLECTOMY -WISDOM TEETH REMOVED - -BILATERAL TUBAL LIGATION -RIGHT FOOT SURGERY--BUNIONECTOMY -RIGHT SHOULDER SURGERY -LEFT THUMB REPAIR -LEFT TOTAL KNEE REPLACEMENT -CHOLECYSTECTOMY 11/2009 -ENDOSCOPIES -CARDIAC CATH WITH STENT 09/2008 -BOWEL RESECTION FOR BOWEL OBSTRUCTION -PERITONEAL DIALYSIS -RIGHT ARM A-V GRAFT/FISTULA 10/01/2010 -BILATERAL NEPHRECTOMY WITH RENAL TRANSPLANT 2011 (MAGDI HERNDON) Physical Exam Vital Signs Vital Signs - First Documented 01/11/23 11:54 Temp 36.8 Pulse 98 Resp 16 B/P (MAP) 132/68 (89) Pulse Ox 100 O2 Delivery Room Air (CONNIE ARELLANO MD) Vital Signs Capillary Refill : Less Than 3 Seconds (MAGDI HERNDON) Height/Weight/BMI Height: 5'6.00" Weight: 190lbs. 0.0oz. 86.420854ny; 25.00 BMI Method:Stated General Appearance: WD/WN, no apparent distress HEENT: PERRL/EOMI, normal ENT inspection, pharynx normal, other Neck: non-tender (Oral mucosa), full range of motion ( pink and moist.), suppl e, normal inspection Respiratory: chest non-tender, lungs clear, normal breath sounds Cardiovascular: normal peripheral pulses, regular rate, rhythm, no edema Gastrointestinal: normal bowel sounds, non tender, soft Neurologic/Psychiatric: no motor/sensory deficits, alert, normal mood/affect, oriented x 3 Skin: normal color, warm/dry (MAGDI HERNDON) Progress/Results/Core Measures Results/Orders Lab Results Laboratory Tests Test 01/11/23 12:20 01/11/23 12:40 Range/Units White Blood Count 8.3 4.3-11.0 10^3/uL Red Blood Count 3.80 3.80-5.11 10^6/uL Hemoglobin 12.2 11.5-16.0 g/dL Hematocrit 36 35-52 % Mean Corpuscular Volume 95 80-99 fL Mean Corpuscular Hemoglobin 32 25-34 pg Mean Corpuscular Hemoglobin Concent 34 32-36 g/dL Red Cell Distribution Width 15.4 H 10.0-14.5 % Platelet Count 162 130-400 10^3/uL Mean Platelet Volume 10.0 9.0-12.2 fL Immature Granulocyte % (Auto) 1 % Neutrophils (%) (Auto) 75 42-75 % Lymphocytes (%) (Auto) 12 12-44 % Monocytes (%) (Auto) 9 0-12 % Eosinophils (%) (Auto) 2 0-10 % Basophils (%) (Auto) 1 0-10 % Neutrophils # (Auto) 6.2 1.8-7.8 10^3/uL Lymphocytes # (Auto) 1.0 1.0-4.0 10^3/uL Monocytes # (Auto) 0.8 0.0-1.0 10^3/uL Eosinophils # (Auto) 0.2 0.0-0.3 10^3/uL Basophils # (Auto) 0.1 0.0-0.1 10^3/uL Immature Granulocyte # (Auto) 0.1 0.0-0.1 10^3/uL Sodium Level 140 135-145 MMOL/L Potassium Level 4.3 3.6-5.0 MMOL/L Chloride Level 104 98-107 MMOL/L Carbon Dioxide Level 22 21-32 MMOL/L Anion Gap 14 5-14 MMOL/L Blood Urea Nitrogen 15 7-18 MG/DL Creatinine 0.78 0.60-1.30 MG/DL Estimat Glomerular Filtration Rate 84 BUN/Creatinine Ratio 19 Glucose Level 151 H 70-105 MG/DL Calcium Level 10.3 H 8.5-10.1 MG/DL Corrected Calcium 10.3 H 8.5-10.1 MG/DL Magnesium Level 1.6 1.6-2.4 MG/DL Total Bilirubin 0.9 0.1-1.0 MG/DL Aspartate Amino Transf (AST/SGOT) 38 H 5-34 U/L Alanine Aminotransferase (ALT/SGPT) 45 0-55 U/L Alkaline Phosphatase 62 40-136 U/L C-Reactive Protein High Sensitivity 1.22 H 0.00-0.50 MG/DL Total Protein 7.1 6.4-8.2 GM/DL Albumin 4.0 3.2-4.5 GM/DL Urine Color YELLOW Urine Clarity CLEAR Urine pH 7.5 5-9 Urine Specific [place] 1.015 L 1.016-1.022 Urine Protein 2+ H NEGATIVE Urine Glucose (UA) NEGATIVE NEGATIVE Urine Ketones NEGATIVE NEGATIVE Urine Nitrite NEGATIVE NEGATIVE Urine Bilirubin NEGATIVE NEGATIVE Urine Urobilinogen 0.2 < = 1.0 MG/DL Urine Leukocyte Esterase TRACE H NEGATIVE Urine RBC (Auto) 1+ H NEGATIVE Urine RBC 5-10 H /HPF Urine WBC 10-25 H /HPF Urine Squamous Epithelial Cells 5-10 /HPF Urine Crystals NONE /LPF Urine Bacteria TRACE /HPF Urine Casts NONE /LPF Urine Mucus NEGATIVE /LPF Urine Culture Indicated YES (CONNIE ARELLANO MD) Micro Results Microbiology 01/11/23 C. difficile GDH Antigen & Toxins - Final, Resulted 01/11/23 Stool Culture, Resulted Pending (CONNIE ARELLANO MD) Vital Signs/I&O 01/11/23 01/11/23 11:54 14:56 Temp 36.8 Pulse 98 101 Resp 16 16 B/P (MAP) 132/68 (89) 141/72 Pulse Ox 100 96 O2 Delivery Room Air Room Air (CONNIE ARELLANO MD) Blood Pressure Mean: 89 Progress Progress Note : Time: 12:10 Progress Note Patient assessed, creatinine 0.78. Patient reassured. Will obtain labs, normal saline 1L per IV. Stool and urine cultures. Work up for C-diff. 1300 patient had 1 episode of diarrhea, stool sample collected. No elevation in WBC. UA reviewed. 1330 no further diarrhea. Patient resting, no complaints. 1400 C. diff negative. Call into [facility] nephrology team, awaiting call back. Patient resting, vital signs stable. Eyes closed, no signs of distress. [address] Ybarra from Renal team at [facility]. Reviewed assessment, labs and patient history. No indications for admission here or evaluation at [facility] at this time. [address] [facility] with patient. She is agreeable with plan to discharge to home. Discharge instructions, return precautions and home management reviewed. All questions answered. (MAGDI HERNDON) Departure Impression Primary Impression: Diarrhea Qualified Codes: R19.7 - Diarrhea, unspecified Additional Impressions: Kidney transplant recipient Liver cirrhosis secondary to JOYNER Disposition: HOME, SELF-CARE Condition: Improved Departure-Patient Inst. Decision time for Depature: 14:30 (MAGDI HERNDON) Referrals: MERCY STALEY MD (PCP/Family) Primary Care Physician Patient Instructions: Antibiotic-Associated Diarrhea (DC), Urinary Tract Infection, Adult (DC) Add. Discharge Instructions: Continue all home medications, as prescribed. Continue the Doxycycline, Probiotics, and Yogurt. Increase water intake. Follow up with Dr. Staley and for stool cultures. Take Imodium 2 tablets, immediately if you have diarrhea. May repeat, do not exceed more than 8 tables in [address] Prado, for any concerns with your kidneys. Return to ER if feeling dehydrated, persistent diarrhea, fever or new, urgent healthcare needs. All discharge instructions reviewed with patient and/or family. Voiced understanding. ATTENDING PHYSICIAN NOTE: I was physically present as attending physician in the emergency department during the care of this patient, but I was not directly involved in the decision making or delivery of care for this patient. (CONNIE ARELLANO MD) Copy Copies To 1: MERCY STALEY MD, AMY ARNP Jan 11, 2023 13:31 CONNIE ARELLANO MD Jan 11, 2023 18:33
[2023-01-11] MEDS: NS IV 1000 ML 1,000 ML IV SCH ×2 (13:37→13:38)
[2023-01-11 14:56] VITALS: BP 141/72
== END 2023-01-11 14:56 | disposition home or self-care (01) ==
LOC: EDUNIT# 11:40 → ER 11:41
DX: K74.60 Unspecified cirrhosis of liver (principal); K75.81 Nonalcoholic steatohepatitis (NASH); R19.7 Diarrhea, unspecified; N39.0 Urinary tract infection, site not specified; Z94.0 Kidney transplant status; Z90.49 Acquired absence of other specified parts of digestive tract
CPT/HCPCS: 36415; 80053; 81000; 83735; 85025; 86141; 87015; 87045; 87046; 87088; 87324; 87328; 87329; 87449; 87899

== ENCOUNTER → 2023-03-13 | Outpatient (CLI) | payer MEDICARE, OTHER ==
[2023-03-13 11:41] LABS: HEMATOCRIT 37 % (35-52); HEMOGLOBIN 12.5 g/dL (11.5-16.0); MEAN CORPUSCULAR HEMOGLOBIN 32 pg (25-34); MEAN CORPUSCULAR HGB CONC 34 g/dL (32-36); MEAN CORPUSCULAR VOLUME 97 fL (80-99); MEAN PLATELET VOLUME 10.1 fL (9.0-12.2); PLATELET COUNT 190 10^3/uL (130-400); WHITE BLOOD COUNT 11.1 10^3/uL (4.3-11.0)
[2023-03-13 11:51] LABS: ALBUMIN 4.3 GM/DL (3.2-4.5); POTASSIUM 3.8 MMOL/L (3.6-5.0)
[2023-03-13 11:53] LABS: CALCIUM 10.4 MG/DL (8.5-10.1)
[2023-03-13 11:54] LABS: TOTAL PROTEIN 7.2 GM/DL (6.4-8.2)
[2023-03-13 11:56] LABS: BILIRUBIN,TOTAL 0.5 MG/DL (0.1-1.0)
[2023-03-13 11:57] LABS: CREATININE SERUM 0.9 MG/DL (0.60-1.30)
== END ==
LOC: LAB 11:21
PROVIDERS: ATTEND Internal Medicine
DX: N30.20 Other chronic cystitis without hematuria (principal); E11.9 Type 2 diabetes mellitus without complications; R19.7 Diarrhea, unspecified
CPT/HCPCS: 36415; 80053; 85027

== ENCOUNTER → 2023-03-19 | Outpatient (CLI) | payer MEDICARE, OTHER ==
--- NOTE | 2023-03-19 16:06 | Diagnostic Imaging Report ---
Indication: Routine screening. Comparison is made with prior mammogram from 11/11/2021 and 08/06/2020. 2-D and 3-D bilateral screening mammography was performed CAD. Both breasts are heterogeneously dense, limiting the sensitivity of mammography. Asymmetry in breast size, right smaller is again noted similar to prior exam. There are scattered benign parenchymal and vascular calcifications. Biopsy marker clips on the left are again noted. No new mass or malignant-appearing microcalcifications are seen. Axillae are unremarkable. IMPRESSION: BI-RADS Category 2 No mammographic features suspicious for malignancy are identified. Dictated by: Dictated on workstation # [id number]
== END ==
LOC: RAD 14:45
PROVIDERS: ATTEND Internal Medicine
DX: Z12.31 Encounter for screening mammogram for malignant neoplasm of breast (principal)
CPT/HCPCS: 77063; 77067

== ENCOUNTER 2023-07-03 13:15 | Observation (INO) | payer MEDICARE, OTHER ==
[~2023-07-03] VITALS: Ht 167.7 cm; Wt 75.7 kg
[2023-07-03 13:44] LABS: BASOPHILS # (AUTO) 0.1 10^3/uL (0.0-0.1); BASOPHILS % (AUTO) 1 % (0-10); EOSINOPHILS # (AUTO) 0.2 10^3/uL (0.0-0.3); EOSINOPHILS % (AUTO) 2 % (0-10); HEMATOCRIT 41 % (35-52); HEMOGLOBIN 13.9 g/dL (11.5-16.0); LYMPHOCYTES # (AUTO) 2.2 10^3/uL (1.0-4.0); LYMPHOCYTES % (AUTO) 22 % (12-44); MEAN CORPUSCULAR HEMOGLOBIN 33 pg (25-34); MEAN CORPUSCULAR HGB CONC 34 g/dL (32-36); MEAN CORPUSCULAR VOLUME 95 fL (80-99); MONOCYTES # (AUTO) 0.6 10^3/uL (0.0-1.0); MONOCYTES % (AUTO) 6 % (0-12); NEUTROPHILS # (AUTO) 6.9 10^3/uL (1.8-7.8); NEUTROPHILS % (AUTO) 69 % (42-75); PLATELET COUNT 203 10^3/uL (130-400)
--- NOTE | 2023-07-03 13:47 | ED General ---
General Chief Complaint: General Problems/Pain Stated Complaint: LOW MAGNESIUM Nursing Triage Note: pt ambulatory to room. states she recently stopped taking her magnesium recently due to diarrhea it was giving her. pt states she has been increasingly fatigued and had labs drawn this am. states her doctor called and told her that her magnesium is low and that she needed to come to the ER. states she has hx of kidney transplant in 2010 and hx of PA in 2008. pt also report GERD, reflux, belching, and "chest pressure" for a couple of days. DAKSHA Mukherjee in room during triage. pt is A&Ox4, speech normal on arrival. Source of Information: Patient Exam Limitations: No Limitations History of Present Illness Date Seen by Provider: Jul 03, 2023 Time Seen by Provider: 13:44 Initial Comments Patient is a 68-year-old female with a history of kidney transplant, polycystic kidney disease, polycystic ovarian syndrome, diabetes, coronary artery disease who presents to ED for increased weakness and fatigue. Symptoms over the past 2 days. Patient states she was in contact with her physician at [facility] who was ordered outpatient lab work which showed that she had a abnormally low magnesium of 0.9. She is chronically on magnesium supplements but recently stopped secondary to diarrhea. She states the diarrhea has improved but still feeling weak and fatigued. Denies any vomiting. She also reports belching and some chest discomfort especially after she eats. Feels like something gets stuck in her chest. Does have a history of GERD. She woke up with discomfort in her chest few days ago. History of coronary artery disease currently on Eliquis. History of PE twice. She denies of any cough, shortness of breath, abdominal pain, headache, dizziness, visual changes, sore throat, pain with urination. She does have a solitary kidney. Currently on tacrolimus and prednisone. She denies any fever chills body. Patient states her kidney function has been within normal limits. She denies any urinary symptoms Allergies and Home Medications Allergies Coded Allergies: No Known Drug Allergies (Unverified , 12/25/13) Patient Home Medication List Home Medication List Reviewed: Yes Allopurinol (Allopurinol) 300 Mg Tablet, 300 MG PO DAILY, (Reported) Entered as Reported by: NIALL WASHBURN on 06/07/22 0308 Allopurinol (Allopurinol) 100 Mg Tablet, 100 MG PO DAILY, (Reported) Entered as Reported by: LARY GALVAN on 06/09/22 1153 Apixaban (Eliquis) 5 Mg Tablet, 5 MG PO BID, (Reported) Entered as Reported by: ADRIAN HILLS on 04/05/20 1342 Aspirin (Aspirin EC) 81 Mg Tablet.dr, 81 MG PO HS, (Reported) Entered as Reported by: LUIGI SOMERS on 10/24/19 1220 Atorvastatin Calcium (Atorvastatin Calcium) 20 Mg Tablet, 20 MG PO HS, (Reported) Entered as Reported by: LUIGI SOMERS on 10/24/19 1214 Candesartan Cilexetil (Candesartan Cilexetil) 8 Mg Tablet, 8 MG PO DAILY, (Reported) Entered as Reported by: NIALL WASHBURN on 06/07/22 0310 Carvedilol (Carvedilol) 6.25 Mg Tablet, 6.25 MG PO BID, (Reported) Entered as Reported by: NIALL WASHBURN on 06/07/22 0302 Cefdinir (Cefdinir) 300 Mg Capsule, 300 MG PO BID Prescribed by: RITU MIRANDA on 12/23/22 1104 Cholecalciferol (Vitamin D3) (Vitamin D3) 25 Mcg (1000 Unit) Tablet, 25 MCG PO DAILY, (Reported) Entered as Reported by: LARY GALVAN on 06/09/22 115 Empagliflozin (Jardiance) 10 Mg Tablet, 10 MG PO DAILY, (Reported) Entered as Reported by: LARY GALVAN on 06/09/22 115 Insulin Aspart (Novolog Flexpen) 100 Unit/Ml (3 Ml) Solution, 6 UNITS SQ WITH BREAKFAST, (Reported) Entered as Reported by: LARY GALVAN on 06/09/22 115 Insulin Aspart (Novolog Flexpen) 100 Unit/Ml (3 Ml) Solution, 8 UNITS SQ WITH LUNCH, (Reported) Entered as Reported by: LARY GALVAN on 06/09/22 115 Insulin Aspart (Novolog Flexpen) 100 Unit/Ml (3 Ml) Solution, 8 UNITS SQ WITH DINNER, (Reported) Entered as Reported by: LARY GALVAN on 06/09/22 115 Magnesium Oxide (Magnesium Oxide) 400 Mg (241.3 Mg Magnesium) Tablet, 800 MG PO BID, (Reported) Entered as Reported by: LUIGI SOMERS on 10/24/19 1214 Mecobalamin (B12 Active) 1,000 Mcg Tab.chew, 1,000 MCG PO DAILY, (Reported) Entered as Reported by: NIALL WASHBURN on 06/07/22 0403 Metformin HCl (Metformin HCl ER) 500 Mg Tab.er.24h, 500 MG PO BID, (Reported) Entered as Reported by: LARY GALVAN on 06/09/22 1153 Multivitamin (Multivitamin) 1 Each Tablet, 1 EACH PO DAILY, (Reported) Entered as Reported by: SHELLEY YOST on 12/22/22 1141 Mycophenolate Mofetil (Cellcept) 250 Mg Capsule, 250 MG PO BID, (Reported) Entered as Reported by: JASVIR VU on 12/20/22 1442 [place]-3 Acid Ethyl Esters ([place]-3 Acid Ethyl Esters) 1 Gram Capsule, 2 GM PO BID, (Reported) Entered as Reported by: LARY GALVAN on 06/09/22 1153 Omeprazole (Omeprazole) 40 Mg Capsule.dr, 40 MG PO BID, (Reported) Entered as Reported by: LUIGI SOMERS on 10/24/19 1214 Prednisone (Prednisone) 5 Mg Tablet, 5 MG PO DAILY, (Reported) Entered as Reported by: LUIGI SOMERS on 10/24/19 1220 Rifaximin (Xifaxan) 550 Mg Tablet, 550 MG PO BID, (Reported) Entered as Reported by: LUIGI SOMERS on 10/24/19 1214 Semaglutide (Ozempic) 2 Mg/0.75 Ml (8 Mg/3 Ml) Pen.injctr, 2 MG SQ THURSDAY, (Reported) Entered as Reported by: SHELLEY YOST on 12/22/22 1124 Tacrolimus (Tacrolimus) 0.5 Mg Capsule, 1 MG PO BID, (Reported) Entered as Reported by: SHELLEY YOST on 12/22/22 1156 Temazepam (Temazepam) 15 Mg Capsule, 15 MG PO HS, (Reported) Entered as Reported by: LUIGI SOMERS on 10/24/19 1214 Review of Systems Review of Systems Constitutional: No chills, No diaphoresis EENTM: No ear pain, No blurred vision, No double vision Respiratory: No cough Cardiovascular: No chest pain Gastrointestinal: No abdominal pain, No diarrhea, No nausea, No vomiting Genitourinary: No decreased output, No discharge, No dysuria, No frequency Musculoskeletal: No back pain, No joint pain Skin: No change in color, No change in hair/nails, No dryness All Other Systems Reviewed Negative Unless Noted: Yes Past Sspfzvr-Qfklvo-Ektaex Hx Immunizations Up To Date Tetanus Booster (TDap): Less than 5yrs PED Vaccines UTD: Yes First/Initial COVID19 Vaccinat: YES Second COVID19 Vaccination Hayden: YES Third COVID19 Vaccination Date: YES Seasonal Allergies Seasonal Allergies: Yes Past Medical History Surgery/Hospitalization HX: KIDNEY TRANSPLANT, STAGE 4 LIVER CIRRHOSIS, DM2, HTN, PA, BLOOD CLOTS, GOUT Surgeries: Yes (Right arm fistula, LTKR, ) Bowel Surgery, Cardiac, Section, Coronary Stent, Gallbladder, Joint Replacement, Kidney Transplant, Nephrectomy, Orthopedic, Tonsillectomy, Tubal Ligation Respiratory: No Cardiac: Yes (Stent) Coronary Artery Disease, Heart Attack, High Cholesterol, Hypertension Neurological: Yes Neuropathy Reproductive Disorders: Yes Female Reproductive Disorders: Menstrual Problems, 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 Sexually Transmitted Disease: No HIV/AIDS: No Genitourinary: Yes (RENAL FAILURE/DIALYSIS/NEPHRECTOMY/TRANSPLANT) Renal Failure, Dialysis, UTI-Chronic, Polycystic Kidney Disease Gastrointestinal: Yes (JOYNER) Gastroesophageal Reflux, Cirrhosis Musculoskeletal: No Endocrine: Yes Diabetes, Insulin dep HEENT: No Cancer: No Psychosocial: Yes Anxiety, Depression Integumentary: No Blood Disorders: No Family Medical History Cataract (grandmother ) Chest pain 09 BROTHER Congestive heart failure (grandmother) Dementia (two paternal aunts) Family history: Alzheimer's disease (two paternal aunts) Family history: Arthritis (grandmother) Family history: Cardiovascular disease 09 BROTHER Family history: Hypertension 09 BROTHER Heart disease 09 BROTHER Kidney disease 03 MOTHER Stroke (paternal aunt) No Family History of: Abdominal aortic aneurysm Emeka's disease Alcoholism Aphasia Cancer Cancer of colon Congenital heart disease Cystic fibrosis Dysphagia Family history: Allergy Family history: Asthma Family history: Breast disease Family history: Coronary thrombosis Family history: Diabetes mellitus Family history: Gastrointestinal disease Family history: Glaucoma Family history: Osteoporosis Family history: Thyroid disorder Headache Hearing loss Hereditary disease History of - anemia History of - disorder History of - respiratory disease History of drug abuse Human immunodeficiency virus (HIV) seropositivity Hypercholesterolemia Malignant neoplasm of lung Myocardial infarction Parkinson's disease Prostate cancer Psychotic disorder Seizure disorder Tuberculosis Visual impairment SOCIAL HISTORY: -DENIES SMOKING -DENIES ALCOHOL USE -DENIES DRUG USE PAST SURGICAL HISTORY: -TONSILLECTOMY -WISDOM TEETH REMOVED - -BILATERAL TUBAL LIGATION -RIGHT FOOT SURGERY--BUNIONECTOMY -RIGHT SHOULDER SURGERY -LEFT THUMB REPAIR -LEFT TOTAL KNEE REPLACEMENT -CHOLECYSTECTOMY 11/2009 -ENDOSCOPIES -CARDIAC CATH WITH STENT 09/2008 -BOWEL RESECTION FOR BOWEL OBSTRUCTION -PERITONEAL DIALYSIS -RIGHT ARM A-V GRAFT/FISTULA 10/01/2010 -BILATERAL NEPHRECTOMY WITH RENAL TRANSPLANT 2011 Physical Exam Vital Signs Vital Signs - First Documented 07/03/23 13:29 Temp 36.5 Pulse 91 Resp 18 B/P (MAP) 136/95 (109) Pulse Ox 97 O2 Delivery Room Air Capillary Refill : Height, Weight, BMI Height: 5'6.00" Weight: 190lbs. 0.0oz. 86.576141do; 25.00 BMI Method:Stated General Appearance: No Apparent Distress, WD/WN Eyes: Bilateral Eye Normal Inspection, Bilateral Eye PERRL, Bilateral Eye EOMI HEENT: PERRL/EOMI, TMs Normal, Normal ENT Inspection, Pharynx Normal Neck: Full Range of Motion, Normal Inspection, Non Tender, Supple Respiratory: Chest Non Tender, Lungs Clear, Normal Breath Sounds, No Accessory Muscle Use Cardiovascular: Regular Rate, Rhythm, No Edema, No Gallop, No JVD Gastrointestinal: Normal Bowel Sounds, No Organomegaly, No Pulsatile Mass, Non Tender Back: Normal Inspection, No CVA Tenderness Extremity: Normal Capillary Refill, Normal Inspection, Normal Range of Motion Neurologic/Psychiatric: Alert, Oriented x3, No Motor/Sensory Deficits, Normal 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, 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 as Tested Skin: Normal Color, Warm/Dry Progress/Results/Core Measures Suspected Sepsis SIRS Temperature: Pulse: 91 Respiratory Rate: 18 Laboratory Tests 07/03/23 13:35: White Blood Count 10.0 Blood Pressure 136 /95 Mean: 109 Laboratory Tests 07/03/23 13:35: Creatinine 1.02, Platelet Count 203, Total Bilirubin 0.5 Results/Orders Lab Results Laboratory Tests Test 07/03/23 13:35 07/03/23 13:47 07/03/23 14:15 Range/Units White Blood Count 10.0 4.3-11.0 10^3/uL Red Blood Count 4.26 3.80-5.11 10^6/uL Hemoglobin 13.9 11.5-16.0 g/dL Hematocrit 41 35-52 % Mean Corpuscular Volume 95 80-99 fL Mean Corpuscular Hemoglobin 33 25-34 pg Mean Corpuscular Hemoglobin Concent 34 32-36 g/dL Red Cell Distribution Width 14.0 10.0-14.5 % Platelet Count 203 130-400 10^3/uL Mean Platelet Volume 10.0 9.0-12.2 fL Immature Granulocyte % (Auto) 1 % Neutrophils (%) (Auto) 69 42-75 % Lymphocytes (%) (Auto) 22 12-44 % Monocytes (%) (Auto) 6 0-12 % Eosinophils (%) (Auto) 2 0-10 % Basophils (%) (Auto) 1 0-10 % Neutrophils # (Auto) 6.9 1.8-7.8 10^3/uL Lymphocytes # (Auto) 2.2 1.0-4.0 10^3/uL Monocytes # (Auto) 0.6 0.0-1.0 10^3/uL Eosinophils # (Auto) 0.2 0.0-0.3 10^3/uL Basophils # (Auto) 0.1 0.0-0.1 10^3/uL Immature Granulocyte # (Auto) 0.1 0.0-0.1 10^3/uL Sodium Level 140 135-145 MMOL/L Potassium Level 4.3 3.6-5.0 MMOL/L Chloride Level 104 98-107 MMOL/L Carbon Dioxide Level 21 21-32 MMOL/L Anion Gap 15 H 5-14 MMOL/L Blood Urea Nitrogen 25 H 7-18 MG/DL Creatinine 1.02 0.60-1.30 MG/DL Estimat Glomerular Filtration Rate 60 BUN/Creatinine Ratio 25 Glucose Level 135 H 70-105 MG/DL Calcium Level 13.5 *H 8.5-10.1 MG/DL Corrected Calcium 13.3 H 8.5-10.1 MG/DL Magnesium Level 0.8 *L 1.6-2.4 MG/DL Total Bilirubin 0.5 0.1-1.0 MG/DL Aspartate Amino Transf (AST/SGOT) 31 5-34 U/L Alanine Aminotransferase (ALT/SGPT) 24 0-55 U/L Alkaline Phosphatase 65 40-136 U/L Troponin I < 0.028 <0.028 NG/ML Total Protein 8.0 6.4-8.2 GM/DL Albumin 4.3 3.2-4.5 GM/DL Lipase 101 H 8-78 U/L Influenza Type A (RT-PCR) Not Detected Not Detecte Influenza Type B (RT-PCR) Not Detected Not Detecte SARS-CoV-2 RNA (RT-PCR) Not Detected Not Detecte Urine Color YELLOW Urine Clarity CLEAR Urine pH 6.0 5-9 Urine Specific S[place] 1.025 H 1.016-1.022 Urine Protein 2+ H NEGATIVE Urine Glucose (UA) NEGATIVE NEGATIVE Urine Ketones NEGATIVE NEGATIVE Urine Nitrite NEGATIVE NEGATIVE Urine Bilirubin NEGATIVE NEGATIVE Urine Urobilinogen 0.2 < = 1.0 MG/DL Urine Leukocyte Esterase NEGATIVE NEGATIVE Urine RBC (Auto) TRACE H NEGATIVE Urine RBC 0-2 /HPF Urine WBC 2-5 /HPF Urine Squamous Epithelial Cells RARE /HPF Urine Crystals NONE /LPF Urine Bacteria TRACE /HPF Urine Casts NONE /LPF Urine Mucus NEGATIVE /LPF Urine Culture Indicated NO My Orders Orders - ALVINA MUKHERJEE PA Cbc And Automated Diff (07/03/23 13:23) Comprehensive Metabolic Panel (07/03/23 13:23) Magnesium (07/03/23 13:23) Iv/Invasive Line Insertion .IV INSERT (07/03/23 13:23) Troponin I Norma (07/03/23 13:37) Chest 1 View, Ap/Pa Only (07/03/23 13:37) Ua Culture If Indicated (07/03/23 13:37) Lipase (07/03/23 13:37) Ekg Tracing (07/03/23 13:37) Covid 19 Inhouse Test (07/03/23 13:37) Influenza A And B By Pcr (07/03/23 13:37) Magnesium 1 Gm/100 Ml Ivpb (Magnesium 1 (07/03/23 14:08) Ondansetron Injection (Ondansetron Inj (07/03/23 14:30) Ns Iv 1000 Ml (Ns Iv 1000 Ml) (07/03/23 14:31) Magnesium 2 Gm/50 Ml Ivpb (Magnesium 2 G (07/03/23 14:45) Medications Given in ED Current Medications Medications Dose Ordered Sig/Dani Route Start Time Stop Time Status Last Admin Dose Admin Magnesium Sulfate 50 ml @ 25 mls/hr ONCE ONCE IV 07/03/23 14:45 07/03/23 16:44 07/03/23 14:52 25 MLS/HR Ondansetron HCl 4 mg ONCE ONCE IVP 07/03/23 14:30 07/03/23 14:31 DC 07/03/23 14:30 4 MG Vital Signs/I&O 07/03/23 13:29 Temp 36.5 Pulse 91 Resp 18 B/P (MAP) 136/95 (109) Pulse Ox 97 O2 Delivery Room Air Capillary Refill : Blood Pressure Mean: 109 ECG Comment Sinus rhythm, 70 bpm, QRS duration 103 MS, QTc 407 MS Departure Communication (PCP) History of kidney transplant 2010. Currently on low-dose prednisone and tacrolimus. Follows Lary Hernandez at [facility] kidney transplant specialty in [place]. Weakness fatigue over the past 2 days. She states she has stopped her magnesium since she was experiencing some diarrhea prior. No diarrhea at this time. No vomiting. Waking up with chest discomfort belching especially after eating. Recently ate 3 days of chili which she believed this resulted in her pain. History of GERD currently on omeprazole. Has been taking Tums. Patient was sent to the ED secondary to a low magnesium level 0.9 today. Her last calcium level on 23 June was 9. No known history of severe hy percalcemia. CBC, CMP, magnesium was ordered. Magnesium 0.8, calcium of 13.5. Creatinine 1.08 GFR 60. CBC grossly unremarkable. Chest x-ray was negative for pneumonia, pneumothorax. EKG without evidence of arrhythmia, ST elevation or depression. Normal troponin. No current chest pain or any shortness of breath. Supplement 2 g of magnesium. Was started on a liter of fluid. Consulted with Lary Hernandez at [facility]. Recommended this plan at this time. Did send in oral magnesium for patient. Patient does have a borderline elevated calcium level and a significantly low magnesium level. Since patient is symptomatic discussed admission for observation with IV supplementation. Patient was discussed with Dr. Herrera who agreed to accept patient for observation Impression Primary Impression: Hypomagnesemia Additional Impression: Hypercalcemia Disposition: HOME, SELF-CARE Condition: Stable Admissions Decision to Admit Reason: Admit from ER (General) Decision to Admit/Date: Jul 03, 2023 Time/Decision to Admit Time: 14:58 Departure-Patient Inst. Referrals: MERCY STALEY MD (PCP/Family) Primary Care Physician ALVINA MUKHERJEE Jul 03, 2023 13:47
[2023-07-03 13:53] LABS: ALBUMIN 4.3 GM/DL (3.2-4.5); POTASSIUM 4.3 MMOL/L (3.6-5.0)
[2023-07-03 13:58] LABS: BILIRUBIN,TOTAL 0.5 MG/DL (0.1-1.0)
[2023-07-03 13:59] LABS: CREATININE SERUM 1.02 MG/DL (0.60-1.30)
[2023-07-03 14:03] LABS: LIPASE 101 U/L (8-78)
--- NOTE | 2023-07-03 14:06 | Diagnostic Imaging Report ---
EXAMINATION: Chest 1 view HISTORY: cough COMPARISON: 12/20/2022 FINDINGS: Heart size and pulmonary vasculature are normal. The lungs are clear without consolidation, pleural effusion, or pneumothorax. The osseous structures are intact. IMPRESSION: 1. No acute radiographic abnormality in the chest. Dictated by: Dictated on workstation # [id number]
[2023-07-03 14:08] LABS: CALCIUM 13.5 MG/DL (8.5-10.1); MAGNESIUM 0.8 MG/DL (1.6-2.4)
[2023-07-03] MEDS ORDERED: MAGNESIUM 1 GM/100 ML IVPB 100 ML IV STA (14:08)
[2023-07-03] MEDS ORDERED: ONDANSETRON INJECTION 4 MG/2 ML (SDV) IVP ONE (14:30)
[2023-07-03] MEDS ORDERED: NS IV 1000 ML 1,000 ML IV STA (14:31)
[2023-07-03 14:34] LABS: BACTERIA,URINE TRACE /HPF; BILIRUBIN,URINE NEGATIVE (NEGATIVE); CLARITY,URINE CLEAR; COLOR,URINE YELLOW; GLUCOSE, URINE (UA) NEGATIVE (NEGATIVE); KETONES,URINE NEGATIVE (NEGATIVE); LEUKOCYTE ESTERASE ,URINE NEGATIVE (NEGATIVE); NITRITE,URINE NEGATIVE (NEGATIVE); PROTEIN,URINE 2+ (NEGATIVE); RBC,URINE 0-2 /HPF; SQUAMOUS EPITHELIAL CELL,UR RARE /HPF
[2023-07-03] MEDS ORDERED: MAGNESIUM 2 GM/50 ML IVPB 50 ML IV ONE (14:45)
[2023-07-03 16:00] VITALS: BP 150/74
[2023-07-03] MEDS ORDERED: MELATONIN 3 MG TABLET PO PRN (16:00)
[2023-07-03] MEDS ORDERED: ONDANSETRON INJECTION 4 MG/2 ML (SDV) IV PRN (16:00)
[2023-07-03] MEDS ORDERED: ANTACID SUSPENSION 30 ML UDC PO PRN (16:00)
[2023-07-03] MEDS ORDERED: ACETAMINOPHEN 325 MG TABLET PO PRN (16:00)
--- NOTE | 2023-07-03 16:13 | History & Physical-Hospitalist ---
History of Present Illness HPI/Chief Complaint Pt is 68-year-old female known to me from previous admissions who presented to the emergency department due to abnormal labs. She has a history of a renal transplant and follows with her transplant team who had ordered labs for her which revealed her magnesium to be 0.9. They called her and told her to go to the emergency department for evaluation. She reports that she has been having problems with some diarrhea and urinary tract infections and her urologist thought her diarrhea was causing the UTIs and that her UTIs were caused by her magnesium supplement. She quit taking her magnesium supplement a nd over the past few days has begun to feel very weak and tired. She is also having some GI upset so was taking Tums at home. In the emergency department she was found to have a magnesium of 0.8 and calcium of 13. She was admitted for observation for IV fluids and electrolyte replacement. 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 Patients Allergies have been reviewed. Allergies Allergies Coded Allergies No Known Drug Allergies (Unverified12/25/13) Past Uaegsfi-Bbiowi-Kpgtrk Hx Patient Social History Tobacco Use?: No Use of E-Cig and/or Vaping dev: No Substance use?: No Alcohol Use?: No Immunizations Up To Date Date of Influenza Vaccine: May 22, 2019 First/Initial COVID19 Vaccinat: YES Second COVID19 Vaccination Hayden: YES Tetanus Booster (TDap): Less Than 5 Years Hepatitis A: Yes Hepatitis B: Yes PED Vaccines UTD: Yes Date of Pneumonia Vaccine: Jun 21, 2019 Seasonal Allergies Seasonal Allergies: Yes Current Status Communicates: Verbally Primary Language: Turkish Preferred Spoken Language: Turkish Is interpretation needed?: No Past Medical History Surgeries: Bowel Surgery, Cardiac, Section, Coronary Stent, Gallbladder, Joint Replacement, Kidney Transplant, Nephrectomy, Orthopedic, Tonsillectomy, Tubal Ligation Coronary Artery Disease, Heart Attack, High Cholesterol, Hypertension 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 Sexually Transmitted Disease: No HIV/AIDS: No Renal Failure, Dialysis, UTI-Chronic, Polycystic Kidney Disease Gastroesophageal Reflux, Cirrhosis Diabetes, Insulin dep Anxiety, Depression Blood Disorders: No coronary stent, CAD, [place], HTN, DM, neuropathy, GERD, depression Family Medical History Cataract (grandmother ) Chest pain 09 BROTHER Congestive heart failure (grandmother) Dementia (two paternal aunts) Family history: Alzheimer's disease (two paternal aunts) Family history: Arthritis (grandmother) Family history: Cardiovascular disease 09 BROTHER Family history: Hypertension 09 BROTHER Heart disease 09 BROTHER Kidney disease 03 MOTHER Stroke (paternal aunt) No Family History of: Abdominal aortic aneurysm Geneva's disease Alcoholism Aphasia Cancer Cancer of colon Congenital heart disease Cystic fibrosis Dysphagia Family history: Allergy Family history: Asthma Family history: Breast disease Family history: Coronary thrombosis Family history: Diabetes mellitus Family history: Gastrointestinal disease Family history: Glaucoma Family history: Osteoporosis Family history: Thyroid disorder Headache Hearing loss Hereditary disease History of - anemia History of - disorder History of - respiratory disease History of drug abuse Human immunodeficiency virus (HIV) seropositivity Hypercholesterolemia Malignant neoplasm of lung Myocardial infarction Parkinson's disease Prostate cancer Psychotic disorder Seizure disorder Tuberculosis Visual impairment SOCIAL HISTORY: -DENIES SMOKING -DENIES ALCOHOL USE -DENIES DRUG USE PAST SURGICAL HISTORY: -TONSILLECTOMY -WISDOM TEETH REMOVED - -BILATERAL TUBAL LIGATION -RIGHT FOOT SURGERY--BUNIONECTOMY -RIGHT SHOULDER SURGERY -LEFT THUMB REPAIR -LEFT TOTAL KNEE REPLACEMENT -CHOLECYSTECTOMY 11/2009 -ENDOSCOPIES -CARDIAC CATH WITH STENT 09/2008 -BOWEL RESECTION FOR BOWEL OBSTRUCTION -PERITONEAL DIALYSIS -RIGHT ARM A-V GRAFT/FISTULA 10/01/2010 -BILATERAL NEPHRECTOMY WITH RENAL TRANSPLANT 2011 Review of Systems Constitutional: see HPI Physical Exam Physical Exam Vital Signs Vital Signs - First Documented 07/03/23 13:29 Temp 36.5 Pulse 91 Resp 18 B/P (MAP) 136/95 (109) Pulse Ox 97 O2 Delivery Room Air Capillary Refill : Height, Weight, BMI Height: 5'6.00" Weight: 190lbs. 0.0oz. 86.479002vi; 25.00 BMI Method:Stated General Appearance: No Apparent Distress, WD/WN Respiratory: Lungs Clear, No Respiratory Distress Cardiovascular: Regular Rate, Rhythm, No Murmur Gastrointestinal: Normal Bowel Sounds, Soft Neurologic/Psychiatric: Alert, Oriented x3 Results Results/Procedures Labs Laboratory Tests 07/03/23 13:35 Patient resulted labs reviewed. Imaging: Reviewed Imaging Report Imaging [facility] [place], [place] NAME: ANNEMARIE DOVE MED REC#: [id number] PT STATUS: REG ER : 1955 PHYSICIAN: ALVINA MUKHERJEE ADMIT DATE: 07/03/23/ER Signed Date of Exam:07/03/23 CHEST 1 VIEW, AP/PA ONLY EXAMINATION: Chest 1 view HISTORY: cough COMPARISON: 12/20/2022 FINDINGS: Heart size and pulmonary vasculature are normal. The lungs are clear without consolidation, pleural effusion, or pneumothorax. The osseous structures are intact. IMPRESSION: 1. No acute radiographic abnormality in the chest. Dictated by: Dictated on workstation # [id number] Dict: 07/03/231402 Trans: 07/03/231408 [facility] [id number] Interpreted by: MARCELINO GANNON DO Electronically signed by: MARCELINO GANNON DO 07/03/23 1409 Assessment/Plan Admission Diagnosis Hypercalcemia Hypomagnesemia Admission Status: Observation Assessment and Plan Hypercalcemia Hypomagnesemia IVF Replace Mag Check in AM ER spoke with renal transplant team- recommended conservative management and no need for transfer but to stop Vitamin D Renal transplant Resume anti rejection medications when med rec done Creatinine stable (0.9 last week and today 1.02) Trend IDDMII SSI HTN Resume home meds DVT ppx: SCDs/ambulate ADRIAN DESAI MD Jul 03, 2023 16:13
--- NOTE | 2023-07-03 16:19 | Discharge Inst-Simple/Standard ---
Discharge Inst-Standard Patient Instructions/Follow Up Plan of Care/Instructions/FU: Please continue to take your medications as written. Please follow up with your primary care doctor to follow up this hospital stay. Activity as Tolerated: Yes Discharge Diet: No Restrictions Return to The Hospital For: Chest pain, shortness of breath, fever, weakness, if you feel you are getting worse. ADRIAN DESAI MD Jul 03, 2023 16:19
[2023-07-03] MEDS: NS IV 1000 ML 1,000 ML IV SCH (16:47)
[2023-07-03] MEDS: MAGNESIUM 1 GM/100 ML IVPB 100 ML IV SCH ×2 (16:48→17:50)
[2023-07-03] MEDS: inSUlin ASPART 1 UNIT/0.01 ML (PER UNIT) SC SCH ×2 (16:48→21:00)
[2023-07-03 19:28] VITALS: BP 162/67
[2023-07-03] MEDS ORDERED: METF-478 PO (20:21)
[2023-07-03] MEDS ORDERED: ASPIRIN enteric coated 81MG TABLET PO SCH (21:00)
[2023-07-03] MEDS ORDERED: TEMAZEPAM 15 MG (RESTORIL) CAP PO SCH (21:00)
[2023-07-03] MEDS: carvediloL 6.25 MG TABLET PO SCH (21:58)
[2023-07-03] MEDS: PANTOPRAZOLE 40 MG TABLET PO SCH (21:59)
[2023-07-03] MEDS: OMEGA ACID ETHYL ESTERS PO SCH (21:59)
[2023-07-03] MEDS: RIFAXIMIN 550 MG TABLET PO SCH (21:59)
[2023-07-03] MEDS: APIXABAN 5 MG TABLET PO SCH (21:59)
[2023-07-03] MEDS: TACROLIMUS 0.5 MG CAPSULE (NON-FORMULARY) PO SCH (22:10)
[2023-07-03 23:02] VITALS: BP 153/71
[2023-07-03] MEDS ORDERED: PATIENT MAY USE OWN MED,SINGLE MED PO SCH (23:30)
[2023-07-04] MEDS: NS IV 1000 ML 1,000 ML IV SCH ×2 (02:38→08:37)
[2023-07-04 03:42] VITALS: BP 133/73
[2023-07-04 05:59] LABS: HEMATOCRIT 34 % (35-52); HEMOGLOBIN 11.6 g/dL (11.5-16.0); MEAN CORPUSCULAR HEMOGLOBIN 32 pg (25-34); MEAN CORPUSCULAR HGB CONC 34 g/dL (32-36); MEAN CORPUSCULAR VOLUME 96 fL (80-99); PLATELET COUNT 145 10^3/uL (130-400); WHITE BLOOD COUNT 8.8 10^3/uL (4.3-11.0)
[2023-07-04] MEDS: PANTOPRAZOLE 40 MG TABLET PO SCH (06:19)
[2023-07-04 06:34] LABS: ALBUMIN 3.5 GM/DL (3.2-4.5); POTASSIUM 4.2 MMOL/L (3.6-5.0)
[2023-07-04 06:35] LABS: CALCIUM 11.6 MG/DL (8.5-10.1)
[2023-07-04 06:36] LABS: TOTAL PROTEIN 6.1 GM/DL (6.4-8.2)
[2023-07-04 06:38] LABS: BILIRUBIN,TOTAL 0.7 MG/DL (0.1-1.0)
[2023-07-04] MEDS: inSUlin ASPART 1 UNIT/0.01 ML (PER UNIT) SC SCH (06:38)
[2023-07-04 06:40] LABS: CREATININE SERUM 0.84 MG/DL (0.60-1.30)
[2023-07-04] MEDS ORDERED: THERAPEUTIC MULTIVITAMIN W/MINERALS TABLET PO SCH (07:00)
[2023-07-04 07:45] VITALS: BP 164/72
[2023-07-04] MEDS: MAGNESIUM 1 GM/100 ML IVPB 100 ML IV SCH ×3 (08:37→10:22)
[2023-07-04] MEDS: carvediloL 6.25 MG TABLET PO SCH (08:44)
[2023-07-04] MEDS: APIXABAN 5 MG TABLET PO SCH (08:44)
[2023-07-04] MEDS: TACROLIMUS 0.5 MG CAPSULE (NON-FORMULARY) PO SCH (08:45)
[2023-07-04] MEDS: RIFAXIMIN 550 MG TABLET PO SCH (08:45)
[2023-07-04] MEDS: OMEGA ACID ETHYL ESTERS PO SCH (08:45)
[2023-07-04] MEDS ORDERED: LOSARTAN 50 MG TABLET PO SCH (09:00)
[2023-07-04] MEDS ORDERED: ALLOPURINOL 100 MG TABLET PO SCH (09:00)
[2023-07-04] MEDS ORDERED: ALLOPURINOL 300 MG TABLET PO SCH (09:00)
[2023-07-04] MEDS ORDERED: predniSONE 5 MG TABLET PO SCH (09:00)
--- NOTE | 2023-07-04 09:21 | Physical Therapy Evaluation ---
PT Evaluation-General Medical Diagnosis Admission Date Jul 03, 2023 at 15:41 Medical Diagnosis: low magnesium Onset Date: Jul 03, 2023 Therapy Diagnosis Therapy Diagnosis: decreased mobility Height/Weight Height (Feet): 5 Height (Inches): 6.00 Weight (Pounds): 190 Weight (Ounces): 0.0 Precautions Precautions/Isolations: Standard Precautions Weight Bear Status Right Lower Extremity: Right Full Weight Bearing Left Lower Extremity: Left Full Weight Bearing Referral Physician: Javier Reason for Referral: Evaluation/Treatment Medical History Pertinent Medical History: DM, HTN, MO, Neuropathy Current History Pt. admitted to hospital with low magnesium. Reviewed History: Yes Social History Home: Single Level Current Living Status: Spouse Prior Prior Level of Function SCALE: Activities may be completed with or without assistive devices. 4-[id number] completes the activity by him/herself with no assistance from a helper. 5-Set-up or Clean-up Assistance-helper sets up or cleans up; patient completes activity. [place] assists only prior to or following the activity. 4-Supervision or Touching Assistance-helper provides verbal cues and/or touching/steadying and/or contact guard assistance as patient completes activity. Assistance may be provided throughout the activity or intermittently. 3-Partial/Moderate Assistance-helper does LESS THAN HALF the effort. [place] lifts, holds or supports trunk or limbs, but provides less than half the effort. 2-Substantial/Maximal Assistance-helper does MORE THAN HALF the effort. [place] lifts or holds trunk or limbs and provides more than half the effort. 4-Yonlxrryi-lwetru does ALL the effort. Patient does none of the effort to complete the activity. Or, the assistance of 2 or more helpers is required for the patient to complete the activity. If activity was not attempted, code reason: 7-Patient Refused. 9-Not Applicable-not attempted and the patient did not perform the activity before the current illness, exacerbation or injury. 10-Not Attempted due to Environmental Limitations-(lack of equipment, weather restraints, etc.). 88-Not Attempted due to Medical Conditions or Safety Concerns. Bed Mobility: 6 Transfers (B,C,W/C): 6 Gait: 6 Stairs: 6 Wheelchair Mobility: 6 Indoor Mobility (Ambulation): Independent (6) Stairs: Independent Prior Devices Use: None PT Evaluation-Current Subjective Pt. getting out of bed with nursing staff to use bathroom. Pt. observed (I) with all out of bed transfers. She states she is planning to go home today. Pt/Family Goals home Objective Patient Orientation: Person, Place, Time, Situation Attachments: IV ROM/Strength ROM Upper Extremities WNL ROM Lower Extremities WNL Strength Upper Extremities WNL Strength Lower Extremities WNL Integumentary/Posture Bowel Incontinence: No Bladder Incontinence: No Posture upright Neuromuscular (Tone, Coordination, Reflexes) unremarkable Sensory Vision: Wears Glasses Hearing: Functional Sensation Right Upper Extremit: Intact Sensation Left Upper Extremity: Intact Sensation Right Lower Extremit: Impaired Sensation Left Lower Extremity: Impaired Transfers Sit to Lying (QC): 6 Lying to Sitting/Side of Bed(Q: 6 Sit to Stand (QC): 6 Gait Does the Patient Walk?: Yes Mode of Locomotion: Walk Anticipated Mode of Locomotion: Walk Walk 10 feet (QC): 6 Distance: 2 x 15 ft Gait Assistive Device: None Assessment/Needs Pt. is a 68 y.o. female admitted to hospital for low magnesium. Pt. is currently (I) with all transfers, assist only with IV pole. Pt. is likely planning to discharge home today and no further skilled PT intervention needed. Rehab Potential: Good PT Short Term Goals Short Term Goals Time Frame: Jul 04, 2023 Sit to lyin Lying to sitting on side of be: 6 Sit to stand: 6 Toilet transfer: 6 Walk 10 feet: 6 PT Plan Treatment/Plan Treatment Plan: Discontinue PT, goals met Treatment Duration: Jul 04, 2023 Frequency: discharge Patient and/or Family Agrees t: Yes Time Time In: 814 Time Out: 824 DATE: Jul 04, 2023 Total Billed Treatment Time: 10 Total Billed Treatment 1, MANISH 10' CORDELL HODGES PT Jul 04, 2023 09:21
--- NOTE | 2023-07-04 09:48 | Discharge Summary ---
Diagnosis/Chief Complaint Date of Admission Jul 03, 2023 at 15:41 Date of Discharge Discharge Date: Jul 04, 2023 Admission Diagnosis Hypercalcemia Hypomagnesemia Primary Care Alexy Mcgee MD Discharge Summary Discharge Physical Exam Allergies: Coded Allergies: No Known Drug Allergies (Unverified , 12/25/13) Vitals & I&Os Vital Signs Date Time Temp Pulse Resp B/P (MAP) Pulse Ox O2 Delivery O2 Flow Rate FiO2 07/04/23 07:45 36.7 76 16 164/72 (102) 96 Room Air Hospital Course Labs (last 24 hrs) Laboratory Tests 07/03/23 13:35: White Blood Count 10.0, Red Blood Count 4.26, Hemoglobin 13.9, Hematocrit 41, Mean Corpuscular Volume 95, Mean Corpuscular Hemoglobin 33, Mean Corpuscular Hemoglobin Concent 34, Red Cell Distribution Width 14.0, Platelet Count 203, Mean Platelet Volume 10.0, Immature Granulocyte % (Auto) 1, Neutrophils (%) (Auto) 69, Lymphocytes (%) (Auto) 22, Monocytes (%) (Auto) 6, Eosinophils (%) (Auto) 2, Basophils (%) (Auto) 1, Neutrophils # (Auto) 6.9, Lymphocytes # (Auto) 2.2, Monocytes # (Auto) 0.6, Eosinophils # (Auto) 0.2, Basophils # (Auto) 0.1, Immature Granulocyte # (Auto) 0.1, Sodium Level 140, Potassium Level 4.3, Chloride Level 104, Carbon Dioxide Level 21, Anion Gap 15H, Blood Urea Nitrogen 25H, Creatinine 1.02, Estimat Glomerular Filtration Rate 60, BUN/Creatinine Ratio 25, Glucose Level 135H, Calcium Level 13.5*H, Corrected Calcium 13.3H, Magnesium Level 0.8*L, Total Bilirubin 0.5, Aspartate Amino Transf (AST/SGOT) 31, Alanine Aminotransferase (ALT/SGPT) 24, Alkaline Phosphatase 65, Troponin I < 0.028, Total Protein 8.0, Albumin 4.3, Lipase 101H 07/03/23 13:47: Influenza Type A (RT-PCR) Not Detected, Influenza Type B (RT-PCR) Not Detected, SARS-CoV-2 RNA (RT-PCR) Not Detected 07/03/23 14:15: Urine Color YELLOW, Urine Clarity CLEAR, Urine pH 6.0, Urine Specific [place] 1.025H, Urine Protein 2+H, Urine Glucose (UA) NEGATIVE, Urine Ketones NEGATIVE, Urine Nitrite NEGATIVE, Urine Bilirubin NEGATIVE, Urine Urobilinogen 0.2, Urine Leukocyte Esterase NEGATIVE, Urine RBC (Auto) TRACEH, Urine RBC 0-2, Urine WBC 2-5, Urine Squamous Epithelial Cells RARE, Urine Crystals NONE, Urine Bacteria TRACE, Urine Casts NONE, Urine Mucus NEGATIVE, Urine Culture Indicated NO 07/03/23 16:28: Glucometer 120H 07/03/23 20:46: Glucometer 122H 07/04/23 05:46: White Blood Count 8.8, Red Blood Count 3.58L, Hemoglobin 11.6, Hematocrit 34L, Mean Corpuscular Volume 96, Mean Corpuscular Hemoglobin 32, Mean Corpuscular Hemoglobin Concent 34, Red Cell Distribution Width 13.8, Platelet Count 145, Mean Platelet Volume 10.0, Sodium Level 137, Potassium Level 4.2, Chloride Level 106, Carbon Dioxide Level 22, Anion Gap 9, Blood Urea Nitrogen 22H, Creatinine 0.84, Estimat Glomerular Filtration Rate 76, BUN/Creatinine Ratio 26, Glucose Level 114H, Calcium Level 11.6H, Corrected Calcium 12.0H, Magnesium Level 1.1*L, Total Bilirubin 0.7, Aspartate Amino Transf (AST/SGOT) 23, Alanine Aminotransferase (ALT/SGPT) 19, Alkaline Phosphatase 49, Total Protein 6.1L, Albumin 3.5 Patient resulted labs reviewed. Pending Labs Laboratory Tests 07/04/23 05:46: White Blood Count 8.8, Red Blood Count 3.58, Hemoglobin 11.6, Hematocrit 34, Mean Corpuscular Volume 96, Mean Corpuscular Hemoglobin 32, Mean Corpuscular Hemoglobin Concent 34, Red Cell Distribution Width 13.8, Platelet Count 145, Mean Platelet Volume 10.0, Sodium Level 137, Potassium Level 4.2, Chloride Level 106, Carbon Dioxide Level 22, Anion Gap 9, Blood Urea Nitrogen 22, Creatinine 0.84, Estimat Glomerular Filtration Rate 76, BUN/Creatinine Ratio 26, Glucose Level 114, Calcium Level 11.6, Corrected Calcium 12.0, Magnesium Level 1.1, Total Bilirubin 0.7, Aspartate Amino Transf (AST/SGOT) 23, Alanine Aminotransferase (ALT/SGPT) 19, Alkaline Phosphatase 49, Total Protein 6.1, Albumin 3.5 Imaging: Reviewed Imaging Report Discharge Home Medications: Active Scripts Active Reported Metformin HCl ER (Metformin HCl) 500 Mg Tab.er.24 500 Mg PO DAILY Tacrolimus 0.5 Mg Capsule 1 Mg PO BID TAKES 2 (0.5MG) CAPS Multivitamin 1 Each Tablet 1 Each PO DAILY Ozempic (Semaglutide) 2 Mg/0.75 Ml (8 Mg/3 Ml) Pen.injctr 2 Mg SQ THURSDAY Welch-3 Acid Ethyl Esters 1 Gram Capsule 2 Gm PO BID TAKES 2 (1 GRAM) CAPSULES Allopurinol 100 Mg Tablet 100 Mg PO DAILY TAKES WITH 300MG TO EQUAL 400MG Novolog Flexpen (Insulin Aspart) 100 Unit/Ml (3 Ml) Solution 8 Units SQ WITH DINNER Novolog Flexpen (Insulin Aspart) 100 Unit/Ml (3 Ml) Solution 8 Units SQ WITH LUNCH Novolog Flexpen (Insulin Aspart) 100 Unit/Ml (3 Ml) Solution 6 Units SQ WITH BREAKFAST B12 Active (Mecobalamin) 1,000 Mcg Tab.chew 1,000 Mcg PO DAILY Candesartan Cilexetil 8 Mg Tablet 8 Mg PO DAILY Allopurinol 300 Mg Tablet 300 Mg PO DAILY TAKES WITH 100MG TO EQUAL 400MG Carvedilol 6.25 Mg Tablet 6.25 Mg PO BID Eliquis (Apixaban) 5 Mg Tablet 5 Mg PO BID Aspirin EC (Aspirin) 81 Mg Tablet.dr 81 Mg PO HS Prednisone 5 Mg Tablet 5 Mg PO DAILY Omeprazole 40 Mg Capsule.dr 40 Mg PO BID Atorvastatin Calcium 20 Mg Tablet 20 Mg PO HS Magnesium Oxide 400 Mg (241.3 Mg Magnesium) Tablet 800 Mg PO BID TAKES 2 (400MG) TABLETS Xifaxan (Rifaximin) 550 Mg Tablet 550 Mg PO BID Temazepam 15 Mg Capsule 15 Mg PO HS Instructions to patient/family Please see electronic discharge instructions given to patient. ADRIAN DESAI MD Jul 04, 2023 09:48
[2023-07-04 11:36] VITALS: BP 164/72
== END 2023-07-04 09:58 | disposition home or self-care (01) ==
LOC: EDUNIT# 13:15 → ER 13:16 → UNDOADMOB 15:41 → 4TH 15:41 → UNDODISOB 07-04 12:08
PROVIDERS: ADMIT Family Medicine; ATTEND Family Medicine
DX: E83.52 Hypercalcemia (principal); E83.42 Hypomagnesemia; E11.9 Type 2 diabetes mellitus without complications; I10 Essential (primary) hypertension; Z94.0 Kidney transplant status; Z79.899 Other long term (current) drug therapy; Z79.4 Long term (current) use of insulin; Z79.84 Long term (current) use of oral hypoglycemic drugs
CPT/HCPCS: 71045; 80053 ×2; 81000; 82947; 83690; 83735 ×2; 84484; 85025; 85027; 87636; 93005; 96361; 96365; 96366 ×2; 96375; 96376 ×2; 97161; 99284; G0378; 36415